=== PATIENT | male | born 1960 | race Caucasian/White ===

== ENCOUNTER 2016-07-14 19:36 | Inpatient (IN) | payer MEDICAID, OTHER ==
[2016-07-14] MEDS ORDERED: Aspirin 325 mg EC Tablets PO STA (21:23)
--- NOTE | 2016-07-14 21:24 | C.PDOC ---
History Of Present Illness Patient, with a past medical history of hypertension, presents to the ED complaining of intermittent chest discomfort for the past month. Patient also complains of occasional numbness. Patient denies fever, palpitations, shortness of breath, nausea, vomiting, or weakness. Time Seen by Provider: 07/14/16 21:23 Chief Complaint (Nursing): Chest Pain History Per: Patient History/Exam Limitations: no limitations Onset/Duration Of Symptoms: Intermittent Episodes (1 month) Current Symptoms Are (Timing): Still Present Context: Other Severity: Mild Pain Scale Rating Of: 3 Quality: Other (discomfort) Exacerbating Factors: None Alleviating Factors: None Recent travel outside of the [place]: No Additional History Per: Patient Past Medical History Reviewed: Historical Data, Nursing Documentation, Vital Signs Vital Signs: Last Vital Signs Temp 97.6 F 07/15/16 17:37 Pulse 76 07/15/16 17:00 Resp 20 07/15/16 17:37 BP 113/63 07/15/16 17:37 Pulse Ox 97 07/15/16 17:37 - Medical History PMH: HTN - [facility] FOR SUBSTANCE ABUSE TREATMENT (01/30/15) Family History: States: No Known Family Hx - Social History Hx Tobacco Use: No Hx Alcohol Use: Yes Hx Substance Use: No - Immunization History Hx Tetanus Toxoid Vaccination: No Hx Influenza Vaccination: No Hx Pneumococcal Vaccination: No Review Of Systems Constitutional: Negative for: Fever Cardiovascular: Positive for: Other (chest discomfort). Negative for: Palpitations Respiratory: Negative for: Shortness of Breath Gastrointestinal: Negative for: Nausea, Vomiting Neurological: Positive for: Numbness. Negative for: Weakness Physical Exam - Physical Exam Appears: Non-toxic, No Acute Distress, Other (sleeping) Skin: Warm, Dry Head: Atraumatic, Normacephalic Eye(s): bilateral: EOMI Oral Mucosa: Moist Neck: Supple Chest: Symmetrical Cardiovascular: Rhythm Regular Respiratory: No Rales, No Rhonchi, No Wheezing Gastrointestinal/Abdominal: Soft, No Tenderness Back: No CVA Tenderness Extremity: Bilateral: Atraumatic, Normal Color And Temperature Neurological/Psych: Oriented x3, Normal Speech, Normal Cognition, Normal Motor, Normal Sensation Gait: Steady ED Course And Treatment - Laboratory Results Result Diagrams: 07/14/16 21:51 07/14/16 21:51 ECG: Interpreted By Me, Viewed By Me ECG Rhythm: Sinus Rhythm (53), Nonspecific Changes O2 Sat by Pulse Oximetry: 100 (room air) Pulse Ox Interpretation: Normal - Radiology CXR: Interpreted by Me, Viewed By Me CXR Interpretation: No: Infiltrates, Fracture, Pnemothorax Progress Note: Plan: EKG, Labs, Chest x-ray, Ecotrin Reassessment Condition: Improved Disposition Counseled Patient/Family Regarding: Studies Performed, Diagnosis, Need For Followup - Disposition Disposition: HOME/ ROUTINE Disposition Time: 21:23 Condition: FAIR - Clinical Impression Clinical Impression: Chest pain - Scribe Statement The provider has reviewed the documentation as recorded by the Scribe Tarah Guillen Provider Attestation: All medical record entries made by the Scribe were at my direction and personally dictated by me. I have reviewed the chart and agree that the record accurately reflects my personal performance of the history, physical exam, medical decision making, and the department course for this patient. I have also personally directed, reviewed, and agree with the discharge instructions and disposition.
[2016-07-14 22:00] LABS: BASO % 0.3 % (0.0-2.0); EOS # 0.1 K/uL (0.0-0.7); LYMPH # 1.9 K/uL (1.0-4.3); LYMPH % 25.9 % (20.0-40.0); MEAN CELL VOLUME 89.5 fL (80.0-94.0); MEAN CORPUSCULAR HEMOGLOBIN 29.4 pg (27.0-31.0); MEAN CORPUSCULAR HGB CONC 32.9 g/dL (33.0-37.0); MONO # 0.8 K/uL (0.0-0.8); MONO % 10.5 % (0.0-10.0); RED CELL DISTRIBUTION WIDTH 13.3 % (11.5-14.5); WHITE BLOOD COUNT 7.5 K/uL (4.8-10.8)
[2016-07-14 22:05] LABS: CHLORIDE 99 mmol/L (98-107); POTASSIUM 4.4 mmol/L (3.6-5.2); SODIUM 137 mmol/L (132-148)
[2016-07-14 22:07] LABS: BILIRUBIN,TOTAL 1.5 mg/dL (0.2-1.3); GFR AFRICAN-AMERICAN > 60
[2016-07-14 22:08] LABS: ALB/GLOB RATIO 1.2 (1.0-2.1); ALKALINE PHOSPHATASE 76 U/L (38-126); ALT/SGPT 26 U/L (21-72); AST/SGOT 29 U/L (17-59); BLOOD UREA NITROGEN 16 mg/dL (9-20); CARBON DIOXIDE 24 mmol/L (22-30); GLUCOSE,RANDOM 81 mg/dL (75-110); TOTAL PROTEIN 7.2 g/dL (6.3-8.3)
[2016-07-14 22:09] LABS: CALCIUM 9.1 mg/dl (8.6-10.4)
[2016-07-14 22:20] LABS: INR 1.3
[2016-07-15 02:40] LABS: URINE BILIRUBIN NEGATIVE (NEGATIVE); URINE BLOOD NEGATIVE (NEGATIVE); URINE COLOR Amber (YELLOW); URINE GLUCOSE (UA) NORMAL (Normal); URINE KETONE 2+ mg/dL (NEGATIVE); URINE LEUKOCYTE ESTERASE NEG Leu/uL (Negative); URINE PROTEIN NEGATIVE (NEGATIVE); WBC URINE 2 /hpf (0-5)
--- NOTE | 2016-07-15 08:29 | CT ---
PROCEDURE: CT HEAD WITHOUT CONTRAST. HISTORY: complaints of numbness COMPARISON: None available. TECHNIQUE: Axial computed tomography images were obtained through the head/brain without intravenous contrast. Radiation dose: Total exam DLP = 880 mGy-cm. This CT exam was performed using one or more of the following dose reduction techniques: Automated exposure control, adjustment of the mA and/or kV according to patient size, and/or use of iterative reconstruction technique. FINDINGS: HEMORRHAGE: No intracranial hemorrhage. BRAIN: Scattered focal lucencies in the subcortical and periventricular white matter suggestive for chronic microvascular ischemic change. Small hypodensity in the left basal ganglia may represent small lacunar infarct versus prominent perivascular space. Focal encephalomalacia and or atrophy seen within the bilateral anterior temporal lobes. VENTRICLES: Unremarkable. No hydrocephalus. CALVARIUM: Unremarkable. PARANASAL SINUSES: Unremarkable as visualized. No significant inflammatory changes. MASTOID AIR CELLS: Unremarkable as visualized. No inflammatory changes. OTHER FINDINGS: Small focal calcification seen along the medial right aspect of the anterior falx measuring 9 millimeters which may represent granulomatous change versus small calcified meningioma versus additional etiology. IMPRESSION: Focal encephalomalacia and or atrophy seen within the bilateral anterior temporal lobes. Clinical correlation. Correlation with MRI may be helpful if clinically indicated. Chronic microvascular ischemic changes. Small hypodensity in the left basal ganglia which may represent a small lacunar infarct versus prominent perivascular space. If focal neurologic deficit persists, consider further evaluation with MRI.
--- NOTE | 2016-07-15 09:41 | RAD ---
PROCEDURE: CHEST RADIOGRAPH, 1 VIEW HISTORY: chest pain COMPARISON: 02/01/2015 FINDINGS: LUNGS: Mild venous congestion. Patchy increased markings at the left lung base. PLEURA: As above. CARDIOVASCULAR: Normal. OSSEOUS STRUCTURES: No significant abnormalities. VISUALIZED UPPER ABDOMEN: Normal. OTHER FINDINGS: None. IMPRESSION: Mild venous congestion. Patchy increased markings at the left lung base.
--- NOTE | 2016-07-15 10:53 | CP.PCM.HP ---
<Anibal Coelho - Last Filed: 07/15/16 16:01> History of Present Illness - History of Present Illness History of Present Illness: CC: "Weakness in legs and numbness of my entire body" 55M with PMH of HTN and prior ETOH abuse who presents to the ED for complaint of weakness in his legs and diffuse numbness. He reports that he first experienced a tingling in his chest about a month ago that gradually spread throughout his entire body and progressed to numbness. He describes it as "feeling off" and notes that at first it would come and go, but it progressed to being persistent. About the same time he noticed his legs were growing weak and he had more difficulty walking around. He cannot name any inciting factors, any relieving factors or any exacerbating factors. He had never experienced these symptoms before one month ago. Patient is currently denying any pain. Nothing he notices, alleviates or exacerbates any of his symptoms. Admits weakness, numbness, shortness of breath, urinary urgency. Denies urinary or bowel incontinence, fever, chills, headache, vision changes, hearing changes, recent illness, nausea, vomiting, diarrhea, and edema. PMD: Previously went to [facility] on [address] and in [place] PMH: HTN, prior EtOH abuse Meds: HCTZ 25 mg PO daily, Norvasc 10 mg PO daily, Famotidine 20 mg PO daily, Ibuprofen 400 mg PO Q6H PRN, Benadryl 25 mg PO Q6H PRN Allergies: NKDA PSH: Denies FH: Mother had HTN, now Social: Pt recently moved back to about 1.5 months ago after previously living in [facility] for a few years. He smoked 3-4 cigarettes per day for 27 years. Drank 1-2 shots and 3-4 large beers daily Present on Admission - Present on Admission Any Indicators Present on Admission: No History of DVT/PE: No History of Uncontrolled Diabetes: No Urinary Catheter: No Decubitus Ulcer Present: No Review of Systems - Constitutional Constitutional: Fatigue. absent: Weight Gain, Weight Loss - EENT Eyes: absent: Blurred Vision, Change in Vision, Diplopia - Cardiovascular Cardiovascular: absent: Diaphoresis, Leg Edema - Respiratory Respiratory: Dyspnea - Gastrointestinal Gastrointestinal: absent: Abdominal Pain, Constipation, Diarrhea, Nausea, Vomiting - Genitourinary Genitourinary: absent: Urinary Incontinence - Musculoskeletal Musculoskeletal: Numbness (described throughout the entire body) - Integumentary Integumentary: absent: Rash - Neurological Neurological: Abnormal Gait (patient has trouble standing from a seated position. ambulates with a walker), Numbness, Frequent Falls, Lack of Coordination, Tingling, Weakness. absent: Abnormal Speech, Headaches, Loss of Vision, Syncope Past Patient History - Past Medical History & Family History Past Medical History?: Yes - Past Social History Smoking Status: Light Smoker < 10 Cigarettes Daily - CARDIAC Hx Hypertension: Yes - PULMONARY Hx Tuberculosis: No - NEUROLOGICAL Hx Seizures: No - ENDOCRINE/METABOLIC Hx Diabetes Mellitus Type 1: No Hx Diabetes Mellitus Type 2: No - HEMATOLOGICAL/ONCOLOGICAL Hx Human Immunodeficiency Virus (HIV): No - MUSCULOSKELETAL/RHEUMATOLOGICAL Hx Falls: No - GENITOURINARY/GYNECOLOGICAL Hx Sexually Transmitted Disorders: No - PSYCHIATRIC Hx Substance Use: No - SURGICAL HISTORY Hx Surgeries: No - ANESTHESIA Hx Anesthesia: No Meds Allergies/Adverse Reactions: Allergies Allergy/AdvReac Type Severity Reaction Status Date / Time No Known Allergies Allergy Verified 07/14/16 20:23 Physical Exam - Constitutional Appears: No Acute Distress - Head Exam Head Exam: ATRAUMATIC, NORMAL INSPECTION, NORMOCEPHALIC - Eye Exam Eye Exam: EOMI, Scleral icterus. absent: Conjunctival injection - ENT Exam ENT Exam: Mucous Membranes Dry - Neck Exam Neck exam: Positive for: Full Rom - Respiratory Exam Respiratory Exam: Clear to Auscultation Bilateral. absent: Rales, Rhonchi, Wheezes - Cardiovascular Exam Cardiovascular Exam: REGULAR RHYTHM, +S1, +S2 - GI/Abdominal Exam GI & Abdominal Exam: Diminished Bowel Sounds, Soft. absent: Guarding, Rebound, Tenderness - Extremities Exam Extremities exam: Positive for: normal capillary refill, pedal pulses present. Negative for: calf tenderness, full ROM (contractions), pedal edema - Back Exam Back exam: absent: CVA tenderness (L), CVA tenderness (R) - Neurological Exam Neurological exam: Abnormal Gait, Alert, CN II-XII Intact, Oriented x3 - Expanded Neurological Exam Expanded Neurological exam: Ataxia Patient oriented to: person, place, time Cranial nerves: EOM's Intact: Normal, Facial Sensation: Normal, Gag Reflex: Normal Ataxia: Yes Cerebellar Function: Finger to Nose: Normal Neuro motor strength exam: Left Upper Extremity: 4, Right Upper Extremity: 4, Left Lower Extremity: 3, Right Lower Extremity: 4 DTR: Achilles Tendon Left: 0, Achilles Tendon Right: 0, Bicep Left: 2+, Bicep Right: 2+, Brachioradialis Left: 2+, Brachioradialis Right: 2+, Patellar Left: 3 +, Patellar Right: 3+, Tricep Left: 0, Tricep Right: 0 Coma Scale Eye Opening: SPONTANEOUS Coma Scale Motor Response: OBEYS COMMANDS Coma Scale Verbal: Oriented Coma Scale Total: 15 - Psychiatric Exam Psychiatric exam: Anxious - Skin Skin Exam: Dry, Intact, Normal Color Additional comments: LE slightly cold to touch Results - Vital Signs Recent Vital Signs: Last Vital Signs Temp 97.9 F 07/15/16 08:54 Pulse 80 07/15/16 08:54 Resp 18 07/15/16 08:54 BP 151/73 H 07/15/16 08:54 Pulse Ox 95 07/15/16 08:54 - Labs Result Diagrams: 07/14/16 21:51 07/14/16 21:51 Assessment & Plan - Assessment and Plan (Free Text) Plan: 1. Generalized Lower extremity weakness Admit to telemetry Neurology consult, Dr. Miranda, help appreciated CT head Brain MRI: Focal encephalomalacia and or atrophy seen within the bilateral anterior temporal lobes. Clinical correlation. Correlation with MRI may be helpful if clinically indicated. Chronic microvascular ischemic changes. Small hypodensity in the left basal ganglia which may represent a small lacunar infarct versus prominent perivascular space (see full report) Lumbar XR Cervical XR CXR: Mild venous congestion. Patchy increased markings at the left lung base ( see full report) HIV, RPR, DAWN, RF, Lyme titers, ESR Vitamin D, Vitamin B12 CPK Neurochecks ASA 81 mg PO daily Crestor 5 mg PO HS f/u daily labs NS 100 cc/hr HHD 2. HTN HCTZ 25 mg po daily Norvasc 10 mg PO daily 3. Prophylactic Measures Prontonix 40 mg PO daily Lovenox 40 mg SC daily SCDs HHD NIHSS Stroke Scale - Date/Time Evaluation Performed Date Performed: 07/15/16 Time Performed: 10:30 When Was NIHSS Performed: Other - How Severe is the Stoke Level of Consciousness: 0=Alert LOC to Questions: 0=Both comments correct LOC to commands: 0=Obeys both correctly Best Gaze: 0=Normal Visual: 0=No visual loss Facial: 0=Normal Motor Arm - Left: 0=No drift Motor Arm - Right: 0=No drift Motor Leg - Left: 1=Drift before 5 sec Motor Leg - Right: 0=No drift Limb Ataxia: 1=Present Upper or Lower (lower) Sensory: 1=Mild to moderate loss Best Language: 0=No aphasia Dysarthia: 0=Normal articulation Extinction & Inattention (Neglect): 0=Normal, no object Score: 3 Severity Of Stroke: 1-4= Minor Stroke <Sonia Levine V - Last Filed: 07/15/16 23:56> Results - Vital Signs Recent Vital Signs: Last Vital Signs Temp 97.6 F 07/15/16 17:37 Pulse 76 07/15/16 17:00 Resp 20 07/15/16 17:37 BP 113/63 07/15/16 17:37 Pulse Ox 100 07/15/16 21:07 - Labs Result Diagrams: 07/14/16 21:51 07/14/16 21:51 Labs: Laboratory Results - last 24 hr 07/15/16 07/15/16 07/15/16 13:18 13:18 13:18 ESR Hemoglobin A1c 6.1 Total Creatine Kinase 157 CK-MB (Mass) 2.37 Troponin I, Quant < 0.0120 Triglycerides 84 Cholesterol 150 LDL Cholesterol Direct 86 HDL Cholesterol 39 Vitamin B12 694 25-OH Vitamin D Total Folate Thyroxine (T4) 9.33 TSH 3rd Generation 0.60 RPR 07/15/16 07/15/16 07/15/16 13:18 19:37 19:37 ESR 30 H Hemoglobin A1c Total Creatine Kinase CK-MB (Mass) Troponin I, Quant Triglycerides Cholesterol LDL Cholesterol Direct HDL Cholesterol Vitamin B12 726 25-OH Vitamin D Total Folate 14.0 Thyroxine (T4) TSH 3rd Generation RPR Nonreactive 07/15/16 19:41 ESR Hemoglobin A1c Total Creatine Kinase CK-MB (Mass) Troponin I, Quant Triglycerides Cholesterol LDL Cholesterol Direct HDL Cholesterol Vitamin B12 25-OH Vitamin D Total 21.7 L Folate Thyroxine (T4) TSH 3rd Generation RPR Attending/Attestation - Attestation I have personally seen and examined this patient.: Yes I have fully participated in the care of the patient.: Yes I have reviewed all pertinent clinical information: Yes Notes (Text): Patient seen, examined in [facility] on 07/15/16. Patient case discussed with day-time resident and neurologist at bedside. Patient reports 1.5 month of general body weakness, specifically lower extremity weakness. Patient denies associated pain symptoms. Patient reports prior he is ambulatory, independent, and works with the [employer]. Patient reports he has been falling recently, last one about a month, fell on right side , but denies trauma to the head and back. Patient reports the weakness over his lower extremity was so bad, it prompted to call the ambulance because he reported something was wrong. Patient recently moved to [place], and reports he used to see his PMD in [facility], but hasn't had any answers to what is going on with him. Patient reports decreased sensation bilateral lower extremities, denies pain, denies urinary/bowel incontinence. Discussed with neurology concern for neurodegenerative disease, workup to include MRI T-Lumbar, completed brain MRI this morning, and possible lumbar puncture per discussion with neurology 1. Generalized Lower extremity weakness * Neurology consult, Dr. Miranda, help appreciated * CT head (07/15/16): foncal encephalomalacia and/or atrophy seen with b/l anterior temporal lobes Correlation with MRI may be helpful if clinically indicated. Chronic microvascular ischemic changes. Small hypodensity in the left basal ganglia which may represent a small lacunar infarct versus prominent perivascular space (see full report). * Ordered for Brain MRI this morning * Ordered for Lumbar and cervical spine xrays * CXR: Mild venous congestion. Patchy increased markings at the left lung base (see full report) * Ordered for HIV, RPR, DAWN, RF, Lyme titers, ESR, Vitamin D, Vitamin B12, CPK, a1c * Neurochecks * ASA 81 mg PO daily * Crestor 5 mg PO HS * f/u daily labs * NS 100 cc/hr * Low suspicion for stroke given patient has reporting lower extremity weakness over the past month 2. HTN * HCTZ 25 mg po daily * Norvasc 10 mg PO daily 3. Prophylactic Measures * Protonix 40 mg PO daily * Lovenox 40 mg SC daily * SCDs * PT/OT eval
--- NOTE | 2016-07-15 13:05 | MRI ---
PROCEDURE: MRI BRAIN WITHOUT CONTRAST HISTORY: Suspected CVA COMPARISON: Noncontrast head CT from 07/15/2016. TECHNIQUE: Multiplanar, multisequence MR images of the brain were obtained without intravenous contrast enhancement. FINDINGS: HEMORRHAGE: None DWI: No evidence of an acute or early subacute infarction. BRAIN PARENCHYMA: There are mild chronic microangiopathic changes. There is no mass, mass effect or abnormal extra-axial fluid collection. VENTRICLES: There is mild age-related global parenchymal volume loss and proportionate enlargement of the ventricles and cortical sulci. There is a 2.2 x 4.7 cm CSF intensity mass in the right anterior middle cranial fossa and a 1.6 x 2.0 cm CSF intensity mass in the left middle cranial fossa. CRANIUM: The skull base and calvarium are normal. ORBITS: Grossly unremarkable. PARANASAL SINUSES/MASTOIDS: Predominantly clear VASCULAR SYSTEM: There are normal signal voids in the larger intracranial arteries. OTHER FINDINGS: None. IMPRESSION: 1. No acute intracranial abnormality. 2. Mild chronic microangiopathic changes and mild age-related global parenchymal volume loss. 3. 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 No evidence of mass effect or vasogenic edema.
--- NOTE | 2016-07-15 13:06 | CP.PCM.CON ---
History of Present Illness - History of Present Illness History of Present Illness: Mr. Kraus is a 55-year-old man with no significant past medical history, who states that for the past month or so, he has been having progressive weakness and difficulty with ambulation. He states that the weakness is mostly in his legs, but his hands have also become weak and he has more trouble with holding objects. Due to his weakness, he has not been able to even walk to the refrigerator to eat and has not had much to eat or drink over the past week. He has suffered several falls as a result of his lower extremity weakness. He denies any urinary or bowel incontinence, blurry or double vision, headache, nausea, shortness of breath, chest pain, back pain, abdominal pain or any other associated symptoms. He states that his hands have become more contracted and forced in a finger-flexed manner over the last two weeks. He has been to a few hospitals while he was in [place] over the last month, but he states that he has not had imaging or proper work-up. He has not had any other recent travel, changes in his diet, recent illness or changes in medications. He states that he used to drink, but quit about 8 years ago. He used to smoke, but has not smoked in the last two weeks (was smoking about 1/2 ppd). Review of Systems - Review of Systems All systems: reviewed and no additional remarkable complaints except Past Patient History - Past Medical History & Family History Past Medical History?: Yes - Past Social History Smoking Status: Light Smoker < 10 Cigarettes Daily - CARDIAC Hx Hypertension: Yes - PULMONARY Hx Tuberculosis: No - NEUROLOGICAL Hx Seizures: No - ENDOCRINE/METABOLIC Hx Diabetes Mellitus Type 1: No Hx Diabetes Mellitus Type 2: No - HEMATOLOGICAL/ONCOLOGICAL Hx Human Immunodeficiency Virus (HIV): No - MUSCULOSKELETAL/RHEUMATOLOGICAL Hx Falls: No - GENITOURINARY/GYNECOLOGICAL Hx Sexually Transmitted Disorders: No - PSYCHIATRIC Hx Substance Use: No - SURGICAL HISTORY Hx Surgeries: No - ANESTHESIA Hx Anesthesia: No Meds Allergies/Adverse Reactions: Allergies Allergy/AdvReac Type Severity Reaction Status Date / Time No Known Allergies Allergy Verified 07/14/16 20:23 - Medications Medications: Current Medications Amlodipine Besylate (Norvasc) 10 mg PO DAILY HUSEYIN Aspirin (Ecotrin) 81 mg PO DAILY HUSEYIN Hydrochlorothiazide (Hydrodiuril) 25 mg PO DAILY HUSEYIN Sodium Chloride (Sodium Chloride 0.9%) 1,000 mls @ 100 mls/hr IV .Q10H HUSEYIN Ondansetron HCl (Zofran Inj) 4 mg IVP Q6 PRN PRN Reason: Nausea/Vomiting Pantoprazole Sodium (Protonix Ec Tab) 40 mg PO DAILY HUSEYIN Rosuvastatin Calcium (Crestor) 5 mg PO HS HUSEYIN Physical Exam - Constitutional Appears: Cachectic - Head Exam Additional comments: moravian wasting - Eye Exam Eye Exam: EOMI, Normal appearance, PERRL - ENT Exam ENT Exam: Mucous Membranes Moist, Normal Exam - Neck Exam Neck exam: Positive for: Normal Inspection - Respiratory Exam Respiratory Exam: Clear to Auscultation Bilateral, NORMAL BREATHING PATTERN - Cardiovascular Exam Cardiovascular Exam: RRR, +S1, +S2 - GI/Abdominal Exam GI & Abdominal Exam: Normal Bowel Sounds, Soft. absent: Tenderness - Neurological Exam Neurological exam: Alert, CN II-XII Intact Additional comments: Speech is clear and fluent without dysarthria. Generalized weakness with bilateral hand muscle wasting (thenar region), and mild tongue fasciculations. Upper extremities are 4/5 proximally on the right and 3/5 distally on the right ; 3/5 proximally and distally on the left; bilateral lower extremities are 3/5 proximally and distally. Reflexes are brisk throughout. Gait could not be assessed due to weakness, Romberg could not be assessed. - Psychiatric Exam Psychiatric exam: Normal Affect, Normal Mood Results - Vital Signs Recent Vital Signs: Last Vital Signs Temp 98 F 07/15/16 10:59 Pulse 76 07/15/16 10:59 Resp 20 07/15/16 10:59 BP 140/69 07/15/16 10:59 Pulse Ox 98 07/15/16 10:59 - Labs Result Diagrams: 07/14/16 21:51 07/14/16 21:51 Assessment & Plan - Assessment and Plan (Free Text) Assessment: The patient is a 55-year-old man with progressive weakness, muscle wasting, fasciculations and a recent history of decreased PO intake and previous alcoholism and smoking. The differential included motor neuron disease, myelitis/myelopathy or generalized neuropathy from toxic or inflammatory causes. Plan: Will obtain an MRI of the total spine with and without contrast, check B12/ folate, TSH/T3/T4, inflammatory markers (CRP/ESR), consider NCS/EMG after results from other tests return. May consider lumbar puncture and CSF analysis if results are not conclusive. - Date & Time Date: 07/15/16 Time: 12:25
[2016-07-15] MEDS: Sodium Chloride 0.9% 1,000 ML IV SCH (13:20)
[2016-07-15 13:36] LABS: CHOLESTEROL 150 mg/dL (0-199)
[2016-07-15 13:53] LABS: T4 9.33 ug/dL (5.5-11.0)
[2016-07-15] MEDS: Pantoprazole 40 mg EC Tab PO SCH (14:53)
--- NOTE | 2016-07-15 16:35 | RAD ---
PROCEDURE: Cervical Spine Radiographs. HISTORY: Pain. COMPARISON: None. FINDINGS: BONES: Straightening of the normal cervical lordosis Are as on toe radiolucency at dens base -remote fracture versus developmental variant are considerations. No recent history of trauma. Pre vertebral soft tissues here appear normal. C5-6 and lesser C6-7 anterior spondylosis DISC SPACES: C5-6 disc space narrowing. SOFT TISSUES: Normal. No prevertebral soft tissue swelling. OTHER FINDINGS: None. IMPRESSION: Radiolucency at the dens base -a remote fracture versus developmental variant considerations. Consider CT cervical spine without contrast for further evaluation. Cervical spine straightening. No subluxation. Cervical spondylosis under disc disease most notable at C5-6. Comments: The MRI brain same-day study shows patchy signal at this dens base level without any prevertebral soft tissue changes to suggest acute pathology here .
--- NOTE | 2016-07-15 16:53 | RAD ---
PROCEDURE: Radiographs of the Lumbar Spine. HISTORY: LE extremity weakness COMPARISON: No prior. FINDINGS: BONES: Normal alignment. No listhesis. No fracture. Five non rib-bearing lumbar vertebrae for purposes of this report rudimentary ribs L4-5 and L5-S1 facet arthrosis. L4-5 spondylosis. S1 spina bifida occulta DISC SPACES: L4-5 disc space narrowing OTHER FINDINGS: Calcification right upper quadrant possibly gallstone IMPRESSION: Lumbar spondylosis and facet arthrosis. Developmental variants Probable gallstone
[2016-07-16] MEDS: Sodium Chloride 0.9% 1,000 ML IV SCH (00:04)
[2016-07-16 06:26] LABS: BASO % 0.3 % (0.0-2.0); EOS # 0.1 K/uL (0.0-0.7); EOS % 1.3 % (0.0-4.0); HEMATOCRIT 39.2 % (35.0-51.0); LYMPH # 1.8 K/uL (1.0-4.3); LYMPH % 28.1 % (20.0-40.0); MEAN CELL VOLUME 88.8 fL (80.0-94.0); MEAN CORPUSCULAR HEMOGLOBIN 28.9 pg (27.0-31.0); MEAN CORPUSCULAR HGB CONC 32.6 g/dL (33.0-37.0); MEAN PLATELET VOLUME 8.7 fL (7.2-11.7); MONO # 0.8 K/uL (0.0-0.8); MONO % 13.5 % (0.0-10.0); RED CELL DISTRIBUTION WIDTH 13.7 % (11.5-14.5); WHITE BLOOD COUNT 6.3 K/uL (4.8-10.8)
[2016-07-16 06:49] LABS: CHLORIDE 100 mmol/L (98-107); INR 1.3; SODIUM 137 mmol/L (132-148)
[2016-07-16 06:50] LABS: POTASSIUM 3.6 mmol/L (3.6-5.2)
[2016-07-16 06:52] LABS: ALB/GLOB RATIO 1.1 (1.0-2.1); ALKALINE PHOSPHATASE 72 U/L (38-126); ALT/SGPT 13 U/L (21-72); AST/SGOT 24 U/L (17-59); BILIRUBIN,TOTAL 0.7 mg/dL (0.2-1.3); BLOOD UREA NITROGEN 12 mg/dL (9-20); CARBON DIOXIDE 27 mmol/L (22-30); GFR AFRICAN-AMERICAN > 60; GLUCOSE,RANDOM 119 mg/dL (75-110); TOTAL PROTEIN 6.4 g/dL (6.3-8.3)
[2016-07-16 06:53] LABS: CALCIUM 8.6 mg/dl (8.6-10.4); MAGNESIUM 1.3 mg/dL (1.6-2.3); PHOSPHOROUS 3.4 mg/dL (2.5-4.5)
[2016-07-16] MEDS: Pantoprazole 40 mg EC Tab PO SCH (11:05)
[2016-07-16] MEDS: Enoxaparin 40 mg Syringe SC SCH (11:06)
[2016-07-16 12:38] LABS: ANA TITER 1:40
--- NOTE | 2016-07-16 13:32 | CP.PCM.PN ---
Subjective - Date & Time of Evaluation Date of Evaluation: 07/16/16 Time of Evaluation: 12:30 - Subjective Subjective: Mr. Kruas was seen and examined today at bedside. He was having his lunch and feeding himself with only slight difficulty. He denied and new symptoms and there were no acute events overnight. Objective - Vital Signs/Intake and Output Vital Signs (last 24 hours): Temp Pulse Resp BP Pulse Ox 98.4 F 78 20 137/67 98 07/16/16 07:10 07/16/16 07:10 07/16/16 07:10 07/16/16 07:10 07/16/16 07:10 Intake and Output: 07/16/16 07/16/16 06:59 18:59 Intake Total 2600 Output Total 850 Balance 1750 - Medications Medications: Current Medications Amlodipine Besylate (Norvasc) 10 mg PO DAILY [facility] Last Admin: 07/16/16 11:05 Dose: 10 mg Aspirin (Ecotrin) 81 mg PO DAILY [facility] Last Admin: 07/16/16 11:06 Dose: 81 mg Enoxaparin Sodium (Lovenox) 40 mg SC DAILY [facility] Last Admin: 07/16/16 11:06 Dose: 40 mg Hydrochlorothiazide (Hydrodiuril) 25 mg PO DAILY [facility] Last Admin: 07/16/16 11:06 Dose: 25 mg Sodium Chloride (Sodium Chloride 0.9%) 1,000 mls @ 100 mls/hr IV .Q10H [facility] Last Admin: 07/16/16 00:04 Dose: 100 mls/hr Lorazepam (Ativan) 1 mg IVP Q4H PRN PRN Reason: Seizure activity Ondansetron HCl (Zofran Inj) 4 mg IVP Q6 PRN PRN Reason: Nausea/Vomiting Pantoprazole Sodium (Protonix Ec Tab) 40 mg PO DAILY [facility] Last Admin: 07/16/16 11:05 Dose: 40 mg Pneumococcal Polyvalent Vaccine (Pneumovax 23 Vaccine) 0.5 ml IM .ONCE ONE Stop: 07/17/16 10:01 Rosuvastatin Calcium (Crestor) 5 mg PO HS [facility] Last Admin: 07/15/16 21:32 Dose: 5 mg - Labs Labs: 07/16/16 06:18 07/16/16 06:18 PT 14.8 SECONDS (9.7-12.2) H 07/16/16 06:18 INR 1.3 07/16/16 06:18 APTT 30 SECONDS (21-34) 07/16/16 06:18 - Constitutional Appears: Cachectic - Head Exam Head Exam: ATRAUMATIC, NORMAL INSPECTION, NORMOCEPHALIC - Eye Exam Eye Exam: EOMI, Normal appearance, PERRL Pupil Exam: NORMAL ACCOMODATION, PERRL - ENT Exam ENT Exam: Mucous Membranes Moist, Normal Exam - Neck Exam Neck Exam: Full ROM, Normal Inspection. absent: Lymphadenopathy - Cardiovascular Exam Cardiovascular Exam: REGULAR RHYTHM, +S1, +S2. absent: Murmur - GI/Abdominal Exam GI & Abdominal Exam: Soft, Normal Bowel Sounds. absent: Tenderness - Neurological Exam Neurological Exam: Abnormal Gait, Alert, Awake, CN II-XII Intact Neuro motor strength exam: Left Upper Extremity: 3, Right Upper Extremity: 3, Left Lower Extremity: 3, Right Lower Extremity: 3 Additional comments: Neurologically unchanged compared with yesterday's exam. - Psychiatric Exam Psychiatric exam: Normal Affect, Normal Mood Assessment and Plan (1) History of progressive weakness Assessment & Plan: The MRI of the brain, cervical and lumbar spine did not show any significant findings that can explain his progressive weakness over the last month. The MRI of the thorcacic spine is pending and will help to provide a more complete picture. Continue supportive care for now and will follow up with the patient with more information once it is obtained. Status: Acute
--- NOTE | 2016-07-16 16:22 | CP.PCM.PN ---
<Anibal Coelho - Last Filed: 07/16/16 16:16> Subjective - Date & Time of Evaluation Date of Evaluation: 07/16/16 Time of Evaluation: 07:10 - Subjective Subjective: PGY-1 Medicine Progress Note for Dr. Levine Patient seen and examined at bedside. No acute events overnight. Pt reports that his lower extremity weakness and numbness are both slightly improved and overall he feels a bit better. Had normal bowel movements and has been tolerating normal diet well. Has not had a chance to ambulate since being admitted, but is anxious to try. Pt denies headache, chest pain, abdominal pain , shortness of breath, dizziness, leg swelling, joint pain. Objective - Vital Signs/Intake and Output Vital Signs (last 24 hours): Temp Pulse Resp BP Pulse Ox 99.3 F 75 20 136/70 96 07/16/16 15:35 07/16/16 15:35 07/16/16 15:35 07/16/16 15:35 07/16/16 15:35 Intake and Output: 07/16/16 07/16/16 06:59 18:59 Intake Total 2600 Output Total 850 Balance 1750 - Medications Medications: Current Medications Amlodipine Besylate (Norvasc) 10 mg PO DAILY [facility] Last Admin: 07/16/16 11:05 Dose: 10 mg Aspirin (Ecotrin) 81 mg PO DAILY [facility] Last Admin: 07/16/16 11:06 Dose: 81 mg Enoxaparin Sodium (Lovenox) 40 mg SC DAILY [facility] Last Admin: 07/16/16 11:06 Dose: 40 mg Hydrochlorothiazide (Hydrodiuril) 25 mg PO DAILY [facility] Last Admin: 07/16/16 11:06 Dose: 25 mg Sodium Chloride (Sodium Chloride 0.9%) 1,000 mls @ 100 mls/hr IV .Q10H [facility] Last Admin: 07/16/16 00:04 Dose: 100 mls/hr Lorazepam (Ativan) 1 mg IVP Q4H PRN PRN Reason: Seizure activity Ondansetron HCl (Zofran Inj) 4 mg IVP Q6 PRN PRN Reason: Nausea/Vomiting Pantoprazole Sodium (Protonix Ec Tab) 40 mg PO DAILY [facility] Last Admin: 07/16/16 11:05 Dose: 40 mg Pneumococcal Polyvalent Vaccine (Pneumovax 23 Vaccine) 0.5 ml IM .ONCE ONE Stop: 07/17/16 10:01 Rosuvastatin Calcium (Crestor) 5 mg PO HS [facility] Last Admin: 07/15/16 21:32 Dose: 5 mg - Labs Labs: 07/16/16 06:18 07/16/16 06:18 PT 14.8 SECONDS (9.7-12.2) H 07/16/16 06:18 INR 1.3 07/16/16 06:18 APTT 30 SECONDS (21-34) 07/16/16 06:18 - Constitutional Appears: No Acute Distress - Head Exam Head Exam: ATRAUMATIC, NORMAL INSPECTION, NORMOCEPHALIC - Eye Exam Eye Exam: EOMI, Normal appearance Pupil Exam: PERRL - ENT Exam ENT Exam: Mucous Membranes Moist - Neck Exam Neck Exam: Normal Inspection - Respiratory Exam Respiratory Exam: Clear to Ausculation Bilateral - Cardiovascular Exam Cardiovascular Exam: REGULAR RHYTHM - GI/Abdominal Exam GI & Abdominal Exam: Soft, Normal Bowel Sounds. absent: Guarding, Tenderness, Rebound - Extremities Exam Extremities Exam: Normal Capillary Refill. absent: Tenderness - Back Exam Back Exam: absent: CVA tenderness (L), CVA tenderness (R) - Neurological Exam Neurological Exam: Alert, Awake, CN II-XII Intact, Motor Sensory Deficit, Oriented x3 Neuro motor strength exam: Left Upper Extremity: 5, Right Upper Extremity: 5, Left Lower Extremity: 4, Right Lower Extremity: 4 - Psychiatric Exam Psychiatric exam: Normal Affect, Normal Mood - Skin Skin Exam: Dry, Normal Color, Warm. absent: Rash Assessment and Plan - Assessment and Plan (Free Text) Plan: 1. Generalized Lower extremity weakness MRI total spine w/wo haydee ordered telemetry Neurology consult, Dr. Miranda, help appreciated CT head Brain MRI: Focal encephalomalacia and or atrophy seen within the bilateral anterior temporal lobes. Clinical correlation. Correlation with MRI may be helpful if clinically indicated. Chronic microvascular ischemic changes. Small hypodensity in the left basal ganglia which may represent a small lacunar infarct versus prominent perivascular space (see full report) Lumbar XR Cervical XR CXR: Mild venous congestion. Patchy increased markings at the left lung base ( see full report) HIV Lyme titers RF negative DAWN positive, 1:40, speckled pattern RPR nonreactive ESR 30 CRP 11.86 Vitamin D 21.7 Vitamin B12 726 folate 14 CPK 157 Neurochecks ASA 81 mg PO daily Crestor 5 mg PO HS f/u daily labs NS 100 cc/hr [facility] PT/OT treat and eval 2. HTN HCTZ 25 mg po daily Norvasc 10 mg PO daily 3. Prophylactic Measures Prontonix 40 mg PO daily Lovenox 40 mg SC daily S[facility] <Sonia Levine V - Last Filed: 07/17/16 07:39> Objective - Vital Signs/Intake and Output Vital Signs (last 24 hours): Temp Pulse Resp BP Pulse Ox 99.3 F 80 20 136/70 96 07/16/16 15:35 07/16/16 15:45 07/16/16 15:35 07/16/16 15:35 07/16/16 15:35 Intake and Output: 07/16/16 07/17/16 18:59 06:59 Intake Total 800 Balance 800 - Medications Medications: Current Medications Amlodipine Besylate (Norvasc) 10 mg PO DAILY [facility] Last Admin: 07/16/16 11:05 Dose: 10 mg Aspirin (Ecotrin) 81 mg PO DAILY [facility] Last Admin: 07/16/16 11:06 Dose: 81 mg Enoxaparin Sodium (Lovenox) 40 mg SC DAILY [facility] Last Admin: 07/16/16 11:06 Dose: 40 mg Hydrochlorothiazide (Hydrodiuril) 25 mg PO DAILY [facility] Last Admin: 07/16/16 11:06 Dose: 25 mg Sodium Chloride (Sodium Chloride 0.9%) 1,000 mls @ 100 mls/hr IV .Q10H [facility] Last Admin: 07/16/16 00:04 Dose: 100 mls/hr Magnesium Sulfate/Dextrose (Magnesium Sulfate 1 Gm/100 Ml D5w) 1 gm in 100 mls @ 200 mls/hr IVPB ONCE ONE Stop: 07/16/16 23:32 Lorazepam (Ativan) 1 mg IVP Q4H PRN PRN Reason: Seizure activity Ondansetron HCl (Zofran Inj) 4 mg IVP Q6 PRN PRN Reason: Nausea/Vomiting Pantoprazole Sodium (Protonix Ec Tab) 40 mg PO DAILY [facility] Last Admin: 07/16/16 11:05 Dose: 40 mg Pneumococcal Polyvalent Vaccine (Pneumovax 23 Vaccine) 0.5 ml IM .ONCE ONE Stop: 07/17/16 10:01 Rosuvastatin Calcium (Crestor) 5 mg PO HS [facility] Last Admin: 07/16/16 21:00 Dose: 5 mg - Labs Labs: 07/16/16 06:18 07/16/16 06:18 PT 14.8 SECONDS (9.7-12.2) H 07/16/16 06:18 INR 1.3 07/16/16 06:18 APTT 30 SECONDS (21-34) 07/16/16 06:18 Attending/Attestation - Attestation I have personally seen and examined this patient.: Yes I have fully participated in the care of the patient.: Yes I have reviewed all pertinent clinical information, including history, physical exam and plan: Yes Notes (Text): This is a late computer entry for 07/16/16. Patient seen, examined, and case discussed with day-time resident. Patient seen this morning. Patient appears euvolumnic, in good spirits, strength appears improved, has great appetite per nursing. Discussed results of imaging thus far with patient, awaiting further MRI studies recommended by neurology. Per physical therapy recommended for LEELEE. Assessment/Plan 1. Generalized Lower extremity weakness * Neurology consult, Dr. Miranda, help appreciated * CT head (07/15/16): foncal encephalomalacia and/or atrophy seen with b/l anterior temporal lobes Correlation with MRI may be helpful if clinically indicated. Chronic microvascular ischemic changes. Small hypodensity in the left basal ganglia which may represent a small lacunar infarct versus prominent perivascular space (see full report). * Brain MRI (07/15): no acute intracranial abnormality, mild chronic microangiopathic chanes, and mild age related global, middle cranial fossa arachnoid cyst versus cystic encephalomalacia, no evidence of mass effect or vasogenic edema * Ordered for Lumbar and cervical spine xrays * CXR: Mild venous congestion. Patchy increased markings at the left lung base (see full report) * Cervical xray (07/15/16): radiolucency at the dense base a remote fracture versus developmental variant; conside CT cervical spine; no subluxation, cervical spondylosis under disc disease most notable C5-C6 * Lumbar xray (07/15/16): lumbar spondylosis and facet arthrosis, developmental variants. * Pending MRI spine studies * Ordered for HIV: oending, RF: negative, DAWN: positive, 1:40, speckled, RPR: nonreactive, Lyme titers: pending, ESR: elevated, Vitamin D: low, Vitamin B12, CPK: 157, UDS: negative, blood alcohol: negative * Neurochecks * ASA 81 mg PO daily * Crestor 5 mg PO HS * f/u daily labs * NS 100 cc/hr * Low suspicion for stroke given patient has reporting lower extremity weakness over the past month * elevated ESR and CRP 2. HTN * HCTZ 25 mg po daily * Norvasc 10 mg PO daily * monitor vital signs 3. Electrolyte imbalance * replete Mg2+ 4. Impaired glucose tolerance * [id number]: 6.1 * will need repeat in one year * will need counselling regarding diet and exercise to prevent overt diabetes 5. Prophylactic Measures * Protonix 40 mg PO daily * Lovenox 40 mg SC daily * SCDs * PT/OT eval
[2016-07-16] MEDS ORDERED: Magnesium Sulfate 1 gm in D5W 1 GM/100 ML BAG IVPB ONE (23:03)
[2016-07-17 06:14] LABS: BASO % 0.4 % (0.0-2.0); EOS # 0.1 K/uL (0.0-0.7); EOS % 1.9 % (0.0-4.0); HEMATOCRIT 37.3 % (35.0-51.0); LYMPH # 1.9 K/uL (1.0-4.3); LYMPH % 34.9 % (20.0-40.0); MEAN CELL VOLUME 88.7 fL (80.0-94.0); MEAN CORPUSCULAR HEMOGLOBIN 29.3 pg (27.0-31.0); MEAN PLATELET VOLUME 8.6 fL (7.2-11.7); MONO # 0.8 K/uL (0.0-0.8); MONO % 15.1 % (0.0-10.0); NRBC % 0.1 % (0.0-2.0); RED CELL DISTRIBUTION WIDTH 13.5 % (11.5-14.5); WHITE BLOOD COUNT 5.4 K/uL (4.8-10.8)
[2016-07-17 07:38] LABS: CHLORIDE 100 mmol/L (98-107); POTASSIUM 3.7 mmol/L (3.6-5.2); SODIUM 138 mmol/L (132-148)
[2016-07-17 07:40] LABS: BILIRUBIN,TOTAL 0.7 mg/dL (0.2-1.3); GFR AFRICAN-AMERICAN > 60
[2016-07-17 07:41] LABS: ALB/GLOB RATIO 1.1 (1.0-2.1); ALKALINE PHOSPHATASE 67 U/L (38-126); ALT/SGPT 22 U/L (21-72); AST/SGOT 25 U/L (17-59); BLOOD UREA NITROGEN 9 mg/dL (9-20); CALCIUM 8.8 mg/dl (8.6-10.4); CARBON DIOXIDE 27 mmol/L (22-30); GLUCOSE,RANDOM 117 mg/dL (75-110); PHOSPHOROUS 3.9 mg/dL (2.5-4.5); TOTAL PROTEIN 6.4 g/dL (6.3-8.3)
[2016-07-17 07:42] LABS: MAGNESIUM 1.5 mg/dL (1.6-2.3)
[2016-07-17] MEDS ORDERED: Pneumococcal 23-Valent Vaccine IM ONE (10:00)
[2016-07-17] MEDS: Sodium Chloride 0.9% 1,000 ML IV SCH (11:01)
[2016-07-17] MEDS: Pantoprazole 40 mg EC Tab PO SCH (11:03)
[2016-07-17] MEDS: Enoxaparin 40 mg Syringe SC SCH (11:04)
[2016-07-17] MEDS: Magnesium Sulfate 1 gm in D5W 1 GM/100 ML BAG IVPB SCH ×2 (12:17→15:24)
--- NOTE | 2016-07-17 13:15 | CP.PCM.PN ---
<Carlos Coelhoy - Last Filed: 07/17/16 13:48> Subjective - Date & Time of Evaluation Date of Evaluation: 07/17/16 Time of Evaluation: 06:55 - Subjective Subjective: PGY-1 Medicine Progress Note for Dr. Levine Patient seen and examined at bedside. No acute events overnight. Pt reports that his LE weakness and numbness are sightly improved today. Pt reports that PT /OT evaluated him and had him stand but recommended he stay in bed, so he has not been ambulating. Pt has yet to go to MRI. Pt has a normal appetite and is passing normal bowel movements. He denies headache, chest pain, nausea, vomiting , diarrhea, constipation, dizziness and any other acute complaints at this time. Objective - Vital Signs/Intake and Output Vital Signs (last 24 hours): Temp Pulse Resp BP Pulse Ox 98.3 F 74 18 131/76 97 07/17/16 07:07 07/17/16 07:07 07/17/16 07:07 07/17/16 07:07 07/17/16 07:07 Intake and Output: 07/17/16 07/17/16 06:59 18:59 Intake Total 800 Output Total 600 Balance 200 - Medications Medications: Current Medications Amlodipine Besylate (Norvasc) 10 mg PO DAILY [facility] Last Admin: 07/17/16 11:03 Dose: 10 mg Aspirin (Ecotrin) 81 mg PO DAILY [facility] Last Admin: 07/17/16 11:03 Dose: 81 mg Enoxaparin Sodium (Lovenox) 40 mg SC DAILY [facility] Last Admin: 07/17/16 11:04 Dose: 40 mg Hydrochlorothiazide (Hydrodiuril) 25 mg PO DAILY [facility] Last Admin: 07/17/16 11:03 Dose: 25 mg Sodium Chloride (Sodium Chloride 0.9%) 1,000 mls @ 100 mls/hr IV .Q10H [facility] Last Admin: 07/17/16 11:01 Dose: 100 mls/hr Lorazepam (Ativan) 1 mg IVP Q4H PRN PRN Reason: Seizure activity Ondansetron HCl (Zofran Inj) 4 mg IVP Q6 PRN PRN Reason: Nausea/Vomiting Pantoprazole Sodium (Protonix Ec Tab) 40 mg PO DAILY [facility] Last Admin: 07/17/16 11:03 Dose: 40 mg Rosuvastatin Calcium (Crestor) 5 mg PO HS [facility] Last Admin: 07/16/16 21:00 Dose: 5 mg - Labs Labs: 07/17/16 06:08 07/17/16 06:08 PT 14.8 SECONDS (9.7-12.2) H 07/16/16 06:18 INR 1.3 07/16/16 06:18 APTT 30 SECONDS (21-34) 07/16/16 06:18 - Constitutional Appears: No Acute Distress - Head Exam Head Exam: ATRAUMATIC, NORMAL INSPECTION, NORMOCEPHALIC - Eye Exam Eye Exam: EOMI, PERRL Pupil Exam: NORMAL ACCOMODATION - ENT Exam ENT Exam: Mucous Membranes Moist - Neck Exam Neck Exam: Full ROM - Respiratory Exam Respiratory Exam: Clear to Ausculation Bilateral - Cardiovascular Exam Cardiovascular Exam: REGULAR RHYTHM - GI/Abdominal Exam GI & Abdominal Exam: Soft, Normal Bowel Sounds. absent: Tenderness - Extremities Exam Extremities Exam: absent: Pedal Edema - Back Exam Back Exam: NORMAL INSPECTION - Neurological Exam Neurological Exam: Abnormal Gait, Alert, Awake, CN II-XII Intact, Oriented x3 Neuro motor strength exam: Left Upper Extremity: 4, Right Upper Extremity: 4, Left Lower Extremity: 5, Right Lower Extremity: 5 - Psychiatric Exam Psychiatric exam: Normal Affect, Normal Mood - Skin Skin Exam: Dry, Normal Color, Warm Assessment and Plan - Assessment and Plan (Free Text) Plan: 1. Generalized Lower extremity weakness MRI total spine w/wo haydee ordered telemetry Neurology consult, Dr. Miranda, help appreciated CT head Brain MRI: Focal encephalomalacia and or atrophy seen within the bilateral anterior temporal lobes. Clinical correlation. Correlation with MRI may be helpful if clinically indicated. Chronic microvascular ischemic changes. Small hypodensity in the left basal ganglia which may represent a small lacunar infarct versus prominent perivascular space (see full report) Lumbar XR showed L5-S1 arthrosis, L4-5 spondylosis, S1 spina bifida occulta Cervical XR showed c5-6 spondylosis CXR: Mild venous congestion. Patchy increased markings at the left lung base ( see full report) HIV Lyme titers RF negative DAWN positive, 1:40, speckled pattern RPR nonreactive ESR 30 CRP 11.86 Vitamin D 21.7 Vitamin B12 726 folate 14 CPK 157 Neurochecks ASA 81 mg PO daily Crestor 5 mg PO HS f/u daily labs NS 100 cc/hr [facility] PT/OT treat and eval 2. HTN HCTZ 25 mg po daily Norvasc 10 mg PO daily 3. Prophylactic Measures Prontonix 40 mg PO daily Lovenox 40 mg SC daily [facility] <Sonia Levine V - Last Filed: 07/17/16 20:41> Objective - Vital Signs/Intake and Output Vital Signs (last 24 hours): Temp Pulse Resp BP Pulse Ox 98.1 F 60 20 128/73 95 07/17/16 16:09 07/17/16 16:09 07/17/16 16:09 07/17/16 16:09 07/17/16 16:09 - Medications Medications: Current Medications Amlodipine Besylate (Norvasc) 10 mg PO DAILY [facility] Last Admin: 07/17/16 11:03 Dose: 10 mg Aspirin (Ecotrin) 81 mg PO DAILY [facility] Last Admin: 07/17/16 11:03 Dose: 81 mg Dexamethasone (Decadron Inj) 10 mg IVP Q8 [facility] Last Admin: 07/17/16 16:15 Dose: 10 mg Enoxaparin Sodium (Lovenox) 40 mg SC DAILY [facility] Last Admin: 07/17/16 11:04 Dose: 40 mg Hydrochlorothiazide (Hydrodiuril) 25 mg PO DAILY [facility] Last Admin: 07/17/16 11:03 Dose: 25 mg Sodium Chloride (Sodium Chloride 0.9%) 1,000 mls @ 100 mls/hr IV .Q10H [facility] Last Admin: 07/17/16 11:01 Dose: 100 mls/hr Lorazepam (Ativan) 1 mg IVP Q4H PRN PRN Reason: Seizure activity Ondansetron HCl (Zofran Inj) 4 mg IVP Q6 PRN PRN Reason: Nausea/Vomiting Pantoprazole Sodium (Protonix Ec Tab) 40 mg PO DAILY [facility] Last Admin: 07/17/16 11:03 Dose: 40 mg Rosuvastatin Calcium (Crestor) 5 mg PO HS [facility] Last Admin: 07/16/16 21:00 Dose: 5 mg - Labs Labs: 07/17/16 06:08 07/17/16 06:08 PT 15.5 SECONDS (9.7-12.2) H 07/17/16 19:47 INR 1.4 07/17/16 19:47 APTT 30 SECONDS (21-34) 07/16/16 06:18 Attending/Attestation - Attestation I have personally seen and examined this patient.: Yes I have fully participated in the care of the patient.: Yes I have reviewed all pertinent clinical information, including history, physical exam and plan: Yes Notes (Text): Patient seen, examined, and case discussed with day-time resident. patient reporting numbness and tingling in both upper and lower extremities about the same. Patient completed MRI cervical/thoracic/Lumbar spine; pending official report of lumbar spine. Discussed with neurology given cord compression noted in MRI cervical spine, patient started on Decadron and recommended for neurosurgery consult. Consult neurosurgery (Dr. Bueno)-->regarding cord compression noted in MRI cervical-->message left at office Patient ordered for EKG and INR for baseline studies. Assessment/Plan 1. Generalized Lower extremity weakness * Neurology consult, Dr. Miranda, help appreciated * CT head (07/15/16): foncal encephalomalacia and/or atrophy seen with b/l anterior temporal lobes Correlation with MRI may be helpful if clinically indicated. Chronic microvascular ischemic changes. Small hypodensity in the left basal ganglia which may represent a small lacunar infarct versus prominent perivascular space (see full report). * Brain MRI (07/15): no acute intracranial abnormality, mild chronic microangiopathic changes, and mild age related global, middle cranial fossa arachnoid cyst versus cystic encephalomalacia, no evidence of mass effect or vasogenic edema * Ordered for Lumbar and cervical spine xrays * CXR: Mild venous congestion. Patchy increased markings at the left lung base (see full report) * Cervical xray (07/15/16): radiolucency at the dense base a remote fracture versus developmental variant; consider CT cervical spine; no subluxation, cervical spondylosis under disc disease most notable C5-C6 * Lumbar xray (07/15/16): lumbar spondylosis and facet arthrosis, developmental variants. * Completed MRI cervical/thoracic and lumbar; awaiting official report of lumbar today * Cervical MRI (07/17/16): severe narrowing of the spinal canal at C4-C5 associated with cord compression and hyperintense T2 signal of the cord at this levl; multilevel moderate to large disc herniation osteophyte complex w posterior ligament hypertropgy which resulting multilevel moderate spinal and neural foraminal narrowing * Thoracic MRI (07/17/16): moderate degenerative disc changes. Multilevel small disc bulging with mild spinal stenosis. no evidence of cord compression * Ordered for HIV: pending, RF: negative, DAWN: positive, 1:40, speckled, RPR: nonreactive, Lyme titers: pending, ESR: elevated, Vitamin D: low, Vitamin B12, CPK: 157, UDS: negative, blood alcohol: negative * Neurochecks * ASA 81 mg PO daily * Crestor 5 mg PO HS * f/u daily labs * NS 100 cc/hr * Low suspicion for stroke given patient has reporting lower extremity weakness over the past month * elevated ESR and CRP 2. HTN * HCTZ 25 mg po daily * Norvasc 10 mg PO daily * monitor vital signs 3. Electrolyte imbalance * replete Mg2+ 4. Impaired glucose tolerance * [id number]: 6.1 * will need repeat in one year * will need counselling regarding diet and exercise to prevent overt diabetes 5. Prophylactic Measures * Protonix 40 mg PO daily * Lovenox 40 mg SC daily * SCDs * PT/OT eval--->LEELEE
[2016-07-17 14:20] LABS: 18 KD (IGG) BAND Nonreactive; 23 KD (IGG) BAND Nonreactive; 23 KD (IGM) BAND Nonreactive; 28 KD (IGG) BAND Nonreactive; 30 KD (IGG) BAND Nonreactive; 39 KD (IGG) BAND Nonreactive; 39 KD (IGM) BAND Nonreactive; 41 KD (IGG) BAND Nonreactive; 41 KD (IGM) BAND Nonreactive; 45 KD (IGG) BAND Nonreactive; 58 KD (IGG) BAND Reactive; 66 KD (IGG) BAND Nonreactive; 93 KD (IGG) BAND Nonreactive; LYME DISEASE INTERP (IGG) Negative (Negative)
--- NOTE | 2016-07-17 14:41 | MRI ---
PROCEDURE: MR CERVICAL SPINE WITHOUT CONTRAST HISTORY: generalized weakness COMPARISON: None available. TECHNIQUE: Multiecho multiplanar sequences were performed through the cervical spine without the use of intravenous contrast. FINDINGS: Normal lordotic curvature. Craniocervical junction unremarkable. Vertebral body heights preserved. No marrow signal abnormality. There is cord compression at the level of C4-C5 mild the disc herniation and posterior ligament hypertrophy associated with mild hyperintense T2 signal of the cord at this level. No paraspinal abnormality. C2-C3: No disc herniation, spinal canal stenosis or neural foraminal narrowing. C3-C4: There is a small osteophyte disc bulging complex associated with posterior ligament hypertrophy which resulting in mild spinal and [id number] left neural foraminal narrowing. C4-C5: Moderate disc herniation associated with posterior ligament hypertrophy which resulting in moderate to severe spinal stenosis and moderate bilateral neural foraminal narrowing left more than right. C5-C6: Moderate size broad based disc bulging associated with posterior ligament hypertrophy which resulting in [id number] spinal and bilateral neural foraminal narrowing. C6-C7: There is a small to moderate size osteophyte disc bulging complex associated with posterior ligament hypertrophy which resulting in spinal and left neural foraminal narrowing. C7-T1: No disc herniation, spinal canal stenosis or neural foraminal narrowing. OTHER FINDINGS: None. IMPRESSION: Severe narrowing of the spinal canal at C4-C5 associated with cord compression and hyperintense T2 signal of the cord at this level. Multilevel moderate to large disc herniation osteophyte complex associated with posterior ligament hypertrophy which resulting in multilevel moderate spinal and neural foraminal narrowing.
--- NOTE | 2016-07-17 14:46 | MRI ---
PROCEDURE: MR THORACIC SPINE WITHOUT CONTRAST HISTORY: generalized weakness COMPARISON: None available. TECHNIQUE: Multiecho multiplanar sequences were performed through the thoracic spine without the use of intravenous contrast. FINDINGS: ALIGNMENT: Normal thoracic spinal alignment. Normal thoracic kyphosis. VERTEBRA: Vertebral body height are preserved. MARROW: Focal hyperintense T2 and T1 signal seen at T3 vertebral body likely represent benign hemangioma. PARASPINAL SOFT TISSUES: Unremarkable. CORD: Unremarkable thoracic cord. No volume loss, signal abnormality or syrinx. DISCS: There are multilevel small disc bulging which resulting in mild spinal stenosis. Moderate degenerative disc changes seen at the mid thoracic spine more prominent at T8-T9. OTHER FINDINGS: None. IMPRESSION: Moderate degenerative disc changes. Multilevel small disc bulging associated with mild spinal stenosis. No evidence of cord compression.
--- NOTE | 2016-07-17 15:08 | CP.PCM.PN ---
Subjective - Date & Time of Evaluation Date of Evaluation: 07/17/16 Time of Evaluation: 12:00 - Subjective Subjective: Mr. Kraus was seen and examined today at bedside. We discussed the results of his testing so far. He had no new complaints. There were no acute events overnight. Objective - Vital Signs/Intake and Output Vital Signs (last 24 hours): Temp Pulse Resp BP Pulse Ox 98.3 F 74 18 131/76 97 07/17/16 07:07 07/17/16 07:07 07/17/16 07:07 07/17/16 07:07 07/17/16 07:07 Intake and Output: 07/17/16 07/17/16 06:59 18:59 Intake Total 800 Output Total 600 Balance 200 - Medications Medications: Current Medications Amlodipine Besylate (Norvasc) 10 mg PO DAILY [facility] Last Admin: 07/17/16 11:03 Dose: 10 mg Aspirin (Ecotrin) 81 mg PO DAILY [facility] Last Admin: 07/17/16 11:03 Dose: 81 mg Enoxaparin Sodium (Lovenox) 40 mg SC DAILY [facility] Last Admin: 07/17/16 11:04 Dose: 40 mg Hydrochlorothiazide (Hydrodiuril) 25 mg PO DAILY [facility] Last Admin: 07/17/16 11:03 Dose: 25 mg Sodium Chloride (Sodium Chloride 0.9%) 1,000 mls @ 100 mls/hr IV .Q10H [facility] Last Admin: 07/17/16 11:01 Dose: 100 mls/hr Lorazepam (Ativan) 1 mg IVP Q4H PRN PRN Reason: Seizure activity Ondansetron HCl (Zofran Inj) 4 mg IVP Q6 PRN PRN Reason: Nausea/Vomiting Pantoprazole Sodium (Protonix Ec Tab) 40 mg PO DAILY [facility] Last Admin: 07/17/16 11:03 Dose: 40 mg Rosuvastatin Calcium (Crestor) 5 mg PO HS [facility] Last Admin: 07/16/16 21:00 Dose: 5 mg - Labs Labs: 07/17/16 06:08 07/17/16 06:08 PT 14.8 SECONDS (9.7-12.2) H 07/16/16 06:18 INR 1.3 07/16/16 06:18 APTT 30 SECONDS (21-34) 07/16/16 06:18 - Constitutional Appears: Cachectic - Head Exam Head Exam: ATRAUMATIC, NORMAL INSPECTION, NORMOCEPHALIC - Eye Exam Eye Exam: EOMI, Normal appearance, PERRL - ENT Exam ENT Exam: Mucous Membranes Moist, Normal Exam - Neck Exam Neck Exam: Normal Inspection. absent: Lymphadenopathy - Respiratory Exam Respiratory Exam: Clear to Ausculation Bilateral, NORMAL BREATHING PATTERN - Cardiovascular Exam Cardiovascular Exam: REGULAR RHYTHM, +S1, +S2. absent: Murmur - GI/Abdominal Exam GI & Abdominal Exam: Soft, Normal Bowel Sounds. absent: Tenderness - Rectal Exam Rectal Exam: Deferred - Neurological Exam Neurological Exam: Abnormal Gait, CN II-XII Intact Neuro motor strength exam: Left Upper Extremity: 3, Right Upper Extremity: 3, Left Lower Extremity: 3, Right Lower Extremity: 3 - Psychiatric Exam Psychiatric exam: Normal Affect, Normal Mood Assessment and Plan (1) Cervical spinal cord compression Assessment & Plan: Will start decadron to decrease inflammation of the cord and consult neurosurgery for further evaluation. Continue supportive care. DVT and GI Px. Status: Acute
--- NOTE | 2016-07-17 18:32 | CARD ---
APPROVED REPORT EKG Measurement Heart [id number] MA [id number] <Conclusion> Sinus bradycardia Otherwise normal ECG
[2016-07-17 20:09] LABS: INR 1.4
[2016-07-18] MEDS: Sodium Chloride 0.9% 1,000 ML IV SCH ×4 (00:20→19:15)
[2016-07-18 07:31] LABS: BASO % 0.2 % (0.0-2.0); HEMATOCRIT 40.4 % (35.0-51.0); LYMPH # 1.1 K/uL (1.0-4.3); LYMPH % 11.6 % (20.0-40.0); MEAN CELL VOLUME 87.9 fL (80.0-94.0); MEAN CORPUSCULAR HEMOGLOBIN 29.4 pg (27.0-31.0); MEAN CORPUSCULAR HGB CONC 33.5 g/dL (33.0-37.0); MEAN PLATELET VOLUME 9.7 fL (7.2-11.7); MONO # 0.2 K/uL (0.0-0.8); MONO % 2.6 % (0.0-10.0); NRBC % 0.1 % (0.0-2.0); RED CELL DISTRIBUTION WIDTH 13.2 % (11.5-14.5)
[2016-07-18 07:42] LABS: WHITE BLOOD COUNT 9.8 K/uL (4.8-10.8)
[2016-07-18 07:43] LABS: CHLORIDE 98 mmol/L (98-107); POTASSIUM 3.9 mmol/L (3.6-5.2); SODIUM 135 mmol/L (132-148)
[2016-07-18 07:45] LABS: ALB/GLOB RATIO 1.1 (1.0-2.1); ALKALINE PHOSPHATASE 90 U/L (38-126); ALT/SGPT 18 U/L (21-72); AST/SGOT 24 U/L (17-59); BILIRUBIN,TOTAL 0.8 mg/dL (0.2-1.3); BLOOD UREA NITROGEN 15 mg/dL (9-20); CARBON DIOXIDE 23 mmol/L (22-30); GFR AFRICAN-AMERICAN > 60; TOTAL PROTEIN 7.4 g/dL (6.3-8.3)
[2016-07-18 07:46] LABS: CALCIUM 9.1 mg/dl (8.6-10.4); GLUCOSE,RANDOM 195 mg/dL (75-110); MAGNESIUM 1.5 mg/dL (1.6-2.3); PHOSPHOROUS 3.2 mg/dL (2.5-4.5)
--- NOTE | 2016-07-18 08:12 | CP.PCM.PN ---
<Carisa Sierra - Last Filed: 07/18/16 18:47> Subjective - Date & Time of Evaluation Date of Evaluation: 07/18/16 Time of Evaluation: 08:02 - Subjective Subjective: Patient seen and examined at bedside. He continues to report weakness and numbness/tingling of his bilateral upper and lower extremities. Patient notes he is aware that cervical spine pathology is contributing to his presentation. He denies difficulty having bowel movements or micturition. Patient states he is tolerating diet and denies abdominal pain, nausea or vomiting. He also denies shortness of breath and chest pain. Objective - Vital Signs/Intake and Output Vital Signs (last 24 hours): Temp Pulse Resp BP Pulse Ox 97.8 F 78 20 135/63 96 07/17/16 23:24 07/18/16 00:00 07/17/16 23:24 07/17/16 23:24 07/17/16 23:24 Intake and Output: 07/18/16 07/18/16 06:59 18:59 Intake Total 2920 Output Total 1450 Balance 1470 - Medications Medications: Current Medications Amlodipine Besylate (Norvasc) 10 mg PO DAILY [facility] Last Admin: 07/17/16 11:03 Dose: 10 mg Aspirin (Ecotrin) 81 mg PO DAILY [facility] Last Admin: 07/17/16 11:03 Dose: 81 mg Dexamethasone (Decadron Inj) 10 mg IVP Q8 [facility] Last Admin: 07/18/16 05:35 Dose: 10 mg Enoxaparin Sodium (Lovenox) 40 mg SC DAILY [facility] Last Admin: 07/17/16 11:04 Dose: 40 mg Hydrochlorothiazide (Hydrodiuril) 25 mg PO DAILY [facility] Last Admin: 07/17/16 11:03 Dose: 25 mg Sodium Chloride (Sodium Chloride 0.9%) 1,000 mls @ 100 mls/hr IV .Q10H [facility] Last Admin: 07/18/16 00:20 Dose: 100 mls/hr Lorazepam (Ativan) 1 mg IVP Q4H PRN PRN Reason: Seizure activity Ondansetron HCl (Zofran Inj) 4 mg IVP Q6 PRN PRN Reason: Nausea/Vomiting Pantoprazole Sodium (Protonix Ec Tab) 40 mg PO DAILY [facility] Last Admin: 07/17/16 11:03 Dose: 40 mg Rosuvastatin Calcium (Crestor) 5 mg PO HS [facility] Last Admin: 07/17/16 21:34 Dose: 5 mg - Labs Labs: 07/18/16 07:12 07/18/16 07:12 PT 15.5 SECONDS (9.7-12.2) H 07/17/16 19:47 INR 1.4 07/17/16 19:47 APTT 30 SECONDS (21-34) 07/16/16 06:18 - Constitutional Appears: Non-toxic, No Acute Distress - Head Exam Head Exam: ATRAUMATIC, NORMAL INSPECTION, NORMOCEPHALIC - Eye Exam Eye Exam: EOMI, Normal appearance, PERRL - ENT Exam ENT Exam: Mucous Membranes Moist - Neck Exam Neck Exam: absent: Full ROM Additional comments: limited range of motion of neck - Respiratory Exam Respiratory Exam: Clear to Ausculation Bilateral, NORMAL BREATHING PATTERN. absent: Rales, Rhonchi, Wheezes - Cardiovascular Exam Cardiovascular Exam: +S1, +S2. absent: Bradycardia, Tachycardia - GI/Abdominal Exam GI & Abdominal Exam: Soft, Normal Bowel Sounds. absent: Firm, Tenderness - Back Exam Back Exam: absent: paraspinal tenderness - Neurological Exam Neurological Exam: Alert, Awake, Oriented x3 Neuro motor strength exam: Left Upper Extremity: 4, Right Upper Extremity: 4, Left Lower Extremity: 4, Right Lower Extremity: 4 - Psychiatric Exam Psychiatric exam: Normal Affect, Normal Mood - Skin Skin Exam: Intact, Normal Color, Warm Assessment and Plan - Assessment and Plan (Free Text) Assessment: 1. Generalized Lower extremity weakness 07/18: Continue decadron 10 mg IVP q8h to decrease inflammation. Per neurosurgeon , Dr. Ruiz, impression is cervical myelopathy. Plan for diskectomy and fusion at C4-C5 in order to decompress cord on Thursday. Dr. Ruiz explained procedure and potential complications to patient at bedside. Aspirin discontinued Detsky score: 0 , Class I - low risk Cardiology, Dr. Knapp, consulted for cardiac pre-operative clearance. Echo: LVEF 79%. EKG (07/14): sinus bradycardia, no ST/T wave changes. As patient has a smoking history, consulted livestock farmers, Dr. Rajan, for pre-operative clearance. MRI total spine w/wo haydee ordered Cervical: Severe narrowing of spinal canal at C4-C5 associated with cord compression and hyperintense T2 signal of cord at this leve. Multilevel moderate to large disc herniation osteophyte complex associated with posterior ligament hypertrophy resulting in multilevel moderate spinal and neural foraminal narrowing. telemetry Thoracic: Moderate degenerative disc changes. Multilevel small disc bulging associated with mild spinal stenosis. No evidence of cord compression. Lumbar: Normal lumbar lordosis. Vertebral body heights preserved. Somewhat patchy bone marrow signal in lower lumbar spine as well as in pelvic bones without discrete evidence of mass lesion or cortical destruction. Conus medullaris unremarkable. Moderate to mildly severe degenerative disc changes at lower lumbar spine more prominent at L4-L5. Small to moderate size disc herniation at L4-L5 and L5-S1 associated with posterior ligament and facet joint hypertrophy which resulting in mild spinal and moderate bilateral neural foramina narrowing. Neurology consult, Dr. Miranda, help appreciated. Per Dr. Miranda, start decadron 10 mg IVP q8h to decrease inflammation of cord and consult neurosurgery. CT head Brain MRI: Focal encephalomalacia and or atrophy seen within the bilateral anterior temporal lobes. Clinical correlation. Correlation with MRI may be helpful if clinically indicated. Chronic microvascular ischemic changes. Small hypodensity in the left basal ganglia which may represent a small lacunar infarct versus prominent perivascular space (see full report) Lumbar XR showed L5-S1 arthrosis, L4-5 spondylosis, S1 spina bifida occulta Cervical XR showed c5-6 spondylosis CXR: Mild venous congestion. Patchy increased markings at the left lung base ( see full report) HIV Lyme titers - Lyme IgG 58 kDa Band Reactive, Lyme IgG W Blot negative RF negative DAWN positive, 1:40, speckled pattern RPR nonreactive ESR 30 CRP 11.86 Vitamin D 21.7 Vitamin B12 726 folate 14 CPK 157 Neurochecks ASA 81 mg PO daily Crestor 5 mg PO HS f/u daily labs NS 100 cc/hr [facility] PT/OT treat and eval 2. HTN Normotensive HCTZ 25 mg po daily Norvasc 10 mg PO daily discontinued Aspirin 81 mg po daily in preparation for surgery 3. Prophylactic Measures Prontonix 40 mg PO daily Lovenox 40 mg SC daily SCDs [facility] <Sonia Levine V - Last Filed: 07/18/16 19:25> Objective - Vital Signs/Intake and Output Vital Signs (last 24 hours): Temp Pulse Resp BP Pulse Ox 98.5 F 81 20 131/74 95 07/18/16 15:20 07/18/16 15:20 07/18/16 15:20 07/18/16 15:20 07/18/16 15:20 Intake and Output: 07/18/16 07/19/16 18:59 06:59 Intake Total 1000 Balance 1000 - Medications Medications: Current Medications Amlodipine Besylate (Norvasc) 10 mg PO DAILY [facility] Last Admin: 07/18/16 10:15 Dose: 10 mg Dexamethasone (Decadron Inj) 10 mg IVP Q8 [facility] Last Admin: 07/18/16 14:01 Dose: 10 mg Enoxaparin Sodium (Lovenox) 40 mg SC DAILY [facility] Last Admin: 07/18/16 10:14 Dose: 40 mg Hydrochlorothiazide (Hydrodiuril) 25 mg PO DAILY [facility] Last Admin: 07/18/16 10:15 Dose: 25 mg Sodium Chloride (Sodium Chloride 0.9%) 1,000 mls @ 100 mls/hr IV .Q10H [facility] Last Admin: 07/18/16 13:00 Dose: Not Given Lorazepam (Ativan) 1 mg IVP Q4H PRN PRN Reason: Seizure activity Ondansetron HCl (Zofran Inj) 4 mg IVP Q6 PRN PRN Reason: Nausea/Vomiting Pantoprazole Sodium (Protonix Ec Tab) 40 mg PO DAILY [facility] Last Admin: 07/18/16 10:15 Dose: 40 mg Rosuvastatin Calcium (Crestor) 5 mg PO HS [facility] Last Admin: 07/17/16 21:34 Dose: 5 mg - Labs Labs: 07/18/16 07:12 07/18/16 07:12 PT 15.5 SECONDS (9.7-12.2) H 07/17/16 19:47 INR 1.4 07/17/16 19:47 APTT 30 SECONDS (21-34) 07/16/16 06:18 Attending/Attestation - Attestation I have personally seen and examined this patient.: Yes I have fully participated in the care of the patient.: Yes I have reviewed all pertinent clinical information, including history, physical exam and plan: Yes Notes (Text): Patient seen, examined, and case discussed with day-time resident. Patient seen at bedside this morning. Patient reporting decreased sensation about the same regarding upper and lower extremities. Discussed with neurosurgery (Dr. Ruiz)-->recommended for cervical spine decompression and discotectomy for July 21 at 10:10AM Cardiology consulted for cardiac clearance. patient ordered for echocardiogram and has history of hypertension. Pulmonary consulted for pulmonary clearance. patient is current smoker and going for spinal surgery on Thursday. Patient is currently on Decadron IV. Lovenox held on Thursday for surgery on Thursday. Assessment/Plan 1. Generalized Upper and Lower extremity weakness * Neurology consult, Dr. Miranda, help appreciated * CT head (07/15/16): foncal encephalomalacia and/or atrophy seen with b/l anterior temporal lobes Correlation with MRI may be helpful if clinically indicated. Chronic microvascular ischemic changes. Small hypodensity in the left basal ganglia which may represent a small lacunar infarct versus prominent perivascular space (see full report). * Brain MRI (07/15): no acute intracranial abnormality, mild chronic microangiopathic changes, and mild age related global, middle cranial fossa arachnoid cyst versus cystic encephalomalacia, no evidence of mass effect or vasogenic edema * Ordered for Lumbar and cervical spine xrays * CXR: Mild venous congestion. Patchy increased markings at the left lung base (see full report) * Cervical xray (07/15/16): radiolucency at the dense base a remote fracture versus developmental variant; consider CT cervical spine; no subluxation, cervical spondylosis under disc disease most notable C5-C6 * Lumbar xray (07/15/16): lumbar spondylosis and facet arthrosis, developmental variants. * Completed MRI cervical/thoracic and lumbar; awaiting official report of lumbar today * Cervical MRI (07/17/16): severe narrowing of the spinal canal at C4-C5 associated with cord compression and hyperintense T2 signal of the cord at this levl; multilevel moderate to large disc herniation osteophyte complex w posterior ligament hypertropgy which resulting multilevel moderate spinal and neural foraminal narrowing * Thoracic MRI (07/17/16): moderate degenerative disc changes. Multilevel small disc bulging with mild spinal stenosis. no evidence of cord compression * Lumbar MRI (07/17/16): moderate to mildly severe degenerative disc changes at lower lumbar spine more prominent at L4-L5. small to moderate size disc herniation at L4-L5 and L5-S1 associated with posterio ligament and facet joint hypertrophy, which resulting in mild spinal and moderate bilateral neural formating narrowing. heterogeneous bone marrow signal seen at the lower lumbar spine and in the pelvic bones without evidence of discrete mass lesion or cortical destruction * Ordered for HIV: pending, RF: negative, DAWN: positive, 1:40, speckled, RPR: nonreactive, Lyme titers:negative ESR: elevated, Vitamin D: low, Vitamin B12, CPK: 157, UDS: negative, blood alcohol: negative * Neurochecks * ASA 81 mg PO daily * Crestor 5 mg PO HS * NS 100 cc/hr * elevated ESR and CRP * Neurosurgery (Dr. Ruiz)-->help appreciated-->for the OR on Thursday, July 21. Cardiac and pulmonary clearance requested. * Decadron 10mg IV Q 8hour (active since 07/17/16) 2. HTN * HCTZ 25 mg po daily * Norvasc 10 mg PO daily * monitor vital signs 3. Electrolyte imbalance * replete Mg2+ 4. Impaired glucose tolerance * [id number]: 6.1 * will need repeat in one year * will need counselling regarding diet and exercise to prevent overt diabetes 5. Prophylactic Measures * Protonix 40 mg PO daily * Lovenox 40 mg SC daily held on Thursday for surgery on Thursday * SCDs * PT/OT eval--->LEELEE
--- NOTE | 2016-07-18 08:17 | MRI ---
PROCEDURE: MR LUMBAR SPINE WITHOUT CONTRAST HISTORY: le weakness COMPARISON: None available. TECHNIQUE: Multiecho multiplanar sequences were performed through the lumbar spine without the use of intravenous contrast. FINDINGS: Normal lumbar lordosis. Vertebral body heights are preserved. Somewhat patchy bone marrow signal seen in the lower lumbar spine as well as in the pelvic bones Conus medullaris unremarkable at the level of L1 Paraspinal soft tissues are unremarkable. T12-L1: No disc herniation, spinal canal stenosis or neural foraminal narrowing. L1-2: No disc herniation, spinal canal stenosis or neural foraminal narrowing. L2-3: No disc herniation, spinal canal stenosis or neural foraminal narrowing. L3-4: No disc herniation, spinal canal stenosis or neural foraminal narrowing. L4-5: There is moderate narrowing of the intervertebral disc is space. There is small to moderate size disc herniation associated with posterior ligament and facet joint hypertrophy which resulting in mild spinal stenosis. Moderate bilateral neural foraminal narrowing also noted. L5-S1: [id number] narrowing of the intervertebral disc is space. Small to moderate size disc herniation associated with posterior ligament and facet joint hypertrophy which resulting in mild spinal and moderate bilateral neural foraminal narrowing. 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 IMPRESSION: Moderate to mildly severe degenerative disc changes at the lower lumbar spine more prominent at L4-L5. Small to moderate size disc herniation at L4-L5 and L5-S1 associated with posterior ligament and facet joint hypertrophy which resulting in mild spinal and moderate bilateral neural foramina narrowing. Heterogeneous bone marrow signal seen at the lower lumbar spine and in the pelvic bones without evidence of discrete mass lesion or cortical destruction.
[2016-07-18] MEDS: Enoxaparin 40 mg Syringe SC SCH (10:14)
[2016-07-18] MEDS: Pantoprazole 40 mg EC Tab PO SCH (10:15)
--- NOTE | 2016-07-18 12:45 | CON ---
DATE: 07/18/2016 REASON FOR CONSULTATION: Difficulty walking and weakness in the arms. HISTORY OF PRESENT ILLNESS: The patient is a pleasant 55-year-old gentleman who states that a month ago he began to get tingling in his upper extremities. It slowly progressed into his entire body and into his legs. He has had multiple falls since that time because he states that his balance is off and he just cannot really get around at all. He denies any significant trauma prior to the onset of these symptoms. No loss of bowel or bladder control. He is left handed and states he just finds carmenza t with either hand, he is having trouble holding on to things and cannot do fine motor skills such as buttons on his shirt. He states that, as 2 months ago for example, everything was fine and it is ju st over the last month this has happened. PAST MEDICAL HISTORY: Significant for hypertension. MEDICATIONS: Include Norvasc, hydrochlorothiazide, famotidine, and ibuprofen along with Benadryl. ALLERGIES: He is not allergic to any medicines he knows of. PAST SURGICAL HISTORY: He states he does not recall any surgery and if he did have it, it was many y ears ago. SOCIAL HISTORY: He states he was living in [place] and still works there, but now just moved back [facility]. He has a past history of alcohol abuse and smoking. PHYSICAL EXAMINATION: He has full and pain free range of motion of his cervical spine. He moves bot h upper extremities actively but notes he just cannot really move his fingers all that well. He has a positive Brewster's on the right side. He says sensation is intact to light touch, but it is not "n ormal". He has sensation in his legs too, but it is somewhat similar to the arms and it just "does n ot feel the way it should". He seems to have good strength throughout. He does have some weakness o f his left triceps. His reflexes are intact in the upper extremities. He is hyperreflexic at both k nees, but normal reflexes at the ankles. No clonus or Babinski is noted. Distal pulses are intact. MRIs the entire spinal column were done. The MRI of the cervical spine shows an extremely large arnaldo iated disk at C4-C5. He has disk osteophyte complexes above and below that, but there is some clear space around the cord itself at those other levels, but at 4-5 he has a signal change within the cord and significant pressure on it. No abnormalities seen in the thoracic spine. Lumbar spine shows so me desiccation at L4-5 and L5-S1 with disk space narrowing at 4-5 and at 4-5, 5-1 he has some resulta nt foraminal narrowing from the facet hypertrophy but no significant central stenosis. No other vert ebral body or thecal sac abnormalities are noted. IMPRESSION: Cervical myelopathy. While he does have changes at C3-C4 and C5-6, clearly the worst le zoraida is C4-5. I think at this point, the most prudent thing would be to do the diskectomy and fusion at C4-C5 in order to decompress the cord and try and stop this from getting worse, and hopefully get improvement as we go along. The other option to offer him is to do all 3 levels to try and clear alec rything away in terms of possibly getting adjacent segment changes above and below from the fused lev el, as they are already not normal, but again it may be more expedient at this point, just to do 1 le zoraida and get the pressure off the cord and see how he does with it and address the other levels down t he line, if and when it becomes necessary. I will touch base with you and discussed this and discuss it once more with the patient, but he seems amenable to proceeding with surgery. He notes he just cannot go on the way he has, especially as it has been progressively getting worse for him and putting him in basically a nonfunctional state. Th e procedure was explained to him including use of the microscope, intravenous antibiotics, spinal cor d monitoring. I explained the most common complication is that of a sore throat, difficulty swallowi ng, which most patients recover from over the course of weeks to 3 months. Obviously, we are dealing with the spinal cord and there is always the risk of spinal cord damage, but he has already damaging his cord in terms of his condition and I really think again without intervention here, it is just go ing to progressively become worse for him. Thank you for allowing me to participate in the care of your patient. Guero Ruiz MD cc: [id number] TT: 07/18/2016 12:44:41 Confirmation # [id number] Dictation # [id number] jn
[2016-07-18] MEDS: Magnesium Sulfate 1 gm in D5W 1 GM/100 ML BAG IVPB SCH ×2 (13:08→14:02)
--- NOTE | 2016-07-18 13:39 | CP.PCM.PN ---
Subjective - Date & Time of Evaluation Date of Evaluation: 07/18/16 Time of Evaluation: 13:00 - Subjective Subjective: Mr. Kraus was seen and examined today at bedside. He stated that he felt that his arms were stronger today and he was also able to life his legs higher after he was started on the dexamethasone. He was seen by spinal surgery and there is a plan for discectomy and decompression of the cervical spinal stenosis on Thursday. Objective - Vital Signs/Intake and Output Vital Signs (last 24 hours): Temp Pulse Resp BP Pulse Ox 98.1 F 80 20 138/78 97 07/18/16 07:10 07/18/16 07:10 07/18/16 07:10 07/18/16 07:10 07/18/16 07:10 Intake and Output: 07/18/16 07/18/16 06:59 18:59 Intake Total 2920 1000 Output Total 1450 Balance 1470 1000 - Medications Medications: Current Medications Amlodipine Besylate (Norvasc) 10 mg PO DAILY [facility] Last Admin: 07/18/16 10:15 Dose: 10 mg Dexamethasone (Decadron Inj) 10 mg IVP Q8 [facility] Last Admin: 07/18/16 05:35 Dose: 10 mg Enoxaparin Sodium (Lovenox) 40 mg SC DAILY [facility] Last Admin: 07/18/16 10:14 Dose: 40 mg Hydrochlorothiazide (Hydrodiuril) 25 mg PO DAILY [facility] Last Admin: 07/18/16 10:15 Dose: 25 mg Sodium Chloride (Sodium Chloride 0.9%) 1,000 mls @ 100 mls/hr IV .Q10H [facility] Last Admin: 07/18/16 13:00 Dose: Not Given Magnesium Sulfate/Dextrose (Magnesium Sulfate 1 Gm/100 Ml D5w) 1 gm in 100 mls @ 100 mls/hr IVPB Q1H [facility] Stop: 07/18/16 13:59 Last Admin: 07/18/16 13:08 Dose: 100 mls/hr Lorazepam (Ativan) 1 mg IVP Q4H PRN PRN Reason: Seizure activity Ondansetron HCl (Zofran Inj) 4 mg IVP Q6 PRN PRN Reason: Nausea/Vomiting Pantoprazole Sodium (Protonix Ec Tab) 40 mg PO DAILY [facility] Last Admin: 07/18/16 10:15 Dose: 40 mg Rosuvastatin Calcium (Crestor) 5 mg PO HS [facility] Last Admin: 07/17/16 21:34 Dose: 5 mg - Labs Labs: 07/18/16 07:12 07/18/16 07:12 PT 15.5 SECONDS (9.7-12.2) H 07/17/16 19:47 INR 1.4 07/17/16 19:47 APTT 30 SECONDS (21-34) 07/16/16 06:18 - Constitutional Appears: Well - Head Exam Head Exam: ATRAUMATIC, NORMAL INSPECTION, NORMOCEPHALIC - Eye Exam Eye Exam: EOMI, Normal appearance, PERRL Pupil Exam: NORMAL ACCOMODATION, PERRL - ENT Exam ENT Exam: Mucous Membranes Moist, Normal Exam - Neck Exam Neck Exam: Full ROM, Normal Inspection. absent: Lymphadenopathy - Cardiovascular Exam Cardiovascular Exam: REGULAR RHYTHM, +S1, +S2. absent: Murmur - GI/Abdominal Exam GI & Abdominal Exam: Soft, Normal Bowel Sounds. absent: Tenderness - Extremities Exam Extremities Exam: Full ROM, Normal Capillary Refill, Normal Inspection. absent : Joint Swelling, Pedal Edema - Neurological Exam Neurological Exam: Alert, Awake, CN II-XII Intact, Normal Gait, Oriented x3 Neuro motor strength exam: Left Upper Extremity: 4, Right Upper Extremity: 4, Left Lower Extremity: 4, Right Lower Extremity: 4 - Psychiatric Exam Psychiatric exam: Normal Affect, Normal Mood - Skin Skin Exam: Dry, Intact, Normal Color, Warm Assessment and Plan (1) Cervical spinal cord compression Assessment & Plan: Plan for surgery on Thursday. Continue current steroid regimen and defer to neurosurgery/spinal surgery for discontinuation. Continue supportive care, GI and DVT Px. Status: Acute
--- NOTE | 2016-07-18 14:23 | CP.PCM.CON ---
<Donaldo Cain - Last Filed: 07/18/16 15:49> History of Present Illness - History of Present Illness History of Present Illness: Cardiology Consultation Note Dr. Knapp CC: Neck pain, and weakness/numbness in all 4 extremities x 1.5months HPI: This is a 55 year old male with a PMH notable for HTN presenting for cardiac evaluation for risk assessment and stratification prior to cervical discesctomy. The patient presenting with complaint of numbness in high arms and legs with accompanying weakness x 1.5 months. The patient reports multiple falls secondary to the weakness. He denies LOC and head impact during the falls. The patient has prior cardiac history notable for HTN controlled at home with amlodipine and HCTZ. The patient denies all instances of chest pain, syncope, NICOLE, orthopnea, and lower extremity edema. The patient is able to ambulate >10 blocks without difficulty, and preform his ADL/IADLs without incident. The patient presently has complaint of numbness/weakness x 4 extremities. The patient denies all cardiopulmonary complaints. Patient denies fever, chills, headache, cehst pain, palpitations, SOB, cough, abdominal pain, N/V/D/C, changes in bowel/bladder, and saddle anesthesia. Previously, the patient had an EKG on 07/14/16 which revealed sinus bradycardia with normal intervals, normal axis, and no ST/T wave abnormalities. In addition , the patient underwent echocardiographic evaluation on 07/18/16. The Echo revealed a left ventricular ejection fraction of 79%. PMH: HTN Surg: None Allergy: NKDA Social: 5 cigarettes daily / social alcohol / denies recent illicit drug use ( cocaine 12-13 years ago) Review of Systems - Constitutional Constitutional: absent: Chills, Fatigue, Fever - EENT Eyes: absent: Blind Spots, Change in Vision Ears: absent: Decreased Hearing, Tinnitus Nose/Mouth/Throat: absent: Nose Pain, Facial Pain, Neck Pain - Cardiovascular Cardiovascular: absent: Chest Pain, Chest Pain at Rest, Chest Pain with Activity , Edema, Leg Edema, Orthopnea, Syncope - Respiratory Respiratory: absent: Cough, Dyspnea, Dyspnea on Exertion - Gastrointestinal Gastrointestinal: absent: Abdominal Pain, Constipation, Diarrhea, Nausea, Vomiting - Genitourinary Genitourinary: absent: Change in Urinary Stream, Difficulty Urinating - Musculoskeletal Musculoskeletal: Muscle Weakness (x 4 extremities), Neck Pain, Numbness (x 4 extremities ). absent: Back Pain, Deformity, Joint Swelling, Myalgias - Integumentary Integumentary: absent: Lesions, Rash, Wounds - Neurological Neurological: Paresthesias, Radicular Pain, Sensory Deficit, Weakness. absent: Focal Weakness, Frequent Falls, Headaches, Loss of Vision, Memory Loss, Restless Legs, Syncope, Tingling, Tremor, Vertigo - Endocrine Endocrine: absent: Cold Intolorance, Heat Intolorance, Polydipsia, Polyphagia Meds Home Medications: Home Medication List Medication Instructions Recorded Confirmed Type Acetaminophen [Tylenol 325mg tab] 650 mg PO Q6 PRN tab 07/28/16 Rx Albuterol/Ipratropium [Duoneb 3 3 ml INH RQ6 07/28/16 Rx mg/0.5 mg (3 ml) UD] Aspirin [Ecotrin] 81 mg PO DAILY #30 07/28/16 Rx Cyclobenzaprine [Flexeril] 10 mg PO TID PRN #30 tab 07/28/16 Rx Pantoprazole [Protonix EC Tab] 40 mg PO DAILY #30 ect 07/28/16 Rx amLODIPine [Norvasc] 10 mg PO DAILY #30 tab 07/28/16 Rx hydroCHLOROthiazide [Hydrodiuril] 25 mg PO DAILY #30 tab 07/28/16 Rx predniSONE [predniSONE Tab] 5 mg PO DAILY #7 tab 07/28/16 Rx predniSONE [predniSONE Tab] 10 mg PO BID #14 tab 07/28/16 Rx predniSONE [predniSONE Tab] 10 mg PO DAILY #7 tab 07/28/16 Rx predniSONE [predniSONE Tab] 20 mg PO DAILY #7 tab 07/28/16 Rx Gabapentin [Neurontin] 400 mg PO TID #90 cap 07/30/16 Rx Allergies/Adverse Reactions: Allergies Allergy/AdvReac Type Severity Reaction Status Date / Time No Known Allergies Allergy Verified 07/14/16 20:23 - Medications Medications: Current Medications Amlodipine Besylate (Norvasc) 10 mg PO DAILY [facility] Last Admin: 07/18/16 10:15 Dose: 10 mg Dexamethasone (Decadron Inj) 10 mg IVP Q8 [facility] Last Admin: 07/18/16 14:01 Dose: 10 mg Enoxaparin Sodium (Lovenox) 40 mg SC DAILY [facility] Last Admin: 07/18/16 10:14 Dose: 40 mg Hydrochlorothiazide (Hydrodiuril) 25 mg PO DAILY [facility] Last Admin: 07/18/16 10:15 Dose: 25 mg Sodium Chloride (Sodium Chloride 0.9%) 1,000 mls @ 100 mls/hr IV .Q10H [facility] Last Admin: 07/18/16 13:00 Dose: Not Given Lorazepam (Ativan) 1 mg IVP Q4H PRN PRN Reason: Seizure activity Ondansetron HCl (Zofran Inj) 4 mg IVP Q6 PRN PRN Reason: Nausea/Vomiting Pantoprazole Sodium (Protonix Ec Tab) 40 mg PO DAILY [facility] Last Admin: 07/18/16 10:15 Dose: 40 mg Rosuvastatin Calcium (Crestor) 5 mg PO HS [facility] Last Admin: 07/17/16 21:34 Dose: 5 mg Physical Exam - Constitutional Appears: Well, No Acute Distress - Head Exam Head Exam: ATRAUMATIC, NORMAL INSPECTION, NORMOCEPHALIC - Eye Exam Eye Exam: EOMI, Normal appearance Pupil Exam: NORMAL ACCOMODATION - ENT Exam ENT Exam: Mucous Membranes Moist, Normal Exam - Neck Exam Neck exam: Positive for: Full Rom, Normal Inspection. Negative for: Lymphadenopathy, Tenderness - Respiratory Exam Respiratory Exam: Clear to Auscultation Bilateral, NORMAL BREATHING PATTERN. absent: Rales, Rhonchi, Wheezes, Respiratory Distress, Stridor - Cardiovascular Exam Cardiovascular Exam: REGULAR RHYTHM, RRR, +S1, +S2. absent: Diastolic murmur, Systolic Murmur - GI/Abdominal Exam GI & Abdominal Exam: Normal Bowel Sounds, Soft. absent: Distended, Firm, Guarding, Hernia, Tenderness - Extremities Exam Extremities exam: Positive for: normal capillary refill, normal inspection, pedal pulses present. Negative for: pedal edema, tenderness - Neurological Exam Neurological exam: Alert, CN II-XII Intact, Oriented x3 - Skin Skin Exam: Dry, Intact, Normal Color, Warm Results - Vital Signs Recent Vital Signs: Last Vital Signs Temp 98.1 F 07/18/16 07:10 Pulse 80 07/18/16 07:10 Resp 20 07/18/16 07:10 BP 138/78 07/18/16 07:10 Pulse Ox 97 07/18/16 07:10 - Labs Result Diagrams: 07/18/16 07:12 07/18/16 07:12 Labs: Laboratory Results - last 24 hr 07/17/16 07/18/16 07/18/16 19:47 07:12 07:12 WBC 9.8 D RBC 4.60 Hgb 13.5 Hct 40.4 MCV 87.9 MCH 29.4 MCHC 33.5 RDW 13.2 Plt Count 182 MPV 9.7 Neut % (Auto) 85.6 H Lymph % (Auto) 11.6 L [place] % (Auto) 2.6 Eos % (Auto) 0.0 Baso % (Auto) 0.2 Neut # 8.4 H Lymph # 1.1 [place] # 0.2 Eos # 0.0 Baso # 0.0 PT 15.5 H INR 1.4 Sodium 135 Potassium 3.9 Chloride 98 Carbon Dioxide 23 Anion Gap 18 BUN 15 Creatinine 0.8 Est GFR ( Amer) > 60 Est GFR (Non-Af Amer) > 60 Random Glucose 195 H Calcium 9.1 Phosphorus 3.2 Magnesium 1.5 L Total Bilirubin 0.8 AST 24 ALT 18 L Alkaline Phosphatase 90 Total Protein 7.4 Albumin 3.9 Globulin 3.5 Albumin/Globulin Ratio 1.1 Assessment & Plan (1) Pre-procedural cardiovascular examination Assessment and Plan: [facility] Risk Assessment/Stratification: Low Risk for Cervical Discectomy - Detsky- Score 0- Class I- low risk - Godwin- Score 0- Class I- no risk - Antelmo- Score 0- Class I- Very Low Risk - Benefits of surgery outweigh the risks of the operation - continue with preoperative beta raffy and SCIP protocol Hemodynamically Stable Cardiac Stable 07/18/16 Echo-preliminary LV EF 79%- official report pending 07/14/16 EKG- sinus bradycardia with normal intervals, normal axis, and no ST/T wave abnormalities Case Discussed with Dr. Aria Cain PGY1 Status: Acute (2) Cervical spinal cord compression Status: Acute (3) HTN (hypertension) Status: Chronic - Date & Time Date: 07/18/16 Time: 16:14 <John Knapp - Last Filed: 08/04/16 16:28> Past Patient History - Past Medical History & Family History Past Medical History?: Yes - Past Social History Smoking Status: Light Smoker < 10 Cigarettes Daily - CARDIAC Hx Hypertension: Yes - PULMONARY Hx Tuberculosis: No - NEUROLOGICAL Hx Seizures: No - ENDOCRINE/METABOLIC Hx Diabetes Mellitus Type 1: No Hx Diabetes Mellitus Type 2: No - HEMATOLOGICAL/ONCOLOGICAL Hx Human Immunodeficiency Virus (HIV): No - MUSCULOSKELETAL/RHEUMATOLOGICAL Hx Falls: No - GENITOURINARY/GYNECOLOGICAL Hx Sexually Transmitted Disorders: No - PSYCHIATRIC Hx Substance Use: No - SURGICAL HISTORY Hx Surgeries: No - ANESTHESIA Hx Anesthesia: No Meds - Medications Medications: Current Medications Amlodipine Besylate (Norvasc) 10 mg PO DAILY [facility] Last Admin: 07/18/16 10:15 Dose: 10 mg Dexamethasone (Decadron Inj) 10 mg IVP Q8 [facility] Last Admin: 07/18/16 14:01 Dose: 10 mg Enoxaparin Sodium (Lovenox) 40 mg SC DAILY [facility] Last Admin: 07/18/16 10:14 Dose: 40 mg Hydrochlorothiazide (Hydrodiuril) 25 mg PO DAILY [facility] Last Admin: 07/18/16 10:15 Dose: 25 mg Sodium Chloride (Sodium Chloride 0.9%) 1,000 mls @ 100 mls/hr IV .Q10H [facility] Last Admin: 07/18/16 13:00 Dose: Not Given Lorazepam (Ativan) 1 mg IVP Q4H PRN PRN Reason: Seizure activity Ondansetron HCl (Zofran Inj) 4 mg IVP Q6 PRN PRN Reason: Nausea/Vomiting Pantoprazole Sodium (Protonix Ec Tab) 40 mg PO DAILY [facility] Last Admin: 07/18/16 10:15 Dose: 40 mg Rosuvastatin Calcium (Crestor) 5 mg PO HS [facility] Last Admin: 07/17/16 21:34 Dose: 5 mg Results - Vital Signs Recent Vital Signs: Last Vital Signs Temp 98.1 F 07/18/16 07:10 Pulse 80 07/18/16 07:10 Resp 20 07/18/16 07:10 BP 138/78 07/18/16 07:10 Pulse Ox 97 07/18/16 07:10 - Labs Result Diagrams: 08/04/16 08:22 08/04/16 08:22 Labs: Laboratory Results - last 24 hr 07/17/16 07/18/16 07/18/16 19:47 07:12 07:12 WBC 9.8 D RBC 4.60 Hgb 13.5 Hct 40.4 MCV 87.9 MCH 29.4 MCHC 33.5 RDW 13.2 Plt Count 182 MPV 9.7 Neut % (Auto) 85.6 H Lymph % (Auto) 11.6 L [place] % (Auto) 2.6 Eos % (Auto) 0.0 Baso % (Auto) 0.2 Neut # 8.4 H Lymph # 1.1 [place] # 0.2 Eos # 0.0 Baso # 0.0 PT 15.5 H INR 1.4 Sodium 135 Potassium 3.9 Chloride 98 Carbon Dioxide 23 Anion Gap 18 BUN 15 Creatinine 0.8 Est GFR ( Amer) > 60 Est GFR (Non-Af Amer) > 60 Random Glucose 195 H Calcium 9.1 Phosphorus 3.2 Magnesium 1.5 L Total Bilirubin 0.8 AST 24 ALT 18 L Alkaline Phosphatase 90 Total Protein 7.4 Albumin 3.9 Globulin 3.5 Albumin/Globulin Ratio 1.1 Assessment & Plan (1) Cervical spinal cord compression Assessment and Plan: echo will follow ecg sinus bradycardia nl qrs nl st/t Status: Acute Attending/Attestation - Attestation I have personally seen and examined this patient.: Yes I have fully participated in the care of the patient.: Yes I have reviewed all pertinent clinical information: Yes Notes (Text): 08/04/16 16:27 Pt will need echo and BP meds will eval for risk assessment before surgery
--- NOTE | 2016-07-18 17:59 | CARD ---
APPROVED REPORT EXAM: Two-dimensional and M-mode echocardiogram with Doppler and color Doppler. Other Information Quality : GoodRhythm : NSR INDICATION etoh RISK FACTORS Hypertension M-Mode DIMENSIONS RVDd0.97 (2.1-3.2cm)Left Atrium (MM)3.52 (2.5-4.0cm) IVSd0.91 (0.7-1.1cm)Aortic Root2.73 (2.2-3.7cm) LVDd4.65 (4.0-5.6cm)Aortic Cusp Exc.2.03 (1.5-2.0cm) PWd1.03 (0.7-1.1cm)FS (%) 48 % LVDs2.43 (2.0-3.8cm)LVEF (%)79 (>50%) Aortic Valve AoV Peak Lycplsqw981.4cm/Maile Peak GR.15mmHg Mitral Valve MV E Acnxdpye76.3cm/sMV A Wybfozkb48.0cm/sE/A ratio1.0 TDI E/Lateral E'0.0E/Medial E'0.0 Tricuspid Valve TR Peak Odrqdzlz712ht/sTR Peak Gr.[id number] LEFT VENTRICLE The left ventricle is normal size. There is normal left ventricular wall thickness. Left ventricle systolic function is normal. The Ejection Fraction is >70%. There is normal LV segmental wall motion. The left ventricular diastolic function is normal. There is no ventricular septal defect visualized. RIGHT VENTRICLE The right ventricle is normal size. The right ventricular systolic function is normal. ATRIA The left atrium size is normal. The right atrium size is normal. AORTIC VALVE The aortic valve is probably tri-cuspid. The aortic valve is normal in structure. No aortic regurgitation is present. There is no aortic valvular stenosis. MITRAL VALVE The mitral valve is normal in structure. There is no evidence of mitral valve prolapse. There is no mitral valve regurgitation noted. TRICUSPID VALVE The tricuspid valve is normal in structure. There is trace tricuspid regurgitation. There is no pulmonary hypertension. PULMONIC VALVE The pulmonic valve is not well visualized. There is trace pulmonic valvular regurgitation. GREAT VESSELS The IVC is normal in size and collapses >50% with inspiration. PERICARDIAL EFFUSION There is no pericardial effusion. <Conclusion> Left ventricle systolic function is normal. The Ejection Fraction is >70%. The left ventricular diastolic function is normal.
--- NOTE | 2016-07-18 20:13 | CP.PCM.CON ---
History of Present Illness - History of Present Illness History of Present Illness: progressive lower ext weakness pre-op pulmonary eval in a smoker of 1/4 ppd x 20 yrs denies NICOLE, cough, sputum, wheezing Review of Systems - Review of Systems All systems: reviewed and no additional remarkable complaints except - Musculoskeletal Musculoskeletal: Muscle Weakness, Tingling - Neurological Neurological: Weakness Past Patient History - Past Medical History & Family History Past Medical History?: Yes - Past Social History Smoking Status: Light Smoker < 10 Cigarettes Daily - CARDIAC Hx Hypertension: Yes - PULMONARY Hx Tuberculosis: No - NEUROLOGICAL Hx Seizures: No - ENDOCRINE/METABOLIC Hx Diabetes Mellitus Type 1: No Hx Diabetes Mellitus Type 2: No - HEMATOLOGICAL/ONCOLOGICAL Hx Human Immunodeficiency Virus (HIV): No - MUSCULOSKELETAL/RHEUMATOLOGICAL Hx Falls: No - GENITOURINARY/GYNECOLOGICAL Hx Sexually Transmitted Disorders: No - PSYCHIATRIC Hx Substance Use: No - SURGICAL HISTORY Hx Surgeries: No - ANESTHESIA Hx Anesthesia: No Meds Allergies/Adverse Reactions: Allergies Allergy/AdvReac Type Severity Reaction Status Date / Time No Known Allergies Allergy Verified 07/14/16 20:23 - Medications Medications: Current Medications Amlodipine Besylate (Norvasc) 10 mg PO DAILY [facility] Last Admin: 07/18/16 10:15 Dose: 10 mg Dexamethasone (Decadron Inj) 10 mg IVP Q8 [facility] Last Admin: 07/18/16 14:01 Dose: 10 mg Enoxaparin Sodium (Lovenox) 40 mg SC DAILY [facility] Last Admin: 07/18/16 10:14 Dose: 40 mg Hydrochlorothiazide (Hydrodiuril) 25 mg PO DAILY [facility] Last Admin: 07/18/16 10:15 Dose: 25 mg Sodium Chloride (Sodium Chloride 0.9%) 1,000 mls @ 100 mls/hr IV .Q10H [facility] Last Admin: 07/18/16 19:15 Dose: Not Given Lorazepam (Ativan) 1 mg IVP Q4H PRN PRN Reason: Seizure activity Ondansetron HCl (Zofran Inj) 4 mg IVP Q6 PRN PRN Reason: Nausea/Vomiting Pantoprazole Sodium (Protonix Ec Tab) 40 mg PO DAILY [facility] Last Admin: 07/18/16 10:15 Dose: 40 mg Rosuvastatin Calcium (Crestor) 5 mg PO HS [facility] Last Admin: 07/17/16 21:34 Dose: 5 mg Physical Exam - Constitutional Appears: No Acute Distress - Head Exam Head Exam: ATRAUMATIC, NORMOCEPHALIC - Eye Exam Eye Exam: Normal appearance - ENT Exam ENT Exam: Mucous Membranes Moist - Neck Exam Neck exam: Positive for: Normal Inspection - Respiratory Exam Respiratory Exam: Decreased Breath Sounds - Cardiovascular Exam Cardiovascular Exam: +S1, +S2 - GI/Abdominal Exam GI & Abdominal Exam: Normal Bowel Sounds - Rectal Exam Rectal Exam: Deferred - Neurological Exam Neurological exam: Motor Sensory Deficit - Psychiatric Exam Psychiatric exam: Normal Affect, Normal Mood - Skin Skin Exam: Intact Results - Vital Signs Recent Vital Signs: Last Vital Signs Temp 98.5 F 07/18/16 15:20 Pulse 81 07/18/16 15:20 Resp 20 07/18/16 15:20 BP 131/74 07/18/16 15:20 Pulse Ox 95 07/18/16 15:20 - Labs Result Diagrams: 07/18/16 07:12 07/18/16 07:12 Labs: Laboratory Results - last 24 hr 07/17/16 07/18/16 07/18/16 19:47 07:12 07:12 WBC 9.8 D RBC 4.60 Hgb 13.5 Hct 40.4 MCV 87.9 MCH 29.4 MCHC 33.5 RDW 13.2 Plt Count 182 MPV 9.7 Neut % (Auto) 85.6 H Lymph % (Auto) 11.6 L [place] % (Auto) 2.6 Eos % (Auto) 0.0 Baso % (Auto) 0.2 Neut # 8.4 H Lymph # 1.1 [place] # 0.2 Eos # 0.0 Baso # 0.0 PT 15.5 H INR 1.4 Sodium 135 Potassium 3.9 Chloride 98 Carbon Dioxide 23 Anion Gap 18 BUN 15 Creatinine 0.8 Est GFR ( Amer) > 60 Est GFR (Non-Af Amer) > 60 Random Glucose 195 H Calcium 9.1 Phosphorus 3.2 Magnesium 1.5 L Total Bilirubin 0.8 AST 24 ALT 18 L Alkaline Phosphatase 90 Total Protein 7.4 Albumin 3.9 Globulin 3.5 Albumin/Globulin Ratio 1.1 Assessment & Plan (1) Tobacco abuse disorder Status: Chronic (2) Cervical spinal cord compression Status: Acute
[2016-07-19] MEDS: Sodium Chloride 0.9% 1,000 ML IV SCH ×3 (01:53→21:45)
--- NOTE | 2016-07-19 02:28 | CP.PCM.PN ---
<Anibal Coelho - Last Filed: 07/19/16 02:25> Subjective - Date & Time of Evaluation Date of Evaluation: 07/19/16 Time of Evaluation: 02:25 - Subjective Subjective: PGY-1 Medicine Progress Note for Dr. Levine Patient seen and examined at bedside. No acute event overnight. Patient lying in bed and resting comfortably. Patient states weakness and numbness/tingling of his all extremities is improved but still present. Patient tolerating diet, urinating without dificultym and having BMs. Denies incontinence, saddle paresthesia, headache, fever/chills, cp, shortness of breath, abd pain, n/v/d, constipation. Objective - Vital Signs/Intake and Output Vital Signs (last 24 hours): Temp Pulse Resp BP Pulse Ox 98.2 F 69 20 127/71 96 07/18/16 23:15 07/19/16 00:00 07/18/16 23:15 07/18/16 23:15 07/18/16 23:15 Intake and Output: 07/18/16 07/19/16 18:59 06:59 Intake Total 1000 1220 Output Total 800 Balance 1000 420 - Medications Medications: Current Medications Albuterol/Ipratropium (Duoneb 3 Mg/0.5 Mg (3 Ml) Ud) 3 ml INH RQ6 [facility] Amlodipine Besylate (Norvasc) 10 mg PO DAILY [facility] Last Admin: 07/18/16 10:15 Dose: 10 mg Dexamethasone (Decadron Inj) 10 mg IVP Q8 [facility] Last Admin: 07/18/16 21:41 Dose: 10 mg Enoxaparin Sodium (Lovenox) 40 mg SC DAILY [facility] Last Admin: 07/18/16 10:14 Dose: 40 mg Hydrochlorothiazide (Hydrodiuril) 25 mg PO DAILY [facility] Last Admin: 07/18/16 10:15 Dose: 25 mg Sodium Chloride (Sodium Chloride 0.9%) 1,000 mls @ 100 mls/hr IV .Q10H [facility] Last Admin: 07/19/16 01:53 Dose: 100 mls/hr Lorazepam (Ativan) 1 mg IVP Q4H PRN PRN Reason: Seizure activity Ondansetron HCl (Zofran Inj) 4 mg IVP Q6 PRN PRN Reason: Nausea/Vomiting Pantoprazole Sodium (Protonix Ec Tab) 40 mg PO DAILY [facility] Last Admin: 07/18/16 10:15 Dose: 40 mg Rosuvastatin Calcium (Crestor) 5 mg PO HS [facility] Last Admin: 07/18/16 21:41 Dose: 5 mg - Labs Labs: 07/18/16 07:12 07/18/16 07:12 PT 15.5 SECONDS (9.7-12.2) H 07/17/16 19:47 INR 1.4 07/17/16 19:47 APTT 30 SECONDS (21-34) 07/16/16 06:18 - Constitutional Appears: Non-toxic, No Acute Distress - Head Exam Head Exam: ATRAUMATIC, NORMOCEPHALIC - Eye Exam Eye Exam: EOMI, Normal appearance Pupil Exam: PERRL - ENT Exam ENT Exam: Mucous Membranes Moist - Neck Exam Neck Exam: absent: Full ROM (limited ROM) - Respiratory Exam Respiratory Exam: Clear to Ausculation Bilateral, NORMAL BREATHING PATTERN. absent: Accessory Muscle Use, Respiratory Distress - Cardiovascular Exam Cardiovascular Exam: RRR, +S1, +S2 - GI/Abdominal Exam GI & Abdominal Exam: Soft, Normal Bowel Sounds. absent: Tenderness - Extremities Exam Extremities Exam: Normal Capillary Refill - Back Exam Back Exam: absent: CVA tenderness (L), CVA tenderness (R) - Neurological Exam Neurological Exam: Abnormal Gait, Alert, Awake, CN II-XII Intact, Oriented x3 Neuro motor strength exam: Left Upper Extremity: 4, Right Upper Extremity: 4, Left Lower Extremity: 4, Right Lower Extremity: 4 - Psychiatric Exam Psychiatric exam: Normal Affect, Normal Mood - Skin Skin Exam: Dry, Intact, Normal Color, Warm Assessment and Plan - Assessment and Plan (Free Text) Plan: 1. Generalized Lower extremity weakness 07/18: Continue decadron 10 mg IVP q8h to decrease inflammation. Per neurosurgeon , Dr. Ruiz, impression is cervical myelopathy. Plan for diskectomy and fusion at C4-C5 in order to decompress cord on Thursday. Dr. Ruiz explained procedure and potential complications to patient at bedside. Aspirin discontinued Detsky score: 0 , Class I - low risk Cardiology, Dr. Knapp, consulted for cardiac pre-operative clearance. Echo: LVEF 79%. EKG (07/14): sinus bradycardia, no ST/T wave changes. As patient has a smoking history, consulted design intern, Dr. Rajan, for pre-operative clearance. MRI total spine w/wo haydee -Cervical: Severe narrowing of spinal canal at C4-C5 associated with cord compression and hyperintense T2 signal of cord at this leve. Multilevel moderate to large disc herniation osteophyte complex associated with posterior ligament hypertrophy resulting in multilevel moderate spinal and neural foraminal narrowing. -Thoracic: Moderate degenerative disc changes. Multilevel small disc bulging associated with mild spinal stenosis. No evidence of cord compression. -Lumbar: Normal lumbar lordosis. Vertebral body heights preserved. Somewhat patchy bone marrow signal in lower lumbar spine as well as in pelvic bones without discrete evidence of mass lesion or cortical destruction. Conus medullaris unremarkable. Moderate to mildly severe degenerative disc changes at lower lumbar spine more prominent at L4-L5. Small to moderate size disc herniation at L4-L5 and L5-S1 associated with posterior ligament and facet joint hypertrophy which resulting in mild spinal and moderate bilateral neural foramina narrowing. Neurology consult, Dr. Miranda, help appreciated. Per Dr. Miranda, start decadron 10 mg IVP q8h to decrease inflammation of cord and consult neurosurgery. CT head: Focal encephalomalacia and or atrophy seen within the bilateral anterior temporal lobes. Clinical correlation. Correlation with MRI may be helpful if clinically indicated. Chronic microvascular ischemic changes. Small hypodensity in the left basal ganglia which may represent a small lacunar infarct versus prominent perivascular space. If focal neurologic deficit persists, consider further evaluation with MRI (see full report) Brain MRI: Focal encephalomalacia and or atrophy seen within the bilateral anterior temporal lobes. Clinical correlation. Correlation with MRI may be helpful if clinically indicated. Chronic microvascular ischemic changes. Small hypodensity in the left basal ganglia which may represent a small lacunar infarct versus prominent perivascular space (see full report) Lumbar XR showed L5-S1 arthrosis, L4-5 spondylosis, S1 spina bifida occulta Cervical XR showed c5-6 spondylosis CXR: Mild venous congestion. Patchy increased markings at the left lung base ( see full report) HIV negative Lyme titers - Lyme IgG 58 kDa Band Reactive, Lyme IgG W Blot negative RF negative DAWN positive, 1:40, speckled pattern RPR nonreactive ESR 30 CRP 11.86 Vitamin D 21.7 Vitamin B12 726 folate 14 CPK 157 Neurochecks ASA 81 mg PO daily Crestor 5 mg PO HS NS 100 cc/hr [facility] PT/OT treat and eval 2. HTN HCTZ 25 mg po daily Norvasc 10 mg PO daily discontinued Aspirin 81 mg po daily in preparation for surgery 3. Prophylactic Measures Prontonix 40 mg PO daily HOLD Lovenox 40 mg SC daily for procedure SCDs [facility] <Prosper Del Cid H - Last Filed: 07/19/16 09:56> Objective - Vital Signs/Intake and Output Vital Signs (last 24 hours): Temp Pulse Resp BP Pulse Ox 98.2 F 78 20 127/71 96 07/18/16 23:15 07/19/16 08:55 07/18/16 23:15 07/18/16 23:15 07/18/16 23:15 Intake and Output: 07/19/16 07/19/16 06:59 18:59 Intake Total 2019 Output Total 2150 Balance -130 - Medications Medications: Current Medications Acetaminophen (Tylenol 325mg Tab) 650 mg PO Q6 PRN PRN Reason: Headache Last Admin: 07/19/16 04:25 Dose: 650 mg Albuterol/Ipratropium (Duoneb 3 Mg/0.5 Mg (3 Ml) Ud) 3 ml INH RQ6 [facility] Last Admin: 07/19/16 08:54 Dose: 3 ml Amlodipine Besylate (Norvasc) 10 mg PO DAILY [facility] Last Admin: 07/18/16 10:15 Dose: 10 mg Dexamethasone (Decadron Inj) 10 mg IVP Q8 [facility] Last Admin: 07/19/16 05:07 Dose: 10 mg Enoxaparin Sodium (Lovenox) 40 mg SC DAILY [facility] Last Admin: 07/18/16 10:14 Dose: 40 mg Hydrochlorothiazide (Hydrodiuril) 25 mg PO DAILY [facility] Last Admin: 07/18/16 10:15 Dose: 25 mg Sodium Chloride (Sodium Chloride 0.9%) 1,000 mls @ 100 mls/hr IV .Q10H [facility] Last Admin: 07/19/16 05:07 Dose: Not Given Lorazepam (Ativan) 1 mg IVP Q4H PRN PRN Reason: Seizure activity Ondansetron HCl (Zofran Inj) 4 mg IVP Q6 PRN PRN Reason: Nausea/Vomiting Pantoprazole Sodium (Protonix Ec Tab) 40 mg PO DAILY [facility] Last Admin: 07/18/16 10:15 Dose: 40 mg Rosuvastatin Calcium (Crestor) 5 mg PO HS [facility] Last Admin: 07/18/16 21:41 Dose: 5 mg - Labs Labs: 07/19/16 08:15 07/19/16 08:15 PT 15.5 SECONDS (9.7-12.2) H 07/17/16 19:47 INR 1.4 07/17/16 19:47 APTT 30 SECONDS (21-34) 07/16/16 06:18 Attending/Attestation - Attestation I have personally seen and examined this patient.: Yes I have fully participated in the care of the patient.: Yes I have reviewed all pertinent clinical information, including history, physical exam and plan: Yes Notes (Text): Medical Attending: Patient was seen and examined by me. Agree with the above note by the resident. Patient explains he feels ok, denied chest pain, denied shortness of breath, denied palpitations. From what I understand, the patient is pending OR this thursday for cervical neck as he has been having ongoing weakness in his upper and lower extremities. He is currently on decardron at this moment. Prosper Del Cid 07/19/16 09:56
[2016-07-19 07:51] LABS: ABG ALLEN TEST PO; ARTERIAL BLOOD HGB O2 SAT 95.1 % (95.0-98.0); DRAW SITE LR; HHB 1.3 % (0.0-5.0); METHEMOGLOBIN 1.6 % (0.0-3.0)
[2016-07-19 08:29] LABS: BASO % 0.1 % (0.0-2.0); HEMATOCRIT 40.2 % (35.0-51.0); LYMPH # 1.4 K/uL (1.0-4.3); LYMPH % 7.7 % (20.0-40.0); MEAN CELL VOLUME 87.6 fL (80.0-94.0); MEAN CORPUSCULAR HEMOGLOBIN 28.8 pg (27.0-31.0); MEAN CORPUSCULAR HGB CONC 32.9 g/dL (33.0-37.0); MEAN PLATELET VOLUME 9.6 fL (7.2-11.7); MONO # 0.7 K/uL (0.0-0.8); MONO % 3.5 % (0.0-10.0); PLATELET COUNT 192 K/uL (130-400); RED CELL DISTRIBUTION WIDTH 13.4 % (11.5-14.5)
--- NOTE | 2016-07-19 08:31 | CP.PCM.PN ---
Subjective - Date & Time of Evaluation Date of Evaluation: 07/19/16 Time of Evaluation: 07:40 - Subjective Subjective: Pt still c/o tingling and weakness of extremities. No P Objective - Vital Signs/Intake and Output Vital Signs (last 24 hours): Temp Pulse Resp BP Pulse Ox 98.2 F 69 20 127/71 96 07/18/16 23:15 07/19/16 00:00 07/18/16 23:15 07/18/16 23:15 07/18/16 23:15 Intake and Output: 07/19/16 07/19/16 06:59 18:59 Intake Total 2019 Output Total 2149 Balance -130 - Medications Medications: Current Medications Acetaminophen (Tylenol 325mg Tab) 650 mg PO Q6 PRN PRN Reason: Headache Last Admin: 07/19/16 04:25 Dose: 650 mg Albuterol/Ipratropium (Duoneb 3 Mg/0.5 Mg (3 Ml) Ud) 3 ml INH RQ6 [facility] Amlodipine Besylate (Norvasc) 10 mg PO DAILY [facility] Last Admin: 07/18/16 10:15 Dose: 10 mg Dexamethasone (Decadron Inj) 10 mg IVP Q8 [facility] Last Admin: 07/19/16 05:07 Dose: 10 mg Enoxaparin Sodium (Lovenox) 40 mg SC DAILY [facility] Last Admin: 07/18/16 10:14 Dose: 40 mg Hydrochlorothiazide (Hydrodiuril) 25 mg PO DAILY [facility] Last Admin: 07/18/16 10:15 Dose: 25 mg Sodium Chloride (Sodium Chloride 0.9%) 1,000 mls @ 100 mls/hr IV .Q10H [facility] Last Admin: 07/19/16 05:07 Dose: Not Given Lorazepam (Ativan) 1 mg IVP Q4H PRN PRN Reason: Seizure activity Ondansetron HCl (Zofran Inj) 4 mg IVP Q6 PRN PRN Reason: Nausea/Vomiting Pantoprazole Sodium (Protonix Ec Tab) 40 mg PO DAILY [facility] Last Admin: 07/18/16 10:15 Dose: 40 mg Rosuvastatin Calcium (Crestor) 5 mg PO HS [facility] Last Admin: 07/18/16 21:41 Dose: 5 mg - Labs Labs: 07/18/16 07:12 07/18/16 07:12 PT 15.5 SECONDS (9.7-12.2) H 07/17/16 19:47 INR 1.4 07/17/16 19:47 APTT 30 SECONDS (21-34) 07/16/16 06:18 - Constitutional Appears: Well - Head Exam Head Exam: NORMAL INSPECTION - Eye Exam Eye Exam: Normal appearance - ENT Exam ENT Exam: Mucous Membranes Moist - Respiratory Exam Respiratory Exam: Clear to Ausculation Bilateral - Cardiovascular Exam Cardiovascular Exam: REGULAR RHYTHM - GI/Abdominal Exam GI & Abdominal Exam: Soft - Exam External exam: absent: Ecchymosis - Extremities Exam Extremities Exam: Normal Inspection - Neurological Exam Neurological Exam: Alert, Awake - Psychiatric Exam Psychiatric exam: Normal Affect, Normal Mood - Skin Skin Exam: Warm Assessment and Plan (1) Cervical spinal cord compression Assessment & Plan: HTN Status: Acute (2) Alcohol dependence Status: Acute (3) HTN (hypertension) Assessment & Plan: ontinue BP meds lifestyle modification discussed Status: Chronic
[2016-07-19 08:40] LABS: WHITE BLOOD COUNT 18.5 K/uL (4.8-10.8)
[2016-07-19 08:51] LABS: CHLORIDE 100 mmol/L (98-107)
[2016-07-19 08:52] LABS: POTASSIUM 4.2 mmol/L (3.6-5.2); SODIUM 138 mmol/L (132-148)
[2016-07-19 08:54] LABS: ALB/GLOB RATIO 1.1 (1.0-2.1); ALKALINE PHOSPHATASE 85 U/L (38-126); ALT/SGPT 11 U/L (21-72); AST/SGOT 32 U/L (17-59); BILIRUBIN,TOTAL 0.7 mg/dL (0.2-1.3); BLOOD UREA NITROGEN 15 mg/dL (9-20); CARBON DIOXIDE 22 mmol/L (22-30); GFR AFRICAN-AMERICAN > 60; GLUCOSE,RANDOM 143 mg/dL (75-110); TOTAL PROTEIN 7.3 g/dL (6.3-8.3)
[2016-07-19] MEDS: Albuterol-Ipratrop 3 mg / 0.5 (3 ml) UD INH SCH ×3 (08:54→19:18)
[2016-07-19 08:55] LABS: CALCIUM 9.1 mg/dl (8.6-10.4); MAGNESIUM 1.8 mg/dL (1.6-2.3); PHOSPHOROUS 3.1 mg/dL (2.5-4.5)
[2016-07-19] MEDS: Pantoprazole 40 mg EC Tab PO SCH (10:50)
[2016-07-19] MEDS: Enoxaparin 40 mg Syringe SC SCH (10:50)
[2016-07-19 11:54] LABS: NEUTROPHIL 83 % (50-75); TOTAL CELLS COUNTED 100
--- NOTE | 2016-07-20 02:04 | CP.PCM.PN ---
<Anibal Coelho - Last Filed: 07/20/16 02:00> Subjective - Date & Time of Evaluation Date of Evaluation: 07/20/16 Time of Evaluation: 02:00 - Subjective Subjective: PGY-1 Medicine Progress Note for Dr. Levine Patient seen and examined at bedside. No acute event overnight. Patient lying in bed and resting comfortably. Patient states he is experiencing weakness and numbness/tingling. Patient tolerating diet and having BMs. Pulm clearance is needed for discectomy and fusion of C4-5. Denies incontinence, saddle paresthesia, headache, fever/chills, cp, shortness of breath, abd pain, n/v/d. Objective - Vital Signs/Intake and Output Vital Signs (last 24 hours): Temp Pulse Resp BP Pulse Ox 97.8 F 94 H 20 141/62 97 07/19/16 23:15 07/19/16 23:15 07/19/16 23:15 07/19/16 23:15 07/19/16 23:15 Intake and Output: 07/19/16 07/20/16 18:59 06:59 Intake Total 800 Output Total 600 Balance 200 - Medications Medications: Current Medications Acetaminophen (Tylenol 325mg Tab) 650 mg PO Q6 PRN PRN Reason: Headache Last Admin: 07/19/16 04:25 Dose: 650 mg Albuterol/Ipratropium (Duoneb 3 Mg/0.5 Mg (3 Ml) Ud) 3 ml INH RQ6 [facility] Last Admin: 07/19/16 19:18 Dose: 3 ml Amlodipine Besylate (Norvasc) 10 mg PO DAILY [facility] Last Admin: 07/19/16 10:50 Dose: 10 mg Dexamethasone (Decadron Inj) 10 mg IVP Q8 [facility] Last Admin: 07/19/16 21:31 Dose: 10 mg Enoxaparin Sodium (Lovenox) 40 mg SC DAILY [facility] Last Admin: 07/19/16 10:50 Dose: 40 mg Hydrochlorothiazide (Hydrodiuril) 25 mg PO DAILY [facility] Last Admin: 07/19/16 10:50 Dose: 25 mg Sodium Chloride (Sodium Chloride 0.9%) 1,000 mls @ 100 mls/hr IV .Q10H [facility] Last Admin: 07/19/16 21:45 Dose: Not Given Lorazepam (Ativan) 1 mg IVP Q4H PRN PRN Reason: Seizure activity Ondansetron HCl (Zofran Inj) 4 mg IVP Q6 PRN PRN Reason: Nausea/Vomiting Pantoprazole Sodium (Protonix Ec Tab) 40 mg PO DAILY [facility] Last Admin: 07/19/16 10:50 Dose: 40 mg Rosuvastatin Calcium (Crestor) 5 mg PO HS [facility] Last Admin: 07/19/16 21:31 Dose: 5 mg - Labs Labs: 07/19/16 08:15 07/19/16 08:15 PT 15.5 SECONDS (9.7-12.2) H 07/17/16 19:47 INR 1.4 07/17/16 19:47 APTT 30 SECONDS (21-34) 07/16/16 06:18 - Constitutional Appears: No Acute Distress - Head Exam Head Exam: ATRAUMATIC, NORMOCEPHALIC - Eye Exam Eye Exam: EOMI, Normal appearance Pupil Exam: PERRL - ENT Exam ENT Exam: Mucous Membranes Moist - Neck Exam Neck Exam: absent: Full ROM - Respiratory Exam Respiratory Exam: Clear to Ausculation Bilateral, NORMAL BREATHING PATTERN. absent: Accessory Muscle Use, Respiratory Distress - Cardiovascular Exam Cardiovascular Exam: RRR, +S1, +S2 - GI/Abdominal Exam GI & Abdominal Exam: Soft, Normal Bowel Sounds. absent: Tenderness - Back Exam Back Exam: absent: CVA tenderness (L), CVA tenderness (R) - Neurological Exam Neurological Exam: Abnormal Gait, Alert, Awake, CN II-XII Intact, Oriented x3 - Psychiatric Exam Psychiatric exam: Normal Affect, Normal Mood - Skin Skin Exam: Dry, Intact, Normal Color, Warm Assessment and Plan - Assessment and Plan (Free Text) Plan: 1. Generalized Lower extremity weakness 07/19: Pulm clearance needed, ABG to see if there is CO2 retention, Duonebs RQ6 07/18: Continue decadron 10 mg IVP q8h to decrease inflammation. Per neurosurgeon , Dr. Ruiz, impression is cervical myelopathy. Plan for discectomy and fusion at C4-C5 in order to decompress cord on Thursday. Dr. Ruiz explained procedure and potential complications to patient at bedside. Aspirin discontinued Detsky score: 0 , Class I - low risk Cardiology, Dr. Knapp, consulted for cardiac pre-operative clearance. Echo: LVEF 79%. EKG (07/14): sinus bradycardia, no ST/T wave changes. As patient has a smoking history, consulted market intelligence consultant, Dr. Rajan, for pre-operative clearance. MRI total spine w/wo haydee -Cervical: Severe narrowing of spinal canal at C4-C5 associated with cord compression and hyperintense T2 signal of cord at this leve. Multilevel moderate to large disc herniation osteophyte complex associated with posterior ligament hypertrophy resulting in multilevel moderate spinal and neural foraminal narrowing. -Thoracic: Moderate degenerative disc changes. Multilevel small disc bulging associated with mild spinal stenosis. No evidence of cord compression. -Lumbar: Normal lumbar lordosis. Vertebral body heights preserved. Somewhat patchy bone marrow signal in lower lumbar spine as well as in pelvic bones without discrete evidence of mass lesion or cortical destruction. Conus medullaris unremarkable. Moderate to mildly severe degenerative disc changes at lower lumbar spine more prominent at L4-L5. Small to moderate size disc herniation at L4-L5 and L5-S1 associated with posterior ligament and facet joint hypertrophy which resulting in mild spinal and moderate bilateral neural foramina narrowing. Neurology consult, Dr. Miranda, help appreciated. Per Dr. Miranda, start decadron 10 mg IVP q8h to decrease inflammation of cord and consult neurosurgery. CT head: Focal encephalomalacia and or atrophy seen within the bilateral anterior temporal lobes. Clinical correlation. Correlation with MRI may be helpful if clinically indicated. Chronic microvascular ischemic changes. Small hypodensity in the left basal ganglia which may represent a small lacunar infarct versus prominent perivascular space. If focal neurologic deficit persists, consider further evaluation with MRI (see full report) Brain MRI: Focal encephalomalacia and or atrophy seen within the bilateral anterior temporal lobes. Clinical correlation. Correlation with MRI may be helpful if clinically indicated. Chronic microvascular ischemic changes. Small hypodensity in the left basal ganglia which may represent a small lacunar infarct versus prominent perivascular space (see full report) Lumbar XR showed L5-S1 arthrosis, L4-5 spondylosis, S1 spina bifida occulta Cervical XR showed c5-6 spondylosis CXR: Mild venous congestion. Patchy increased markings at the left lung base ( see full report) HIV negative Lyme titers - Lyme IgG 58 kDa Band Reactive, Lyme IgG W Blot negative RF negative DAWN positive, 1:40, speckled pattern RPR nonreactive ESR 30 CRP 11.86 Vitamin D 21.7 Vitamin B12 726 folate 14 CPK 157 Neurochecks ASA 81 mg PO daily Crestor 5 mg PO HS NS 100 cc/hr [facility] PT/OT treat and eval 2. HTN HCTZ 25 mg po daily Norvasc 10 mg PO daily discontinued Aspirin 81 mg po daily in preparation for surgery 3. Prophylactic Measures Prontonix 40 mg PO daily HOLD Lovenox 40 mg SC daily for procedure SCDs [facility] <Sonia Levine V - Last Filed: 07/20/16 13:13> Objective - Vital Signs/Intake and Output Vital Signs (last 24 hours): Temp Pulse Resp BP Pulse Ox 97.6 F 58 L 20 125/70 97 07/20/16 08:42 07/20/16 08:42 07/20/16 08:42 07/20/16 08:42 07/20/16 08:42 Intake and Output: 07/20/16 07/20/16 06:59 18:59 Intake Total 1000 Output Total 800 Balance 200 - Medications Medications: Current Medications Acetaminophen (Tylenol 325mg Tab) 650 mg PO Q6 PRN PRN Reason: Headache Last Admin: 07/19/16 04:25 Dose: 650 mg Albuterol/Ipratropium (Duoneb 3 Mg/0.5 Mg (3 Ml) Ud) 3 ml INH RQ6 [facility] Last Admin: 07/20/16 07:26 Dose: Not Given Amlodipine Besylate (Norvasc) 10 mg PO DAILY [facility] Last Admin: 07/20/16 09:41 Dose: 10 mg Dexamethasone (Decadron Inj) 10 mg IVP Q8 [facility] Last Admin: 07/20/16 06:59 Dose: 10 mg Hydrochlorothiazide (Hydrodiuril) 25 mg PO DAILY [facility] Last Admin: 07/20/16 09:41 Dose: 25 mg Sodium Chloride (Sodium Chloride 0.9%) 1,000 mls @ 100 mls/hr IV .Q10H [facility] Last Admin: 07/20/16 03:00 Dose: 100 mls/hr Ondansetron HCl (Zofran Inj) 4 mg IVP Q6 PRN PRN Reason: Nausea/Vomiting Pantoprazole Sodium (Protonix Ec Tab) 40 mg PO DAILY [facility] Last Admin: 07/20/16 09:41 Dose: 40 mg Rosuvastatin Calcium (Crestor) 5 mg PO HS [facility] Last Admin: 07/19/16 21:31 Dose: 5 mg - Labs Labs: 07/20/16 06:10 07/20/16 06:10 PT 15.5 SECONDS (9.7-12.2) H 07/17/16 19:47 INR 1.4 07/17/16 19:47 APTT 30 SECONDS (21-34) 07/16/16 06:18 Attending/Attestation - Attestation I have personally seen and examined this patient.: Yes I have fully participated in the care of the patient.: Yes I have reviewed all pertinent clinical information, including history, physical exam and plan: Yes Notes (Text): Patient seen, examined, and case discussed with day-time resident. Patient seen at bedside this morning. Patient reporting about the same decreased sensation about the regarding upper and lower extremities. Patient is awaiting spinal surgery to help relieve C4-C5. Discussed with cardiology, patient is cleared from their perspective. Will follow-up with pulmonary. Patient is currently on Decadron 10mg IV Q 8hours. Lovenox is held and discontinued for surgery tomorrow. Hold NSAIDs/Aspirin. Assessment/Plan 1. Generalized Upper and Lower extremity weakness * Neurology consult, Dr. Miranda, help appreciated * CT head (07/15/16): foncal encephalomalacia and/or atrophy seen with b/l anterior temporal lobes Correlation with MRI may be helpful if clinically indicated. Chronic microvascular ischemic changes. Small hypodensity in the left basal ganglia which may represent a small lacunar infarct versus prominent perivascular space (see full report). * Brain MRI (07/15): no acute intracranial abnormality, mild chronic microangiopathic changes, and mild age related global, middle cranial fossa arachnoid cyst versus cystic encephalomalacia, no evidence of mass effect or vasogenic edema * Ordered for Lumbar and cervical spine xrays * CXR: Mild venous congestion. Patchy increased markings at the left lung base (see full report) * Cervical xray (07/15/16): radiolucency at the dense base a remote fracture versus developmental variant; consider CT cervical spine; no subluxation, cervical spondylosis under disc disease most notable C5-C6 * Lumbar xray (07/15/16): lumbar spondylosis and facet arthrosis, developmental variants. * Completed MRI cervical/thoracic and lumbar; awaiting official report of lumbar today * Cervical MRI (07/17/16): severe narrowing of the spinal canal at C4-C5 associated with cord compression and hyperintense T2 signal of the cord at this levl; multilevel moderate to large disc herniation osteophyte complex w posterior ligament hypertropgy which resulting multilevel moderate spinal and neural foraminal narrowing * Thoracic MRI (07/17/16): moderate degenerative disc changes. Multilevel small disc bulging with mild spinal stenosis. no evidence of cord compression * Lumbar MRI (07/17/16): moderate to mildly severe degenerative disc changes at lower lumbar spine more prominent at L4-L5. small to moderate size disc herniation at L4-L5 and L5-S1 associated with posterio ligament and facet joint hypertrophy, which resulting in mild spinal and moderate bilateral neural formating narrowing. heterogeneous bone marrow signal seen at the lower lumbar spine and in the pelvic bones without evidence of discrete mass lesion or cortical destruction * HIV: negative RF: negative, DAWN: positive, 1:40, speckled, RPR: nonreactive, Lyme titers:negative ESR: elevated, Vitamin D: low, Vitamin B12, CPK: 157, UDS: negative, blood alcohol: negative * Neurochecks * Crestor 5 mg PO HS * NS 100 cc/hr * elevated ESR and CRP * Neurosurgery (Dr. Ruiz)-->help appreciated-->for the OR on July 21. * Decadron 10mg IV Q 8hour (active since 07/17/16) 2. HTN * HCTZ 25 mg po daily * Norvasc 10 mg PO daily * monitor vital signs 3. Electrolyte imbalance * monitor and replete if necessary 4. Impaired glucose tolerance * [id number]: 6.1 * will need repeat in one year * will need counselling regarding diet and exercise to prevent overt diabetes 5. Prophylactic Measures * Protonix 40 mg PO daily * Lovenox 40 mg SC daily held for surgery on Thursday * SCDs * PT/OT eval--->LEELEE * NS 100cc/hr *
[2016-07-20] MEDS: Albuterol-Ipratrop 3 mg / 0.5 (3 ml) UD INH SCH ×4 (02:46→19:28)
[2016-07-20] MEDS: Sodium Chloride 0.9% 1,000 ML IV SCH ×3 (03:00→18:46)
[2016-07-20 06:22] LABS: BASO % 0.1 % (0.0-2.0); HEMATOCRIT 38.4 % (35.0-51.0); LYMPH # 0.8 K/uL (1.0-4.3); LYMPH % 5.2 % (20.0-40.0); MEAN CELL VOLUME 88.1 fL (80.0-94.0); MEAN CORPUSCULAR HEMOGLOBIN 29.4 pg (27.0-31.0); MEAN CORPUSCULAR HGB CONC 33.4 g/dL (33.0-37.0); MEAN PLATELET VOLUME 8.7 fL (7.2-11.7); MONO # 0.6 K/uL (0.0-0.8); MONO % 3.5 % (0.0-10.0); PLATELET COUNT 186 K/uL (130-400); RED CELL DISTRIBUTION WIDTH 13.2 % (11.5-14.5); WHITE BLOOD COUNT 15.9 K/uL (4.8-10.8)
[2016-07-20 06:28] LABS: CHLORIDE 99 mmol/L (98-107)
[2016-07-20 06:29] LABS: POTASSIUM 4.1 mmol/L (3.6-5.2); SODIUM 139 mmol/L (132-148)
[2016-07-20 06:31] LABS: ALB/GLOB RATIO 1.2 (1.0-2.1); ALKALINE PHOSPHATASE 74 U/L (38-126); AST/SGOT 33 U/L (17-59); BILIRUBIN,TOTAL 0.5 mg/dL (0.2-1.3); BLOOD UREA NITROGEN 14 mg/dL (9-20); CARBON DIOXIDE 28 mmol/L (22-30); GFR AFRICAN-AMERICAN > 60; TOTAL PROTEIN 6.9 g/dL (6.3-8.3)
[2016-07-20 06:32] LABS: ALT/SGPT 33 U/L (21-72); CALCIUM 9.1 mg/dl (8.6-10.4); GLUCOSE,RANDOM 150 mg/dL (75-110); MAGNESIUM 1.7 mg/dL (1.6-2.3); PHOSPHOROUS 3.4 mg/dL (2.5-4.5)
[2016-07-20 07:41] LABS: TOTAL CELLS COUNTED 100
[2016-07-20 07:42] LABS: NEUTROPHIL 88 % (50-75)
--- NOTE | 2016-07-20 08:06 | CP.PCM.PN ---
Subjective - Date & Time of Evaluation Date of Evaluation: 07/20/16 Time of Evaluation: 08:00 - Subjective Subjective: Pt alert no complaints Objective - Vital Signs/Intake and Output Vital Signs (last 24 hours): Temp Pulse Resp BP Pulse Ox 97.8 F 70 20 141/62 97 07/19/16 23:15 07/20/16 00:20 07/19/16 23:15 07/19/16 23:15 07/19/16 23:15 Intake and Output: 07/20/16 07/20/16 06:59 18:59 Intake Total 1000 Output Total 800 Balance 200 - Medications Medications: Current Medications Acetaminophen (Tylenol 325mg Tab) 650 mg PO Q6 PRN PRN Reason: Headache Last Admin: 07/19/16 04:25 Dose: 650 mg Albuterol/Ipratropium (Duoneb 3 Mg/0.5 Mg (3 Ml) Ud) 3 ml INH RQ6 [facility] Last Admin: 07/20/16 07:26 Dose: Not Given Amlodipine Besylate (Norvasc) 10 mg PO DAILY [facility] Last Admin: 07/19/16 10:50 Dose: 10 mg Dexamethasone (Decadron Inj) 10 mg IVP Q8 [facility] Last Admin: 07/20/16 06:59 Dose: 10 mg Enoxaparin Sodium (Lovenox) 40 mg SC DAILY [facility] Last Admin: 07/19/16 10:50 Dose: 40 mg Hydrochlorothiazide (Hydrodiuril) 25 mg PO DAILY [facility] Last Admin: 07/19/16 10:50 Dose: 25 mg Sodium Chloride (Sodium Chloride 0.9%) 1,000 mls @ 100 mls/hr IV .Q10H [facility] Last Admin: 07/20/16 03:00 Dose: 100 mls/hr Lorazepam (Ativan) 1 mg IVP Q4H PRN PRN Reason: Seizure activity Ondansetron HCl (Zofran Inj) 4 mg IVP Q6 PRN PRN Reason: Nausea/Vomiting Pantoprazole Sodium (Protonix Ec Tab) 40 mg PO DAILY [facility] Last Admin: 07/19/16 10:50 Dose: 40 mg Rosuvastatin Calcium (Crestor) 5 mg PO HS [facility] Last Admin: 07/19/16 21:31 Dose: 5 mg - Labs Labs: 07/20/16 06:10 07/20/16 06:10 PT 15.5 SECONDS (9.7-12.2) H 07/17/16 19:47 INR 1.4 07/17/16 19:47 APTT 30 SECONDS (21-34) 07/16/16 06:18 - Constitutional Appears: Well - Head Exam Head Exam: NORMAL INSPECTION - Eye Exam Eye Exam: Normal appearance - ENT Exam ENT Exam: Mucous Membranes Moist - Respiratory Exam Respiratory Exam: Clear to Ausculation Bilateral - Cardiovascular Exam Cardiovascular Exam: REGULAR RHYTHM - GI/Abdominal Exam GI & Abdominal Exam: Normal Bowel Sounds - Extremities Exam Extremities Exam: Normal Inspection - Neurological Exam Neurological Exam: Alert, Awake - Psychiatric Exam Psychiatric exam: Normal Mood - Skin Skin Exam: Warm Assessment and Plan (1) Cervical spinal cord compression Assessment & Plan: Pt with weakness for cervical spine surgery Status: Acute
[2016-07-20] MEDS: Pantoprazole 40 mg EC Tab PO SCH (09:41)
[2016-07-20 13:55] LABS: INR 1.3
[2016-07-21] MEDS: Albuterol-Ipratrop 3 mg / 0.5 (3 ml) UD INH SCH ×4 (01:38→20:11)
[2016-07-21] MEDS: Sodium Chloride 0.9% 1,000 ML IV SCH (06:25)
[2016-07-21 06:38] LABS: CHLORIDE 96 mmol/L (98-107); POTASSIUM 4.1 mmol/L (3.6-5.2); SODIUM 135 mmol/L (132-148)
[2016-07-21 06:40] LABS: GFR AFRICAN-AMERICAN > 60
[2016-07-21 06:41] LABS: ALB/GLOB RATIO 1.1 (1.0-2.1); ALKALINE PHOSPHATASE 69 U/L (38-126); ALT/SGPT 44 U/L (21-72); AST/SGOT 41 U/L (17-59); BILIRUBIN,TOTAL 0.6 mg/dL (0.2-1.3); BLOOD UREA NITROGEN 18 mg/dL (9-20); CARBON DIOXIDE 30 mmol/L (22-30); GLUCOSE,RANDOM 140 mg/dL (75-110); PHOSPHOROUS 3.4 mg/dL (2.5-4.5); TOTAL PROTEIN 6.5 g/dL (6.3-8.3)
[2016-07-21 06:42] LABS: CALCIUM 8.6 mg/dl (8.6-10.4); MAGNESIUM 1.5 mg/dL (1.6-2.3)
[2016-07-21 06:45] LABS: BASO % 0.1 % (0.0-2.0); HEMATOCRIT 38.1 % (35.0-51.0); LYMPH # 0.9 K/uL (1.0-4.3); LYMPH % 7.2 % (20.0-40.0); MEAN CELL VOLUME 88.2 fL (80.0-94.0); MEAN CORPUSCULAR HEMOGLOBIN 29.1 pg (27.0-31.0); MEAN CORPUSCULAR HGB CONC 32.9 g/dL (33.0-37.0); MEAN PLATELET VOLUME 9.1 fL (7.2-11.7); MONO # 0.5 K/uL (0.0-0.8); MONO % 3.8 % (0.0-10.0); NRBC % 0.1 % (0.0-2.0); PLATELET COUNT 185 K/uL (130-400); RED CELL DISTRIBUTION WIDTH 13.4 % (11.5-14.5); WHITE BLOOD COUNT 12.7 K/uL (4.8-10.8)
[2016-07-21 08:51] LABS: NEUTROPHIL 89 % (50-75); TOTAL CELLS COUNTED 100
[2016-07-21] MEDS ORDERED: Bacitracin 50,000 UNIT in Sodium Chloride 0.9% Irrig 1,000 ML IR SCH (09:02)
[2016-07-21] MEDS: Pantoprazole 40 mg EC Tab PO SCH (09:47)
[2016-07-21] MEDS ORDERED: Bupivacaine 0.5% Inj(30mL) ONE (10:23)
[2016-07-21] MEDS ORDERED: Absorbable Gelatin Sponge Size 100 ONE (10:23)
[2016-07-21] MEDS ORDERED: Thrombin Topical 5,000 IU Spray Kit ONE (10:24)
[2016-07-21] MEDS ORDERED: Lidocaine 2% w Epi 1:100,000 Inj IJ ONE (10:24)
--- NOTE | 2016-07-21 11:02 | CP.PCM.PN ---
<Donaldo Cain - Last Filed: 07/21/16 16:48> Subjective - Date & Time of Evaluation Date of Evaluation: 07/21/16 Time of Evaluation: 10:58 - Subjective Subjective: Cardiology Progress Note Dr. Knapp Patient seen and examined at the bedside. No acute distress. No acute events overnight. Nursing staff reports no issues. The patient is for cervical discectomy. No cardiopulmonary complaints this morning. Patient continues to reports extremity paresthesias and weakness consistent with his presenting complaint. 12 point review of system was completed and returned negative for acute complaints other than those mentioned above. Objective - Vital Signs/Intake and Output Vital Signs (last 24 hours): Temp Pulse Resp BP Pulse Ox 98.4 F 67 20 114/60 97 07/20/16 23:15 07/21/16 00:20 07/20/16 23:15 07/20/16 23:15 07/20/16 23:15 Intake and Output: 07/21/16 07/21/16 06:59 18:59 Output Total 2150 Balance -2150 - Medications Medications: Current Medications Acetaminophen (Tylenol 325mg Tab) 650 mg PO Q6 PRN PRN Reason: Headache Last Admin: 07/19/16 04:25 Dose: 650 mg Albuterol/Ipratropium (Duoneb 3 Mg/0.5 Mg (3 Ml) Ud) 3 ml INH RQ6 [facility] Last Admin: 07/21/16 08:01 Dose: 3 ml Amlodipine Besylate (Norvasc) 10 mg PO DAILY [facility] Last Admin: 07/21/16 09:46 Dose: 10 mg Dexamethasone (Decadron Inj) 10 mg IVP Q8 [facility] Last Admin: 07/21/16 06:24 Dose: 10 mg Hydrochlorothiazide (Hydrodiuril) 25 mg PO DAILY [facility] Last Admin: 07/21/16 09:46 Dose: 25 mg Sodium Chloride (Sodium Chloride 0.9%) 1,000 mls @ 100 mls/hr IV .Q10H [facility] Last Admin: 07/21/16 06:25 Dose: 100 mls/hr Ondansetron HCl (Zofran Inj) 4 mg IVP Q6 PRN PRN Reason: Nausea/Vomiting Pantoprazole Sodium (Protonix Ec Tab) 40 mg PO DAILY [facility] Last Admin: 07/21/16 09:47 Dose: 40 mg Rosuvastatin Calcium (Crestor) 5 mg PO HS [facility] - Labs Labs: 07/21/16 06:22 07/21/16 06:22 PT 14.4 SECONDS (9.7-12.2) H 07/20/16 13:38 INR 1.3 07/20/16 13:38 APTT 30 SECONDS (21-34) 07/16/16 06:18 - Additional Findings Additional findings: - Constitutional Appears: Well, No Acute Distress - Head Exam Head Exam: ATRAUMATIC, NORMAL INSPECTION, NORMOCEPHALIC - Eye Exam Eye Exam: EOMI, Normal appearance Pupil Exam: NORMAL ACCOMODATION - ENT Exam ENT Exam: Mucous Membranes Moist, Normal Exam - Neck Exam Neck exam: Positive for: Full Rom, Normal Inspection. Negative for: Lymphadenopathy, Tenderness - Respiratory Exam Respiratory Exam: Clear to Auscultation Bilateral, NORMAL BREATHING PATTERN. absent: Rales, Rhonchi, Wheezes, Respiratory Distress, Stridor - Cardiovascular Exam Cardiovascular Exam: REGULAR RHYTHM, RRR, +S1, +S2. absent: Diastolic murmur, Systolic Murmur - GI/Abdominal Exam GI & Abdominal Exam: Normal Bowel Sounds, Soft. absent: Distended, Firm, Guarding, Hernia, Tenderness - Extremities Exam Extremities exam: Positive for: normal capillary refill, normal inspection, pedal pulses present. Negative for: pedal edema, tenderness - Neurological Exam Neurological exam: Alert, CN II-XII Intact, Oriented x3 Additional Comments: Global 3/5, symmetric strength in all extremities - Skin Skin Exam: Dry, Intact, Normal Color, Warm Assessment and Plan (1) Pre-procedural cardiovascular examination Assessment & Plan: Cardaic Risk Assessment/Stratification: Low Risk for Cervical Discectomy - Detsky- Score 0- Class I- low risk - Godwin- Score 0- Class I- no risk - Antelmo- Score 0- Class I- Very Low Risk - Benefits of surgery outweigh the risks of the operation - continue with preoperative beta raffy and SCIP protocol Hemodynamically Stable Cardiac Stable 07/18/16 EKG- Normal sinus rhythm (67bpm), normal intervals, normal axis, and no ST/T wave abnormalities 07/18/16 Echo-preliminary LV EF 79%. Normal systolic and diastolic function. 07/14/16 EKG- sinus bradycardia (53bpm) with normal intervals, normal axis, and no ST/T wave abnormalities Case Discussed with Dr. Aria Cain PGY1 Status: Acute (2) Cervical spinal cord compression Status: Acute (3) HTN (hypertension) Status: Chronic <John Knapp - Last Filed: 08/04/16 16:22> Objective - Vital Signs/Intake and Output Vital Signs (last 24 hours): Temp Pulse Resp BP Pulse Ox 98.1 F 85 20 140/79 97 08/04/16 07:36 08/04/16 07:36 08/04/16 07:36 08/04/16 07:36 08/04/16 07:36 Intake and Output: 08/04/16 08/04/16 06:59 18:59 Intake Total 710 550 Output Total 100 Balance 610 550 - Medications Medications: Current Medications Acetaminophen (Tylenol 325mg Tab) 650 mg PO Q6 PRN PRN Reason: Headache Last Admin: 07/30/16 09:36 Dose: 650 mg Albuterol/Ipratropium (Duoneb 3 Mg/0.5 Mg (3 Ml) Ud) 3 ml INH RQ6 [facility] Last Admin: 08/04/16 14:05 Dose: 3 ml Amlodipine Besylate (Norvasc) 10 mg PO DAILY [facility] Last Admin: 08/04/16 09:32 Dose: 10 mg Aspirin (Ecotrin) 81 mg PO DAILY [facility] Last Admin: 08/04/16 09:32 Dose: 81 mg Baclofen (Lioresal) 5 mg PO DAILY [facility] Last Admin: 08/04/16 09:43 Dose: 5 mg Docusate Sodium (Colace) 100 mg PO TID [facility] Last Admin: 08/04/16 13:37 Dose: Not Given Gabapentin (Neurontin) 400 mg PO TID [facility] Last Admin: 08/04/16 13:36 Dose: 400 mg Heparin Sodium (Porcine) (Heparin) 5,000 units SC Q8 [facility] Last Admin: 08/04/16 13:36 Dose: 5,000 units Ondansetron HCl (Zofran Inj) 4 mg IVP Q6 PRN PRN Reason: Nausea/Vomiting Oxycodone HCl (Oxycodone Immediate Release Tab) 5 mg PO Q4H PRN PRN Reason: Pain, moderate (4-7) Last Admin: 08/03/16 18:03 Dose: 5 mg Pantoprazole Sodium (Protonix Ec Tab) 40 mg PO DAILY [facility] Last Admin: 08/04/16 09:32 Dose: 40 mg Prednisone (Prednisone Tab) 10 mg PO BID [facility] Stop: 08/07/16 18:01 Last Admin: 08/04/16 09:32 Dose: 10 mg Prednisone (Prednisone Tab) 20 mg PO DAILY [facility] Stop: 08/13/16 10:01 Prednisone (Prednisone Tab) 10 mg PO DAILY [facility] Stop: 08/19/16 10:01 Prednisone (Prednisone Tab) 5 mg PO DAILY [facility] Stop: 08/25/16 10:01 Rosuvastatin Calcium (Crestor) 5 mg PO HS [facility] Last Admin: 08/03/16 22:15 Dose: Not Given Simethicone (Mylicon Liq) 40 mg PO QID [facility] Last Admin: 08/04/16 13:37 Dose: Not Given - Labs Labs: 08/04/16 08:22 08/04/16 08:22 PT 14.4 SECONDS (9.7-12.2) H 07/20/16 13:38 INR 1.3 07/20/16 13:38 APTT 30 SECONDS (21-34) 07/16/16 06:18 Assessment and Plan (1) Cervical spinal cord compression Status: Acute Attending/Attestation - Attestation I have personally seen and examined this patient.: Yes I have fully participated in the care of the patient.: Yes I have reviewed all pertinent clinical information, including history, physical exam and plan: Yes Notes (Text): 08/04/16 16:21 Pt for spine surgery may proceed
[2016-07-21] MEDS ORDERED: Propofol 10 mg/ml 1,000 MG/100 ML VIAL ONE (11:03)
[2016-07-21] MEDS ORDERED: Remifentanil 1 mg/3 ml Vial IV ONE (11:03)
[2016-07-21] MEDS ORDERED: Propofol 10 mg/ml Inj (20 ML) ONE ×2 (11:05→11:40)
[2016-07-21] MEDS ORDERED: ceFAZolin IV 2 gm in Dextrose 1 GM/50 ML BAG IVPB ONE (11:13)
[2016-07-21] MEDS ORDERED: HYDROmorphone 0.5 mg/0.5 ml ISec IVP PRN (12:31)
[2016-07-21] MEDS ORDERED: Lactated Ringer's 1,000 ML IV ONE (12:56)
[2016-07-21] MEDS ORDERED: oxyCODONE 5 mg Immediate Release Tab PO PRN (13:03)
--- NOTE | 2016-07-21 13:11 | PCM.SURG1 ---
Surgeon's Initial Post Op Note - Surgeon's Notes Surgeon: [facility] Worker: Cathie Type of Anesthesia: General Endo Pre-Operative Diagnosis: Cervical myelopathy Operative Findings: Herniated disc w cord compression Post-Operative Diagnosis: Same Operation Performed: ACDF C4-5 Specimen/Specimens Removed: C4-5 disc Estimated Blood Loss: EBL {In ML}: 40 Blood Products Given: N/A Drains Used: No Drains Post-Op Condition: Fair Date of Surgery/Procedure: 07/21/16 Time of Surgery/Procedure: 11:40
[2016-07-21] MEDS: Albuterol-Ipratrop 3 mg / 0.5 (3 ml) UD INH STA ×2 (13:15→13:20)
[2016-07-21] MEDS ORDERED: HYDROmorphone 1 mg/ml ISec ONE (13:21)
--- NOTE | 2016-07-21 14:42 | CP.PCM.PN ---
<LeighrogeliorosannaAnibal - Last Filed: 07/21/16 14:39> Subjective - Date & Time of Evaluation Date of Evaluation: 07/21/16 Time of Evaluation: 07:50 - Subjective Subjective: PGY-1 Medicine Progress Note for Dr. Levine Patient seen and examined at bedside this AM. Patient NPO overnight. He is going for discectomy and fusion of C4-[address] Ruiz today. Patient sitting in chair at bedside comfortably. Patient reports weakness and numbness/tingling still. Denies incontinence, saddle paresthesia, headache, fever/chills, cp, shortness of breath, abd pain, n/v/d. Objective - Vital Signs/Intake and Output Vital Signs (last 24 hours): Temp Pulse Resp BP Pulse Ox 98.4 F 67 20 114/60 97 07/21/16 11:10 07/21/16 11:10 07/21/16 11:10 07/21/16 11:10 07/21/16 11:10 Intake and Output: 07/21/16 07/21/16 06:59 18:59 Intake Total 1150 Output Total 2150 Balance -2150 1150 - Medications Medications: Current Medications Acetaminophen (Tylenol 325mg Tab) 650 mg PO Q6 PRN PRN Reason: Headache Last Admin: 07/19/16 04:25 Dose: 650 mg Albuterol/Ipratropium (Duoneb 3 Mg/0.5 Mg (3 Ml) Ud) 3 ml INH RQ6 [facility] Last Admin: 07/21/16 13:29 Dose: Not Given Amlodipine Besylate (Norvasc) 10 mg PO DAILY [facility] Last Admin: 07/21/16 09:46 Dose: 10 mg Dexamethasone (Decadron Inj) 10 mg IVP Q8 [facility] Last Admin: 07/21/16 06:24 Dose: 10 mg Hydrochlorothiazide (Hydrodiuril) 25 mg PO DAILY [facility] Last Admin: 07/21/16 09:46 Dose: 25 mg Sodium Chloride (Sodium Chloride 0.9%) 1,000 mls @ 100 mls/hr IV .Q10H [facility] Last Admin: 07/21/16 06:25 Dose: 100 mls/hr Potassium Chloride/Dextrose/Sod Cl (Potassium Chl 20 Meq In D5-1/2ns) 1,000 mls @ 100 mls/hr IV .Q10H [facility] Ondansetron HCl (Zofran Inj) 4 mg IVP Q6 PRN PRN Reason: Nausea/Vomiting Oxycodone HCl (Oxycodone Immediate Release Tab) 5 mg PO Q4H PRN PRN Reason: Pain, Mild (1-3) Pantoprazole Sodium (Protonix Ec Tab) 40 mg PO DAILY [facility] Last Admin: 07/21/16 09:47 Dose: 40 mg Rosuvastatin Calcium (Crestor) 5 mg PO HS [facility] - Labs Labs: 07/21/16 06:22 07/21/16 06:22 PT 14.4 SECONDS (9.7-12.2) H 07/20/16 13:38 INR 1.3 07/20/16 13:38 APTT 30 SECONDS (21-34) 07/16/16 06:18 - Constitutional Appears: No Acute Distress - Head Exam Head Exam: ATRAUMATIC, NORMOCEPHALIC - Eye Exam Eye Exam: EOMI, Normal appearance Pupil Exam: PERRL - ENT Exam ENT Exam: Mucous Membranes Moist - Neck Exam Neck Exam: absent: Full ROM - Respiratory Exam Respiratory Exam: Clear to Ausculation Bilateral, NORMAL BREATHING PATTERN - Cardiovascular Exam Cardiovascular Exam: REGULAR RHYTHM, +S1, +S2 - GI/Abdominal Exam GI & Abdominal Exam: Soft, Normal Bowel Sounds. absent: Tenderness - Extremities Exam Extremities Exam: Normal Capillary Refill - Back Exam Back Exam: absent: CVA tenderness (L), CVA tenderness (R) - Neurological Exam Neurological Exam: Alert, Awake, CN II-XII Intact, Oriented x3 - Psychiatric Exam Psychiatric exam: Normal Affect, Normal Mood - Skin Skin Exam: Dry, Intact, Normal Color, Warm Assessment and Plan - Assessment and Plan (Free Text) Plan: 1. Generalized Lower extremity weakness 07/21: Patient had ACDF C4-5 for Cervical myelopathy to day with Dr. Ruiz and Dr. Brand. Patient found to have Herniated disc w/ cord compression and C4 -5 disc was removed. 07/19: Pulm clearance needed, ABG to see if there is CO2 retention, Duonebs RQ6 07/18: Continue decadron 10 mg IVP q8h to decrease inflammation. Per neurosurgeon , Dr. Ruiz, impression is cervical myelopathy. Plan for discectomy and fusion at C4-C5 in order to decompress cord on Thursday. Dr. Ruiz explained procedure and potential complications to patient at bedside. Aspirin discontinued Detsky score: 0 , Class I - low risk Cardiology, Dr. Knapp, consulted for cardiac pre-operative clearance. Echo: LVEF 79%. EKG (07/14): sinus bradycardia, no ST/T wave changes. As patient has a smoking history, consulted ct scan special procedures technologist, Dr. Rajan, for pre-operative clearance. MRI total spine w/wo haydee -Cervical: Severe narrowing of spinal canal at C4-C5 associated with cord compression and hyperintense T2 signal of cord at this leve. Multilevel moderate to large disc herniation osteophyte complex associated with posterior ligament hypertrophy resulting in multilevel moderate spinal and neural foraminal narrowing. -Thoracic: Moderate degenerative disc changes. Multilevel small disc bulging associated with mild spinal stenosis. No evidence of cord compression. -Lumbar: Normal lumbar lordosis. Vertebral body heights preserved. Somewhat patchy bone marrow signal in lower lumbar spine as well as in pelvic bones without discrete evidence of mass lesion or cortical destruction. Conus medullaris unremarkable. Moderate to mildly severe degenerative disc changes at lower lumbar spine more prominent at L4-L5. Small to moderate size disc herniation at L4-L5 and L5-S1 associated with posterior ligament and facet joint hypertrophy which resulting in mild spinal and moderate bilateral neural foramina narrowing. Neurology consult, Dr. Miranda, help appreciated. Per Dr. Miranda, start decadron 10 mg IVP q8h to decrease inflammation of cord and consult neurosurgery. CT head: Focal encephalomalacia and or atrophy seen within the bilateral anterior temporal lobes. Clinical correlation. Correlation with MRI may be helpful if clinically indicated. Chronic microvascular ischemic changes. Small hypodensity in the left basal ganglia which may represent a small lacunar infarct versus prominent perivascular space. If focal neurologic deficit persists, consider further evaluation with MRI (see full report) Brain MRI: Focal encephalomalacia and or atrophy seen within the bilateral anterior temporal lobes. Clinical correlation. Correlation with MRI may be helpful if clinically indicated. Chronic microvascular ischemic changes. Small hypodensity in the left basal ganglia which may represent a small lacunar infarct versus prominent perivascular space (see full report) Lumbar XR showed L5-S1 arthrosis, L4-5 spondylosis, S1 spina bifida occulta Cervical XR showed c5-6 spondylosis CXR: Mild venous congestion. Patchy increased markings at the left lung base ( see full report) HIV negative Lyme titers - Lyme IgG 58 kDa Band Reactive, Lyme IgG W Blot negative RF negative DAWN positive, 1:40, speckled pattern RPR nonreactive ESR 30 CRP 11.86 Vitamin D 21.7 Vitamin B12 726 folate 14 CPK 157 Neurochecks ASA 81 mg PO daily Crestor 5 mg PO HS NS 100 cc/hr [facility] PT/OT treat and eval 2. HTN HCTZ 25 mg po daily Norvasc 10 mg PO daily discontinued Aspirin 81 mg po daily in preparation for surgery 3. Prophylactic Measures Prontonix 40 mg PO daily [facility] Lovenox 40 mg SC daily for procedure SCDs Clear liquid diet <Sonia Levine V - Last Filed: 07/22/16 00:22> Objective - Vital Signs/Intake and Output Vital Signs (last 24 hours): Temp Pulse Resp BP Pulse Ox 97.8 F 89 20 131/65 95 07/21/16 14:45 07/21/16 16:00 07/21/16 15:00 07/21/16 14:45 07/21/16 14:45 Intake and Output: 07/21/16 07/22/16 18:59 06:59 Intake Total 1250 Balance 1250 - Medications Medications: Current Medications Acetaminophen (Tylenol 325mg Tab) 650 mg PO Q6 PRN PRN Reason: Headache Last Admin: 07/19/16 04:25 Dose: 650 mg Albuterol/Ipratropium (Duoneb 3 Mg/0.5 Mg (3 Ml) Ud) 3 ml INH RQ6 [facility] Last Admin: 07/21/16 20:11 Dose: 3 ml Amlodipine Besylate (Norvasc) 10 mg PO DAILY [facility] Last Admin: 07/21/16 09:46 Dose: 10 mg Dexamethasone (Decadron Inj) 10 mg IVP Q8 [facility] Last Admin: 07/21/16 21:48 Dose: 10 mg Hydrochlorothiazide (Hydrodiuril) 25 mg PO DAILY [facility] Last Admin: 07/21/16 09:46 Dose: 25 mg Sodium Chloride (Sodium Chloride 0.9%) 1,000 mls @ 100 mls/hr IV .Q10H [facility] Last Admin: 07/21/16 06:25 Dose: 100 mls/hr Potassium Chloride/Dextrose/Sod Cl (Potassium Chl 20 Meq In D5-1/2ns) 1,000 mls @ 100 mls/hr IV .Q10H [facility] Last Admin: 07/21/16 15:49 Dose: 100 mls/hr Ondansetron HCl (Zofran Inj) 4 mg IVP Q6 PRN PRN Reason: Nausea/Vomiting Oxycodone HCl (Oxycodone Immediate Release Tab) 5 mg PO Q4H PRN PRN Reason: Pain, Mild (1-3) Pantoprazole Sodium (Protonix Ec Tab) 40 mg PO DAILY [facility] Last Admin: 07/21/16 09:47 Dose: 40 mg Rosuvastatin Calcium (Crestor) 5 mg PO HS [facility] Last Admin: 07/21/16 21:48 Dose: 5 mg - Labs Labs: 07/21/16 06:22 07/21/16 06:22 PT 14.4 SECONDS (9.7-12.2) H 07/20/16 13:38 INR 1.3 07/20/16 13:38 APTT 30 SECONDS (21-34) 07/16/16 06:18 Attending/Attestation - Attestation I have personally seen and examined this patient.: Yes I have fully participated in the care of the patient.: Yes I have reviewed all pertinent clinical information, including history, physical exam and plan: Yes Notes (Text): This is late computer entry for 07/21/16. Patient seen, examined, and case discussed with day-time resident. Patient seen at bedside this morning. Patient reporting about the same decreased sensation about the regarding upper and lower extremities. Patient is awaiting spinal surgery to help relieve C4-C5 this morning. Patient underwent anterior cervical discteomy C4-C5, cervical fusion C4-C5 per operative note. No complication noted. Minimal blood loss Patient is currently on Decadron 10mg IV Q 8hours. will need to follow-up with neurosurgery regarding dosing Anticoagulation to be determine by surgery to restart given patient has had procedure today Assessment/Plan 1. Generalized Upper and Lower extremity weakness Cervical Cord Compression * Neurology consult, Dr. Miranda, help appreciated * Neurosurgery (Dr. Ruiz)-->help appreciated * CT head (07/15/16): foncal encephalomalacia and/or atrophy seen with b/l anterior temporal lobes Correlation with MRI may be helpful if clinically indicated. Chronic microvascular ischemic changes. Small hypodensity in the left basal ganglia which may represent a small lacunar infarct versus prominent perivascular space (see full report). * Brain MRI (07/15): no acute intracranial abnormality, mild chronic microangiopathic changes, and mild age related global, middle cranial fossa arachnoid cyst versus cystic encephalomalacia, no evidence of mass effect or vasogenic edema * Ordered for Lumbar and cervical spine xrays * CXR: Mild venous congestion. Patchy increased markings at the left lung base (see full report) * Cervical xray (07/15/16): radiolucency at the dense base a remote fracture versus developmental variant; consider CT cervical spine; no subluxation, cervical spondylosis under disc disease most notable C5-C6 * Lumbar xray (07/15/16): lumbar spondylosis and facet arthrosis, developmental variants. * Completed MRI cervical/thoracic and lumbar; awaiting official report of lumbar today * Cervical MRI (07/17/16): severe narrowing of the spinal canal at C4-C5 associated with cord compression and hyperintense T2 signal of the cord at this levl; multilevel moderate to large disc herniation osteophyte complex w posterior ligament hypertropgy which resulting multilevel moderate spinal and neural foraminal narrowing * Thoracic MRI (07/17/16): moderate degenerative disc changes. Multilevel small disc bulging with mild spinal stenosis. no evidence of cord compression * Lumbar MRI (07/17/16): moderate to mildly severe degenerative disc changes at lower lumbar spine more prominent at L4-L5. small to moderate size disc herniation at L4-L5 and L5-S1 associated with posterio ligament and facet joint hypertrophy, which resulting in mild spinal and moderate bilateral neural formating narrowing. heterogeneous bone marrow signal seen at the lower lumbar spine and in the pelvic bones without evidence of discrete mass lesion or cortical destruction * HIV: negative RF: negative, DAWN: positive, 1:40, speckled, RPR: nonreactive, Lyme titers:negative ESR: elevated, Vitamin D: low, Vitamin B12, CPK: 157, UDS: negative, blood alcohol: negative * Decadron 10mg IV Q 8hour (active since 07/17/16) * Patient underwent anterior cervical discteomy C4-C5, cervical fusion C4-C5 per operative note. No complication noted. Minimal blood loss on 2. HTN * HCTZ 25 mg po daily * Norvasc 10 mg PO daily * monitor vital signs 3. Electrolyte imbalance * monitor and replete if necessary 4. Impaired glucose tolerance * [id number]: 6.1 * will need repeat in one year * will need counselling regarding diet and exercise to prevent overt diabetes 5. Prophylactic Measures * Protonix 40 mg PO daily * Anticoagulation to be determine by surgery to restart and in addition to decadron steroid taper * SCDs * PT/OT eval--->LEELEE * NS 100cc/hr
--- NOTE | 2016-07-21 14:43 | OP ---
PROCEDURE DATE: 07/21/2016 PREOPERATIVE DIAGNOSES: Cervical myelopathy with cord compression C4-C5. POSTOPERATIVE DIAGNOSES: Cervical myelopathy with cord compression, C4 C5. OPERATION: 1. Anterior cervical diskectomy C4-C5. 2. Anterior cervical fusion C4-C5. 3. Use of intravertebral device. 4. Use of spinal instrumentation. 5. Use of autograft by means of bone marrow aspiration. SURGEONS: Guero Ruiz MD NUCLE[employer] WEAPONS MECHANICAL SPECIALIST: Gautam Brand MD ANESTHESIA: General endotracheal intubation. PROCEDURE: The patient was brought into the operating room, placed on the operating table in a supin e position. General anesthesia was achieved and the patient was intubated using the GlideScope witho ut any excessive posturing of his neck. Intravenous antibiotics were administered and the spinal cor d monitoring leads were placed throughout the patient's body. Realtime monitoring was done by a tech nician in the room. Remote monitoring done by a physician as well. Sequential compression boots are placed to each of the patient's legs. A small sheet was folded and placed underneath the patient's scapula to obtain some gentle extension of the neck. Monitoring was done before and after the placem ent of the sheet and no differences were noted. The patient's arms were padded and secured at his si de. The patient's neck was sterilely prepped and draped. Level for the incision was noted under flu oroscopy and infiltrated with lidocaine with epinephrine. An incision was made sharply from the midl ine towards the right long Crystal's lines and taken down through subcutaneous tissue using sharp and blunt dissection. Hemostasis achieved using electrocautery. There was a very thin platysma which wa aracely divided vertically and a plane bluntly developed down to the anterior cervical vertebral bodies. C arotid was identified and gently retracted laterally, the midline structures taken medially. Prevert ebral fascia was cleared using a peanut sponge and Metzenbaum scissors. Needle was placed at what wa s felt to be the 4-5 disk and this was confirmed under fluoroscopy. As the needle was removed, the a nnulus was marked and longus colli muscles cauterized and stripped back with a small patterson elevator. S elf-retraining trimline retractors were placed in the wound and we had excellent visualization of the operative field. Another fluoroscopic view was taken with the needle in the disk space and once aga in, it verified we were at the 4-5 level. At that time, the endotracheal cuff was deflated and reinf lated minimally to help avoid any compression injuries to surrounding structures. The annulus was th en sharply incised and disk material removed with small straight and curved curettes and a pituitary rongeur. Small lamina spreaders were used sequentially side to side to open up the disk space and on ce we were at the posterior margin, the operating microscope was brought into the field and the rest of the decompression done under microscopic visualization. Under microscopic visualization, 1 mm and 2 mm Kerrison rongeurs were used to remove any remaining disk and annulus along the posterior longit udinal ligament. High speed drill was used to drill down some of the osteophytic ridging off the inf erior part of the C4 body. Large disk herniation was removed and once the whole ventral surface of t he dura was cleared, one could still see the impression against the cord. Foraminotomies were roxann d out until gentle probing with a blunt tip nerve hook revealed no residual pressure. When we were f irst doing the foraminotomies, the root seemed to be very irritated, but after the foraminotomies wer e done, no irritation was noted. The disk space was then copiously irrigated with antibiotic solutio n. Hemostasis achieved with thrombinated Gelfoam powder. Motor stimulation was done and no changes were noted after the decompression. We then proceeded with the fusion part of the procedure. A pin hole was made in the C5 vertebral bod y and bone marrow was aspirated and used to soak a piece of Conform cube. Thrombinated Gelfoam powde r was used for hemostasis at the donor site. Trials were done. The size 5 Bengal cage was found to be the best fit. The appropriate rasp was used while the canal of the cage was packed with the marro w soaked Conform and coated with Optium gel. The cage was then tamped into place and countersunk. V isually, it appeared to be in excellent position. A 60 mm Acromed Uniplate was then affixed to the v ertebral bodies using 16 mm self-drilling screws. Final fluoroscopic view showed excellent position of the hardware and the intervertebral device. The screws were then locked into place and the wound copiously irrigated with antibiotic solution. Hemostasis was achieved with bipolar cautery as well a s thrombinated Gelfoam powder. The wound was closed in layers with interrupted sutures of 3-0 Vicryl for the platysma and subcutaneous tissue and a running subcuticular suture of 4-0 Monocryl for the s kin. Dermabond was used to seal the closure. Once that was completely dry, a small dressing was rosi champ over it and a soft cervical collar was applied as well. The patient was then awakened and extuba park. He was transferred to a stretcher and taken to the recovery room in stable condition. He bharati ated the procedure well. Blood loss was about 40 mL. He received a liter of crystalloid during the operation. He was moving all extremities in the recovery room. No permanent electrophysiologic abno rmalities were noted at the completion of the case. In fact, the food equipment service technician noted some mild improvem ent of the SSEPs in the lower extremities compared to the initial baseline, but again, nothing was wo rse at the completion of the case. Guero Ruiz MD cc: [id number] TT: 07/21/2016 14:42:33 en
--- NOTE | 2016-07-21 15:44 | RAD ---
PROCEDURE: Intraoperative Fluoroscopy. HISTORY: CERVICAL MYELOPATHY FINDINGS: Fluoroscopic assistance was provided for anterior cervical fusion.
[2016-07-21] MEDS: Potassium Ch 20mEq in D5-1/2NS 1,000 ML IV SCH (15:49)
[2016-07-22] MEDS: Albuterol-Ipratrop 3 mg / 0.5 (3 ml) UD INH SCH ×4 (01:09→19:49)
[2016-07-22] MEDS: Potassium Ch 20mEq in D5-1/2NS 1,000 ML IV SCH ×3 (02:50→22:09)
[2016-07-22 07:06] LABS: CHLORIDE 93 mmol/L (98-107); SODIUM 133 mmol/L (132-148)
[2016-07-22 07:07] LABS: POTASSIUM 4.1 mmol/L (3.6-5.2)
[2016-07-22 07:09] LABS: ALKALINE PHOSPHATASE 69 U/L (38-126); AST/SGOT 25 U/L (17-59); BILIRUBIN,TOTAL 0.6 mg/dL (0.2-1.3); BLOOD UREA NITROGEN 18 mg/dL (9-20); CARBON DIOXIDE 31 mmol/L (22-30); GFR AFRICAN-AMERICAN > 60; GLUCOSE,RANDOM 151 mg/dL (75-110); PHOSPHOROUS 3.8 mg/dL (2.5-4.5); TOTAL PROTEIN 6.1 g/dL (6.3-8.3)
[2016-07-22 07:10] LABS: ALT/SGPT 31 U/L (21-72); CALCIUM 8.5 mg/dl (8.6-10.4); MAGNESIUM 1.6 mg/dL (1.6-2.3)
[2016-07-22 07:31] LABS: BASO % 0.1 % (0.0-2.0); LYMPH # 0.7 K/uL (1.0-4.3); LYMPH % 6.1 % (20.0-40.0); MEAN CELL VOLUME 87.5 fL (80.0-94.0); MEAN CORPUSCULAR HEMOGLOBIN 29.1 pg (27.0-31.0); MEAN CORPUSCULAR HGB CONC 33.3 g/dL (33.0-37.0); MEAN PLATELET VOLUME 9.5 fL (7.2-11.7); MONO # 0.9 K/uL (0.0-0.8); MONO % 7.8 % (0.0-10.0); NRBC % 0.1 % (0.0-2.0); PLATELET COUNT 182 K/uL (130-400); RED CELL DISTRIBUTION WIDTH 13.8 % (11.5-14.5); WHITE BLOOD COUNT 11.2 K/uL (4.8-10.8)
[2016-07-22 09:08] LABS: NEUTROPHIL 82 % (50-75); TOTAL CELLS COUNTED 100
[2016-07-22] MEDS: Pantoprazole 40 mg EC Tab PO SCH (09:39)
--- NOTE | 2016-07-22 14:18 | CP.PCM.PN ---
<Donaldo Cain - Last Filed: 07/22/16 18:31> Subjective - Date & Time of Evaluation Date of Evaluation: 07/22/16 Time of Evaluation: 14:15 - Subjective Subjective: Cardiology Progress Note Dr. Knapp Patient seen and examined at the bedside. No acute distress. No acute events overnight. Nursing staff reports no issues. The patient is POD #1 s/p C4-[address] Ruiz. The patient tolerated the procedure well. No cardiopulmonary complaints this morning. Patient continues to reports extremity paresthesias and weakness with only minimal improvement following the surgery. 12 point review of system was completed and returned negative for acute complaints other than those mentioned above. Objective - Vital Signs/Intake and Output Vital Signs (last 24 hours): Temp Pulse Resp BP Pulse Ox 98.3 F 83 20 131/65 95 07/22/16 07:53 07/22/16 09:37 07/22/16 07:53 07/22/16 09:37 07/22/16 07:53 - Medications Medications: Current Medications Acetaminophen (Tylenol 325mg Tab) 650 mg PO Q6 PRN PRN Reason: Headache Last Admin: 07/19/16 04:25 Dose: 650 mg Albuterol/Ipratropium (Duoneb 3 Mg/0.5 Mg (3 Ml) Ud) 3 ml INH RQ6 [facility] Last Admin: 07/22/16 13:31 Dose: 3 ml Amlodipine Besylate (Norvasc) 10 mg PO DAILY [facility] Last Admin: 07/22/16 09:39 Dose: 10 mg Dexamethasone (Decadron Inj) 10 mg IVP Q8 [facility] Last Admin: 07/22/16 06:27 Dose: 10 mg Gabapentin (Neurontin) 300 mg PO TID [facility] Hydrochlorothiazide (Hydrodiuril) 25 mg PO DAILY [facility] Last Admin: 07/22/16 09:39 Dose: 25 mg Sodium Chloride (Sodium Chloride 0.9%) 1,000 mls @ 100 mls/hr IV .Q10H [facility] Last Admin: 07/21/16 06:25 Dose: 100 mls/hr Potassium Chloride/Dextrose/Sod Cl (Potassium Chl 20 Meq In D5-1/2ns) 1,000 mls @ 100 mls/hr IV .Q10H [facility] Last Admin: 07/22/16 12:13 Dose: 100 mls/hr Ondansetron HCl (Zofran Inj) 4 mg IVP Q6 PRN PRN Reason: Nausea/Vomiting Oxycodone HCl (Oxycodone Immediate Release Tab) 5 mg PO Q4H PRN PRN Reason: Pain, Mild (1-3) Pantoprazole Sodium (Protonix Ec Tab) 40 mg PO DAILY [facility] Last Admin: 07/22/16 09:39 Dose: 40 mg Rosuvastatin Calcium (Crestor) 5 mg PO HS [facility] Last Admin: 07/21/16 21:48 Dose: 5 mg - Labs Labs: 07/22/16 06:28 07/22/16 06:28 PT 14.4 SECONDS (9.7-12.2) H 07/20/16 13:38 INR 1.3 07/20/16 13:38 APTT 30 SECONDS (21-34) 07/16/16 06:18 - Additional Findings Additional findings: - Constitutional Appears: Well, No Acute Distress - Head Exam Head Exam: ATRAUMATIC, NORMAL INSPECTION, NORMOCEPHALIC - Eye Exam Eye Exam: EOMI, Normal appearance Pupil Exam: NORMAL ACCOMODATION - ENT Exam ENT Exam: Mucous Membranes Moist, Normal Exam - Neck Exam Neck exam: Positive for: Full Rom, Normal Inspection. Negative for: Lymphadenopathy, Tenderness - Respiratory Exam Respiratory Exam: Clear to Auscultation Bilateral, NORMAL BREATHING PATTERN. absent: Rales, Rhonchi, Wheezes, Respiratory Distress, Stridor - Cardiovascular Exam Cardiovascular Exam: REGULAR RHYTHM, RRR, +S1, +S2. absent: Diastolic murmur, Systolic Murmur - GI/Abdominal Exam GI & Abdominal Exam: Normal Bowel Sounds, Soft. absent: Distended, Firm, Guarding, Hernia, Tenderness - Extremities Exam Extremities exam: Positive for: normal capillary refill, normal inspection, pedal pulses present. Negative for: pedal edema, tenderness - Neurological Exam Neurological exam: Alert, CN II-XII Intact, Oriented x3 Additional Comments: Global 4/5, symmetric strength in all extremities - Skin Skin Exam: Dry, Intact, Normal Color, Warm Assessment and Plan (1) Pre-procedural cardiovascular examination Assessment & Plan: Cardiac Stable DC Telemetry Hemodynamically Stable Continue Current Management [facility] Risk Assessment/Stratification: Low Risk for Cervical Discectomy - Detsky- Score 0- Class I- low risk - Godwin- Score 0- Class I- no risk - Antelmo- Score 0- Class I- Very Low Risk - Benefits of surgery outweigh the risks of the operation - continue with preoperative beta raffy and SCIP protocol Cardiac Stable 07/18/16 EKG- Normal sinus rhythm (67bpm), normal intervals, normal axis, and no ST/T wave abnormalities 07/18/16 Echo-preliminary LV EF 79%. Normal systolic and diastolic function. 07/14/16 EKG- sinus bradycardia (53bpm) with normal intervals, normal axis, and no ST/T wave abnormalities Case Discussed with Dr. Aria Cain PGY1 Status: Acute (2) Cervical spinal cord compression Status: Acute (3) HTN (hypertension) Status: Chronic <John Knapp - Last Filed: 08/04/16 16:20> Objective - Vital Signs/Intake and Output Vital Signs (last 24 hours): Temp Pulse Resp BP Pulse Ox 98.1 F 85 20 140/79 97 08/04/16 07:36 08/04/16 07:36 08/04/16 07:36 08/04/16 07:36 08/04/16 07:36 Intake and Output: 08/04/16 08/04/16 06:59 18:59 Intake Total 710 550 Output Total 100 Balance 610 550 - Medications Medications: Current Medications Acetaminophen (Tylenol 325mg Tab) 650 mg PO Q6 PRN PRN Reason: Headache Last Admin: 07/30/16 09:36 Dose: 650 mg Albuterol/Ipratropium (Duoneb 3 Mg/0.5 Mg (3 Ml) Ud) 3 ml INH RQ6 [facility] Last Admin: 08/04/16 14:05 Dose: 3 ml Amlodipine Besylate (Norvasc) 10 mg PO DAILY [facility] Last Admin: 08/04/16 09:32 Dose: 10 mg Aspirin (Ecotrin) 81 mg PO DAILY [facility] Last Admin: 08/04/16 09:32 Dose: 81 mg Baclofen (Lioresal) 5 mg PO DAILY [facility] Last Admin: 08/04/16 09:43 Dose: 5 mg Docusate Sodium (Colace) 100 mg PO TID [facility] Last Admin: 08/04/16 13:37 Dose: Not Given Gabapentin (Neurontin) 400 mg PO TID [facility] Last Admin: 08/04/16 13:36 Dose: 400 mg Heparin Sodium (Porcine) (Heparin) 5,000 units SC Q8 [facility] Last Admin: 08/04/16 13:36 Dose: 5,000 units Ondansetron HCl (Zofran Inj) 4 mg IVP Q6 PRN PRN Reason: Nausea/Vomiting Oxycodone HCl (Oxycodone Immediate Release Tab) 5 mg PO Q4H PRN PRN Reason: Pain, moderate (4-7) Last Admin: 08/03/16 18:03 Dose: 5 mg Pantoprazole Sodium (Protonix Ec Tab) 40 mg PO DAILY [facility] Last Admin: 08/04/16 09:32 Dose: 40 mg Prednisone (Prednisone Tab) 10 mg PO BID [facility] Stop: 08/07/16 18:01 Last Admin: 08/04/16 09:32 Dose: 10 mg Prednisone (Prednisone Tab) 20 mg PO DAILY [facility] Stop: 08/13/16 10:01 Prednisone (Prednisone Tab) 10 mg PO DAILY [facility] Stop: 08/19/16 10:01 Prednisone (Prednisone Tab) 5 mg PO DAILY [facility] Stop: 08/25/16 10:01 Rosuvastatin Calcium (Crestor) 5 mg PO HS [facility] Last Admin: 08/03/16 22:15 Dose: Not Given Simethicone (Mylicon Liq) 40 mg PO QID [facility] Last Admin: 08/04/16 13:37 Dose: Not Given - Labs Labs: 08/04/16 08:22 08/04/16 08:22 PT 14.4 SECONDS (9.7-12.2) H 07/20/16 13:38 INR 1.3 07/20/16 13:38 APTT 30 SECONDS (21-34) 07/16/16 06:18 Assessment and Plan (1) Cervical spinal cord compression Status: Acute Attending/Attestation - Attestation I have personally seen and examined this patient.: Yes I have fully participated in the care of the patient.: Yes I have reviewed all pertinent clinical information, including history, physical exam and plan: Yes Notes (Text): 08/04/16 16:20 Pt tolerated surgery in spine collar soft continue bp meds
--- NOTE | 2016-07-22 14:20 | CP.PCM.PN ---
Subjective - Date & Time of Evaluation Date of Evaluation: 07/22/16 Time of Evaluation: 14:12 - Subjective Subjective: SPINE - POD #1 Pt resting in bed. States "everything is worse" since the surgery. However, he does report he no longer feels the pins and needles down his body as before. Taking po liquids. Seen by PT. Unable to stand. Afebrile. VSS. Collar in place. Moves all extremities actively. Manager Of Procurement seem a little stronger. Sens intact to light touch. Motor 4+-5/5 bilat. Plan: Cont post-op care. Mobilize as andrade w therapy. Explained to pt again first goal of surgery was to stop progression of sx's, which hopefully the decrease in pins and needles indicates. It will take time/PT to see how much, if any, improvement he gets. If insurance covers rehab placement, OK from our viewpoint for transfer when bed available. Objective - Vital Signs/Intake and Output Vital Signs (last 24 hours): Temp Pulse Resp BP Pulse Ox 98.3 F 83 20 131/65 95 07/22/16 07:53 07/22/16 09:37 07/22/16 07:53 07/22/16 09:37 07/22/16 07:53 - Medications Medications: Current Medications Acetaminophen (Tylenol 325mg Tab) 650 mg PO Q6 PRN PRN Reason: Headache Last Admin: 07/19/16 04:25 Dose: 650 mg Albuterol/Ipratropium (Duoneb 3 Mg/0.5 Mg (3 Ml) Ud) [address] [facility] Last Admin: 07/22/16 13:31 Dose: 3 ml Amlodipine Besylate (Norvasc) [address] [facility] Last Admin: 07/22/16 09:39 Dose: 10 mg Dexamethasone (Decadron Inj) 10 mg IVP Q8 [facility] Last Admin: 07/22/16 06:27 Dose: 10 mg Gabapentin (Neurontin) [address] [facility] Hydrochlorothiazide (Hydrodiuril) [address] [facility] Last Admin: 07/22/16 09:39 Dose: 25 mg Sodium Chloride (Sodium Chloride 0.9%) 1,000 mls @ 100 mls/hr IV .Q10H [facility] Last Admin: 07/21/16 06:25 Dose: 100 mls/hr Potassium Chloride/Dextrose/Sod Cl (Potassium Chl 20 Meq In D5-1/2ns) 1,000 mls @ 100 mls/hr IV .Q10H [facility] Last Admin: 07/22/16 12:13 Dose: 100 mls/hr Ondansetron HCl (Zofran Inj) 4 mg IVP Q6 PRN PRN Reason: Nausea/Vomiting Oxycodone HCl (Oxycodone Immediate Release Tab) 5 mg PO Q4H PRN PRN Reason: Pain, Mild (1-3) Pantoprazole Sodium (Protonix Ec Tab) [address] [facility] Last Admin: 07/22/16 09:39 Dose: 40 mg Rosuvastatin Calcium (Crestor) [address] [facility] Last Admin: 07/21/16 21:48 Dose: 5 mg - Labs Labs: 07/22/16 06:28 07/22/16 06:28 PT 14.4 SECONDS (9.7-12.2) H 07/20/16 13:38 INR 1.3 07/20/16 13:38 APTT 30 SECONDS (21-34) 07/16/16 06:18
--- NOTE | 2016-07-22 16:52 | CP.PCM.PN ---
<LaquitaAnibal - Last Filed: 07/22/16 16:49> Subjective - Date & Time of Evaluation Date of Evaluation: 07/22/16 Time of Evaluation: 07:10 - Subjective Subjective: PGY-1 Medicine Progress Note for Dr. Del Cid Patient seen and examined at bedside this AM. No acute event overnight. He is POD#1 s/p discectomy and fusion of C4-[address] Ruiz. Patient lying in bed stating that his weakness is worse. He also reports to still having numbnes/ tingling. It was explained to the patient that the healing process will take time and surgery was needed to prevent further progression of condition. Patient understands but is slightly frustrated. Denies incontinence, saddle paresthesia, headache, fever/chills, cp, shortness of breath, abd pain, n/v/d. Objective - Vital Signs/Intake and Output Vital Signs (last 24 hours): Temp Pulse Resp BP Pulse Ox 98.5 F 67 20 118/52 L 97 07/22/16 15:36 07/22/16 15:36 07/22/16 15:36 07/22/16 15:36 07/22/16 15:36 Intake and Output: 07/22/16 07/22/16 06:59 18:59 Intake Total 1260 Output Total 700 Balance 560 - Medications Medications: Current Medications Acetaminophen (Tylenol 325mg Tab) 650 mg PO Q6 PRN PRN Reason: Headache Last Admin: 07/19/16 04:25 Dose: 650 mg Albuterol/Ipratropium (Duoneb 3 Mg/0.5 Mg (3 Ml) Ud) 3 ml INH RQ6 [facility] Last Admin: 07/22/16 13:31 Dose: 3 ml Amlodipine Besylate (Norvasc) 10 mg PO DAILY [facility] Last Admin: 07/22/16 09:39 Dose: 10 mg Dexamethasone (Decadron Inj) 10 mg IVP Q8 [facility] Last Admin: 07/22/16 14:19 Dose: 10 mg Gabapentin (Neurontin) 300 mg PO TID [facility] Last Admin: 07/22/16 14:19 Dose: 300 mg Hydrochlorothiazide (Hydrodiuril) 25 mg PO DAILY [facility] Last Admin: 07/22/16 09:39 Dose: 25 mg Sodium Chloride (Sodium Chloride 0.9%) 1,000 mls @ 100 mls/hr IV .Q10H [facility] Last Admin: 07/21/16 06:25 Dose: 100 mls/hr Potassium Chloride/Dextrose/Sod Cl (Potassium Chl 20 Meq In D5-1/2ns) 1,000 mls @ 100 mls/hr IV .Q10H [facility] Last Admin: 07/22/16 12:13 Dose: 100 mls/hr Ondansetron HCl (Zofran Inj) 4 mg IVP Q6 PRN PRN Reason: Nausea/Vomiting Oxycodone HCl (Oxycodone Immediate Release Tab) 5 mg PO Q4H PRN PRN Reason: Pain, Mild (1-3) Pantoprazole Sodium (Protonix Ec Tab) 40 mg PO DAILY [facility] Last Admin: 07/22/16 09:39 Dose: 40 mg Rosuvastatin Calcium (Crestor) 5 mg PO HS [facility] Last Admin: 07/21/16 21:48 Dose: 5 mg - Labs Labs: 07/22/16 06:28 07/22/16 06:28 PT 14.4 SECONDS (9.7-12.2) H 07/20/16 13:38 INR 1.3 07/20/16 13:38 APTT 30 SECONDS (21-34) 07/16/16 06:18 - Constitutional Appears: No Acute Distress - Head Exam Head Exam: ATRAUMATIC, NORMOCEPHALIC - Eye Exam Eye Exam: EOMI, Normal appearance Pupil Exam: PERRL - ENT Exam ENT Exam: Mucous Membranes Moist - Neck Exam Neck Exam: absent: Full ROM - Respiratory Exam Respiratory Exam: Clear to Ausculation Bilateral, NORMAL BREATHING PATTERN - Cardiovascular Exam Cardiovascular Exam: RRR, +S1, +S2 - GI/Abdominal Exam GI & Abdominal Exam: Soft, Normal Bowel Sounds. absent: Tenderness - Extremities Exam Extremities Exam: Normal Capillary Refill - Back Exam Back Exam: absent: CVA tenderness (L), CVA tenderness (R) - Neurological Exam Neurological Exam: Alert, Awake, Oriented x3 Neuro motor strength exam: Left Upper Extremity: 4, Right Upper Extremity: 4, Left Lower Extremity: 3, Right Lower Extremity: 3 - Psychiatric Exam Psychiatric exam: Normal Affect, Normal Mood - Skin Skin Exam: Dry, Intact, Normal Color, Warm Assessment and Plan - Assessment and Plan (Free Text) Plan: 1. Generalized Lower extremity weakness 5/2: added Gabapentin 300 mg PO TID for neuropathic pain 07/21: Patient had ACDF C4-5 for Cervical myelopathy to day with Dr. Ruiz and Dr. Brand. Patient found to have Herniated disc w/ cord compression and C4 -5 disc was removed. 07/19: Pulm clearance needed, ABG to see if there is CO2 retention, Duonebs RQ6 07/18: Continue decadron 10 mg IVP q8h to decrease inflammation. Per neurosurgeon , Dr. Ruiz, impression is cervical myelopathy. Plan for discectomy and fusion at C4-C5 in order to decompress cord on Thursday. Dr. Ruiz explained procedure and potential complications to patient at bedside. Aspirin discontinued Detsky score: 0 , Class I - low risk Cardiology, Dr. Knapp, consulted for cardiac pre-operative clearance. Echo: LVEF 79%. EKG (07/14): sinus bradycardia, no ST/T wave changes. As patient has a smoking history, consulted dramatic critic, Dr. Rajan, for pre-operative clearance. MRI total spine w/wo haydee -Cervical: Severe narrowing of spinal canal at C4-C5 associated with cord compression and hyperintense T2 signal of cord at this leve. Multilevel moderate to large disc herniation osteophyte complex associated with posterior ligament hypertrophy resulting in multilevel moderate spinal and neural foraminal narrowing. -Thoracic: Moderate degenerative disc changes. Multilevel small disc bulging associated with mild spinal stenosis. No evidence of cord compression. -Lumbar: Normal lumbar lordosis. Vertebral body heights preserved. Somewhat patchy bone marrow signal in lower lumbar spine as well as in pelvic bones without discrete evidence of mass lesion or cortical destruction. Conus medullaris unremarkable. Moderate to mildly severe degenerative disc changes at lower lumbar spine more prominent at L4-L5. Small to moderate size disc herniation at L4-L5 and L5-S1 associated with posterior ligament and facet joint hypertrophy which resulting in mild spinal and moderate bilateral neural foramina narrowing. Neurology consult, Dr. Miranda, help appreciated. Per Dr. Miranda, start decadron 10 mg IVP q8h to decrease inflammation of cord and consult neurosurgery. CT head: Focal encephalomalacia and or atrophy seen within the bilateral anterior temporal lobes. Clinical correlation. Correlation with MRI may be helpful if clinically indicated. Chronic microvascular ischemic changes. Small hypodensity in the left basal ganglia which may represent a small lacunar infarct versus prominent perivascular space. If focal neurologic deficit persists, consider further evaluation with MRI (see full report) Brain MRI: Focal encephalomalacia and or atrophy seen within the bilateral anterior temporal lobes. Clinical correlation. Correlation with MRI may be helpful if clinically indicated. Chronic microvascular ischemic changes. Small hypodensity in the left basal ganglia which may represent a small lacunar infarct versus prominent perivascular space (see full report) Lumbar XR showed L5-S1 arthrosis, L4-5 spondylosis, S1 spina bifida occulta Cervical XR showed c5-6 spondylosis CXR: Mild venous congestion. Patchy increased markings at the left lung base ( see full report) HIV negative Lyme titers - Lyme IgG 58 kDa Band Reactive, Lyme IgG W Blot negative RF negative DAWN positive, 1:40, speckled pattern RPR nonreactive ESR 30 CRP 11.86 Vitamin D 21.7 Vitamin B12 726 folate 14 CPK 157 Neurochecks ASA 81 mg PO daily Crestor 5 mg PO HS NS 100 cc/hr [facility]HD PT/OT treat and eval 2. HTN HCTZ 25 mg po daily Norvasc 10 mg PO daily discontinued Aspirin 81 mg po daily in preparation for surgery 3. Prophylactic Measures Prontonix 40 mg PO daily HOLD Lovenox 40 mg SC daily for procedure SCDs Clear liquid diet <Prosper Del Cid - Last Filed: 07/22/16 18:19> Objective - Vital Signs/Intake and Output Vital Signs (last 24 hours): Temp Pulse Resp BP Pulse Ox 98.5 F 67 20 118/52 L 97 07/22/16 15:36 07/22/16 15:36 07/22/16 15:36 07/22/16 15:36 07/22/16 15:36 Intake and Output: 07/22/16 07/22/16 06:59 18:59 Intake Total 1260 Output Total 700 Balance 560 - Medications Medications: Current Medications Acetaminophen (Tylenol 325mg Tab) 650 mg PO Q6 PRN PRN Reason: Headache Last Admin: 07/19/16 04:25 Dose: 650 mg Albuterol/Ipratropium (Duoneb 3 Mg/0.5 Mg (3 Ml) Ud) 3 ml INH RQ6 [facility] Last Admin: 07/22/16 13:31 Dose: 3 ml Amlodipine Besylate (Norvasc) 10 mg PO DAILY [facility] Last Admin: 07/22/16 09:39 Dose: 10 mg Dexamethasone (Decadron Inj) 10 mg IVP Q8 [facility] Last Admin: 07/22/16 14:19 Dose: 10 mg Gabapentin (Neurontin) 300 mg PO TID [facility] Last Admin: 07/22/16 14:19 Dose: 300 mg Hydrochlorothiazide (Hydrodiuril) 25 mg PO DAILY [facility] Last Admin: 07/22/16 09:39 Dose: 25 mg Sodium Chloride (Sodium Chloride 0.9%) 1,000 mls @ 100 mls/hr IV .Q10H [facility] Last Admin: 07/21/16 06:25 Dose: 100 mls/hr Potassium Chloride/Dextrose/Sod Cl (Potassium Chl 20 Meq In D5-1/2ns) 1,000 mls @ 100 mls/hr IV .Q10H [facility] Last Admin: 07/22/16 12:13 Dose: 100 mls/hr Ondansetron HCl (Zofran Inj) 4 mg IVP Q6 PRN PRN Reason: Nausea/Vomiting Oxycodone HCl (Oxycodone Immediate Release Tab) 5 mg PO Q4H PRN PRN Reason: Pain, Mild (1-3) Pantoprazole Sodium (Protonix Ec Tab) 40 mg PO DAILY [facility] Last Admin: 07/22/16 09:39 Dose: 40 mg Rosuvastatin Calcium (Crestor) 5 mg PO HS [facility] Last Admin: 07/21/16 21:48 Dose: 5 mg - Labs Labs: 07/22/16 06:28 07/22/16 06:28 PT 14.4 SECONDS (9.7-12.2) H 07/20/16 13:38 INR 1.3 07/20/16 13:38 APTT 30 SECONDS (21-34) 07/16/16 06:18 Attending/Attestation - Attestation I have personally seen and examined this patient.: Yes I have fully participated in the care of the patient.: Yes I have reviewed all pertinent clinical information, including history, physical exam and plan: Yes Notes (Text): Medical attending: Patient was seen and examined by me, agrees the above note by medical pathologist. The patient is status post cervical neck surgery. He stated that he did have pain, and he does have pain medication but it's PRN so we explained to him that he has to let staff know to give it. The patient will need at some point to get rehab/PT eval. Prosper Del Cid
[2016-07-23] MEDS: Albuterol-Ipratrop 3 mg / 0.5 (3 ml) UD INH SCH ×4 (01:40→19:38)
[2016-07-23] MEDS: Potassium Ch 20mEq in D5-1/2NS 1,000 ML IV SCH (05:52)
--- NOTE | 2016-07-23 08:57 | CARD ---
APPROVED REPORT EKG Measurement Heart [id number] <Conclusion> Normal sinus rhythm Normal ECG
--- NOTE | 2016-07-23 09:44 | CP.PCM.PN ---
Subjective - Date & Time of Evaluation Date of Evaluation: 07/23/16 Time of Evaluation: 09:40 - Subjective Subjective: SPINE - POD #2 Pt resting in bed. Discouraged about not seeing signif improvement right away. Again explained it takes time to see if his conditon will get better. VSS. Afebrile. Neuro grossly intact. some spasticity of L LE noted. (PT notes this makes amb difficult). Incision clean and dry. Plan: Cont post-op care. ? with Dr. Miranda re: spasticity and possible medication for it. 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 Objective - Vital Signs/Intake and Output Vital Signs (last 24 hours): Temp Pulse Resp BP Pulse Ox 98.5 F 90 20 134/79 96 07/23/16 07:00 07/23/16 07:00 07/23/16 07:00 07/23/16 07:00 07/23/16 07:00 Intake and Output: 07/23/16 07/23/16 06:59 18:59 Intake Total 200 Output Total 1000 Balance -800 - Medications Medications: Current Medications Acetaminophen (Tylenol 325mg Tab) 650 mg PO Q6 PRN PRN Reason: Headache Last Admin: 07/19/16 04:25 Dose: 650 mg Albuterol/Ipratropium (Duoneb 3 Mg/0.5 Mg (3 Ml) Ud) 3 ml INH RQ6 [facility] Last Admin: 07/23/16 07:46 Dose: 3 ml Amlodipine Besylate (Norvasc) 10 mg PO DAILY [facility] Last Admin: 07/22/16 09:39 Dose: 10 mg Dexamethasone (Decadron Inj) 10 mg IVP Q8 [facility] Last Admin: 07/23/16 05:11 Dose: 10 mg Gabapentin (Neurontin) 300 mg PO TID [facility] Last Admin: 07/22/16 18:29 Dose: 300 mg Hydrochlorothiazide (Hydrodiuril) 25 mg PO DAILY [facility] Last Admin: 07/22/16 09:39 Dose: 25 mg Sodium Chloride (Sodium Chloride 0.9%) 1,000 mls @ 100 mls/hr IV .Q10H [facility] Last Admin: 07/21/16 06:25 Dose: 100 mls/hr Potassium Chloride/Dextrose/Sod Cl (Potassium Chl 20 Meq In D5-1/2ns) 1,000 mls @ 100 mls/hr IV .Q10H [facility] Last Admin: 07/23/16 05:52 Dose: Not Given Ondansetron HCl (Zofran Inj) 4 mg IVP Q6 PRN PRN Reason: Nausea/Vomiting Oxycodone HCl (Oxycodone Immediate Release Tab) 5 mg PO Q4H PRN PRN Reason: Pain, Mild (1-3) Last Admin: 07/23/16 01:00 Dose: 5 mg Pantoprazole Sodium (Protonix Ec Tab) 40 mg PO DAILY [facility] Last Admin: 07/22/16 09:39 Dose: 40 mg Rosuvastatin Calcium (Crestor) 5 mg PO HS [facility] Last Admin: 07/22/16 22:08 Dose: 5 mg - Labs Labs: 07/22/16 06:28 07/22/16 06:28 PT 14.4 SECONDS (9.7-12.2) H 07/20/16 13:38 INR 1.3 07/20/16 13:38 APTT 30 SECONDS (21-34) 07/16/16 06:18
[2016-07-23] MEDS: Pantoprazole 40 mg EC Tab PO SCH (10:52)
[2016-07-23] MEDS: oxyCODONE 5 mg Immediate Release Tab PO SCH ×2 (10:52→13:57)
--- NOTE | 2016-07-23 10:54 | CP.PCM.PN ---
<HumzarosannaAnibal - Last Filed: 07/23/16 10:47> Subjective - Date & Time of Evaluation Date of Evaluation: 07/23/16 Time of Evaluation: 07:20 - Subjective Subjective: PGY-1 Medicine Progress Note for Dr. Del Cid Patient seen and examined at bedside this AM. No acute event overnight. He is POD#2 s/p discectomy and fusion of C4-[address] Ruiz. Patient lying in bed stating that his weakness and numbness/tingling is still present. He also reports spascicity of muscles. Patient tolerating regular diet, urinating without difficulty, and having BMs. Denies incontinence, saddle paresthesia, headache, fever/chills, cp, shortness of breath, abd pain, n/v/d. Objective - Vital Signs/Intake and Output Vital Signs (last 24 hours): Temp Pulse Resp BP Pulse Ox 98.5 F 90 20 134/79 96 07/23/16 07:00 07/23/16 07:00 07/23/16 07:00 07/23/16 07:00 07/23/16 07:00 Intake and Output: 07/23/16 07/23/16 06:59 18:59 Intake Total 200 Output Total 1000 Balance -800 - Medications Medications: Current Medications Acetaminophen (Tylenol 325mg Tab) 650 mg PO Q6 PRN PRN Reason: Headache Last Admin: 07/19/16 04:25 Dose: 650 mg Albuterol/Ipratropium (Duoneb 3 Mg/0.5 Mg (3 Ml) Ud) 3 ml INH RQ6 [facility] Last Admin: 07/23/16 07:46 Dose: 3 ml Amlodipine Besylate (Norvasc) 10 mg PO DAILY [facility] Last Admin: 07/22/16 09:39 Dose: 10 mg Dexamethasone (Decadron Inj) 10 mg IVP Q8 [facility] Last Admin: 07/23/16 05:11 Dose: 10 mg Gabapentin (Neurontin) 300 mg PO TID [facility] Last Admin: 07/22/16 18:29 Dose: 300 mg Hydrochlorothiazide (Hydrodiuril) 25 mg PO DAILY [facility] Last Admin: 07/22/16 09:39 Dose: 25 mg Sodium Chloride (Sodium Chloride 0.9%) 1,000 mls @ 100 mls/hr IV .Q10H [facility] Last Admin: 07/21/16 06:25 Dose: 100 mls/hr Potassium Chloride/Dextrose/Sod Cl (Potassium Chl 20 Meq In D5-1/2ns) 1,000 mls @ 100 mls/hr IV .Q10H [facility] Last Admin: 07/23/16 05:52 Dose: Not Given Ondansetron HCl (Zofran Inj) 4 mg IVP Q6 PRN PRN Reason: Nausea/Vomiting Oxycodone HCl (Oxycodone Immediate Release Tab) 5 mg PO Q4H [facility] Pantoprazole Sodium (Protonix Ec Tab) 40 mg PO DAILY [facility] Last Admin: 07/22/16 09:39 Dose: 40 mg Rosuvastatin Calcium (Crestor) 5 mg PO HS [facility] Last Admin: 07/22/16 22:08 Dose: 5 mg - Labs Labs: 07/22/16 06:28 07/22/16 06:28 PT 14.4 SECONDS (9.7-12.2) H 07/20/16 13:38 INR 1.3 07/20/16 13:38 APTT 30 SECONDS (21-34) 07/16/16 06:18 - Constitutional Appears: In Acute Distress (mild) - Head Exam Head Exam: ATRAUMATIC, NORMOCEPHALIC - Eye Exam Eye Exam: EOMI, Normal appearance Pupil Exam: PERRL - ENT Exam ENT Exam: Mucous Membranes Moist - Neck Exam Neck Exam: absent: Full ROM - Respiratory Exam Respiratory Exam: Clear to Ausculation Bilateral, NORMAL BREATHING PATTERN - Cardiovascular Exam Cardiovascular Exam: RRR, +S1, +S2 - GI/Abdominal Exam GI & Abdominal Exam: Soft, Normal Bowel Sounds. absent: Tenderness - Extremities Exam Extremities Exam: Normal Capillary Refill. absent: Calf Tenderness, Full ROM - Back Exam Back Exam: absent: CVA tenderness (L), CVA tenderness (R) - Neurological Exam Neurological Exam: Abnormal Gait, Alert, Awake, CN II-XII Intact, Oriented x3 Neuro motor strength exam: Left Upper Extremity: 4, Right Upper Extremity: 4, Left Lower Extremity: 2/1, Right Lower Extremity: 3 - Psychiatric Exam Psychiatric exam: Normal Affect, Normal Mood - Skin Skin Exam: Dry, Intact, Normal Color, Warm Assessment and Plan - Assessment and Plan (Free Text) Plan: 1. Generalized Lower extremity weakness 5/3: POD#2 s/p discectomy and fusion of C4-5. Oxycodone switched to schedule since patient was not asking for medication but is in pain 5/: added Gabapentin 300 mg PO TID for neuropathic pain 07/21: Patient had ACDF C4-5 for Cervical myelopathy to day with Dr. Ruiz and Dr. Brand. Patient found to have Herniated disc w/ cord compression and C4 -5 disc was removed. 07/19: Pulm clearance needed, ABG to see if there is CO2 retention, Duonebs RQ6 07/18: Continue decadron 10 mg IVP q8h to decrease inflammation. Per neurosurgeon , Dr. Ruiz, impression is cervical myelopathy. Plan for discectomy and fusion at C4-C5 in order to decompress cord on Thursday. Dr. Ruiz explained procedure and potential complications to patient at bedside. Aspirin discontinued Detsky score: 0 , Class I - low risk Cardiology, Dr. Knapp, consulted for cardiac pre-operative clearance. Echo: LVEF 79%. EKG (07/14): sinus bradycardia, no ST/T wave changes. As patient has a smoking history, consulted glue maker bone, Dr. Rajan, for pre-operative clearance. MRI total spine w/wo haydee -Cervical: Severe narrowing of spinal canal at C4-C5 associated with cord compression and hyperintense T2 signal of cord at this leve. Multilevel moderate to large disc herniation osteophyte complex associated with posterior ligament hypertrophy resulting in multilevel moderate spinal and neural foraminal narrowing. -Thoracic: Moderate degenerative disc changes. Multilevel small disc bulging associated with mild spinal stenosis. No evidence of cord compression. -Lumbar: Normal lumbar lordosis. Vertebral body heights preserved. Somewhat patchy bone marrow signal in lower lumbar spine as well as in pelvic bones without discrete evidence of mass lesion or cortical destruction. Conus medullaris unremarkable. Moderate to mildly severe degenerative disc changes at lower lumbar spine more prominent at L4-L5. Small to moderate size disc herniation at L4-L5 and L5-S1 associated with posterior ligament and facet joint hypertrophy which resulting in mild spinal and moderate bilateral neural foramina narrowing. Neurology consult, Dr. Miranda, help appreciated. CT head: Focal encephalomalacia and or atrophy seen within the bilateral anterior temporal lobes. Clinical correlation. Correlation with MRI may be helpful if clinically indicated. Chronic microvascular ischemic changes. Small hypodensity in the left basal ganglia which may represent a small lacunar infarct versus prominent perivascular space. If focal neurologic deficit persists, consider further evaluation with MRI (see full report) Brain MRI: Focal encephalomalacia and or atrophy seen within the bilateral anterior temporal lobes. Clinical correlation. Correlation with MRI may be helpful if clinically indicated. Chronic microvascular ischemic changes. Small hypodensity in the left basal ganglia which may represent a small lacunar infarct versus prominent perivascular space (see full report) Lumbar XR showed L5-S1 arthrosis, L4-5 spondylosis, S1 spina bifida occulta Cervical XR showed c5-6 spondylosis CXR: Mild venous congestion. Patchy increased markings at the left lung base ( see full report) HIV negative Lyme titers - Lyme IgG 58 kDa Band Reactive, Lyme IgG W Blot negative RF negative DAWN positive, 1:40, speckled pattern RPR nonreactive ESR 30 CRP 11.86 Vitamin D 21.7 Vitamin B12 726 folate 14 CPK 157 Neurochecks ASA 81 mg PO daily HOLD Crestor 5 mg PO HS NS 100 cc/hr [facility] PT/OT treat and eval 2. HTN HCTZ 25 mg po daily Norvasc 10 mg PO daily 3. Prophylactic Measures Prontonix 40 mg PO daily HOLD Lovenox 40 mg SC daily for procedure SCDs Regular diet <Prosper Del Cid H - Last Filed: 07/23/16 12:45> Objective - Vital Signs/Intake and Output Vital Signs (last 24 hours): Temp Pulse Resp BP Pulse Ox 98.5 F 86 20 125/68 96 07/23/16 07:00 07/23/16 10:47 07/23/16 07:00 07/23/16 10:47 07/23/16 07:00 Intake and Output: 07/23/16 07/23/16 06:59 18:59 Intake Total 200 Output Total 1000 Balance -800 - Medications Medications: Current Medications Acetaminophen (Tylenol 325mg Tab) 650 mg PO Q6 PRN PRN Reason: Headache Last Admin: 07/19/16 04:25 Dose: 650 mg Albuterol/Ipratropium (Duoneb 3 Mg/0.5 Mg (3 Ml) Ud) 3 ml INH RQ6 [facility] Last Admin: 07/23/16 07:46 Dose: 3 ml Amlodipine Besylate (Norvasc) 10 mg PO DAILY [facility] Last Admin: 07/23/16 10:54 Dose: 10 mg Aspirin (Ecotrin) 81 mg PO DAILY [facility] Last Admin: 07/23/16 12:00 Dose: 81 mg Dexamethasone (Decadron Inj) 10 mg IVP Q8 [facility] Last Admin: 07/23/16 05:11 Dose: 10 mg Gabapentin (Neurontin) 300 mg PO TID [facility] Last Admin: 07/23/16 10:54 Dose: 300 mg Hydrochlorothiazide (Hydrodiuril) 25 mg PO DAILY [facility] Last Admin: 07/23/16 10:54 Dose: 25 mg Sodium Chloride (Sodium Chloride 0.9%) 1,000 mls @ 100 mls/hr IV .Q10H [facility] Last Admin: 07/21/16 06:25 Dose: 100 mls/hr Potassium Chloride/Dextrose/Sod Cl (Potassium Chl 20 Meq In D5-1/2ns) 1,000 mls @ 100 mls/hr IV .Q10H [facility] Last Admin: 07/23/16 05:52 Dose: Not Given Ondansetron HCl (Zofran Inj) 4 mg IVP Q6 PRN PRN Reason: Nausea/Vomiting Oxycodone HCl (Oxycodone Immediate Release Tab) 5 mg PO Q4H [facility] Last Admin: 07/23/16 10:52 Dose: 5 mg Pantoprazole Sodium (Protonix Ec Tab) 40 mg PO DAILY [facility] Last Admin: 07/23/16 10:52 Dose: 40 mg Rosuvastatin Calcium (Crestor) 5 mg PO HS [facility] Last Admin: 07/22/16 22:08 Dose: 5 mg - Labs Labs: 07/23/16 10:42 07/23/16 10:42 PT 14.4 SECONDS (9.7-12.2) H 07/20/16 13:38 INR 1.3 07/20/16 13:38 APTT 30 SECONDS (21-34) 07/16/16 06:18 Attending/Attestation - Attestation I have personally seen and examined this patient.: Yes I have fully participated in the care of the patient.: Yes I have reviewed all pertinent clinical information, including history, physical exam and plan: Yes Notes (Text): 07/23/16 12:43 Medical attending: Patient was seen and examined by me, agrees the above note by medical assistant per diem. The patient was reporting a lot of lower extremity spasms particularly of his legs. Per talking with the patient as well as the nursing staff he hasn't really gotten much pain medication. And it seems like he started even asking for it. It appears that he does not know that he could ask for pain medication on a more regular basis. At this time were to change his medication over to be given regularly every so many hours. Also we might start cyclobenzaprine or Flexeril for muscle spasms He still on IV Decadron at this time and probably tomorrow we'll start tapering it down Thank you very much, Prosper Del Cid
[2016-07-23 10:58] LABS: BASO % 0.2 % (0.0-2.0); HEMATOCRIT 39.5 % (35.0-51.0); LYMPH # 0.6 K/uL (1.0-4.3); LYMPH % 5.7 % (20.0-40.0); MEAN CELL VOLUME 88.6 fL (80.0-94.0); MEAN CORPUSCULAR HEMOGLOBIN 28.7 pg (27.0-31.0); MEAN CORPUSCULAR HGB CONC 32.4 g/dL (33.0-37.0); MONO # 0.7 K/uL (0.0-0.8); MONO % 6.1 % (0.0-10.0); PLATELET COUNT 179 K/uL (130-400); RED CELL DISTRIBUTION WIDTH 13.5 % (11.5-14.5); WHITE BLOOD COUNT 11.2 K/uL (4.8-10.8)
[2016-07-23 11:13] LABS: CHLORIDE 93 mmol/L (98-107); POTASSIUM 4.4 mmol/L (3.6-5.2); SODIUM 132 mmol/L (132-148)
[2016-07-23 11:15] LABS: ALB/GLOB RATIO 1.1 (1.0-2.1); ALKALINE PHOSPHATASE 67 U/L (38-126); AST/SGOT 75 U/L (17-59); BILIRUBIN,TOTAL 0.6 mg/dL (0.2-1.3); BLOOD UREA NITROGEN 25 mg/dL (9-20); CARBON DIOXIDE 32 mmol/L (22-30); GFR AFRICAN-AMERICAN > 60
[2016-07-23 11:16] LABS: ALT/SGPT 57 U/L (21-72); CALCIUM 8.7 mg/dl (8.6-10.4); GLUCOSE,RANDOM 197 mg/dL (75-110); MAGNESIUM 1.9 mg/dL (1.6-2.3)
--- NOTE | 2016-07-23 11:28 | CP.PCM.PN ---
<Donaldo Cain - Last Filed: 07/23/16 16:38> Subjective - Date & Time of Evaluation Date of Evaluation: 07/23/16 Time of Evaluation: 11:26 - Subjective Subjective: Cardiology Progress Note Dr. Knapp Patient seen and examined at the bedside. No acute distress. No acute events overnight. Nursing staff reports no issues. The patient is POD #2 s/p C4-[address] Ruiz. The patient tolerated the procedure well. No cardiopulmonary complaints this morning. Patient again reports extremity paresthesias and weakness in his extremities. 12 point review of system was completed and returned negative for acute complaints other than those mentioned above. Objective - Vital Signs/Intake and Output Vital Signs (last 24 hours): Temp Pulse Resp BP Pulse Ox 98.5 F 86 20 125/68 96 07/23/16 07:00 07/23/16 10:47 07/23/16 07:00 07/23/16 10:47 07/23/16 07:00 Intake and Output: 07/23/16 07/23/16 06:59 18:59 Intake Total 200 Output Total 1000 Balance -800 - Medications Medications: Current Medications Acetaminophen (Tylenol 325mg Tab) 650 mg PO Q6 PRN PRN Reason: Headache Last Admin: 07/19/16 04:25 Dose: 650 mg Albuterol/Ipratropium (Duoneb 3 Mg/0.5 Mg (3 Ml) Ud) 3 ml INH RQ6 [facility] Last Admin: 07/23/16 07:46 Dose: 3 ml Amlodipine Besylate (Norvasc) 10 mg PO DAILY [facility] Last Admin: 07/23/16 10:54 Dose: 10 mg Aspirin (Ecotrin) 81 mg PO DAILY [facility] Dexamethasone (Decadron Inj) 10 mg IVP Q8 [facility] Last Admin: 07/23/16 05:11 Dose: 10 mg Gabapentin (Neurontin) 300 mg PO TID [facility] Last Admin: 07/23/16 10:54 Dose: 300 mg Hydrochlorothiazide (Hydrodiuril) 25 mg PO DAILY [facility] Last Admin: 07/23/16 10:54 Dose: 25 mg Sodium Chloride (Sodium Chloride 0.9%) 1,000 mls @ 100 mls/hr IV .Q10H [facility] Last Admin: 07/21/16 06:25 Dose: 100 mls/hr Potassium Chloride/Dextrose/Sod Cl (Potassium Chl 20 Meq In D5-1/2ns) 1,000 mls @ 100 mls/hr IV .Q10H [facility] Last Admin: 07/23/16 05:52 Dose: Not Given Ondansetron HCl (Zofran Inj) 4 mg IVP Q6 PRN PRN Reason: Nausea/Vomiting Oxycodone HCl (Oxycodone Immediate Release Tab) 5 mg PO Q4H [facility] Last Admin: 07/23/16 10:52 Dose: 5 mg Pantoprazole Sodium (Protonix Ec Tab) 40 mg PO DAILY [facility] Last Admin: 07/23/16 10:52 Dose: 40 mg Rosuvastatin Calcium (Crestor) 5 mg PO HS [facility] Last Admin: 07/22/16 22:08 Dose: 5 mg - Labs Labs: 07/23/16 10:42 07/23/16 10:42 PT 14.4 SECONDS (9.7-12.2) H 07/20/16 13:38 INR 1.3 07/20/16 13:38 APTT 30 SECONDS (21-34) 07/16/16 06:18 - Additional Findings Additional findings: - Constitutional Appears: Well, No Acute Distress - Head Exam Head Exam: ATRAUMATIC, NORMAL INSPECTION, NORMOCEPHALIC - Eye Exam Eye Exam: EOMI, Normal appearance Pupil Exam: NORMAL ACCOMODATION - ENT Exam ENT Exam: Mucous Membranes Moist, Normal Exam - Neck Exam Neck exam: Positive for: Full Rom, Normal Inspection. Negative for: Lymphadenopathy, Tenderness - Respiratory Exam Respiratory Exam: Clear to Auscultation Bilateral, NORMAL BREATHING PATTERN. absent: Rales, Rhonchi, Wheezes, Respiratory Distress, Stridor - Cardiovascular Exam Cardiovascular Exam: REGULAR RHYTHM, RRR, +S1, +S2. absent: Diastolic murmur, Systolic Murmur - GI/Abdominal Exam GI & Abdominal Exam: Normal Bowel Sounds, Soft. absent: Distended, Firm, Guarding, Hernia, Tenderness - Extremities Exam Extremities exam: Positive for: normal capillary refill, normal inspection, pedal pulses present. Negative for: pedal edema, tenderness - Neurological Exam Neurological exam: Alert, CN II-XII Intact, Oriented x3 Additional Comments: Global 4/5, symmetric strength in all extremities - Skin Skin Exam: Dry, Intact, Normal Color, Warm Assessment and Plan (1) Pre-procedural cardiovascular examination Assessment & Plan: Cardiac Stable Hemodynamically Stable Continue Current Management POD #2 S/P C4-[address] Joseph Kim Risk Assessment/Stratification: Low Risk for Cervical Discectomy - Detsky- Score 0- Class I- low risk - Godwin- Score 0- Class I- no risk - Antelmo- Score 0- Class I- Very Low Risk - Benefits of surgery outweigh the risks of the operation - continue with preoperative beta raffy and SCIP protocol Cardiac Stable 07/18/16 EKG- Normal sinus rhythm (67bpm), normal intervals, normal axis, and no ST/T wave abnormalities 07/18/16 Echo-preliminary LV EF 79%. Normal systolic and diastolic function. 07/14/16 EKG- sinus bradycardia (53bpm) with normal intervals, normal axis, and no ST/T wave abnormalities No further cardiac intervention planned at this time. Dr. Knapp and the cardiology service will sign off the case. Please re-consult as needed. Thank you. Case Discussed with Dr. Aria Cain PGY1 Status: Acute (2) Cervical spinal cord compression Status: Acute (3) HTN (hypertension) Status: Chronic <John Knapp - Last Filed: 08/04/16 16:19> Objective - Vital Signs/Intake and Output Vital Signs (last 24 hours): Temp Pulse Resp BP Pulse Ox 98.1 F 85 20 140/79 97 08/04/16 07:36 08/04/16 07:36 08/04/16 07:36 08/04/16 07:36 08/04/16 07:36 Intake and Output: 08/04/16 08/04/16 06:59 18:59 Intake Total 710 550 Output Total 100 Balance 610 550 - Medications Medications: Current Medications Acetaminophen (Tylenol 325mg Tab) 650 mg PO Q6 PRN PRN Reason: Headache Last Admin: 07/30/16 09:36 Dose: 650 mg Albuterol/Ipratropium (Duoneb 3 Mg/0.5 Mg (3 Ml) Ud) 3 ml INH RQ6 [facility] Last Admin: 08/04/16 14:05 Dose: 3 ml Amlodipine Besylate (Norvasc) 10 mg PO DAILY [facility] Last Admin: 08/04/16 09:32 Dose: 10 mg Aspirin (Ecotrin) 81 mg PO DAILY [facility] Last Admin: 08/04/16 09:32 Dose: 81 mg Baclofen (Lioresal) 5 mg PO DAILY [facility] Last Admin: 08/04/16 09:43 Dose: 5 mg Docusate Sodium (Colace) 100 mg PO TID [facility] Last Admin: 08/04/16 13:37 Dose: Not Given Gabapentin (Neurontin) 400 mg PO TID [facility] Last Admin: 08/04/16 13:36 Dose: 400 mg Heparin Sodium (Porcine) (Heparin) 5,000 units SC Q8 [facility] Last Admin: 08/04/16 13:36 Dose: 5,000 units Ondansetron HCl (Zofran Inj) 4 mg IVP Q6 PRN PRN Reason: Nausea/Vomiting Oxycodone HCl (Oxycodone Immediate Release Tab) 5 mg PO Q4H PRN PRN Reason: Pain, moderate (4-7) Last Admin: 08/03/16 18:03 Dose: 5 mg Pantoprazole Sodium (Protonix Ec Tab) 40 mg PO DAILY [facility] Last Admin: 08/04/16 09:32 Dose: 40 mg Prednisone (Prednisone Tab) 10 mg PO BID [facility] Stop: 08/07/16 18:01 Last Admin: 08/04/16 09:32 Dose: 10 mg Prednisone (Prednisone Tab) 20 mg PO DAILY [facility] Stop: 08/13/16 10:01 Prednisone (Prednisone Tab) 10 mg PO DAILY [facility] Stop: 08/19/16 10:01 Prednisone (Prednisone Tab) 5 mg PO DAILY [facility] Stop: 08/25/16 10:01 Rosuvastatin Calcium (Crestor) 5 mg PO HS [facility] Last Admin: 08/03/16 22:15 Dose: Not Given Simethicone (Mylicon Liq) 40 mg PO QID [facility] Last Admin: 08/04/16 13:37 Dose: Not Given - Labs Labs: 08/04/16 08:22 08/04/16 08:22 PT 14.4 SECONDS (9.7-12.2) H 07/20/16 13:38 INR 1.3 07/20/16 13:38 APTT 30 SECONDS (21-34) 07/16/16 06:18 Assessment and Plan (1) Cervical spinal cord compression Status: Acute Attending/Attestation - Attestation I have personally seen and examined this patient.: Yes I have fully participated in the care of the patient.: Yes I have reviewed all pertinent clinical information, including history, physical exam and plan: Yes Notes (Text): 08/04/16 16:19 Pt stable from cardiac perspective nl ef
[2016-07-23 11:51] LABS: NEUTROPHIL 88 % (50-75); TOTAL CELLS COUNTED 100
[2016-07-23] MEDS: Sodium Chloride 0.9% 1,000 ML IV SCH (18:21)
[2016-07-24] MEDS: Albuterol-Ipratrop 3 mg / 0.5 (3 ml) UD INH SCH ×4 (01:31→13:23)
[2016-07-24 06:23] LABS: BASO % 0.1 % (0.0-2.0); HEMATOCRIT 39.6 % (35.0-51.0); LYMPH # 0.7 K/uL (1.0-4.3); LYMPH % 6.1 % (20.0-40.0); MEAN CELL VOLUME 87.9 fL (80.0-94.0); MEAN PLATELET VOLUME 9.1 fL (7.2-11.7); MONO # 0.6 K/uL (0.0-0.8); MONO % 5.2 % (0.0-10.0); PLATELET COUNT 180 K/uL (130-400); RED CELL DISTRIBUTION WIDTH 13.4 % (11.5-14.5); WHITE BLOOD COUNT 11.9 K/uL (4.8-10.8)
[2016-07-24 06:55] LABS: CHLORIDE 91 mmol/L (98-107); POTASSIUM 4.2 mmol/L (3.6-5.2); SODIUM 132 mmol/L (132-148)
[2016-07-24 06:57] LABS: ALB/GLOB RATIO 1.1 (1.0-2.1); AST/SGOT 48 U/L (17-59); BILIRUBIN,TOTAL 0.6 mg/dL (0.2-1.3); CARBON DIOXIDE 34 mmol/L (22-30); GFR AFRICAN-AMERICAN > 60; TOTAL PROTEIN 6.2 g/dL (6.3-8.3)
[2016-07-24 06:58] LABS: ALKALINE PHOSPHATASE 65 U/L (38-126); ALT/SGPT 68 U/L (21-72); BLOOD UREA NITROGEN 27 mg/dL (9-20); CALCIUM 8.4 mg/dl (8.6-10.4); GLUCOSE,RANDOM 162 mg/dL (75-110); MAGNESIUM 1.8 mg/dL (1.6-2.3); PHOSPHOROUS 3.6 mg/dL (2.5-4.5)
[2016-07-24 09:16] LABS: NEUTROPHIL 89 % (50-75); TOTAL CELLS COUNTED 100
[2016-07-24] MEDS: Pantoprazole 40 mg EC Tab PO SCH (10:26)
[2016-07-24] MEDS: oxyCODONE 5 mg Immediate Release Tab PO PRN (10:39)
[2016-07-24] MEDS: POLYETHYLENE GLYCOL 3350 17 GM/Dose PACKET PO SCH ×3 (11:12→18:21)
--- NOTE | 2016-07-24 12:18 | CP.PCM.PN ---
<LaquitaAnibal - Last Filed: 07/24/16 12:52> Subjective - Date & Time of Evaluation Date of Evaluation: 07/24/16 Time of Evaluation: 07:20 - Subjective Subjective: PGY-1 Medicine Progress Note for Dr. Del Cid Patient seen and examined at bedside this AM. No acute event overnight. He is POD#3 s/p discectomy and fusion of C4-[address] Ruiz. Patient lying in bed with the same weakness and numbness/tingling present. Spasticity of muscles has not improved, it is the worst in LLE. Patient tolerating regular diet, urinating without difficulty, and having BMs. Denies incontinence, saddle paresthesia, headache, fever/chills, cp, shortness of breath, abd pain, n/v/d. Objective - Vital Signs/Intake and Output Vital Signs (last 24 hours): Temp Pulse Resp BP Pulse Ox 98.1 F 71 18 128/67 96 07/24/16 08:39 07/24/16 08:39 07/24/16 08:39 07/24/16 08:39 07/24/16 08:39 Intake and Output: 07/24/16 07/24/16 06:59 18:59 Intake Total 350 Output Total 900 400 Balance -900 -50 - Medications Medications: Current Medications Acetaminophen (Tylenol 325mg Tab) 650 mg PO Q6 PRN PRN Reason: Headache Last Admin: 07/19/16 04:25 Dose: 650 mg Albuterol/Ipratropium (Duoneb 3 Mg/0.5 Mg (3 Ml) Ud) 3 ml INH RQ6 [facility] Last Admin: 07/24/16 07:36 Dose: 3 ml Amlodipine Besylate (Norvasc) 10 mg PO DAILY [facility] Last Admin: 07/24/16 10:25 Dose: 10 mg Aspirin (Ecotrin) 81 mg PO DAILY [facility] Last Admin: 07/24/16 10:22 Dose: 81 mg Cyclobenzaprine HCl (Flexeril) 5 mg PO BID [facility] Last Admin: 07/24/16 10:23 Dose: 5 mg Dexamethasone (Decadron Inj) 10 mg IVP Q8 [facility] Last Admin: 07/24/16 05:23 Dose: 10 mg Docusate Sodium (Colace) 100 mg PO TID [facility] Gabapentin (Neurontin) 300 mg PO TID [facility] Last Admin: 07/24/16 10:24 Dose: 300 mg Hydrochlorothiazide (Hydrodiuril) 25 mg PO DAILY [facility] Last Admin: 07/24/16 10:23 Dose: 25 mg Ondansetron HCl (Zofran Inj) 4 mg IVP Q6 PRN PRN Reason: Nausea/Vomiting Oxycodone HCl (Oxycodone Immediate Release Tab) 5 mg PO Q4H PRN PRN Reason: Pain, moderate (4-7) Last Admin: 07/24/16 10:39 Dose: 5 mg Pantoprazole Sodium (Protonix Ec Tab) 40 mg PO DAILY [facility] Last Admin: 07/24/16 10:26 Dose: 40 mg Polyethylene Glycol (Miralax) 17 gm PO BID [facility] Last Admin: 07/24/16 11:18 Dose: Not Given Rosuvastatin Calcium (Crestor) 5 mg PO HS [facility] Last Admin: 07/22/16 22:08 Dose: 5 mg - Labs Labs: 07/24/16 06:09 07/24/16 06:09 PT 14.4 SECONDS (9.7-12.2) H 07/20/16 13:38 INR 1.3 07/20/16 13:38 APTT 30 SECONDS (21-34) 07/16/16 06:18 - Constitutional Appears: No Acute Distress - Head Exam Head Exam: ATRAUMATIC, NORMOCEPHALIC - Eye Exam Eye Exam: EOMI, Normal appearance Pupil Exam: PERRL - ENT Exam ENT Exam: Mucous Membranes Moist - Neck Exam Neck Exam: Normal Inspection - Respiratory Exam Respiratory Exam: Clear to Ausculation Bilateral, NORMAL BREATHING PATTERN - Cardiovascular Exam Cardiovascular Exam: REGULAR RHYTHM, +S1, +S2 - GI/Abdominal Exam GI & Abdominal Exam: Soft, Normal Bowel Sounds. absent: Tenderness - Extremities Exam Extremities Exam: Normal Capillary Refill. absent: Pedal Edema - Back Exam Back Exam: absent: CVA tenderness (L), CVA tenderness (R) - Neurological Exam Neurological Exam: Alert, Awake, CN II-XII Intact, Oriented x3 Neuro motor strength exam: Left Upper Extremity: 4, Right Upper Extremity: 4, Left Lower Extremity: 2/1 (spasticity of LLE), Right Lower Extremity: 3 Additional comments: Generalized Spasticity of muscles, worse in LLE - Psychiatric Exam Psychiatric exam: Anxious - Skin Skin Exam: Dry, Intact, Normal Color, Warm Assessment and Plan - Assessment and Plan (Free Text) Plan: 1. Generalized Lower extremity weakness 07/24: POD#3 s/p discectomy and fusion of C4-5, flexeril increased to 10 mg PO BID , Oxycodone PRN since adding flexeril 07/23: Oxycodone switched to schedule since patient was not asking for medication but is in pain 07/22: added Gabapentin 300 mg PO TID for neuropathic pain 07/21: Patient had ACDF C4-5 for Cervical myelopathy to day with Dr. Ruiz and Dr. Brand. Patient found to have Herniated disc w/ cord compression and C4 -5 disc was removed. 07/19: Pulm clearance needed, ABG to see if there is CO2 retention, Duonebs RQ6 07/18: Continue decadron 10 mg IVP q8h to decrease inflammation. Per neurosurgeon , Dr. Ruiz, impression is cervical myelopathy. Plan for discectomy and fusion at C4-C5 in order to decompress cord on Thursday. Dr. Ruiz explained procedure and potential complications to patient at bedside. Aspirin discontinued Detsky score: 0 , Class I - low risk Cardiology, Dr. Knapp, consulted for cardiac pre-operative clearance. Echo: LVEF 79%. EKG (07/14): sinus bradycardia, no ST/T wave changes. As patient has a smoking history, consulted chlorobutadiene scrubber operator, Dr. Rajan, for pre-operative clearance. MRI total spine w/wo haydee -Cervical: Severe narrowing of spinal canal at C4-C5 associated with cord compression and hyperintense T2 signal of cord at this leve. Multilevel moderate to large disc herniation osteophyte complex associated with posterior ligament hypertrophy resulting in multilevel moderate spinal and neural foraminal narrowing. -Thoracic: Moderate degenerative disc changes. Multilevel small disc bulging associated with mild spinal stenosis. No evidence of cord compression. -Lumbar: Normal lumbar lordosis. Vertebral body heights preserved. Somewhat patchy bone marrow signal in lower lumbar spine as well as in pelvic bones without discrete evidence of mass lesion or cortical destruction. Conus medullaris unremarkable. Moderate to mildly severe degenerative disc changes at lower lumbar spine more prominent at L4-L5. Small to moderate size disc herniation at L4-L5 and L5-S1 associated with posterior ligament and facet joint hypertrophy which resulting in mild spinal and moderate bilateral neural foramina narrowing. Neurology consult, Dr. Miranda, help appreciated. CT head: Focal encephalomalacia and or atrophy seen within the bilateral anterior temporal lobes. Clinical correlation. Correlation with MRI may be helpful if clinically indicated. Chronic microvascular ischemic changes. Small hypodensity in the left basal ganglia which may represent a small lacunar infarct versus prominent perivascular space. If focal neurologic deficit persists, consider further evaluation with MRI (see full report) Brain MRI: Focal encephalomalacia and or atrophy seen within the bilateral anterior temporal lobes. Clinical correlation. Correlation with MRI may be helpful if clinically indicated. Chronic microvascular ischemic changes. Small hypodensity in the left basal ganglia which may represent a small lacunar infarct versus prominent perivascular space (see full report) Lumbar XR showed L5-S1 arthrosis, L4-5 spondylosis, S1 spina bifida occulta Cervical XR showed c5-6 spondylosis CXR: Mild venous congestion. Patchy increased markings at the left lung base ( see full report) HIV negative Lyme titers - Lyme IgG 58 kDa Band Reactive, Lyme IgG W Blot negative RF negative DAWN positive, 1:40, speckled pattern RPR nonreactive ESR 30 CRP 11.86 Vitamin D 21.7 Vitamin B12 726 folate 14 CPK 157 Neurochecks ASA 81 mg PO daily HOLD Crestor 5 mg PO HS [facility] PT/OT treat and eval 2. HTN HCTZ 25 mg po daily Norvasc 10 mg PO daily 3. Prophylactic Measures Prontonix 40 mg PO daily HOLD Lovenox 40 mg SC daily for procedure SCDs Regular diet <Prosper Del Cid H - Last Filed: 07/24/16 15:31> Objective - Vital Signs/Intake and Output Vital Signs (last 24 hours): Temp Pulse Resp BP Pulse Ox 98.1 F 71 18 128/67 96 07/24/16 08:39 07/24/16 08:39 07/24/16 08:39 07/24/16 08:39 07/24/16 08:39 Intake and Output: 07/24/16 07/24/16 06:59 18:59 Intake Total 750 Output Total 900 800 Balance -900 -50 - Medications Medications: Current Medications Acetaminophen (Tylenol 325mg Tab) 650 mg PO Q6 PRN PRN Reason: Headache Last Admin: 07/19/16 04:25 Dose: 650 mg Albuterol/Ipratropium (Duoneb 3 Mg/0.5 Mg (3 Ml) Ud) 3 ml INH RQ6 [facility] Last Admin: 07/24/16 13:23 Dose: Not Given Amlodipine Besylate (Norvasc) 10 mg PO DAILY [facility] Last Admin: 07/24/16 10:25 Dose: 10 mg Aspirin (Ecotrin) 81 mg PO DAILY [facility] Last Admin: 07/24/16 10:22 Dose: 81 mg Cyclobenzaprine HCl (Flexeril) 10 mg PO BID [facility] Dexamethasone (Decadron Inj) 10 mg IVP Q8 [facility] Last Admin: 07/24/16 13:10 Dose: 10 mg Docusate Sodium (Colace) 100 mg PO TID [facility] Last Admin: 07/24/16 13:10 Dose: 100 mg Gabapentin (Neurontin) 300 mg PO TID [facility] Last Admin: 07/24/16 13:10 Dose: 300 mg Hydrochlorothiazide (Hydrodiuril) 25 mg PO DAILY [facility] Last Admin: 07/24/16 10:23 Dose: 25 mg Ondansetron HCl (Zofran Inj) 4 mg IVP Q6 PRN PRN Reason: Nausea/Vomiting Oxycodone HCl (Oxycodone Immediate Release Tab) 5 mg PO Q4H PRN PRN Reason: Pain, moderate (4-7) Last Admin: 07/24/16 10:39 Dose: 5 mg Pantoprazole Sodium (Protonix Ec Tab) 40 mg PO DAILY [facility] Last Admin: 07/24/16 10:26 Dose: 40 mg Polyethylene Glycol (Miralax) 17 gm PO BID [facility] Last Admin: 07/24/16 11:18 Dose: Not Given Rosuvastatin Calcium (Crestor) 5 mg PO HS [facility] Last Admin: 07/22/16 22:08 Dose: 5 mg - Labs Labs: 07/24/16 06:09 07/24/16 06:09 PT 14.4 SECONDS (9.7-12.2) H 07/20/16 13:38 INR 1.3 07/20/16 13:38 APTT 30 SECONDS (21-34) 07/16/16 06:18 Attending/Attestation - Attestation I have personally seen and examined this patient.: Yes I have fully participated in the care of the patient.: Yes I have reviewed all pertinent clinical information, including history, physical exam and plan: Yes Notes (Text): 07/24/16 15:26 Medical attending: Patient was seen and examined by me, agree with the above note by lead medical technologist. The patient explained to us that he still had a lot of large from any spasticity pain. He explained that the left lower extremity was very numb to him. He explained that the right side appeared to be okay. He had difficulty on exam with moving the left leg was not able to elevated and he had difficulty with plantar and dorsiflexion of the left foot. He could bend his left knee however very slowly. At this time were try to increase the dose of cyclobenzaprine, continue with pain medication as well. Physical therapy. Hopefully he will be able to go to rehab soon. We still have patient on the decadron IV at this time. Prosper Del Cid
[2016-07-25] MEDS: Albuterol-Ipratrop 3 mg / 0.5 (3 ml) UD INH SCH ×4 (02:40→19:30)
[2016-07-25 08:23] LABS: BASO % 0.2 % (0.0-2.0); HEMATOCRIT 40.3 % (35.0-51.0); LYMPH # 0.7 K/uL (1.0-4.3); LYMPH % 6.9 % (20.0-40.0); MEAN CELL VOLUME 87.6 fL (80.0-94.0); MEAN CORPUSCULAR HEMOGLOBIN 29.4 pg (27.0-31.0); MEAN CORPUSCULAR HGB CONC 33.6 g/dL (33.0-37.0); MEAN PLATELET VOLUME 8.8 fL (7.2-11.7); MONO # 0.7 K/uL (0.0-0.8); MONO % 6.5 % (0.0-10.0); PLATELET COUNT 206 K/uL (130-400); WHITE BLOOD COUNT 10.5 K/uL (4.8-10.8)
[2016-07-25 09:00] LABS: CHLORIDE 90 mmol/L (98-107); POTASSIUM 4.1 mmol/L (3.6-5.2); SODIUM 133 mmol/L (132-148)
[2016-07-25 09:02] LABS: ALB/GLOB RATIO 1.2 (1.0-2.1); ALKALINE PHOSPHATASE 63 U/L (38-126); AST/SGOT 36 U/L (17-59); BILIRUBIN,TOTAL 0.8 mg/dL (0.2-1.3); CARBON DIOXIDE 34 mmol/L (22-30); GFR AFRICAN-AMERICAN > 60; TOTAL PROTEIN 6.2 g/dL (6.3-8.3)
[2016-07-25 09:03] LABS: ALT/SGPT 47 U/L (21-72); BLOOD UREA NITROGEN 34 mg/dL (9-20); CALCIUM 8.8 mg/dl (8.6-10.4); GLUCOSE,RANDOM 168 mg/dL (75-110); MAGNESIUM 1.9 mg/dL (1.6-2.3); PHOSPHOROUS 3.6 mg/dL (2.5-4.5)
[2016-07-25 09:55] LABS: NEUTROPHIL 82 % (50-75); TOTAL CELLS COUNTED 100
[2016-07-25] MEDS: POLYETHYLENE GLYCOL 3350 17 GM/Dose PACKET PO SCH ×2 (10:36→17:41)
[2016-07-25] MEDS: Pantoprazole 40 mg EC Tab PO SCH (10:37)
--- NOTE | 2016-07-25 15:52 | CP.PCM.PN ---
<LaquitaAnibal - Last Filed: 07/25/16 15:47> Subjective - Date & Time of Evaluation Date of Evaluation: 07/25/16 Time of Evaluation: 07:10 - Subjective Subjective: GY-1 Medicine Progress Note for Dr. Del Cid Patient seen and examined at bedside this AM. No acute event overnight. He is POD#4 s/p discectomy and fusion of C4-[address] Ruiz. Patient lying in bed with weakness and numbness/tingling slightly improved. Spasticity of muscles has not improved, it is the worst in [facility]. Patient tolerating regular diet, urinating without difficulty, and having BMs. Patient requestin roman contact his brother so he can inform people he is in hospital and pay his cell phone pbillDenies incontinence, saddle paresthesia, headache, fever/chills, cp, shortness of breath, abd pain, n/v/d. Objective - Vital Signs/Intake and Output Vital Signs (last 24 hours): Temp Pulse Resp BP Pulse Ox 97.2 F L 67 20 119/61 98 07/25/16 08:57 07/25/16 08:57 07/25/16 08:57 07/25/16 08:57 07/25/16 08:57 Intake and Output: 07/25/16 07/25/16 06:59 18:59 Intake Total 320 250 Output Total 350 600 Balance -30 -350 - Medications Medications: Current Medications Acetaminophen (Tylenol 325mg Tab) 650 mg PO Q6 PRN PRN Reason: Headache Last Admin: 07/19/16 04:25 Dose: 650 mg Albuterol/Ipratropium (Duoneb 3 Mg/0.5 Mg (3 Ml) Ud) 3 ml INH RQ6 [facility] Last Admin: 07/25/16 14:00 Dose: 3 ml Amlodipine Besylate (Norvasc) 10 mg PO DAILY [facility] Last Admin: 07/25/16 10:37 Dose: 10 mg Aspirin (Ecotrin) 81 mg PO DAILY [facility] Last Admin: 07/25/16 10:37 Dose: 81 mg Cyclobenzaprine HCl (Flexeril) 10 mg PO TID [facility] Dexamethasone (Decadron Inj) 10 mg IVP Q12 [facility] Docusate Sodium (Colace) 100 mg PO TID [facility] Last Admin: 05/05/17 14:16 Dose: 100 mg Gabapentin (Neurontin) 300 mg PO TID [facility] Last Admin: 07/25/16 14:16 Dose: 300 mg Hydrochlorothiazide (Hydrodiuril) 25 mg PO DAILY [facility] Last Admin: 07/25/16 10:37 Dose: 25 mg Ondansetron HCl (Zofran Inj) 4 mg IVP Q6 PRN PRN Reason: Nausea/Vomiting Oxycodone HCl (Oxycodone Immediate Release Tab) 5 mg PO Q4H PRN PRN Reason: Pain, moderate (4-7) Last Admin: 07/24/16 10:39 Dose: 5 mg Pantoprazole Sodium (Protonix Ec Tab) 40 mg PO DAILY [facility] Last Admin: 07/25/16 10:37 Dose: 40 mg Polyethylene Glycol (Miralax) 17 gm PO BID [facility] Last Admin: 07/25/16 10:36 Dose: 17 gm Rosuvastatin Calcium (Crestor) 5 mg PO HS [facility] Last Admin: 07/22/16 22:08 Dose: 5 mg - Labs Labs: 07/25/16 08:15 07/25/16 08:15 PT 14.4 SECONDS (9.7-12.2) H 07/20/16 13:38 INR 1.3 07/20/16 13:38 APTT 30 SECONDS (21-34) 07/16/16 06:18 - Constitutional Appears: No Acute Distress - Head Exam Head Exam: ATRAUMATIC, NORMOCEPHALIC - Eye Exam Eye Exam: EOMI, Normal appearance Pupil Exam: PERRL - ENT Exam ENT Exam: Mucous Membranes Moist - Neck Exam Neck Exam: Normal Inspection - Respiratory Exam Respiratory Exam: Clear to Ausculation Bilateral, NORMAL BREATHING PATTERN - Cardiovascular Exam Cardiovascular Exam: REGULAR RHYTHM, +S1, +S2 - GI/Abdominal Exam GI & Abdominal Exam: Soft, Normal Bowel Sounds. absent: Tenderness - Extremities Exam Extremities Exam: Normal Capillary Refill, Tenderness Additional comments: muscle spasms weakness - Back Exam Back Exam: absent: CVA tenderness (L), CVA tenderness (R) - Neurological Exam Neurological Exam: Abnormal Gait, Alert, Awake, CN II-XII Intact, Oriented x3 Neuro motor strength exam: Left Upper Extremity: 4, Right Upper Extremity: 4, Left Lower Extremity: 2/1, Right Lower Extremity: 3 - Psychiatric Exam Psychiatric exam: Normal Affect, Normal Mood - Skin Skin Exam: Dry, Intact, Warm <Prosper Del Cid H - Last Filed: 07/25/16 17:44> Objective - Vital Signs/Intake and Output Vital Signs (last 24 hours): Temp Pulse Resp BP Pulse Ox 97.2 F L 67 20 119/61 98 07/25/16 08:57 07/25/16 08:57 07/25/16 08:57 07/25/16 08:57 07/25/16 08:57 Intake and Output: 07/25/16 07/25/16 06:59 18:59 Intake Total 320 750 Output Total 350 600 Balance -30 150 - Medications Medications: Current Medications Acetaminophen (Tylenol 325mg Tab) 650 mg PO Q6 PRN PRN Reason: Headache Last Admin: 07/19/16 04:25 Dose: 650 mg Albuterol/Ipratropium (Duoneb 3 Mg/0.5 Mg (3 Ml) Ud) 3 ml INH RQ6 [facility] Last Admin: 07/25/16 14:00 Dose: 3 ml Amlodipine Besylate (Norvasc) 10 mg PO DAILY [facility] Last Admin: 07/25/16 10:37 Dose: 10 mg Aspirin (Ecotrin) 81 mg PO DAILY [facility] Last Admin: 07/25/16 10:37 Dose: 81 mg Cyclobenzaprine HCl (Flexeril) 10 mg PO TID [facility] Last Admin: 07/25/16 17:41 Dose: 10 mg Dexamethasone (Decadron Inj) 10 mg IVP Q12 [facility] Docusate Sodium (Colace) 100 mg PO TID [facility] Last Admin: 07/25/16 17:41 Dose: 100 mg Gabapentin (Neurontin) 300 mg PO TID [facility] Last Admin: 07/25/16 17:41 Dose: 300 mg Hydrochlorothiazide (Hydrodiuril) 25 mg PO DAILY [facility] Last Admin: 07/25/16 10:37 Dose: 25 mg Ondansetron HCl (Zofran Inj) 4 mg IVP Q6 PRN PRN Reason: Nausea/Vomiting Oxycodone HCl (Oxycodone Immediate Release Tab) 5 mg PO Q4H PRN PRN Reason: Pain, moderate (4-7) Last Admin: 07/24/16 10:39 Dose: 5 mg Pantoprazole Sodium (Protonix Ec Tab) 40 mg PO DAILY [facility] Last Admin: 07/25/16 10:37 Dose: 40 mg Polyethylene Glycol (Miralax) 17 gm PO BID [facility] Last Admin: 07/25/16 17:41 Dose: 17 gm Rosuvastatin Calcium (Crestor) 5 mg PO HS [facility] Last Admin: 07/22/16 22:08 Dose: 5 mg - Labs Labs: 07/25/16 08:15 07/25/16 08:15 PT 14.4 SECONDS (9.7-12.2) H 07/20/16 13:38 INR 1.3 07/20/16 13:38 APTT 30 SECONDS (21-34) 07/16/16 06:18 Attending/Attestation - Attestation I have personally seen and examined this patient.: Yes I have fully participated in the care of the patient.: Yes I have reviewed all pertinent clinical information, including history, physical exam and plan: Yes Notes (Text): 07/25/16 17:42 Medical attending: Patient was seen and examined by me. Agree with the above note by the resident. Patient reported that today the right lower extremity was better but that the left lower extremity remains weak and he has difficulty moving the left side without causing extensive pain and paratheseia and spasms. Will increase flexeril. Also continue with pain medications. Decreased the decadron to BID today. He reports his diet and appetitie is well Prosper Del Cid
[2016-07-26] MEDS: Albuterol-Ipratrop 3 mg / 0.5 (3 ml) UD INH SCH ×4 (01:54→19:49)
--- NOTE | 2016-07-26 04:17 | CP.PCM.PN ---
<Mary Sepulveda - Last Filed: 07/26/16 04:35> Subjective - Date & Time of Evaluation Date of Evaluation: 07/26/16 Time of Evaluation: 04:35 - Subjective Subjective: PGY-1 Medicine Progress Note for Dr. Del Cid Patient seen and examined at bedside with no acute events overnight. He is POD# 4 s/p discectomy and fusion of C4-5. Patient lying in bed with some improvement of paresthesias. Spasticity of muscles remains same. Patient tolerating regular diet, urinating without difficulty, and having BMs. He denies incontinence, symptoms suggestive of saddle anesthesia, headache, subjective fever/chills, chest pain, paresthesias, shortness of breath, abd pain, nausea, vomiting or diarrhea at this time. Objective - Vital Signs/Intake and Output Vital Signs (last 24 hours): Temp Pulse Resp BP Pulse Ox 98.8 F 69 20 115/65 96 07/26/16 00:00 07/26/16 00:00 07/26/16 00:00 07/26/16 00:00 07/26/16 00:00 Intake and Output: 07/25/16 07/26/16 18:59 06:59 Intake Total 750 Output Total 600 Balance 150 - Medications Medications: Current Medications Acetaminophen (Tylenol 325mg Tab) 650 mg PO Q6 PRN PRN Reason: Headache Last Admin: 07/19/16 04:25 Dose: 650 mg Albuterol/Ipratropium (Duoneb 3 Mg/0.5 Mg (3 Ml) Ud) 3 ml INH RQ6 [facility] Last Admin: 07/26/16 01:54 Dose: Not Given Amlodipine Besylate (Norvasc) 10 mg PO DAILY [facility] Last Admin: 07/25/16 10:37 Dose: 10 mg Aspirin (Ecotrin) 81 mg PO DAILY [facility] Last Admin: 07/25/16 10:37 Dose: 81 mg Cyclobenzaprine HCl (Flexeril) 10 mg PO TID [facility] Last Admin: 07/25/16 17:41 Dose: 10 mg Dexamethasone (Decadron Inj) 10 mg IVP Q12 [facility] Last Admin: 07/25/16 21:23 Dose: 10 mg Docusate Sodium (Colace) 100 mg PO TID [facility] Last Admin: 07/25/16 17:41 Dose: 100 mg Gabapentin (Neurontin) 300 mg PO TID [facility] Last Admin: 07/25/16 17:41 Dose: 300 mg Hydrochlorothiazide (Hydrodiuril) 25 mg PO DAILY [facility] Last Admin: 07/25/16 10:37 Dose: 25 mg Ondansetron HCl (Zofran Inj) 4 mg IVP Q6 PRN PRN Reason: Nausea/Vomiting Oxycodone HCl (Oxycodone Immediate Release Tab) 5 mg PO Q4H PRN PRN Reason: Pain, moderate (4-7) Last Admin: 07/24/16 10:39 Dose: 5 mg Pantoprazole Sodium (Protonix Ec Tab) 40 mg PO DAILY [facility] Last Admin: 07/25/16 10:37 Dose: 40 mg Polyethylene Glycol (Miralax) 17 gm PO BID [facility] Last Admin: 07/25/16 17:41 Dose: 17 gm Rosuvastatin Calcium (Crestor) 5 mg PO HS [facility] Last Admin: 07/22/16 22:08 Dose: 5 mg - Labs Labs: 07/25/16 08:15 07/25/16 08:15 PT 14.4 SECONDS (9.7-12.2) H 07/20/16 13:38 INR 1.3 07/20/16 13:38 APTT 30 SECONDS (21-34) 07/16/16 06:18 - Constitutional Appears: Non-toxic, No Acute Distress - Head Exam Head Exam: ATRAUMATIC, NORMAL INSPECTION - Eye Exam Eye Exam: EOMI, Normal appearance, PERRL Pupil Exam: NORMAL ACCOMODATION, PERRL - ENT Exam ENT Exam: Mucous Membranes Moist - Neck Exam Neck Exam: absent: Tenderness - Respiratory Exam Respiratory Exam: Clear to Ausculation Bilateral - Cardiovascular Exam Cardiovascular Exam: REGULAR RHYTHM, +S1, +S2 - GI/Abdominal Exam GI & Abdominal Exam: Soft, Normal Bowel Sounds. absent: Tenderness - Extremities Exam Extremities Exam: Normal Capillary Refill, Normal Inspection. absent: Tenderness - Back Exam Back Exam: muscle spasm - Neurological Exam Neurological Exam: Alert, Awake, Oriented x3 Neuro motor strength exam: Left Upper Extremity: 4, Right Upper Extremity: 4, Left Lower Extremity: 2/1, Right Lower Extremity: 3 - Psychiatric Exam Psychiatric exam: Normal Affect, Normal Mood - Skin Skin Exam: Dry, Normal Color, Warm Assessment and Plan - Assessment and Plan (Free Text) Assessment: 1. Generalized Lower extremity weakness 5/6: POD#5 s/p discectomy and fusion of C4-5, flexeril increased to 10 mg PO BID , Oxycodone PRN since adding flexeril. Flexeril dose increased 07/19: Pulm clearance needed, ABG to see if there is CO2 retention, Duonebs RQ6 07/18: Continue decadron 10 mg IVP q8h to decrease inflammation. Per neurosurgeon , Dr. Ruiz, impression is cervical myelopathy. Plan for discectomy and fusion at C4-C5 in order to decompress cord on Thursday. Dr. Ruiz explained procedure and potential complications to patient at bedside. Aspirin discontinued Detsky score: 0 , Class I - low risk Cardiology, Dr. Knapp, consulted for cardiac pre-operative clearance. Echo: LVEF 79%. EKG (07/14): sinus bradycardia, no ST/T wave changes. As patient has a smoking history, consulted armored car guard and driver, Dr. Rajan, for pre-operative clearance. MRI total spine w/wo haydee -Cervical: Severe narrowing of spinal canal at C4-C5 associated with cord compression and hyperintense T2 signal of cord at this leve. Multilevel moderate to large disc herniation osteophyte complex associated with posterior ligament hypertrophy resulting in multilevel moderate spinal and neural foraminal narrowing. -Thoracic: Moderate degenerative disc changes. Multilevel small disc bulging associated with mild spinal stenosis. No evidence of cord compression. -Lumbar: Normal lumbar lordosis. Vertebral body heights preserved. Somewhat patchy bone marrow signal in lower lumbar spine as well as in pelvic bones without discrete evidence of mass lesion or cortical destruction. Conus medullaris unremarkable. Moderate to mildly severe degenerative disc changes at lower lumbar spine more prominent at L4-L5. Small to moderate size disc herniation at L4-L5 and L5-S1 associated with posterior ligament and facet joint hypertrophy which resulting in mild spinal and moderate bilateral neural foramina narrowing. Neurology consult, Dr. Miranda, help appreciated. CT head: Focal encephalomalacia and or atrophy seen within the bilateral anterior temporal lobes. Clinical correlation. Correlation with MRI may be helpful if clinically indicated. Chronic microvascular ischemic changes. Small hypodensity in the left basal ganglia which may represent a small lacunar infarct versus prominent perivascular space. If focal neurologic deficit persists, consider further evaluation with MRI (see full report) Brain MRI: Focal encephalomalacia and or atrophy seen within the bilateral anterior temporal lobes. Clinical correlation. Correlation with MRI may be helpful if clinically indicated. Chronic microvascular ischemic changes. Small hypodensity in the left basal ganglia which may represent a small lacunar infarct versus prominent perivascular space (see full report) Lumbar XR showed L5-S1 arthrosis, L4-5 spondylosis, S1 spina bifida occulta Cervical XR showed c5-6 spondylosis CXR: Mild venous congestion. Patchy increased markings at the left lung base ( see full report) HIV negative Lyme titers - Lyme IgG 58 kDa Band Reactive, Lyme IgG W Blot negative RF negative DAWN positive, 1:40, speckled pattern RPR nonreactive ESR 30 CRP 11.86 Vitamin D 21.7 Vitamin B12 726 folate 14 CPK 157 Neurochecks ASA 81 mg PO daily HOLD Crestor 5 mg PO HS Heart Healthy diet PT/OT treat and eval 2. HTN HCTZ 25 mg po daily Norvasc 10 mg PO daily Normotensive. Continue to monitor 3. Prophylactic Measures Prontonix 40 mg PO daily HOLD Lovenox 40 mg SC daily for procedure SCDs Regular diet <Prosper Del Cid H - Last Filed: 07/26/16 14:55> Objective - Vital Signs/Intake and Output Vital Signs (last 24 hours): Temp Pulse Resp BP Pulse Ox 98 F 70 20 122/67 97 07/26/16 08:21 07/26/16 08:21 07/26/16 08:21 07/26/16 08:21 07/26/16 08:21 Intake and Output: 07/26/16 07/26/16 06:59 18:59 Intake Total 250 Balance 250 - Medications Medications: Current Medications Acetaminophen (Tylenol 325mg Tab) 650 mg PO Q6 PRN PRN Reason: Headache Last Admin: 07/19/16 04:25 Dose: 650 mg Albuterol/Ipratropium (Duoneb 3 Mg/0.5 Mg (3 Ml) Ud) 3 ml INH RQ6 [facility] Last Admin: 07/26/16 13:30 Dose: 3 ml Amlodipine Besylate (Norvasc) 10 mg PO DAILY [facility] Last Admin: 07/26/16 10:57 Dose: 10 mg Aspirin (Ecotrin) 81 mg PO DAILY [facility] Last Admin: 07/26/16 10:56 Dose: 81 mg Cyclobenzaprine HCl (Flexeril) 10 mg PO TID [facility] Last Admin: 07/26/16 14:08 Dose: 10 mg Dexamethasone (Decadron Inj) 10 mg IVP Q12 [facility] Last Admin: 07/26/16 11:13 Dose: 10 mg Docusate Sodium (Colace) 100 mg PO TID [facility] Last Admin: 07/26/16 14:08 Dose: 100 mg Gabapentin (Neurontin) 300 mg PO TID [facility] Last Admin: 07/26/16 14:08 Dose: 300 mg Hydrochlorothiazide (Hydrodiuril) 25 mg PO DAILY [facility] Last Admin: 07/26/16 10:57 Dose: 25 mg Ondansetron HCl (Zofran Inj) 4 mg IVP Q6 PRN PRN Reason: Nausea/Vomiting Oxycodone HCl (Oxycodone Immediate Release Tab) 5 mg PO Q4H PRN PRN Reason: Pain, moderate (4-7) Last Admin: 07/24/16 10:39 Dose: 5 mg Pantoprazole Sodium (Protonix Ec Tab) 40 mg PO DAILY [facility] Last Admin: 07/26/16 10:57 Dose: 40 mg Polyethylene Glycol (Miralax) 17 gm PO BID [facility] Last Admin: 07/26/16 11:14 Dose: 17 gm Rosuvastatin Calcium (Crestor) 5 mg PO HS [facility] Last Admin: 07/22/16 22:08 Dose: 5 mg - Labs Labs: 07/26/16 07:11 07/26/16 07:11 PT 14.4 SECONDS (9.7-12.2) H 07/20/16 13:38 INR 1.3 07/20/16 13:38 APTT 30 SECONDS (21-34) 07/16/16 06:18 Attending/Attestation - Attestation I have personally seen and examined this patient.: Yes I have fully participated in the care of the patient.: Yes I have reviewed all pertinent clinical information, including history, physical exam and plan: Yes Notes (Text): 07/26/16 14:52 Medical Attending patient was seen and examined by me. He was eating when I saw him. He denied chest pain and denied shortness of breath. He continues to feel left leg weakness, parathesia, numbness. The patient will need acute rehab, per discussion with family preservation caseworker they are trying to get acute rehab.
[2016-07-26 07:21] LABS: BASO % 0.1 % (0.0-2.0); HEMATOCRIT 40.3 % (35.0-51.0); LYMPH % 9.7 % (20.0-40.0); MEAN CORPUSCULAR HEMOGLOBIN 29.4 pg (27.0-31.0); MEAN CORPUSCULAR HGB CONC 33.4 g/dL (33.0-37.0); MEAN PLATELET VOLUME 8.9 fL (7.2-11.7); MONO # 0.8 K/uL (0.0-0.8); MONO % 7.5 % (0.0-10.0); PLATELET COUNT 204 K/uL (130-400); RED CELL DISTRIBUTION WIDTH 13.4 % (11.5-14.5); WHITE BLOOD COUNT 10.3 K/uL (4.8-10.8)
[2016-07-26 07:31] LABS: CHLORIDE 85 mmol/L (98-107); SODIUM 131 mmol/L (132-148)
[2016-07-26 07:32] LABS: POTASSIUM 4.1 mmol/L (3.6-5.2)
[2016-07-26 07:34] LABS: ALB/GLOB RATIO 1.1 (1.0-2.1); ALKALINE PHOSPHATASE 63 U/L (38-126); ALT/SGPT 52 U/L (21-72); AST/SGOT 23 U/L (17-59); BILIRUBIN,TOTAL 0.8 mg/dL (0.2-1.3); BLOOD UREA NITROGEN 30 mg/dL (9-20); CALCIUM 8.5 mg/dl (8.6-10.4); CARBON DIOXIDE 35 mmol/L (22-30); GFR AFRICAN-AMERICAN > 60; GLUCOSE,RANDOM 158 mg/dL (75-110); PHOSPHOROUS 3.6 mg/dL (2.5-4.5); TOTAL PROTEIN 6.1 g/dL (6.3-8.3)
[2016-07-26 07:35] LABS: MAGNESIUM 1.7 mg/dL (1.6-2.3)
[2016-07-26 10:35] LABS: NEUTROPHIL 82 % (50-75); TOTAL CELLS COUNTED 100
[2016-07-26 10:36] LABS: LARGE PLATELETS PRESENT
[2016-07-26 10:45] LABS: GIANT PLATELETS PRESENT
[2016-07-26] MEDS: Pantoprazole 40 mg EC Tab PO SCH (10:57)
[2016-07-26] MEDS: POLYETHYLENE GLYCOL 3350 17 GM/Dose PACKET PO SCH ×2 (11:14→17:40)
[2016-07-26] MEDS: oxyCODONE 5 mg Immediate Release Tab PO PRN (17:40)
[2016-07-27] MEDS: Albuterol-Ipratrop 3 mg / 0.5 (3 ml) UD INH SCH ×4 (01:47→21:07)
[2016-07-27 08:24] LABS: BASO % 0.3 % (0.0-2.0); EOS # 0.1 K/uL (0.0-0.7); EOS % 0.6 % (0.0-4.0); HEMATOCRIT 42.1 % (35.0-51.0); LYMPH # 1.1 K/uL (1.0-4.3); LYMPH % 9.1 % (20.0-40.0); MEAN CELL VOLUME 87.3 fL (80.0-94.0); MEAN CORPUSCULAR HEMOGLOBIN 29.1 pg (27.0-31.0); MEAN CORPUSCULAR HGB CONC 33.4 g/dL (33.0-37.0); MEAN PLATELET VOLUME 8.7 fL (7.2-11.7); MONO # 0.8 K/uL (0.0-0.8); PLATELET COUNT 214 K/uL (130-400); RED CELL DISTRIBUTION WIDTH 13.4 % (11.5-14.5)
[2016-07-27 08:37] LABS: CHLORIDE 84 mmol/L (98-107); POTASSIUM 3.8 mmol/L (3.6-5.2); SODIUM 131 mmol/L (132-148)
[2016-07-27 08:39] LABS: AST/SGOT 28 U/L (17-59); BILIRUBIN,TOTAL 0.8 mg/dL (0.2-1.3); CARBON DIOXIDE 34 mmol/L (22-30); GFR AFRICAN-AMERICAN > 60
[2016-07-27 08:40] LABS: ALB/GLOB RATIO 1.1 (1.0-2.1); ALKALINE PHOSPHATASE 61 U/L (38-126); ALT/SGPT 56 U/L (21-72); BLOOD UREA NITROGEN 31 mg/dL (9-20); CALCIUM 8.8 mg/dl (8.6-10.4); GLUCOSE,RANDOM 181 mg/dL (75-110); PHOSPHOROUS 3.7 mg/dL (2.5-4.5); TOTAL PROTEIN 6.4 g/dL (6.3-8.3)
[2016-07-27 08:41] LABS: MAGNESIUM 1.8 mg/dL (1.6-2.3)
[2016-07-27 09:03] LABS: NEUTROPHIL 81 % (50-75); TOTAL CELLS COUNTED 100
[2016-07-27] MEDS: POLYETHYLENE GLYCOL 3350 17 GM/Dose PACKET PO SCH ×2 (10:38→18:07)
[2016-07-27] MEDS: Pantoprazole 40 mg EC Tab PO SCH (10:39)
--- NOTE | 2016-07-27 11:58 | CP.PCM.PN ---
<Kaleigh Wilson - Last Filed: 07/27/16 11:55> Subjective - Date & Time of Evaluation Date of Evaluation: 07/27/16 Time of Evaluation: 08:20 - Subjective Subjective: PGY-2 Medicine Progress Note for Dr. Del Cid Patient seen and examined at bedside with no acute events overnight. He is POD# 6 s/p discectomy and fusion of C4-5. Patient lying in bed with some improvement of paresthesias. Spasticity of muscles in LLE remains same. Patient tolerating regular diet, urinating without difficulty, and having BMs. He denies incontinence, symptoms suggestive of saddle anesthesia, headache, subjective fever/chills, chest pain, shortness of breath, abd pain, nausea, vomiting or diarrhea at this time. Objective - Vital Signs/Intake and Output Vital Signs (last 24 hours): Temp Pulse Resp BP Pulse Ox 97.9 F 81 20 132/77 96 07/27/16 09:02 07/27/16 09:02 07/27/16 09:02 07/27/16 09:02 07/27/16 09:02 Intake and Output: 07/27/16 07/27/16 06:59 18:59 Intake Total 790 Balance 790 - Medications Medications: Current Medications Acetaminophen (Tylenol 325mg Tab) 650 mg PO Q6 PRN PRN Reason: Headache Last Admin: 07/19/16 04:25 Dose: 650 mg Albuterol/Ipratropium (Duoneb 3 Mg/0.5 Mg (3 Ml) Ud) 3 ml INH RQ6 [facility] Last Admin: 07/27/16 07:38 Dose: 3 ml Amlodipine Besylate (Norvasc) 10 mg PO DAILY [facility] Last Admin: 07/27/16 10:39 Dose: 10 mg Aspirin (Ecotrin) 81 mg PO DAILY [facility] Last Admin: 07/27/16 10:41 Dose: 81 mg Cyclobenzaprine HCl (Flexeril) 10 mg PO TID [facility] Last Admin: 07/27/16 10:40 Dose: 10 mg Docusate Sodium (Colace) 100 mg PO TID [facility] Last Admin: 07/27/16 10:39 Dose: 100 mg Gabapentin (Neurontin) 300 mg PO TID [facility] Last Admin: 07/27/16 10:39 Dose: 300 mg Hydrochlorothiazide (Hydrodiuril) 25 mg PO DAILY [facility] Last Admin: 07/27/16 10:39 Dose: 25 mg Ondansetron HCl (Zofran Inj) 4 mg IVP Q6 PRN PRN Reason: Nausea/Vomiting Oxycodone HCl (Oxycodone Immediate Release Tab) 5 mg PO Q4H PRN PRN Reason: Pain, moderate (4-7) Last Admin: 07/26/16 17:40 Dose: 5 mg Pantoprazole Sodium (Protonix Ec Tab) 40 mg PO DAILY [facility] Last Admin: 07/27/16 10:39 Dose: 40 mg Polyethylene Glycol (Miralax) 17 gm PO BID [facility] Last Admin: 07/27/16 10:38 Dose: 17 gm Prednisone (Prednisone Tab) 20 mg PO BID [facility] Rosuvastatin Calcium (Crestor) 5 mg PO HS [facility] Last Admin: 07/22/16 22:08 Dose: 5 mg - Labs Labs: 07/27/16 08:17 07/27/16 08:17 PT 14.4 SECONDS (9.7-12.2) H 07/20/16 13:38 INR 1.3 07/20/16 13:38 APTT 30 SECONDS (21-34) 07/16/16 06:18 - Constitutional Appears: Non-toxic, No Acute Distress - Head Exam Head Exam: NORMAL INSPECTION - Eye Exam Eye Exam: EOMI - ENT Exam ENT Exam: Mucous Membranes Moist - Respiratory Exam Respiratory Exam: Clear to Ausculation Bilateral, NORMAL BREATHING PATTERN. absent: Rales, Rhonchi, Wheezes - Cardiovascular Exam Cardiovascular Exam: REGULAR RHYTHM, +S1, +S2. absent: Gallop, Rubs, Murmur - GI/Abdominal Exam GI & Abdominal Exam: Soft, Normal Bowel Sounds. absent: Tenderness - Extremities Exam Extremities Exam: absent: Pedal Edema - Neurological Exam Neurological Exam: Alert, Oriented x3 Neuro motor strength exam: Left Upper Extremity: 4, Right Upper Extremity: 4, Left Lower Extremity: 3, Right Lower Extremity: 4 - Psychiatric Exam Psychiatric exam: Normal Affect, Normal Mood - Skin Skin Exam: Normal Color, Warm Assessment and Plan - Assessment and Plan (Free Text) Assessment: 1. Generalized Lower extremity weakness 07/27: POD#6, Decadron stopped. Prednisone 20mg PO BID started. Collar removed for day time. Patient needs to wear collar at night and during PT. Pending authorization for acute rehab 5/6: POD#5 s/p discectomy and fusion of C4-5, flexeril increased to 10 mg PO BID , Oxycodone PRN since adding flexeril. Flexeril dose increased 07/19: Pulm clearance needed, ABG to see if there is CO2 retention, Duonebs RQ6 07/18: Continue decadron 10 mg IVP q8h to decrease inflammation. Per neurosurgeon , Dr. Ruiz, impression is cervical myelopathy. Plan for discectomy and fusion at C4-C5 in order to decompress cord on Thursday. Dr. Ruiz explained procedure and potential complications to patient at bedside. Aspirin discontinued Detsky score: 0 , Class I - low risk Cardiology, Dr. Knapp, consulted for cardiac pre-operative clearance. Echo: LVEF 79%. EKG (07/14): sinus bradycardia, no ST/T wave changes. As patient has a smoking history, consulted content editor, Dr. Rajan, for pre-operative clearance. MRI total spine w/wo haydee -Cervical: Severe narrowing of spinal canal at C4-C5 associated with cord compression and hyperintense T2 signal of cord at this leve. Multilevel moderate to large disc herniation osteophyte complex associated with posterior ligament hypertrophy resulting in multilevel moderate spinal and neural foraminal narrowing. -Thoracic: Moderate degenerative disc changes. Multilevel small disc bulging associated with mild spinal stenosis. No evidence of cord compression. -Lumbar: Normal lumbar lordosis. Vertebral body heights preserved. Somewhat patchy bone marrow signal in lower lumbar spine as well as in pelvic bones without discrete evidence of mass lesion or cortical destruction. Conus medullaris unremarkable. Moderate to mildly severe degenerative disc changes at lower lumbar spine more prominent at L4-L5. Small to moderate size disc herniation at L4-L5 and L5-S1 associated with posterior ligament and facet joint hypertrophy which resulting in mild spinal and moderate bilateral neural foramina narrowing. Neurology consult, Dr. Miranda, help appreciated. CT head: Focal encephalomalacia and or atrophy seen within the bilateral anterior temporal lobes. Clinical correlation. Correlation with MRI may be helpful if clinically indicated. Chronic microvascular ischemic changes. Small hypodensity in the left basal ganglia which may represent a small lacunar infarct versus prominent perivascular space. If focal neurologic deficit persists, consider further evaluation with MRI (see full report) Brain MRI: Focal encephalomalacia and or atrophy seen within the bilateral anterior temporal lobes. Clinical correlation. Correlation with MRI may be helpful if clinically indicated. Chronic microvascular ischemic changes. Small hypodensity in the left basal ganglia which may represent a small lacunar infarct versus prominent perivascular space (see full report) Lumbar XR showed L5-S1 arthrosis, L4-5 spondylosis, S1 spina bifida occulta Cervical XR showed c5-6 spondylosis CXR: Mild venous congestion. Patchy increased markings at the left lung base ( see full report) HIV negative Lyme titers - Lyme IgG 58 kDa Band Reactive, Lyme IgG W Blot negative RF negative DAWN positive, 1:40, speckled pattern RPR nonreactive ESR 30 CRP 11.86 Vitamin D 21.7 Vitamin B12 726 folate 14 CPK 157 Neurochecks ASA 81 mg PO daily HOLD Crestor 5 mg PO HS Heart Healthy diet PT/OT treat and eval 2. HTN HCTZ 25 mg po daily Norvasc 10 mg PO daily Normotensive. Continue to monitor 3. Prophylactic Measures Prontonix 40 mg PO daily HOLD Lovenox 40 mg SC daily for procedure SCDs Regular diet <Prosper Del Cid H - Last Filed: 07/27/16 12:10> Objective - Vital Signs/Intake and Output Vital Signs (last 24 hours): Temp Pulse Resp BP Pulse Ox 97.9 F 81 20 132/77 96 07/27/16 09:02 07/27/16 09:02 07/27/16 09:02 07/27/16 09:02 07/27/16 09:02 Intake and Output: 07/27/16 07/27/16 06:59 18:59 Intake Total 790 Balance 790 - Medications Medications: Current Medications Acetaminophen (Tylenol 325mg Tab) 650 mg PO Q6 PRN PRN Reason: Headache Last Admin: 07/19/16 04:25 Dose: 650 mg Albuterol/Ipratropium (Duoneb 3 Mg/0.5 Mg (3 Ml) Ud) 3 ml INH RQ6 [facility] Last Admin: 07/27/16 07:38 Dose: 3 ml Amlodipine Besylate (Norvasc) 10 mg PO DAILY [facility] Last Admin: 07/27/16 10:39 Dose: 10 mg Aspirin (Ecotrin) 81 mg PO DAILY [facility] Last Admin: 07/27/16 10:41 Dose: 81 mg Cyclobenzaprine HCl (Flexeril) 10 mg PO TID [facility] Last Admin: 07/27/16 10:40 Dose: 10 mg Docusate Sodium (Colace) 100 mg PO TID [facility] Last Admin: 07/27/16 10:39 Dose: 100 mg Gabapentin (Neurontin) 300 mg PO TID [facility] Last Admin: 07/27/16 10:39 Dose: 300 mg Hydrochlorothiazide (Hydrodiuril) 25 mg PO DAILY [facility] Last Admin: 07/27/16 10:39 Dose: 25 mg Ondansetron HCl (Zofran Inj) 4 mg IVP Q6 PRN PRN Reason: Nausea/Vomiting Oxycodone HCl (Oxycodone Immediate Release Tab) 5 mg PO Q4H PRN PRN Reason: Pain, moderate (4-7) Last Admin: 07/26/16 17:40 Dose: 5 mg Pantoprazole Sodium (Protonix Ec Tab) 40 mg PO DAILY [facility] Last Admin: 07/27/16 10:39 Dose: 40 mg Polyethylene Glycol (Miralax) 17 gm PO BID [facility] Last Admin: 07/27/16 10:38 Dose: 17 gm Prednisone (Prednisone Tab) 20 mg PO BID [facility] Rosuvastatin Calcium (Crestor) 5 mg PO HS [facility] Last Admin: 07/22/16 22:08 Dose: 5 mg - Labs Labs: 07/27/16 08:17 07/27/16 08:17 PT 14.4 SECONDS (9.7-12.2) H 07/20/16 13:38 INR 1.3 07/20/16 13:38 APTT 30 SECONDS (21-34) 07/16/16 06:18 Attending/Attestation - Attestation I have personally seen and examined this patient.: Yes I have fully participated in the care of the patient.: Yes I have reviewed all pertinent clinical information, including history, physical exam and plan: Yes Notes (Text): Medical Attending: Patient was seen and examined by me. Agree with the above note by the resident. The patient appeared more comfortable today. Less lower extremity pain. He explains the right leg and right lower extremity is doing much better. Still weak on the left lower side. His hands are stronger as well. He is tolerating a diet very well. Bathroom ok. We are still pending on acute rehab placement at this time. Today changed his decradon over to PO prednisone BID thank you Prosper Del Cid
[2016-07-28] MEDS: Albuterol-Ipratrop 3 mg / 0.5 (3 ml) UD INH SCH ×4 (02:04→19:39)
[2016-07-28 07:46] LABS: BASO % 0.1 % (0.0-2.0); HEMATOCRIT 42.5 % (35.0-51.0); LYMPH # 1.5 K/uL (1.0-4.3); LYMPH % 10.5 % (20.0-40.0); MEAN CELL VOLUME 87.9 fL (80.0-94.0); MEAN CORPUSCULAR HEMOGLOBIN 29.5 pg (27.0-31.0); MEAN CORPUSCULAR HGB CONC 33.6 g/dL (33.0-37.0); MEAN PLATELET VOLUME 8.8 fL (7.2-11.7); MONO # 1.2 K/uL (0.0-0.8); MONO % 8.6 % (0.0-10.0); RED CELL DISTRIBUTION WIDTH 13.4 % (11.5-14.5); WHITE BLOOD COUNT 13.9 K/uL (4.8-10.8)
[2016-07-28 07:55] LABS: POTASSIUM 3.8 mmol/L (3.6-5.2); SODIUM 132 mmol/L (132-148)
[2016-07-28 07:57] LABS: ALB/GLOB RATIO 1.2 (1.0-2.1); ALKALINE PHOSPHATASE 58 U/L (38-126); AST/SGOT 24 U/L (17-59); BILIRUBIN,TOTAL 0.8 mg/dL (0.2-1.3); CARBON DIOXIDE 35 mmol/L (22-30); GFR AFRICAN-AMERICAN > 60; TOTAL PROTEIN 6.3 g/dL (6.3-8.3)
[2016-07-28 07:58] LABS: ALT/SGPT 49 U/L (21-72); BLOOD UREA NITROGEN 31 mg/dL (9-20); CALCIUM 8.9 mg/dl (8.6-10.4); GLUCOSE,RANDOM 132 mg/dL (75-110); MAGNESIUM 1.7 mg/dL (1.6-2.3); PHOSPHOROUS 3.5 mg/dL (2.5-4.5)
[2016-07-28 08:49] LABS: CHLORIDE 83 mmol/L (98-107)
[2016-07-28] MEDS: POLYETHYLENE GLYCOL 3350 17 GM/Dose PACKET PO SCH (10:20)
[2016-07-28] MEDS: Pantoprazole 40 mg EC Tab PO SCH (10:21)
[2016-07-28] MEDS ORDERED: Magnesium Hydroxide Susp 30 ml UD PO ONE (14:24)
--- NOTE | 2016-07-28 17:12 | CP.PCM.PN ---
<Ben Benz - Last Filed: 07/28/16 17:09> Subjective - Date & Time of Evaluation Date of Evaluation: 07/28/16 Time of Evaluation: 08:10 - Subjective Subjective: Dr. Benz PGY 1 Hospitalist Note Patient seen and evaluated at bedside. He is POD#7 s/p discectomy and fusion of C4-5.He states he has been having difficulty controlling his hands due to spasming and numbness. He is able to grasp food and drink and eat it. He states it is improved from yesterday but is frustrated. He denies any neck pain, chest pain, SOB, headache, fever, or chills. Per nursing, no adverse events over night. Objective - Vital Signs/Intake and Output Vital Signs (last 24 hours): Temp Pulse Resp BP Pulse Ox 97.6 F 77 20 126/68 97 07/28/16 15:00 07/28/16 15:00 07/28/16 15:00 07/28/16 15:00 07/28/16 15:00 Intake and Output: 07/28/16 07/28/16 06:59 18:59 Intake Total 150 860 Output Total 800 600 Balance -650 260 - Medications Medications: Current Medications Acetaminophen (Tylenol 325mg Tab) 650 mg PO Q6 PRN PRN Reason: Headache Last Admin: 07/19/16 04:25 Dose: 650 mg Albuterol/Ipratropium (Duoneb 3 Mg/0.5 Mg (3 Ml) Ud) 3 ml INH RQ6 [facility] Last Admin: 07/28/16 13:31 Dose: 3 ml Amlodipine Besylate (Norvasc) 10 mg PO DAILY [facility] Last Admin: 07/28/16 10:21 Dose: 10 mg Aspirin (Ecotrin) 81 mg PO DAILY [facility] Last Admin: 07/28/16 10:20 Dose: 81 mg Cyclobenzaprine HCl (Flexeril) 10 mg PO TID [facility] Last Admin: 07/28/16 13:39 Dose: 10 mg Docusate Sodium (Colace) 100 mg PO TID [facility] Last Admin: 07/28/16 13:39 Dose: 100 mg Gabapentin (Neurontin) 300 mg PO TID [facility] Last Admin: 07/28/16 13:39 Dose: 300 mg Hydrochlorothiazide (Hydrodiuril) 25 mg PO DAILY [facility] Last Admin: 07/28/16 10:20 Dose: 25 mg Ondansetron HCl (Zofran Inj) 4 mg IVP Q6 PRN PRN Reason: Nausea/Vomiting Oxycodone HCl (Oxycodone Immediate Release Tab) 5 mg PO Q4H PRN PRN Reason: Pain, moderate (4-7) Last Admin: 07/26/16 17:40 Dose: 5 mg Pantoprazole Sodium (Protonix Ec Tab) 40 mg PO DAILY [facility] Last Admin: 07/28/16 10:21 Dose: 40 mg Prednisone (Prednisone Tab) 20 mg PO BID [facility] Stop: 08/01/16 18:01 Last Admin: 07/28/16 10:21 Dose: 20 mg Prednisone (Prednisone Tab) 10 mg PO BID [facility] Stop: 08/07/16 18:01 Prednisone (Prednisone Tab) 20 mg PO DAILY [facility] Stop: 08/13/16 10:01 Prednisone (Prednisone Tab) 10 mg PO DAILY [facility] Stop: 08/19/16 10:01 Prednisone (Prednisone Tab) 5 mg PO DAILY [facility] Stop: 08/25/16 10:01 Rosuvastatin Calcium (Crestor) 5 mg PO HS [facility] Last Admin: 07/22/16 22:08 Dose: 5 mg - Labs Labs: 07/28/16 07:24 07/28/16 07:24 PT 14.4 SECONDS (9.7-12.2) H 07/20/16 13:38 INR 1.3 07/20/16 13:38 APTT 30 SECONDS (21-34) 07/16/16 06:18 - Constitutional Appears: Non-toxic, No Acute Distress - Head Exam Head Exam: ATRAUMATIC, NORMOCEPHALIC - Eye Exam Eye Exam: EOMI, Normal appearance, PERRL Pupil Exam: NORMAL ACCOMODATION, PERRL - ENT Exam ENT Exam: Mucous Membranes Moist, Normal Oropharynx - Neck Exam Neck Exam: Tenderness. absent: Normal Inspection (neck tenderness and stiffness ) - Respiratory Exam Respiratory Exam: Clear to Ausculation Bilateral, NORMAL BREATHING PATTERN. absent: Rales, Rhonchi, Wheezes - Cardiovascular Exam Cardiovascular Exam: REGULAR RHYTHM, +S1, +S2. absent: Gallop, Rubs, Murmur - GI/Abdominal Exam GI & Abdominal Exam: Soft, Normal Bowel Sounds. absent: Distended, Tenderness - Extremities Exam Extremities Exam: absent: Normal Inspection (both hands have limited grasmping strength, left leg has decreased strength), Pedal Edema, Tenderness - Neurological Exam Neurological Exam: Alert, Awake, CN II-XII Intact, Oriented x3 Neuro motor strength exam: Left Upper Extremity: 3, Right Upper Extremity: 3, Left Lower Extremity: 3, Right Lower Extremity: 4 - Psychiatric Exam Psychiatric exam: Depressed - Skin Skin Exam: Dry, Intact, Normal Color, Warm Assessment and Plan - Assessment and Plan (Free Text) Plan: 1. Generalized Lower extremity weakness 07/28: POD#7, Started on steroid taper. Awaiting placement to rehab. Increased gabapenin to 400mg TID. 07/27: POD#6, Decadron stopped. Prednisone 20mg PO BID started. Collar removed for day time. Patient needs to wear collar at night and during PT. Pending authorization for acute rehab 56: POD#5 s/p discectomy and fusion of C4-5, flexeril increased to 10 mg PO BID , Oxycodone PRN since adding flexeril. Flexeril dose increased 07/19: Pulm clearance needed, ABG to see if there is CO2 retention, Duonebs RQ6 07/18: Continue decadron 10 mg IVP q8h to decrease inflammation. Per neurosurgeon , Dr. Ruiz, impression is cervical myelopathy. Plan for discectomy and fusion at C4-C5 in order to decompress cord on Thursday. Dr. Ruiz explained procedure and potential complications to patient at bedside. Aspirin discontinued Detsky score: 0 , Class I - low risk Cardiology, Dr. Knapp, consulted for cardiac pre-operative clearance. Echo: LVEF 79%. EKG (07/14): sinus bradycardia, no ST/T wave changes. As patient has a smoking history, consulted manager medical writing, Dr. Rajan, for pre-operative clearance. MRI total spine w/wo haydee -Cervical: Severe narrowing of spinal canal at C4-C5 associated with cord compression and hyperintense T2 signal of cord at this leve. Multilevel moderate to large disc herniation osteophyte complex associated with posterior ligament hypertrophy resulting in multilevel moderate spinal and neural foraminal narrowing. -Thoracic: Moderate degenerative disc changes. Multilevel small disc bulging associated with mild spinal stenosis. No evidence of cord compression. -Lumbar: Normal lumbar lordosis. Vertebral body heights preserved. Somewhat patchy bone marrow signal in lower lumbar spine as well as in pelvic bones without discrete evidence of mass lesion or cortical destruction. Conus medullaris unremarkable. Moderate to mildly severe degenerative disc changes at lower lumbar spine more prominent at L4-L5. Small to moderate size disc herniation at L4-L5 and L5-S1 associated with posterior ligament and facet joint hypertrophy which resulting in mild spinal and moderate bilateral neural foramina narrowing. Neurology consult, Dr. Miranda, help appreciated. CT head: Focal encephalomalacia and or atrophy seen within the bilateral anterior temporal lobes. Clinical correlation. Correlation with MRI may be helpful if clinically indicated. Chronic microvascular ischemic changes. Small hypodensity in the left basal ganglia which may represent a small lacunar infarct versus prominent perivascular space. If focal neurologic deficit persists, consider further evaluation with MRI (see full report) Brain MRI: Focal encephalomalacia and or atrophy seen within the bilateral anterior temporal lobes. Clinical correlation. Correlation with MRI may be helpful if clinically indicated. Chronic microvascular ischemic changes. Small hypodensity in the left basal ganglia which may represent a small lacunar infarct versus prominent perivascular space (see full report) Lumbar XR showed L5-S1 arthrosis, L4-5 spondylosis, S1 spina bifida occulta Cervical XR showed c5-6 spondylosis CXR: Mild venous congestion. Patchy increased markings at the left lung base ( see full report) HIV negative Lyme titers - Lyme IgG 58 kDa Band Reactive, Lyme IgG W Blot negative RF negative DAWN positive, 1:40, speckled pattern RPR nonreactive ESR 30 CRP 11.86 Vitamin D 21.7 Vitamin B12 726 folate 14 CPK 157 Neurochecks ASA 81 mg PO daily HOLD Crestor 5 mg PO HS Heart Healthy diet PT/OT treat and eval 2. HTN HCTZ 25 mg po daily Norvasc 10 mg PO daily Normotensive. Continue to monitor 3. Prophylactic Measures Prontonix 40 mg PO daily HOLD Lovenox 40 mg SC daily for procedure SCDs Regular diet Assessment and plan discussed with attending physician. <Sonia Levine V - Last Filed: 07/28/16 22:07> Objective - Vital Signs/Intake and Output Vital Signs (last 24 hours): Temp Pulse Resp BP Pulse Ox 97.6 F 77 20 126/68 97 07/28/16 15:00 07/28/16 15:00 07/28/16 15:00 07/28/16 15:00 07/28/16 15:00 Intake and Output: 07/28/16 07/29/16 18:59 06:59 Intake Total 860 Output Total 600 Balance 260 - Medications Medications: Current Medications Acetaminophen (Tylenol 325mg Tab) 650 mg PO Q6 PRN PRN Reason: Headache Last Admin: 07/19/16 04:25 Dose: 650 mg Albuterol/Ipratropium (Duoneb 3 Mg/0.5 Mg (3 Ml) Ud) 3 ml INH RQ6 [facility] Last Admin: 07/28/16 19:39 Dose: 3 ml Amlodipine Besylate (Norvasc) 10 mg PO DAILY [facility] Last Admin: 07/28/16 10:21 Dose: 10 mg Aspirin (Ecotrin) 81 mg PO DAILY [facility] Last Admin: 07/28/16 10:20 Dose: 81 mg Cyclobenzaprine HCl (Flexeril) 10 mg PO TID [facility] Last Admin: 07/28/16 18:24 Dose: 10 mg Docusate Sodium (Colace) 100 mg PO TID [facility] Last Admin: 07/28/16 18:24 Dose: 100 mg Gabapentin (Neurontin) 400 mg PO TID [facility] Last Admin: 07/28/16 18:24 Dose: 400 mg Hydrochlorothiazide (Hydrodiuril) 25 mg PO DAILY [facility] Last Admin: 07/28/16 10:20 Dose: 25 mg Ondansetron HCl (Zofran Inj) 4 mg IVP Q6 PRN PRN Reason: Nausea/Vomiting Oxycodone HCl (Oxycodone Immediate Release Tab) 5 mg PO Q4H PRN PRN Reason: Pain, moderate (4-7) Last Admin: 07/26/16 17:40 Dose: 5 mg Pantoprazole Sodium (Protonix Ec Tab) 40 mg PO DAILY [facility] Last Admin: 07/28/16 10:21 Dose: 40 mg Prednisone (Prednisone Tab) 20 mg PO BID [facility] Stop: 08/01/16 18:01 Last Admin: 07/28/16 18:27 Dose: 20 mg Prednisone (Prednisone Tab) 10 mg PO BID [facility] Stop: 08/07/16 18:01 Prednisone (Prednisone Tab) 20 mg PO DAILY [facility] Stop: 08/13/16 10:01 Prednisone (Prednisone Tab) 10 mg PO DAILY [facility] Stop: 08/19/16 10:01 Prednisone (Prednisone Tab) 5 mg PO DAILY [facility] Stop: 08/25/16 10:01 Rosuvastatin Calcium (Crestor) 5 mg PO HS [facility] Last Admin: 07/22/16 22:08 Dose: 5 mg - Labs Labs: 07/28/16 07:24 07/28/16 07:24 PT 14.4 SECONDS (9.7-12.2) H 07/20/16 13:38 INR 1.3 07/20/16 13:38 APTT 30 SECONDS (21-34) 07/16/16 06:18 Attending/Attestation - Attestation I have personally seen and examined this patient.: Yes I have fully participated in the care of the patient.: Yes I have reviewed all pertinent clinical information, including history, physical exam and plan: Yes Notes (Text): Patient seen, examined and case discussed with day-time resident. Patient seen at bedside. Patient reports flatus but has not had an adequate bowel movement. Patient previously on miralax, ordered for Milk of Magnesia and monitor for bowel movement. Patient reports progressive improvement regarding upper extremities; and mild spasicity over left lower extremity. Patient is on Gabapentin recommended by neurology for spasicity. Patient is currently being taper from Decadron to Prednisone. Taper built into [employer]. Discussed with case management, patient had a bed pending at acute rehab, however transportation was not available and bed lost secondary to lack of available transportation per case. F/u with social work. Per neurosurgery (07/22 note), ok from their prespective for transfer to rehab. Assessment/Plan 1. Generalized Upper and Lower extremity weakness Cervical Cord Compression * Neurology consult, Dr. Miranda, help appreciated * Neurosurgery (Dr. Ruiz)-->help appreciated * CT head (07/15/16): focal encephalomalacia and/or atrophy seen with b/l anterior temporal lobes Correlation with MRI may be helpful if clinically indicated. Chronic microvascular ischemic changes. Small hypodensity in the left basal ganglia which may represent a small lacunar infarct versus prominent perivascular space (see full report). * Brain MRI (07/15): no acute intracranial abnormality, mild chronic microangiopathic changes, and mild age related global, middle cranial fossa arachnoid cyst versus cystic encephalomalacia, no evidence of mass effect or vasogenic edema * Ordered for Lumbar and cervical spine xrays * CXR: Mild venous congestion. Patchy increased markings at the left lung base (see full report) * Cervical xray (07/15/16): radiolucency at the dense base a remote fracture versus developmental variant; consider CT cervical spine; no subluxation, cervical spondylosis under disc disease most notable C5-C6 * Lumbar xray (07/15/16): lumbar spondylosis and facet arthrosis, developmental variants. * Completed MRI cervical/thoracic and lumbar; awaiting official report of lumbar today * Cervical MRI (07/17/16): severe narrowing of the spinal canal at C4-C5 associated with cord compression and hyperintense T2 signal of the cord at this levl; multilevel moderate to large disc herniation osteophyte complex w posterior ligament hypertropgy which resulting multilevel moderate spinal and neural foraminal narrowing * Thoracic MRI (07/17/16): moderate degenerative disc changes. Multilevel small disc bulging with mild spinal stenosis. no evidence of cord compression * Lumbar MRI (07/17/16): moderate to mildly severe degenerative disc changes at lower lumbar spine more prominent at L4-L5. small to moderate size disc herniation at L4-L5 and L5-S1 associated with posterio ligament and facet joint hypertrophy, which resulting in mild spinal and moderate bilateral neural formating narrowing. heterogeneous bone marrow signal seen at the lower lumbar spine and in the pelvic bones without evidence of discrete mass lesion or cortical destruction * HIV: negative RF: negative, DAWN: positive, 1:40, speckled, RPR: nonreactive, Lyme titers:negative ESR: elevated, Vitamin D: low, Vitamin B12, CPK: 157, UDS: negative, blood alcohol: negative * Decadron 10mg IV Q 8hour (active since 07/17/16) * Patient underwent anterior cervical discteomy C4-C5, cervical fusion C4-C5 per operative note on 07/21/16. No complication noted. Minimal blood loss on . Per neurosurgery, patient stable for transfer for rehab. * Gabapentin 400mg PO tid * Flexeril 10mg PO tid * Taper: Prednisone 20mg PO bid X 5 days, Prednisone 10mg PO bid for 5 days, Prednisone 20mg PO daily for 5 days, Prednisone 10mg PO daily for 5 days 2. HTN * HCTZ 25 mg po daily * Norvasc 10 mg PO daily * monitor vital signs 3. Electrolyte imbalance * monitor and replete if necessary 4. Impaired glucose tolerance * [id number]: 6.1 * will need repeat in one year * will need counselling regarding diet and exercise to prevent overt diabetes * Note: patient is on steroid taper 5. Constipation * Patient has flatus * Previously on miralax * Ordered for Milk of Magnesia * Monitor for adequate bowel movement 6. Prophylactic Measures * Protonix 40 mg PO daily * Aspirin 81mg PO daily * Restart heparin 5000 units subq 8hours for DVT ppx * SCDs while in bed * PT/OT eval--->[facility] pending placement/transportation 7. Disposition * Patient is awaiting transportation and acute rehab bed * Neurosurgery has indicate appropriate for transfer to rehab in prior progress note * Patient is medically stable for discharge * monitor for bowel movement
[2016-07-28] MEDS ORDERED: Bisacodyl 5mg EC Tab PO ONE (22:07)
[2016-07-29] MEDS: Albuterol-Ipratrop 3 mg / 0.5 (3 ml) UD INH SCH ×4 (01:36→19:34)
--- NOTE | 2016-07-29 07:41 | CP.PCM.PN ---
<Ben Benz - Last Filed: 07/29/16 18:40> Subjective - Date & Time of Evaluation Date of Evaluation: 07/29/16 Time of Evaluation: 07:30 - Subjective Subjective: Dr. Benz PGY 1 Hospitalist Note Patient seen and evaluated at bedside. He states he is comfortable and resting well. He denies any chest pain, SOB, fever, or chills. He continues to be frustrated about not being able to move well. He was reassured that with time and physical therapy, he would see improvement. He has not had a bowel movement and requests something to help. Per nursing, no adverse events over night. Objective - Vital Signs/Intake and Output Vital Signs (last 24 hours): Temp Pulse Resp BP Pulse Ox 97.7 F 83 20 133/81 96 07/28/16 23:54 07/28/16 23:54 07/28/16 23:54 07/28/16 23:54 07/28/16 23:54 Intake and Output: 07/29/16 07/29/16 06:59 18:59 Intake Total 550 Output Total 1200 Balance -650 - Medications Medications: Current Medications Acetaminophen (Tylenol 325mg Tab) 650 mg PO Q6 PRN PRN Reason: Headache Last Admin: 07/19/16 04:25 Dose: 650 mg Albuterol/Ipratropium (Duoneb 3 Mg/0.5 Mg (3 Ml) Ud) 3 ml INH RQ6 [facility] Last Admin: 07/29/16 01:36 Dose: 3 ml Amlodipine Besylate (Norvasc) 10 mg PO DAILY [facility] Last Admin: 07/28/16 10:21 Dose: 10 mg Aspirin (Ecotrin) 81 mg PO DAILY [facility] Last Admin: 07/28/16 10:20 Dose: 81 mg Cyclobenzaprine HCl (Flexeril) 10 mg PO TID [facility] Last Admin: 07/28/16 18:24 Dose: 10 mg Docusate Sodium (Colace) 100 mg PO TID [facility] Last Admin: 07/28/16 18:24 Dose: 100 mg Gabapentin (Neurontin) 400 mg PO TID [facility] Last Admin: 07/28/16 18:24 Dose: 400 mg Heparin Sodium (Porcine) (Heparin) 5,000 units SC Q8 [facility] Last Admin: 07/29/16 06:26 Dose: 5,000 units Hydrochlorothiazide (Hydrodiuril) 25 mg PO DAILY [facility] Last Admin: 07/28/16 10:20 Dose: 25 mg Ondansetron HCl (Zofran Inj) 4 mg IVP Q6 PRN PRN Reason: Nausea/Vomiting Oxycodone HCl (Oxycodone Immediate Release Tab) 5 mg PO Q4H PRN PRN Reason: Pain, moderate (4-7) Last Admin: 07/26/16 17:40 Dose: 5 mg Pantoprazole Sodium (Protonix Ec Tab) 40 mg PO DAILY [facility] Last Admin: 07/28/16 10:21 Dose: 40 mg Prednisone (Prednisone Tab) 20 mg PO BID [facility] Stop: 08/01/16 18:01 Last Admin: 07/28/16 18:27 Dose: 20 mg Prednisone (Prednisone Tab) 10 mg PO BID [facility] Stop: 08/07/16 18:01 Prednisone (Prednisone Tab) 20 mg PO DAILY [facility] Stop: 08/13/16 10:01 Prednisone (Prednisone Tab) 10 mg PO DAILY [facility] Stop: 08/19/16 10:01 Prednisone (Prednisone Tab) 5 mg PO DAILY [facility] Stop: 08/25/16 10:01 Rosuvastatin Calcium (Crestor) 5 mg PO HS [facility] Last Admin: 07/22/16 22:08 Dose: 5 mg - Labs Labs: 07/28/16 07:24 07/28/16 07:24 PT 14.4 SECONDS (9.7-12.2) H 07/20/16 13:38 INR 1.3 07/20/16 13:38 APTT 30 SECONDS (21-34) 07/16/16 06:18 - Constitutional Appears: Non-toxic, No Acute Distress - Head Exam Head Exam: ATRAUMATIC, NORMOCEPHALIC - Eye Exam Eye Exam: EOMI, Normal appearance, PERRL Pupil Exam: NORMAL ACCOMODATION, PERRL - ENT Exam ENT Exam: Mucous Membranes Moist. absent: Normal Oropharynx (poor dentition) - Neck Exam Neck Exam: absent: Normal Inspection (suture from procedure, clean and dry), Tenderness - Respiratory Exam Respiratory Exam: Clear to Ausculation Bilateral, NORMAL BREATHING PATTERN. absent: Rales, Rhonchi, Wheezes - Cardiovascular Exam Cardiovascular Exam: REGULAR RHYTHM, +S1, +S2. absent: Gallop, Rubs, Murmur - GI/Abdominal Exam GI & Abdominal Exam: Firm, Soft, Normal Bowel Sounds. absent: Tenderness - Rectal Exam Rectal Exam: Deferred - Extremities Exam Extremities Exam: absent: Normal Inspection (both hands have mild contracture, able to move fingers, ), Pedal Edema, Tenderness - Back Exam Back Exam: NORMAL INSPECTION. absent: rash noted, tenderness - Neurological Exam Neurological Exam: Alert, Awake, CN II-XII Intact, Oriented x3 Neuro motor strength exam: Left Upper Extremity: 3, Right Upper Extremity: 3, Left Lower Extremity: 3, Right Lower Extremity: 3 - Psychiatric Exam Psychiatric exam: Normal Affect, Normal Mood - Skin Skin Exam: Dry, Intact, Normal Color, Warm Assessment and Plan - Assessment and Plan (Free Text) Plan: Generalized Upper and Lower extremity weakness Cervical Cord Compression * Neurology consult, Dr. Miranda, help appreciated * Neurosurgery (Dr. Ruiz)-->help appreciated * CT head (07/15/16): focal encephalomalacia and/or atrophy seen with b/l anterior temporal lobes Correlation with MRI may be helpful if clinically indicated. Chronic microvascular ischemic changes. Small hypodensity in the left basal ganglia which may represent a small lacunar infarct versus prominent perivascular space (see full report). * Brain MRI (07/15): no acute intracranial abnormality, mild chronic microangiopathic changes, and mild age related global, middle cranial fossa arachnoid cyst versus cystic encephalomalacia, no evidence of mass effect or vasogenic edema * Ordered for Lumbar and cervical spine xrays * CXR: Mild venous congestion. Patchy increased markings at the left lung base (see full report) * Cervical xray (07/15/16): radiolucency at the dense base a remote fracture versus developmental variant; consider CT cervical spine; no subluxation, cervical spondylosis under disc disease most notable C5-C6 * Lumbar xray (07/15/16): lumbar spondylosis and facet arthrosis, developmental variants. * Completed MRI cervical/thoracic and lumbar; awaiting official report of lumbar today * Cervical MRI (07/17/16): severe narrowing of the spinal canal at C4-C5 associated with cord compression and hyperintense T2 signal of the cord at this levl; multilevel moderate to large disc herniation osteophyte complex w posterior ligament hypertropgy which resulting multilevel moderate spinal and neural foraminal narrowing * Thoracic MRI (07/17/16): moderate degenerative disc changes. Multilevel small disc bulging with mild spinal stenosis. no evidence of cord compression * Lumbar MRI (07/17/16): moderate to mildly severe degenerative disc changes at lower lumbar spine more prominent at L4-L5. small to moderate size disc herniation at L4-L5 and L5-S1 associated with posterio ligament and facet joint hypertrophy, which resulting in mild spinal and moderate bilateral neural formating narrowing. heterogeneous bone marrow signal seen at the lower lumbar spine and in the pelvic bones without evidence of discrete mass lesion or cortical destruction * HIV: negative RF: negative, DAWN: positive, 1:40, speckled, RPR: nonreactive, Lyme titers:negative ESR: elevated, Vitamin D: low, Vitamin B12, CPK: 157, UDS: negative, blood alcohol: negative * Patient underwent anterior cervical discteomy C4-C5, cervical fusion C4-C5 per operative note on 07/21/16. No complication noted. Minimal blood loss on . Per neurosurgery, patient stable for transfer for rehab. * Gabapentin 400mg PO tid * Flexeril 10mg PO tid * Taper: Prednisone 20mg PO bid X 5 days, Prednisone 10mg PO bid for 5 days, Prednisone 20mg PO daily for 5 days, Prednisone 10mg PO daily for 5 days HTN * HCTZ 25 mg po daily * Norvasc 10 mg PO daily * monitor vital signs Electrolyte imbalance * monitor and replete if necessary Impaired glucose tolerance * [id number]: 6.1 * will need repeat in one year * will need counselling regarding diet and exercise to prevent overt diabetes * Note: patient is on steroid taper Constipation * Patient has flatus * Previously on miralax * Ordered for Milk of Magnesia * given Mag citrate * OMT performed to alleviate constipation * Monitor for adequate bowel movement Prophylactic Measures * Protonix 40 mg PO daily * Aspirin 81mg PO daily * Restart heparin 5000 units subq 8hours for DVT ppx * SCDs while in bed * PT/OT eval--->[facility] pending placement/transportation Disposition * Patient is awaiting transportation and acute rehab bed * Neurosurgery has indicate appropriate for transfer to rehab in prior progress note * Patient is medically stable for discharge * monitor for bowel movement Assessment and Plan discussed with attending physician. <Sonia Levine V - Last Filed: 07/29/16 23:00> Objective - Vital Signs/Intake and Output Vital Signs (last 24 hours): Temp Pulse Resp BP Pulse Ox 97.9 F 77 20 122/73 96 07/29/16 15:00 07/29/16 15:00 07/29/16 15:00 07/29/16 15:00 07/29/16 15:00 Intake and Output: 07/29/16 07/30/16 18:59 06:59 Intake Total 4000 Output Total 800 Balance 3200 - Medications Medications: Current Medications Acetaminophen (Tylenol 325mg Tab) 650 mg PO Q6 PRN PRN Reason: Headache Last Admin: 07/19/16 04:25 Dose: 650 mg Albuterol/Ipratropium (Duoneb 3 Mg/0.5 Mg (3 Ml) Ud) 3 ml INH RQ6 [facility] Last Admin: 07/29/16 19:34 Dose: 3 ml Amlodipine Besylate (Norvasc) 10 mg PO DAILY [facility] Last Admin: 07/29/16 10:04 Dose: 10 mg Aspirin (Ecotrin) 81 mg PO DAILY [facility] Last Admin: 07/29/16 10:04 Dose: 81 mg Cyclobenzaprine HCl (Flexeril) 10 mg PO TID [facility] Last Admin: 07/29/16 18:27 Dose: 10 mg Docusate Sodium (Colace) 100 mg PO TID [facility] Last Admin: 07/29/16 18:26 Dose: 100 mg Gabapentin (Neurontin) 400 mg PO TID [facility] Last Admin: 07/29/16 18:26 Dose: 400 mg Heparin Sodium (Porcine) (Heparin) 5,000 units SC Q8 [facility] Last Admin: 07/29/16 21:24 Dose: 5,000 units Sodium Chloride (Sodium Chloride 0.9%) 1,000 mls @ 100 mls/hr IV .Q10H [facility] Last Admin: 07/29/16 17:58 Dose: 100 mls/hr Ondansetron HCl (Zofran Inj) 4 mg IVP Q6 PRN PRN Reason: Nausea/Vomiting Oxycodone HCl (Oxycodone Immediate Release Tab) 5 mg PO Q4H PRN PRN Reason: Pain, moderate (4-7) Last Admin: 07/26/16 17:40 Dose: 5 mg Pantoprazole Sodium (Protonix Ec Tab) 40 mg PO DAILY [facility] Last Admin: 07/29/16 10:05 Dose: 40 mg Potassium Chloride (K-Dur 20 Meq Er Tab) 40 meq PO DAILY [facility] Prednisone (Prednisone Tab) 20 mg PO BID [facility] Stop: 08/01/16 18:01 Last Admin: 07/29/16 18:27 Dose: 20 mg Prednisone (Prednisone Tab) 10 mg PO BID [facility] Stop: 08/07/16 18:01 Prednisone (Prednisone Tab) 20 mg PO DAILY [facility] Stop: 08/13/16 10:01 Prednisone (Prednisone Tab) 10 mg PO DAILY [facility] Stop: 08/19/16 10:01 Prednisone (Prednisone Tab) 5 mg PO DAILY [facility] Stop: 08/25/16 10:01 Rosuvastatin Calcium (Crestor) 5 mg PO HS [facility] Last Admin: 07/22/16 22:08 Dose: 5 mg - Labs Labs: 07/29/16 08:19 07/29/16 13:54 PT 14.4 SECONDS (9.7-12.2) H 07/20/16 13:38 INR 1.3 07/20/16 13:38 APTT 30 SECONDS (21-34) 07/16/16 06:18 Attending/Attestation - Attestation I have personally seen and examined this patient.: Yes I have fully participated in the care of the patient.: Yes I have reviewed all pertinent clinical information, including history, physical exam and plan: Yes Notes (Text): Patient seen, examined and case discussed with day-time resident. Patient seen at bedside. Patient reports flatus but has not had an adequate bowel movement. Patient previously on miralax, ordered for Milk of Magnesia. Order for abdominal xray which shows stool retention. OMT (noninvasive technique ) to encourage gut motility, patient permitted at bedside, no complication. Awaiting bowel movement. Patient is currently being taper from Decadron to Prednisone. Taper built into Zimride. Per neurosurgery (07/22 note), ok from their prespective for transfer to rehab. Electrolytes repleted Patient started on maintenance fluids for hyponatremia, continue to monitor. Follow-up with case management regarding discharge planning. Assessment/Plan 1. Generalized Upper and Lower extremity weakness Cervical Cord Compression * Neurology consult, Dr. Miranda, help appreciated * Neurosurgery (Dr. Ruiz)-->help appreciated * CT head (07/15/16): focal encephalomalacia and/or atrophy seen with b/l anterior temporal lobes Correlation with MRI may be helpful if clinically indicated. Chronic microvascular ischemic changes. Small hypodensity in the left basal ganglia which may represent a small lacunar infarct versus prominent perivascular space (see full report). * Brain MRI (07/15): no acute intracranial abnormality, mild chronic microangiopathic changes, and mild age related global, middle cranial fossa arachnoid cyst versus cystic encephalomalacia, no evidence of mass effect or vasogenic edema * Ordered for Lumbar and cervical spine xrays * CXR: Mild venous congestion. Patchy increased markings at the left lung base (see full report) * Cervical xray (07/15/16): radiolucency at the dense base a remote fracture versus developmental variant; consider CT cervical spine; no subluxation, cervical spondylosis under disc disease most notable C5-C6 * Lumbar xray (07/15/16): lumbar spondylosis and facet arthrosis, developmental variants. * Completed MRI cervical/thoracic and lumbar; awaiting official report of lumbar today * Cervical MRI (07/17/16): severe narrowing of the spinal canal at C4-C5 associated with cord compression and hyperintense T2 signal of the cord at this levl; multilevel moderate to large disc herniation osteophyte complex w posterior ligament hypertropgy which resulting multilevel moderate spinal and neural foraminal narrowing * Thoracic MRI (07/17/16): moderate degenerative disc changes. Multilevel small disc bulging with mild spinal stenosis. no evidence of cord compression * Lumbar MRI (07/17/16): moderate to mildly severe degenerative disc changes at lower lumbar spine more prominent at L4-L5. small to moderate size disc herniation at L4-L5 and L5-S1 associated with posterio ligament and facet joint hypertrophy, which resulting in mild spinal and moderate bilateral neural formating narrowing. heterogeneous bone marrow signal seen at the lower lumbar spine and in the pelvic bones without evidence of discrete mass lesion or cortical destruction * HIV: negative RF: negative, DAWN: positive, 1:40, speckled, RPR: nonreactive, Lyme titers:negative ESR: elevated, Vitamin D: low, Vitamin B12, CPK: 157, UDS: negative, blood alcohol: negative * Decadron 10mg IV Q 8hour (active since 07/17/16) * Patient underwent anterior cervical discteomy C4-C5, cervical fusion C4-C5 per operative note on 07/21/16. No complication noted. Minimal blood loss on . Per neurosurgery, patient stable for transfer for rehab. * Gabapentin 400mg PO tid * Flexeril 10mg PO tid * Taper: Prednisone 20mg PO bid X 5 days, Prednisone 10mg PO bid for 5 days, Prednisone 20mg PO daily for 5 days, Prednisone 10mg PO daily for 5 days 2. HTN * HCTZ 25 mg po daily * Norvasc 10 mg PO daily * monitor vital signs 3. Electrolyte imbalance * monitor and replete if necessary 4. Impaired glucose tolerance * [id number]: 6.1 * will need repeat in one year * will need counselling regarding diet and exercise to prevent overt diabetes * Note: patient is on steroid taper 5. Constipation * Patient has flatus * Previously on miralax * Ordered for Milk of Magnesia * Monitor for adequate bowel movement * Xray confirms stool retention 6. Prophylactic Measures * Protonix 40 mg PO daily * Aspirin 81mg PO daily * Restart heparin 5000 units subq 8hours for DVT ppx * SCDs while in bed * PT/OT eval--->[facility] pending placement/transportation 7. Disposition * Patient is awaiting transportation and acute rehab bed * Neurosurgery has indicate appropriate for transfer to rehab in prior progress note * Patient is medically stable for discharge * monitor for bowel movement
[2016-07-29 08:29] LABS: BASO % 0.1 % (0.0-2.0); EOS % 0.1 % (0.0-4.0); HEMATOCRIT 42.2 % (35.0-51.0); LYMPH # 1.7 K/uL (1.0-4.3); MEAN CELL VOLUME 88.8 fL (80.0-94.0); MEAN CORPUSCULAR HEMOGLOBIN 29.3 pg (27.0-31.0); MEAN PLATELET VOLUME 8.6 fL (7.2-11.7); MONO # 1.3 K/uL (0.0-0.8); MONO % 9.4 % (0.0-10.0); RED CELL DISTRIBUTION WIDTH 13.3 % (11.5-14.5)
[2016-07-29 09:15] LABS: CHLORIDE 83 mmol/L (98-107); POTASSIUM 3.5 mmol/L (3.6-5.2); SODIUM 127 mmol/L (132-148)
[2016-07-29 09:17] LABS: ALB/GLOB RATIO 1.1 (1.0-2.1); ALKALINE PHOSPHATASE 58 U/L (38-126); AST/SGOT 36 U/L (17-59); BILIRUBIN,TOTAL 0.6 mg/dL (0.2-1.3); BLOOD UREA NITROGEN 33 mg/dL (9-20); CARBON DIOXIDE 35 mmol/L (22-30); GFR AFRICAN-AMERICAN > 60; GLUCOSE,RANDOM 167 mg/dL (75-110); TOTAL PROTEIN 6.1 g/dL (6.3-8.3)
[2016-07-29 09:18] LABS: ALT/SGPT 59 U/L (21-72); CALCIUM 8.6 mg/dl (8.6-10.4); MAGNESIUM 1.7 mg/dL (1.6-2.3); PHOSPHOROUS 2.7 mg/dL (2.5-4.5)
[2016-07-29] MEDS: Pantoprazole 40 mg EC Tab PO SCH (10:05)
[2016-07-29] MEDS ORDERED: Sodium Chloride 0.9% 1,000 ML IV ONE (10:30)
[2016-07-29] MEDS ORDERED: Magnesium Citrate Oral SOL (300 ml) PO ONE (11:25)
[2016-07-29 14:17] LABS: CHLORIDE 84 mmol/L (98-107); SODIUM 127 mmol/L (132-148)
[2016-07-29 14:18] LABS: POTASSIUM 3.3 mmol/L (3.6-5.2)
[2016-07-29 14:20] LABS: CARBON DIOXIDE 34 mmol/L (22-30); GFR AFRICAN-AMERICAN > 60
[2016-07-29 14:21] LABS: BLOOD UREA NITROGEN 29 mg/dL (9-20); CALCIUM 8.5 mg/dl (8.6-10.4); GLUCOSE,RANDOM 215 mg/dL (75-110)
--- NOTE | 2016-07-29 16:57 | RAD ---
HISTORY: constipation COMPARISON: No prior. FINDINGS: BOWEL: Right colon stool retention. No obstruction. No free air. BONES: Osteoarthrosis OTHER FINDINGS: None. IMPRESSION: Right colon stool retention. No obstruction or free air
[2016-07-29] MEDS ORDERED: Potassium Chloride 20 mEq ER Tab PO ONE (17:30)
[2016-07-29] MEDS: Sodium Chloride 0.9% 1,000 ML IV SCH (17:58)
[2016-07-30] MEDS: Albuterol-Ipratrop 3 mg / 0.5 (3 ml) UD INH SCH ×4 (01:29→20:01)
[2016-07-30] MEDS: Sodium Chloride 0.9% 1,000 ML IV SCH ×4 (03:30→23:45)
[2016-07-30] MEDS: oxyCODONE 5 mg Immediate Release Tab PO PRN (06:55)
[2016-07-30 08:23] LABS: BASO % 0.1 % (0.0-2.0); EOS % 0.1 % (0.0-4.0); HEMATOCRIT 39.1 % (35.0-51.0); LYMPH # 2.2 K/uL (1.0-4.3); LYMPH % 16.7 % (20.0-40.0); MEAN CELL VOLUME 88.3 fL (80.0-94.0); MEAN CORPUSCULAR HGB CONC 32.8 g/dL (33.0-37.0); MEAN PLATELET VOLUME 8.4 fL (7.2-11.7); MONO # 1.2 K/uL (0.0-0.8); MONO % 8.9 % (0.0-10.0); RED CELL DISTRIBUTION WIDTH 13.7 % (11.5-14.5); WHITE BLOOD COUNT 13.1 K/uL (4.8-10.8)
[2016-07-30 09:02] LABS: CHLORIDE 88 mmol/L (98-107); SODIUM 129 mmol/L (132-148)
[2016-07-30 09:03] LABS: POTASSIUM 3.6 mmol/L (3.6-5.2)
[2016-07-30 09:05] LABS: ALB/GLOB RATIO 1.2 (1.0-2.1); ALKALINE PHOSPHATASE 50 U/L (38-126); ALT/SGPT 49 U/L (21-72); AST/SGOT 21 U/L (17-59); BILIRUBIN,TOTAL 0.6 mg/dL (0.2-1.3); BLOOD UREA NITROGEN 22 mg/dL (9-20); CARBON DIOXIDE 34 mmol/L (22-30); GFR AFRICAN-AMERICAN > 60; GLUCOSE,RANDOM 106 mg/dL (75-110); PHOSPHOROUS 1.9 mg/dL (2.5-4.5)
[2016-07-30 09:06] LABS: CALCIUM 7.6 mg/dl (8.6-10.4); MAGNESIUM 1.7 mg/dL (1.6-2.3)
[2016-07-30] MEDS: Potassium Chloride 20 mEq ER Tab PO SCH (09:36)
[2016-07-30] MEDS: Pantoprazole 40 mg EC Tab PO SCH (09:36)
--- NOTE | 2016-07-30 13:38 | CP.PCM.DIS ---
Provider - Provider Date of Admission: 07/15/16 10:34 Attending physician: Sonia Levine [facility] Hospital Course - Lab Results Lab Results: Most Recent Lab Values WBC 13.1 K/uL (4.8-10.8) H 07/30/16 08:06 RBC 4.43 Mil/uL (4.40-5.90) 07/30/16 08:06 Hgb 12.8 g/dL (12.0-18.0) 07/30/16 08:06 Hct 39.1 % (35.0-51.0) 07/30/16 08:06 MCV 88.3 fL (80.0-94.0) 07/30/16 08:06 MCH 29.0 pg (27.0-31.0) 07/30/16 08:06 MCHC 32.8 g/dL (33.0-37.0) L 07/30/16 08:06 RDW 13.7 % (11.5-14.5) 07/30/16 08:06 Plt Count 178 K/uL (130-400) 07/30/16 08:06 MPV 8.4 fL (7.2-11.7) 07/30/16 08:06 Neut % (Auto) 74.2 % (50.0-75.0) 07/30/16 08:06 Lymph % (Auto) 16.7 % (20.0-40.0) L 07/30/16 08:06 [place] % (Auto) 8.9 % (0.0-10.0) 07/30/16 08:06 Eos % (Auto) 0.1 % (0.0-4.0) 07/30/16 08:06 Baso % (Auto) 0.1 % (0.0-2.0) 07/30/16 08:06 Neut # 9.7 K/uL (1.8-7.0) H 07/30/16 08:06 Lymph # 2.2 K/uL (1.0-4.3) 07/30/16 08:06 [place] # 1.2 K/uL (0.0-0.8) H 07/30/16 08:06 Eos # 0.0 K/uL (0.0-0.7) 07/30/16 08:06 Baso # 0.0 K/uL (0.0-0.2) 07/30/16 08:06 Neutrophils % (Manual) 81 % (50-75) H 07/27/16 08:17 Band Neutrophils % 1 % (0-2) 07/26/16 07:11 Lymphocytes % (Manual) 11 % (20-40) L 07/27/16 08:17 Monocytes % (Manual) 8 % (0-10) 07/27/16 08:17 Toxic Granulation Present 07/26/16 07:11 Platelet Estimate Normal (NORMAL) 07/27/16 08:17 Large Platelets Present 07/26/16 07:11 Giant Platelets Present 07/26/16 07:11 RBC Morphology Normal 07/25/16 08:15 Polychromasia Slight 07/27/16 08:17 Hypochromasia (manual) Slight 07/27/16 08:17 Poikilocytosis (manual Slight 07/27/16 08:17 Anisocytosis (manual) Slight 07/27/16 08:17 Ovalocytes Slight 07/27/16 08:17 Ananth Cells Slight 07/27/16 08:17 ESR 50 mm/hr (0-15) H 07/17/16 06:08 PT 14.4 SECONDS (9.7-12.2) H 07/20/16 13:38 INR 1.3 07/20/16 13:38 APTT 30 SECONDS (21-34) 07/16/16 06:18 Puncture Site Lr 07/19/16 07:47 pCO2 38 mm/Hg (35-45) 07/19/16 07:47 pO2 85 mm/Hg (80-100) 07/19/16 07:47 HCO3 27.9 mmol/L (21-28) 07/19/16 07:47 ABG pH 7.47 (7.35-7.45) H 07/19/16 07:47 ABG Total CO2 28.9 mmol/L (22-28) H 07/19/16 07:47 ABG O2 Saturation 98.7 % (95-98) H 07/19/16 07:47 ABG Base Excess 3.9 mmol/L (-2.0-3.0) H 07/19/16 07:47 ABG Hemoglobin 12.1 g/dL (11.7-17.4) 07/19/16 07:47 ABG Carboxyhemoglobin 2.0 % (0.5-1.5) H 07/19/16 07:47 POC ABG HHb (Measured) 1.3 % (0.0-5.0) 07/19/16 07:47 ABG Methemoglobin 1.6 % (0.0-3.0) 07/19/16 07:47 [place]win Test Po 07/19/16 07:47 A-a O2 Difference 17.0 mm/Hg 07/19/16 07:47 Respiratory Index 0.2 07/19/16 07:47 Hgb O2 Saturation 95.1 % (95.0-98.0) 07/19/16 07:47 FiO2 21.0 % 07/19/16 07:47 Sodium 129 mmol/L (132-148) L 07/30/16 08:06 Potassium 3.6 mmol/L (3.6-5.2) 07/30/16 08:06 Chloride 88 mmol/L (98-107) L 07/30/16 08:06 Carbon Dioxide 34 mmol/L (22-30) H 07/30/16 08:06 Anion Gap 11 (10-20) 07/30/16 08:06 BUN 22 mg/dL (9-20) H 07/30/16 08:06 Creatinine 0.7 MG/DL (0.8-1.5) L 07/30/16 08:06 Est GFR ( Amer) > 60 07/30/16 08:06 Est GFR (Non-Af Amer) > 60 07/30/16 08:06 POC Glucose (mg/dL) 199 mg/dL (65-110) H 07/20/16 11:39 Random Glucose 106 mg/dL (75-110) 07/30/16 08:06 Hemoglobin A1c 6.1 % (4.2-6.5) 07/15/16 13:18 Calcium 7.6 mg/dl (8.6-10.4) L 07/30/16 08:06 Phosphorus 1.9 mg/dL (2.5-4.5) L 07/30/16 08:06 Magnesium 1.7 mg/dL (1.6-2.3) 07/30/16 08:06 Total Bilirubin 0.6 mg/dL (0.2-1.3) 07/30/16 08:06 AST 21 U/L (17-59) 07/30/16 08:06 ALT 49 U/L (21-72) 07/30/16 08:06 Alkaline Phosphatase 50 U/L (38-126) 07/30/16 08:06 Total Creatine Kinase 157 U/L (55-170) 07/15/16 13:18 CK-MB (Mass) 2.37 ng/mL (0.0-3.38) 07/15/16 13:18 Troponin I < 0.0120 ng/mL (0.00-0.120) 07/15/16 03:03 Troponin I, Quant < 0.0120 ng/mL (0.00-0.120) 07/15/16 13:18 C-React Prot High Sens 10.33 mg/L (1.00-3.00) H 07/17/16 06:08 Total Protein 5.0 g/dL (6.3-8.3) L 07/30/16 08:06 Albumin 2.8 g/dL (3.5-5.0) L 07/30/16 08:06 Globulin 2.2 gm/dL (2.2-3.9) 07/30/16 08:06 Albumin/Globulin Ratio 1.2 (1.0-2.1) 07/30/16 08:06 Triglycerides 84 mg/dL (0-149) 07/15/16 13:18 Cholesterol 150 mg/dL (0-199) 07/15/16 13:18 LDL Cholesterol Direct 86 mg/dL (0-129) 07/15/16 13:18 HDL Cholesterol 39 mg/dL (30-70) 07/15/16 13:18 Vitamin B12 726 pg/mL (239-931) 07/15/16 13:18 25-OH Vitamin D Total 21.7 NG/ML (30.0-100.0) L 07/15/16 19:41 Folate 14.0 ng/mL 07/15/16 13:18 Thyroxine (T4) 9.33 ug/dL (5.5-11.0) 07/15/16 13:18 Total T3 1.26 nmol/L (1.49-2.60) L 07/16/16 14:11 TSH 3rd Generation 0.60 mIU/L (0.46-4.68) 07/15/16 13:18 Urine Color Guillermina (YELLOW) 07/15/16 02:31 Urine Clarity Clear (Clear) 07/15/16 02:31 Urine pH 5.0 (5.0-8.0) 07/15/16 02:31 Ur Specific [place] 1.029 (1.003-1.030) 07/15/16 02:31 Urine Protein Negative mg/dL (NEGATIVE) 07/15/16 02:31 Urine Glucose (UA) Normal mg/dL (Normal) 07/15/16 02:31 Urine Ketones 2+ mg/dL (NEGATIVE) H 07/15/16 02:31 Urine Blood Negative (NEGATIVE) 07/15/16 02:31 Urine Nitrate Negative (NEGATIVE) 07/15/16 02:31 Urine Bilirubin Negative (NEGATIVE) 07/15/16 02:31 Urine Urobilinogen 4.0 mg/dL (0.2-1.0) 07/15/16 02:31 Ur Leukocyte Esterase Neg Jorge/uL (Negative) 07/15/16 02:31 Urine WBC (Auto) 2 /hpf (0-5) 07/15/16 02:31 Urine Opiates Screen Negative (NEGATIVE) 07/15/16 02:31 Urine Methadone Screen Negative (NEGATIVE) 07/15/16 02:31 Ur Barbiturates Screen Negative (NEGATIVE) 07/15/16 02:31 Ur Phencyclidine Scrn Negative (NEGATIVE) 07/15/16 02:31 Ur Amphetamines Screen Negative (NEGATIVE) 07/15/16 02:31 U Benzodiazepines Scrn Negative (NEGATIVE) 07/15/16 02:31 U Oth Cocaine Metabols Negative (NEGATIVE) 07/15/16 02:31 U Cannabinoids Screen Negative (NEGATIVE) 07/15/16 02:31 Alcohol, Quantitative < 10 mg/dl (0-10) 07/14/16 21:51 Rheum Arthritis Panel Negative (NEGATIVE) 07/15/16 19:37 DAWN 6 Profile Positive (NEGATIVE) H 07/15/16 19:37 DAWN Titer 1:40 H 07/15/16 19:37 DAWN Pattern Speckled H 07/15/16 19:37 RPR Nonreactive (NONREACTIVE) 07/15/16 19:37 Lyme IgG 18 kDa Band Nonreactive 07/15/16 19:37 Lyme IgG 23 kDa Band Nonreactive 07/15/16 19:37 Lyme IgG 28 kDa Band Nonreactive 07/15/16 19:37 Lyme IgG 30 kDa Band Nonreactive 07/15/16 19:37 Lyme IgG 39 kDa Band Nonreactive 07/15/16 19:37 Lyme IgG 41 kDa Band Nonreactive 07/15/16 19:37 Lyme IgG 45 kDa Band Nonreactive 07/15/16 19:37 Lyme IgG 58 kDa Band Reactive H 07/15/16 19:37 Lyme IgG 66 kDa Band Nonreactive 07/15/16 19:37 Lyme IgG 93 kDa Band Nonreactive 07/15/16 19:37 Lyme IgG W Blot Interp Negative (Negative) 07/15/16 19:37 Lyme IgM 23 kDa Band Nonreactive 07/15/16 19:37 Lyme IgM 39 kDa Band Nonreactive 07/15/16 19:37 Lyme IgM 41 kDa Band Nonreactive 07/15/16 19:37 Lyme IgM W Blot Interp Negative (Negative) 07/15/16 19:37 HIV 1&2 Ag/Ab, 4th Gen Nonreactive (Nonreactive) 07/15/16 19:37 HIV 1&2 Antibody Screen Negative (NEGATIVE) 07/18/16 21:09 Discharge Exam - Head Exam Head Exam: ATRAUMATIC, NORMOCEPHALIC Discharge Plan - Discharge Medications Prescriptions: amLODIPine [Norvasc] 10 mg PO DAILY #30 tab Aspirin [Ecotrin] 81 mg PO DAILY #30 Cyclobenzaprine [Flexeril] 10 mg PO TID PRN #30 tab PRN Reason: Muscle Spasm Gabapentin [Neurontin] 400 mg PO TID #90 cap hydroCHLOROthiazide [Hydrodiuril] 25 mg PO DAILY #30 tab Pantoprazole [Protonix EC Tab] 40 mg PO DAILY #30 ect predniSONE [predniSONE Tab] 10 mg PO DAILY #7 tab predniSONE [predniSONE Tab] 10 mg PO BID #14 tab predniSONE [predniSONE Tab] 20 mg PO DAILY #7 tab predniSONE [predniSONE Tab] 20 mg PO BID #4 tab predniSONE [predniSONE Tab] 5 mg PO DAILY #7 tab - Follow Up Plan Condition: FAIR Disposition: HOME/ ROUTINE Instructions: Weakness (ED) Additional Instructions: Thank you for letting us take care of you today. You were treated for weakness. The emergency medical care you received today was directed at your acute symptoms. If you were prescribed any medication, please fill it and take as directed. It may take several days for your symptoms to resolve. Return to the Emergency Department if your symptoms worsen, do not improve, or if you have any other problems. Please contact your doctor or call one of the physicians/clinics you have been referred to that are listed on the Patient Visit Information form that is included in your discharge packet. Bring any paperwork you were given at discharge with you along with any medications you are taking to your follow up visit. Our treatment cannot replace ongoing medical care by a primary care provider (PCP) outside of the emergency department. Thank you for allowing the [facility] team to be part of your care today. Follow up with your doctor or our clinic in 2-3 days for re-evaluation. Referrals: [facility] [Outside] [facility] at [facility] [Outside]
[2016-07-31] MEDS: Sodium Chloride 0.9% 1,000 ML IV SCH ×2 (01:28→21:45)
[2016-07-31] MEDS: Albuterol-Ipratrop 3 mg / 0.5 (3 ml) UD INH SCH ×3 (01:30→19:26)
[2016-07-31] MEDS: Potassium Chloride 20 mEq ER Tab PO SCH (10:34)
[2016-07-31] MEDS: Pantoprazole 40 mg EC Tab PO SCH (10:35)
--- NOTE | 2016-07-31 13:03 | CP.PCM.PN ---
<Ben Benz - Last Filed: 07/31/16 12:38> Subjective - Date & Time of Evaluation Date of Evaluation: 07/30/16 Time of Evaluation: 07:30 - Subjective Subjective: Dr. Benz PGY 1 Hospitalist Note Patient seen and evaluated at bedside. He reported a large bowel movement this morning while trying to pass urine. He states his abdominal pain was alleviated by the bowel movement. He also reports improved movement in his hands and legs. He says he is ready to go to a rehab facility and try to gain back some function. He denies any nausea, vomiting, chest pain, SOB, dysuria, or palpitations. He has no other complaints today. Objective - Vital Signs/Intake and Output Vital Signs (last 24 hours): Temp Pulse Resp BP Pulse Ox 98.0 F 76 20 145/84 93 L 07/31/16 08:26 07/31/16 08:26 07/31/16 08:26 07/31/16 08:26 07/31/16 08:26 Intake and Output: 07/31/16 07/31/16 06:59 18:59 Intake Total 2240 Output Total 550 Balance 1690 - Medications Medications: Current Medications Acetaminophen (Tylenol 325mg Tab) 650 mg PO Q6 PRN PRN Reason: Headache Last Admin: 07/30/16 09:36 Dose: 650 mg Albuterol/Ipratropium (Duoneb 3 Mg/0.5 Mg (3 Ml) Ud) 3 ml INH RQ6 [facility] Last Admin: 07/31/16 08:45 Dose: 3 ml Amlodipine Besylate (Norvasc) 10 mg PO DAILY [facility] Last Admin: 07/31/16 10:35 Dose: 10 mg Aspirin (Ecotrin) 81 mg PO DAILY [facility] Last Admin: 07/31/16 10:34 Dose: 81 mg Cyclobenzaprine HCl (Flexeril) 10 mg PO TID [facility] Last Admin: 07/31/16 10:34 Dose: 10 mg Docusate Sodium (Colace) 100 mg PO TID [facility] Last Admin: 07/31/16 10:34 Dose: 100 mg Gabapentin (Neurontin) 400 mg PO TID [facility] Last Admin: 07/31/16 10:34 Dose: 400 mg Heparin Sodium (Porcine) (Heparin) 5,000 units SC Q8 [facility] Last Admin: 07/31/16 05:47 Dose: 5,000 units Sodium Chloride (Sodium Chloride 0.9%) 1,000 mls @ 100 mls/hr IV .Q10H [facility] Last Admin: 07/31/16 01:28 Dose: 100 mls/hr Ondansetron HCl (Zofran Inj) 4 mg IVP Q6 PRN PRN Reason: Nausea/Vomiting Oxycodone HCl (Oxycodone Immediate Release Tab) 5 mg PO Q4H PRN PRN Reason: Pain, moderate (4-7) Last Admin: 07/30/16 06:55 Dose: 5 mg Pantoprazole Sodium (Protonix Ec Tab) 40 mg PO DAILY [facility] Last Admin: 07/31/16 10:35 Dose: 40 mg Potassium Chloride (K-Dur 20 Meq Er Tab) 40 meq PO DAILY [facility] Last Admin: 07/31/16 10:34 Dose: 40 meq Prednisone (Prednisone Tab) 20 mg PO BID [facility] Stop: 08/01/16 18:01 Last Admin: 07/31/16 10:35 Dose: 20 mg Prednisone (Prednisone Tab) 10 mg PO BID [facility] Stop: 08/07/16 18:01 Prednisone (Prednisone Tab) 20 mg PO DAILY [facility] Stop: 08/13/16 10:01 Prednisone (Prednisone Tab) 10 mg PO DAILY [facility] Stop: 08/19/16 10:01 Prednisone (Prednisone Tab) 5 mg PO DAILY [facility] Stop: 08/25/16 10:01 Rosuvastatin Calcium (Crestor) 5 mg PO HS [facility] Last Admin: 07/22/16 22:08 Dose: 5 mg - Labs Labs: 07/30/16 08:06 07/30/16 08:06 PT 14.4 SECONDS (9.7-12.2) H 07/20/16 13:38 INR 1.3 07/20/16 13:38 APTT 30 SECONDS (21-34) 07/16/16 06:18 - Constitutional Appears: Non-toxic, No Acute Distress - Head Exam Head Exam: ATRAUMATIC, NORMOCEPHALIC - Eye Exam Eye Exam: EOMI, Normal appearance, PERRL Pupil Exam: NORMAL ACCOMODATION, PERRL - ENT Exam ENT Exam: Mucous Membranes Moist. absent: Normal Oropharynx (poor dention) - Neck Exam Neck Exam: absent: Normal Inspection (healing suture site), Tenderness - Respiratory Exam Respiratory Exam: Clear to Ausculation Bilateral, NORMAL BREATHING PATTERN. absent: Rales, Rhonchi, Wheezes - Cardiovascular Exam Cardiovascular Exam: REGULAR RHYTHM, +S1, +S2. absent: Gallop, Rubs, Murmur - GI/Abdominal Exam GI & Abdominal Exam: Soft, Normal Bowel Sounds. absent: Guarding, Tenderness - Extremities Exam Extremities Exam: absent: Normal Inspection (hands contracted but able to extend fingers more today) - Back Exam Back Exam: NORMAL INSPECTION. absent: rash noted, tenderness - Neurological Exam Neurological Exam: Alert, Awake, CN II-XII Intact, Oriented x3 - Psychiatric Exam Psychiatric exam: Normal Affect, Normal Mood - Skin Skin Exam: Dry, Intact, Normal Color, Warm Assessment and Plan - Assessment and Plan (Free Text) Plan: Generalized Upper and Lower extremity weakness Cervical Cord Compression * Neurology consult, Dr. Miranda, help appreciated * Neurosurgery (Dr. Ruiz)-->help appreciated * CT head (07/15/16): focal encephalomalacia and/or atrophy seen with b/l anterior temporal lobes Correlation with MRI may be helpful if clinically indicated. Chronic microvascular ischemic changes. Small hypodensity in the left basal ganglia which may represent a small lacunar infarct versus prominent perivascular space (see full report). * Brain MRI (07/15): no acute intracranial abnormality, mild chronic microangiopathic changes, and mild age related global, middle cranial fossa arachnoid cyst versus cystic encephalomalacia, no evidence of mass effect or vasogenic edema * Ordered for Lumbar and cervical spine xrays * CXR: Mild venous congestion. Patchy increased markings at the left lung base (see full report) * Cervical xray (07/15/16): radiolucency at the dense base a remote fracture versus developmental variant; consider CT cervical spine; no subluxation, cervical spondylosis under disc disease most notable C5-C6 * Lumbar xray (07/15/16): lumbar spondylosis and facet arthrosis, developmental variants. * Completed MRI cervical/thoracic and lumbar; awaiting official report of lumbar today * Cervical MRI (07/17/16): severe narrowing of the spinal canal at C4-C5 associated with cord compression and hyperintense T2 signal of the cord at this levl; multilevel moderate to large disc herniation osteophyte complex w posterior ligament hypertropgy which resulting multilevel moderate spinal and neural foraminal narrowing * Thoracic MRI (07/17/16): moderate degenerative disc changes. Multilevel small disc bulging with mild spinal stenosis. no evidence of cord compression * Lumbar MRI (07/17/16): moderate to mildly severe degenerative disc changes at lower lumbar spine more prominent at L4-L5. small to moderate size disc herniation at L4-L5 and L5-S1 associated with posterio ligament and facet joint hypertrophy, which resulting in mild spinal and moderate bilateral neural formating narrowing. heterogeneous bone marrow signal seen at the lower lumbar spine and in the pelvic bones without evidence of discrete mass lesion or cortical destruction * HIV: negative RF: negative, DAWN: positive, 1:40, speckled, RPR: nonreactive, Lyme titers:negative ESR: elevated, Vitamin D: low, Vitamin B12, CPK: 157, UDS: negative, blood alcohol: negative * Patient underwent anterior cervical discteomy C4-C5, cervical fusion C4-C5 per operative note on 07/21/16. No complication noted. Minimal blood loss on . Per neurosurgery, patient stable for transfer for rehab. * Gabapentin 400mg PO tid * Flexeril 10mg PO tid * Taper: Prednisone 20mg PO bid X 5 days, Prednisone 10mg PO bid for 5 days, Prednisone 20mg PO daily for 5 days, Prednisone 10mg PO daily for 5 days HTN * HCTZ 25 mg po daily * Norvasc 10 mg PO daily * monitor vital signs Electrolyte imbalance * monitor and replete if necessary * sodium 129 and Cl 88 today Impaired glucose tolerance * [id number]: 6.1 * will need repeat in one year * will need counselling regarding diet and exercise to prevent overt diabetes * Note: patient is on steroid taper Constipation * Improved today * Previously on miralax * Ordered for Milk of Magnesia * given Mag citrate * OMT performed to alleviate constipation * Monitor for adequate bowel movement Prophylactic Measures * Protonix 40 mg PO daily * Aspirin 81mg PO daily * Restart heparin 5000 units subq 8hours for DVT ppx * SCDs while in bed * PT/OT eval--->LEELEE pending placement/transportation Disposition * Patient is awaiting transportation and acute rehab bed * Neurosurgery has indicate appropriate for transfer to rehab in prior progress note * Patient is medically stable for discharge * monitor for bowel movement Assessment and Plan discussed with attending physician. <Sonia Levine V - Last Filed: 08/10/16 14:03> Objective - Vital Signs/Intake and Output Vital Signs (last 24 hours): Temp Pulse Resp BP Pulse Ox 98 F 81 20 112/68 97 08/06/16 07:58 08/06/16 07:58 08/06/16 07:58 08/06/16 07:58 08/06/16 07:58 - Labs Labs: 08/05/16 07:17 08/05/16 07:17 PT 14.4 SECONDS (9.7-12.2) H 07/20/16 13:38 INR 1.3 07/20/16 13:38 APTT 30 SECONDS (21-34) 07/16/16 06:18 Attending/Attestation - Attestation I have personally seen and examined this patient.: Yes I have fully participated in the care of the patient.: Yes I have reviewed all pertinent clinical information, including history, physical exam and plan: Yes Notes (Text): This is late computer entry for 07/30/16. Patient seen, examined and case discussed with day-time resident. Patient seen at bedside. Patient had bowel movement. Patient is currently being taper from Decadron to Prednisone. Taper built into [employer]. Per neurosurgery (07/22 note), ok from their prespective for transfer to rehab. Electrolytes repleted Follow-up with case management regarding discharge planning. Discharge order placed because unable to leave given logistics per discussion with case management. Assessment/Plan 1. Generalized Upper and Lower extremity weakness Cervical Cord Compression * Neurology consult, Dr. Miranda, help appreciated * Neurosurgery (Dr. Ruiz)-->help appreciated * CT head (07/15/16): focal encephalomalacia and/or atrophy seen with b/l anterior temporal lobes Correlation with MRI may be helpful if clinically indicated. Chronic microvascular ischemic changes. Small hypodensity in the left basal ganglia which may represent a small lacunar infarct versus prominent perivascular space (see full report). * Brain MRI (07/15): no acute intracranial abnormality, mild chronic microangiopathic changes, and mild age related global, middle cranial fossa arachnoid cyst versus cystic encephalomalacia, no evidence of mass effect or vasogenic edema * Ordered for Lumbar and cervical spine xrays * CXR: Mild venous congestion. Patchy increased markings at the left lung base (see full report) * Cervical xray (07/15/16): radiolucency at the dense base a remote fracture versus developmental variant; consider CT cervical spine; no subluxation, cervical spondylosis under disc disease most notable C5-C6 * Lumbar xray (07/15/16): lumbar spondylosis and facet arthrosis, developmental variants. * Completed MRI cervical/thoracic and lumbar; awaiting official report of lumbar today * Cervical MRI (07/17/16): severe narrowing of the spinal canal at C4-C5 associated with cord compression and hyperintense T2 signal of the cord at this levl; multilevel moderate to large disc herniation osteophyte complex w posterior ligament hypertropgy which resulting multilevel moderate spinal and neural foraminal narrowing * Thoracic MRI (07/17/16): moderate degenerative disc changes. Multilevel small disc bulging with mild spinal stenosis. no evidence of cord compression * Lumbar MRI (07/17/16): moderate to mildly severe degenerative disc changes at lower lumbar spine more prominent at L4-L5. small to moderate size disc herniation at L4-L5 and L5-S1 associated with posterio ligament and facet joint hypertrophy, which resulting in mild spinal and moderate bilateral neural formating narrowing. heterogeneous bone marrow signal seen at the lower lumbar spine and in the pelvic bones without evidence of discrete mass lesion or cortical destruction * HIV: negative RF: negative, DAWN: positive, 1:40, speckled, RPR: nonreactive, Lyme titers:negative ESR: elevated, Vitamin D: low, Vitamin B12, CPK: 157, UDS: negative, blood alcohol: negative * Decadron 10mg IV Q 8hour (active since 07/17/16) * Patient underwent anterior cervical discteomy C4-C5, cervical fusion C4-C5 per operative note on 07/21/16. No complication noted. Minimal blood loss on . Per neurosurgery, patient stable for transfer for rehab. * Gabapentin 400mg PO tid * Flexeril 10mg PO tid * Taper: Prednisone 20mg PO bid X 5 days, Prednisone 10mg PO bid for 5 days, Prednisone 20mg PO daily for 5 days, Prednisone 10mg PO daily for 5 days 2. HTN * HCTZ 25 mg po daily * Norvasc 10 mg PO daily * monitor vital signs 3. Electrolyte imbalance * monitor and replete if necessary 4. Impaired glucose tolerance * [id number]: 6.1 * will need repeat in one year * will need counselling regarding diet and exercise to prevent overt diabetes * Note: patient is on steroid taper 5. Constipation * Patient has had bowel movement 6. Prophylactic Measures * Protonix 40 mg PO daily * Aspirin 81mg PO daily * Restart heparin 5000 units subq 8hours for DVT ppx * SCDs while in bed * PT/OT eval--->LEELEE pending placement/transportation 7. Disposition * Patient is awaiting transportation and acute rehab bed * Neurosurgery has indicate appropriate for transfer to rehab in prior progress note * Patient is medically stable for discharge
--- NOTE | 2016-07-31 13:06 | CP.PCM.PN ---
Subjective - Date & Time of Evaluation Date of Evaluation: 07/31/16 Time of Evaluation: 12:59 - Subjective Subjective: Mr. Kraus was seen and examined today at bedside. He continued to complain of generalized weakness, but it is worse on the left arm and leg and the right side. He did not have significant pain. There were no acute events overnight. Objective - Vital Signs/Intake and Output Vital Signs (last 24 hours): Temp Pulse Resp BP Pulse Ox 98.0 F 76 20 145/84 93 L 07/31/16 08:26 07/31/16 08:26 07/31/16 08:26 07/31/16 08:26 07/31/16 08:26 Intake and Output: 07/31/16 07/31/16 06:59 18:59 Intake Total 2240 Output Total 550 Balance 1690 - Medications Medications: Current Medications Acetaminophen (Tylenol 325mg Tab) 650 mg PO Q6 PRN PRN Reason: Headache Last Admin: 07/30/16 09:36 Dose: 650 mg Albuterol/Ipratropium (Duoneb 3 Mg/0.5 Mg (3 Ml) Ud) 3 ml INH RQ6 [facility] Last Admin: 07/31/16 08:45 Dose: 3 ml Amlodipine Besylate (Norvasc) 10 mg PO DAILY [facility] Last Admin: 07/31/16 10:35 Dose: 10 mg Aspirin (Ecotrin) 81 mg PO DAILY [facility] Last Admin: 07/31/16 10:34 Dose: 81 mg Cyclobenzaprine HCl (Flexeril) 10 mg PO TID [facility] Last Admin: 07/31/16 10:34 Dose: 10 mg Docusate Sodium (Colace) 100 mg PO TID [facility] Last Admin: 07/31/16 10:34 Dose: 100 mg Gabapentin (Neurontin) 400 mg PO TID [facility] Last Admin: 07/31/16 10:34 Dose: 400 mg Heparin Sodium (Porcine) (Heparin) 5,000 units SC Q8 [facility] Last Admin: 07/31/16 05:47 Dose: 5,000 units Sodium Chloride (Sodium Chloride 0.9%) 1,000 mls @ 100 mls/hr IV .Q10H [facility] Last Admin: 07/31/16 01:28 Dose: 100 mls/hr Ondansetron HCl (Zofran Inj) 4 mg IVP Q6 PRN PRN Reason: Nausea/Vomiting Oxycodone HCl (Oxycodone Immediate Release Tab) 5 mg PO Q4H PRN PRN Reason: Pain, moderate (4-7) Last Admin: 07/30/16 06:55 Dose: 5 mg Pantoprazole Sodium (Protonix Ec Tab) 40 mg PO DAILY [facility] Last Admin: 07/31/16 10:35 Dose: 40 mg Potassium Chloride (K-Dur 20 Meq Er Tab) 40 meq PO DAILY [facility] Last Admin: 07/31/16 10:34 Dose: 40 meq Prednisone (Prednisone Tab) 20 mg PO BID [facility] Stop: 08/01/16 18:01 Last Admin: 07/31/16 10:35 Dose: 20 mg Prednisone (Prednisone Tab) 10 mg PO BID [facility] Stop: 08/07/16 18:01 Prednisone (Prednisone Tab) 20 mg PO DAILY [facility] Stop: 08/13/16 10:01 Prednisone (Prednisone Tab) 10 mg PO DAILY [facility] Stop: 08/19/16 10:01 Prednisone (Prednisone Tab) 5 mg PO DAILY [facility] Stop: 08/25/16 10:01 Rosuvastatin Calcium (Crestor) 5 mg PO [facility] Last Admin: 07/22/16 22:08 Dose: 5 mg - Labs Labs: 07/30/16 08:06 07/30/16 08:06 PT 14.4 SECONDS (9.7-12.2) H 07/20/16 13:38 INR 1.3 07/20/16 13:38 APTT 30 SECONDS (21-34) 07/16/16 06:18 - Constitutional Appears: Well - Head Exam Head Exam: ATRAUMATIC, NORMAL INSPECTION, NORMOCEPHALIC - Eye Exam Eye Exam: EOMI, Normal appearance, PERRL - ENT Exam ENT Exam: Mucous Membranes Moist, Normal Exam - Respiratory Exam Respiratory Exam: Clear to Ausculation Bilateral, NORMAL BREATHING PATTERN - GI/Abdominal Exam GI & Abdominal Exam: Soft, Normal Bowel Sounds. absent: Tenderness - Rectal Exam Rectal Exam: Deferred - Neurological Exam Neurological Exam: Abnormal Gait, Awake, CN II-XII Intact, Motor Sensory Deficit , Oriented x3 Neuro motor strength exam: Left Upper Extremity: 3 (hand customer account specialist is 2/5), Right Upper Extremity: 4 (hand customer account specialist is 3/5), Left Lower Extremity: 3, Right Lower Extremity: 4 - Psychiatric Exam Psychiatric exam: Depressed, Normal Affect - Skin Skin Exam: Dry, Intact, Normal Color, Warm Assessment and Plan (1) Cervical spinal cord compression Assessment & Plan: S/P surgical decompression. Currently stable. Has some spasticity of cord origin. Will switch to baclofen 5 mg PO Q8 hours and stop flexeril. Continue current dose of gabapentin. Continue PT/OT. Status: Acute
[2016-07-31] MEDS: Baclofen 5 mg Tab PO SCH (15:22)
--- NOTE | 2016-07-31 17:59 | CP.PCM.PN ---
<Ben Benz - Last Filed: 07/31/16 17:57> Subjective - Date & Time of Evaluation Date of Evaluation: 07/31/16 Time of Evaluation: 07:30 - Subjective Subjective: Dr. Benz PGY 1 Hospitalist Note Patient seen and evaluated at bedside. 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 He states he is feeling more rested. He notes he still has numbness and weakness in his hands but is getting more movement back. He denies any nausea, vomiting, chest pain, SOB, dysuria, or palpitations. He has no other complaints today. He is pending discharge to rehab. Per nursing, no acute events over night. Objective - Vital Signs/Intake and Output Vital Signs (last 24 hours): Temp Pulse Resp BP Pulse Ox 98.4 F 91 H 20 141/78 96 07/31/16 16:00 07/31/16 16:00 07/31/16 16:00 07/31/16 16:00 07/31/16 16:00 Intake and Output: 07/31/16 07/31/16 06:59 18:59 Intake Total 2240 780 Output Total 550 580 Balance 1690 200 - Medications Medications: Current Medications Acetaminophen (Tylenol 325mg Tab) 650 mg PO Q6 PRN PRN Reason: Headache Last Admin: 07/30/16 09:36 Dose: 650 mg Albuterol/Ipratropium (Duoneb 3 Mg/0.5 Mg (3 Ml) Ud) 3 ml INH RQ6 [facility] Last Admin: 07/31/16 08:45 Dose: 3 ml Amlodipine Besylate (Norvasc) 10 mg PO DAILY [facility] Last Admin: 07/31/16 10:35 Dose: 10 mg Aspirin (Ecotrin) 81 mg PO DAILY [facility] Last Admin: 07/31/16 10:34 Dose: 81 mg Baclofen (Lioresal) 5 mg PO DAILY [facility] Last Admin: 07/31/16 15:22 Dose: 5 mg Docusate Sodium (Colace) 100 mg PO TID [facility] Last Admin: 07/31/16 17:30 Dose: 100 mg Gabapentin (Neurontin) 400 mg PO TID [facility] Last Admin: 07/31/16 17:30 Dose: 400 mg Heparin Sodium (Porcine) (Heparin) 5,000 units SC Q8 [facility] Last Admin: 07/31/16 14:12 Dose: 5,000 units Sodium Chloride (Sodium Chloride 0.9%) 1,000 mls @ 100 mls/hr IV .Q10H [facility] Last Admin: 07/31/16 01:28 Dose: 100 mls/hr Ondansetron HCl (Zofran Inj) 4 mg IVP Q6 PRN PRN Reason: Nausea/Vomiting Oxycodone HCl (Oxycodone Immediate Release Tab) 5 mg PO Q4H PRN PRN Reason: Pain, moderate (4-7) Last Admin: 07/30/16 06:55 Dose: 5 mg Pantoprazole Sodium (Protonix Ec Tab) 40 mg PO DAILY [facility] Last Admin: 07/31/16 10:35 Dose: 40 mg Potassium Chloride (K-Dur 20 Meq Er Tab) 40 meq PO DAILY [facility] Last Admin: 07/31/16 10:34 Dose: 40 meq Prednisone (Prednisone Tab) 20 mg PO BID [facility] Stop: 08/01/16 18:01 Last Admin: 07/31/16 17:30 Dose: 20 mg Prednisone (Prednisone Tab) 10 mg PO BID [facility] Stop: 08/07/16 18:01 Prednisone (Prednisone Tab) 20 mg PO DAILY [facility] Stop: 08/13/16 10:01 Prednisone (Prednisone Tab) 10 mg PO DAILY [facility] Stop: 08/19/16 10:01 Prednisone (Prednisone Tab) 5 mg PO DAILY [facility] Stop: 08/25/16 10:01 Rosuvastatin Calcium (Crestor) 5 mg PO HS [facility] Last Admin: 07/22/16 22:08 Dose: 5 mg - Labs Labs: 07/30/16 08:06 07/30/16 08:06 PT 14.4 SECONDS (9.7-12.2) H 07/20/16 13:38 INR 1.3 07/20/16 13:38 APTT 30 SECONDS (21-34) 07/16/16 06:18 - Constitutional Appears: Non-toxic, No Acute Distress - Head Exam Head Exam: ATRAUMATIC, NORMOCEPHALIC - Eye Exam Eye Exam: EOMI, Normal appearance, PERRL Pupil Exam: NORMAL ACCOMODATION, PERRL - ENT Exam ENT Exam: Mucous Membranes Moist. absent: Normal Oropharynx (poor dentition) - Neck Exam Neck Exam: absent: Normal Inspection (healing sutre from surgery), Tenderness - Respiratory Exam Respiratory Exam: Clear to Ausculation Bilateral, NORMAL BREATHING PATTERN. absent: Rales, Rhonchi, Wheezes - Cardiovascular Exam Cardiovascular Exam: REGULAR RHYTHM, +S1, +S2. absent: Gallop, Rubs, Murmur - GI/Abdominal Exam GI & Abdominal Exam: Soft, Normal Bowel Sounds. absent: Tenderness - Extremities Exam Extremities Exam: Normal Capillary Refill. absent: Normal Inspection (hands contracted but able to extend fingers more today), Pedal Edema, Tenderness - Back Exam Back Exam: NORMAL INSPECTION. absent: rash noted, tenderness - Neurological Exam Neurological Exam: Alert, Awake, CN II-XII Intact, Oriented x3 Neuro motor strength exam: Left Upper Extremity: 3, Right Upper Extremity: 3, Left Lower Extremity: 3, Right Lower Extremity: 3 - Psychiatric Exam Psychiatric exam: Normal Affect, Normal Mood - Skin Skin Exam: Dry, Intact, Normal Color, Warm Assessment and Plan - Assessment and Plan (Free Text) Plan: Generalized Upper and Lower extremity weakness Cervical Cord Compression * Neurology consult, Dr. Miranda, help appreciated * Neurosurgery (Dr. Ruiz)-->help appreciated * CT head (07/15/16): focal encephalomalacia and/or atrophy seen with b/l anterior temporal lobes Correlation with MRI may be helpful if clinically indicated. Chronic microvascular ischemic changes. Small hypodensity in the left basal ganglia which may represent a small lacunar infarct versus prominent perivascular space (see full report). * Brain MRI (07/15): no acute intracranial abnormality, mild chronic microangiopathic changes, and mild age related global, middle cranial fossa arachnoid cyst versus cystic encephalomalacia, no evidence of mass effect or vasogenic edema * Ordered for Lumbar and cervical spine xrays * CXR: Mild venous congestion. Patchy increased markings at the left lung base (see full report) * Cervical xray (07/15/16): radiolucency at the dense base a remote fracture versus developmental variant; consider CT cervical spine; no subluxation, cervical spondylosis under disc disease most notable C5-C6 * Lumbar xray (07/15/16): lumbar spondylosis and facet arthrosis, developmental variants. * Completed MRI cervical/thoracic and lumbar; awaiting official report of lumbar today * Cervical MRI (07/17/16): severe narrowing of the spinal canal at C4-C5 associated with cord compression and hyperintense T2 signal of the cord at this levl; multilevel moderate to large disc herniation osteophyte complex w posterior ligament hypertropgy which resulting multilevel moderate spinal and neural foraminal narrowing * Thoracic MRI (07/17/16): moderate degenerative disc changes. Multilevel small disc bulging with mild spinal stenosis. no evidence of cord compression * Lumbar MRI (07/17/16): moderate to mildly severe degenerative disc changes at lower lumbar spine more prominent at L4-L5. small to moderate size disc herniation at L4-L5 and L5-S1 associated with posterio ligament and facet joint hypertrophy, which resulting in mild spinal and moderate bilateral neural formating narrowing. heterogeneous bone marrow signal seen at the lower lumbar spine and in the pelvic bones without evidence of discrete mass lesion or cortical destruction * HIV: negative RF: negative, DAWN: positive, 1:40, speckled, RPR: nonreactive, Lyme titers:negative ESR: elevated, Vitamin D: low, Vitamin B12, CPK: 157, UDS: negative, blood alcohol: negative * Patient underwent anterior cervical discteomy C4-C5, cervical fusion C4-C5 per operative note on 07/21/16. No complication noted. Minimal blood loss on . Per neurosurgery, patient stable for transfer for rehab. * Gabapentin 400mg PO tid * Flexeril 10mg PO tid * Taper: Prednisone 20mg PO bid X 5 days, Prednisone 10mg PO bid for 5 days, Prednisone 20mg PO daily for 5 days, Prednisone 10mg PO daily for 5 days HTN * HCTZ 25 mg po daily * Norvasc 10 mg PO daily * monitor vital signs Electrolyte imbalance * monitor and replete if necessary * sodium 129 and Cl 88 today Impaired glucose tolerance * [id number]: 6.1 * will need repeat in one year * will need counselling regarding diet and exercise to prevent overt diabetes * Note: patient is on steroid taper Constipation * Resolved * Previously on miralax * Milk of Magnesia * given Mag citrate x1 * OMT performed to alleviate constipation * continue to monitor for adequate bowel movements Prophylactic Measures * Protonix 40 mg PO daily * Aspirin 81mg PO daily * Restart heparin 5000 units subq 8hours for DVT ppx * SCDs while in bed * PT/OT eval--->[facility] pending placement/transportation Disposition * Patient is awaiting transportation and acute rehab bed * Neurosurgery has indicate appropriate for transfer to rehab in prior progress note * Patient is medically stable for discharge * monitor for bowel movement Assessment and Plan discussed with attending physician. <Sonia Levine V - Last Filed: 08/10/16 14:05> Objective - Vital Signs/Intake and Output Vital Signs (last 24 hours): Temp Pulse Resp BP Pulse Ox 98 F 81 20 112/68 97 08/06/16 07:58 08/06/16 07:58 08/06/16 07:58 08/06/16 07:58 08/06/16 07:58 - Labs Labs: 08/05/16 07:17 08/05/16 07:17 PT 14.4 SECONDS (9.7-12.2) H 07/20/16 13:38 INR 1.3 07/20/16 13:38 APTT 30 SECONDS (21-34) 07/16/16 06:18 Attending/Attestation - Attestation I have personally seen and examined this patient.: Yes I have fully participated in the care of the patient.: Yes I have reviewed all pertinent clinical information, including history, physical exam and plan: Yes Notes (Text): This is a late computer entry for 07/31/16. Patient seen, examined, and case discussed with day-time resident. Patient is awaiting rehab placement. Follow-up with case management regarding discharge planning. Assessment/Plan 1. Generalized Upper and Lower extremity weakness Cervical Cord Compression * Neurology consult, Dr. Miranda, help appreciated * Neurosurgery (Dr. Ruiz)-->help appreciated * CT head (07/15/16): focal encephalomalacia and/or atrophy seen with b/l anterior temporal lobes Correlation with MRI may be helpful if clinically indicated. Chronic microvascular ischemic changes. Small hypodensity in the left basal ganglia which may represent a small lacunar infarct versus prominent perivascular space (see full report). * Brain MRI (07/15): no acute intracranial abnormality, mild chronic microangiopathic changes, and mild age related global, middle cranial fossa arachnoid cyst versus cystic encephalomalacia, no evidence of mass effect or vasogenic edema * Ordered for Lumbar and cervical spine xrays * CXR: Mild venous congestion. Patchy increased markings at the left lung base (see full report) * Cervical xray (07/15/16): radiolucency at the dense base a remote fracture versus developmental variant; consider CT cervical spine; no subluxation, cervical spondylosis under disc disease most notable C5-C6 * Lumbar xray (07/15/16): lumbar spondylosis and facet arthrosis, developmental variants. * Completed MRI cervical/thoracic and lumbar; awaiting official report of lumbar today * Cervical MRI (07/17/16): severe narrowing of the spinal canal at C4-C5 associated with cord compression and hyperintense T2 signal of the cord at this levl; multilevel moderate to large disc herniation osteophyte complex w posterior ligament hypertropgy which resulting multilevel moderate spinal and neural foraminal narrowing * Thoracic MRI (07/17/16): moderate degenerative disc changes. Multilevel small disc bulging with mild spinal stenosis. no evidence of cord compression * Lumbar MRI (07/17/16): moderate to mildly severe degenerative disc changes at lower lumbar spine more prominent at L4-L5. small to moderate size disc herniation at L4-L5 and L5-S1 associated with posterio ligament and facet joint hypertrophy, which resulting in mild spinal and moderate bilateral neural formating narrowing. heterogeneous bone marrow signal seen at the lower lumbar spine and in the pelvic bones without evidence of discrete mass lesion or cortical destruction * HIV: negative RF: negative, DAWN: positive, 1:40, speckled, RPR: nonreactive, Lyme titers:negative ESR: elevated, Vitamin D: low, Vitamin B12, CPK: 157, UDS: negative, blood alcohol: negative * Decadron 10mg IV Q 8hour (active since 07/17/16) * Patient underwent anterior cervical discteomy C4-C5, cervical fusion C4-C5 per operative note on 07/21/16. No complication noted. Minimal blood loss on . Per neurosurgery, patient stable for transfer for rehab. * Gabapentin 400mg PO tid * Flexeril 10mg PO tid * Taper: Prednisone 20mg PO bid X 5 days, Prednisone 10mg PO bid for 5 days, Prednisone 20mg PO daily for 5 days, Prednisone 10mg PO daily for 5 days 2. HTN * HCTZ 25 mg po daily * Norvasc 10 mg PO daily * monitor vital signs 3. Electrolyte imbalance * monitor and replete if necessary 4. Impaired glucose tolerance * [id number]: 6.1 * will need repeat in one year * will need counselling regarding diet and exercise to prevent overt diabetes * Note: patient is on steroid taper 5. Constipation * Resolved * Monitor for adequate bowel movement 6. Prophylactic Measures * Protonix 40 mg PO daily * Aspirin 81mg PO daily * Restart heparin 5000 units subq 8hours for DVT ppx * SCDs while in bed * PT/OT eval--->[facility] pending placement/transportation 7. Disposition * Patient is awaiting transportation and acute rehab bed * Neurosurgery has indicate appropriate for transfer to rehab in prior progress note * Patient is medically stable for discharge * monitor for bowel movement
[2016-08-01] MEDS: Albuterol-Ipratrop 3 mg / 0.5 (3 ml) UD INH SCH ×4 (01:57→19:39)
[2016-08-01 07:27] LABS: HEMATOCRIT 37.8 % (35.0-51.0); MEAN CORPUSCULAR HEMOGLOBIN 30.5 pg (27.0-31.0); MEAN CORPUSCULAR HGB CONC 33.9 g/dL (33.0-37.0); MEAN PLATELET VOLUME 8.5 fL (7.2-11.7); RED CELL DISTRIBUTION WIDTH 13.8 % (11.5-14.5); WHITE BLOOD COUNT 14.1 K/uL (4.8-10.8)
[2016-08-01 07:57] LABS: CHLORIDE 96 mmol/L (98-107); POTASSIUM 4.3 mmol/L (3.6-5.2); SODIUM 132 mmol/L (132-148)
[2016-08-01 07:59] LABS: GFR AFRICAN-AMERICAN > 60
[2016-08-01 08:00] LABS: BLOOD UREA NITROGEN 20 mg/dL (9-20); CALCIUM 8.2 mg/dl (8.6-10.4); CARBON DIOXIDE 30 mmol/L (22-30); GLUCOSE,RANDOM 154 mg/dL (75-110)
[2016-08-01] MEDS: Pantoprazole 40 mg EC Tab PO SCH (09:39)
[2016-08-01] MEDS: Potassium Chloride 20 mEq ER Tab PO SCH ×2 (09:41→11:45)
[2016-08-01] MEDS: Sodium Chloride 0.9% 1,000 ML IV SCH (09:44)
[2016-08-01] MEDS: Baclofen 5 mg Tab PO SCH (10:25)
--- NOTE | 2016-08-01 14:01 | CP.PCM.PN ---
<Ben Benz - Last Filed: 08/01/16 13:55> Subjective - Date & Time of Evaluation Date of Evaluation: 08/01/16 Time of Evaluation: 07:00 - Subjective Subjective: Dr. Benz PGY 1 Hospitalist Note Patient seen and evaluated at bedside. He was eating breakfast with help of aid. He endorsed no complaints. He says he feels the numbness improving and is trying to use his hands more. He denies any headache, vision changes, chest pain , SOB, nausea, vomiting, or diarrhea. He is no longer complaining of constipation. Objective - Vital Signs/Intake and Output Vital Signs (last 24 hours): Temp Pulse Resp BP Pulse Ox 97.9 F 78 20 148/81 97 08/01/16 08:24 08/01/16 08:24 08/01/16 08:24 08/01/16 08:24 08/01/16 08:24 Intake and Output: 08/01/16 08/01/16 06:59 18:59 Intake Total 1200 Balance 1200 - Medications Medications: Current Medications Acetaminophen (Tylenol 325mg Tab) 650 mg PO Q6 PRN PRN Reason: Headache Last Admin: 07/30/16 09:36 Dose: 650 mg Albuterol/Ipratropium (Duoneb 3 Mg/0.5 Mg (3 Ml) Ud) 3 ml INH RQ6 [facility] Last Admin: 08/01/16 07:41 Dose: 3 ml Amlodipine Besylate (Norvasc) 10 mg PO DAILY [facility] Last Admin: 08/01/16 09:39 Dose: 10 mg Aspirin (Ecotrin) 81 mg PO DAILY [facility] Last Admin: 08/01/16 09:42 Dose: 81 mg Baclofen (Lioresal) 5 mg PO DAILY [facility] Last Admin: 08/01/16 10:25 Dose: 5 mg Docusate Sodium (Colace) 100 mg PO TID [facility] Last Admin: 08/01/16 09:39 Dose: 100 mg Gabapentin (Neurontin) 400 mg PO TID [facility] Last Admin: 08/01/16 09:42 Dose: 400 mg Heparin Sodium (Porcine) (Heparin) 5,000 units SC Q8 [facility] Last Admin: 08/01/16 05:58 Dose: 5,000 units Ondansetron HCl (Zofran Inj) 4 mg IVP Q6 PRN PRN Reason: Nausea/Vomiting Oxycodone HCl (Oxycodone Immediate Release Tab) 5 mg PO Q4H PRN PRN Reason: Pain, moderate (4-7) Last Admin: 07/30/16 06:55 Dose: 5 mg Pantoprazole Sodium (Protonix Ec Tab) 40 mg PO DAILY [facility] Last Admin: 08/01/16 09:39 Dose: 40 mg Prednisone (Prednisone Tab) 20 mg PO BID [facility] Stop: 08/01/16 18:01 Last Admin: 08/01/16 10:25 Dose: 20 mg Prednisone (Prednisone Tab) 10 mg PO BID [facility] Stop: 08/07/16 18:01 Prednisone (Prednisone Tab) 20 mg PO DAILY [facility] Stop: 08/13/16 10:01 Prednisone (Prednisone Tab) 10 mg PO DAILY [facility] Stop: 08/19/16 10:01 Prednisone (Prednisone Tab) 5 mg PO DAILY [facility] Stop: 08/25/16 10:01 Rosuvastatin Calcium (Crestor) 5 mg PO HS [facility] Last Admin: 07/22/16 22:08 Dose: 5 mg - Labs Labs: 08/01/16 07:07 08/01/16 07:07 PT 14.4 SECONDS (9.7-12.2) H 07/20/16 13:38 INR 1.3 07/20/16 13:38 APTT 30 SECONDS (21-34) 07/16/16 06:18 - Constitutional Appears: Non-toxic, No Acute Distress - Head Exam Head Exam: ATRAUMATIC, NORMOCEPHALIC - Eye Exam Eye Exam: EOMI, Normal appearance, PERRL Pupil Exam: NORMAL ACCOMODATION, PERRL - ENT Exam ENT Exam: Mucous Membranes Moist. absent: Normal Oropharynx (poor dentition) - Neck Exam Neck Exam: absent: Normal Inspection (surgical site healing well), Tenderness - Respiratory Exam Respiratory Exam: Clear to Ausculation Bilateral, NORMAL BREATHING PATTERN. absent: Rales, Rhonchi, Wheezes - Cardiovascular Exam Cardiovascular Exam: REGULAR RHYTHM, +S1, +S2. absent: Gallop, Rubs, Murmur - GI/Abdominal Exam GI & Abdominal Exam: Soft, Normal Bowel Sounds. absent: Distended, Guarding, Tenderness - Extremities Exam Extremities Exam: absent: Normal Inspection (weakness bilateral hands improving , able to move legs more), Pedal Edema, Tenderness - Back Exam Back Exam: NORMAL INSPECTION. absent: rash noted, tenderness - Neurological Exam Neurological Exam: Alert, Awake, CN II-XII Intact, Oriented x3 - Psychiatric Exam Psychiatric exam: Normal Affect, Normal Mood - Skin Skin Exam: Dry, Intact, Normal Color, Warm Assessment and Plan - Assessment and Plan (Free Text) Plan: Generalized Upper and Lower extremity weakness Cervical Cord Compression * Neurology consult, Dr. Miranda, help appreciated * Neurosurgery (Dr. Ruiz)-->help appreciated * CT head (07/15/16): focal encephalomalacia and/or atrophy seen with b/l anterior temporal lobes Correlation with MRI may be helpful if clinically indicated. Chronic microvascular ischemic changes. Small hypodensity in the left basal ganglia which may represent a small lacunar infarct versus prominent perivascular space (see full report). * Brain MRI (07/15): no acute intracranial abnormality, mild chronic microangiopathic changes, and mild age related global, middle cranial fossa arachnoid cyst versus cystic encephalomalacia, no evidence of mass effect or vasogenic edema * Ordered for Lumbar and cervical spine xrays * CXR: Mild venous congestion. Patchy increased markings at the left lung base (see full report) * Cervical xray (07/15/16): radiolucency at the dense base a remote fracture versus developmental variant; consider CT cervical spine; no subluxation, cervical spondylosis under disc disease most notable C5-C6 * Lumbar xray (07/15/16): lumbar spondylosis and facet arthrosis, developmental variants. * Completed MRI cervical/thoracic and lumbar; awaiting official report of lumbar today * Cervical MRI (07/17/16): severe narrowing of the spinal canal at C4-C5 associated with cord compression and hyperintense T2 signal of the cord at this levl; multilevel moderate to large disc herniation osteophyte complex w posterior ligament hypertropgy which resulting multilevel moderate spinal and neural foraminal narrowing * Thoracic MRI (07/17/16): moderate degenerative disc changes. Multilevel small disc bulging with mild spinal stenosis. no evidence of cord compression * Lumbar MRI (07/17/16): moderate to mildly severe degenerative disc changes at lower lumbar spine more prominent at L4-L5. small to moderate size disc herniation at L4-L5 and L5-S1 associated with posterio ligament and facet joint hypertrophy, which resulting in mild spinal and moderate bilateral neural formating narrowing. heterogeneous bone marrow signal seen at the lower lumbar spine and in the pelvic bones without evidence of discrete mass lesion or cortical destruction * HIV: negative RF: negative, DAWN: positive, 1:40, speckled, RPR: nonreactive, Lyme titers:negative ESR: elevated, Vitamin D: low, Vitamin B12, CPK: 157, UDS: negative, blood alcohol: negative * Patient underwent anterior cervical discteomy C4-C5, cervical fusion C4-C5 per operative note on 07/21/16. No complication noted. Minimal blood loss on . Per neurosurgery, patient stable for transfer for rehab. * Gabapentin 400mg PO tid * Flexeril 10mg PO tid * Taper: Prednisone 10mg PO bid for 5 days, Prednisone 20mg PO daily for 5 days , Prednisone 10mg PO daily for 5 days HTN * HCTZ 25 mg po daily * Norvasc 10 mg PO daily * monitor vital signs Electrolyte imbalance * monitor and replete if necessary * sodium 132 and Cl 96 today Impaired glucose tolerance * [id number]: 6.1 * will need repeat in one year * will need counselling regarding diet and exercise to prevent overt diabetes * Note: patient is on steroid taper Constipation * Resolved * Previously on miralax * Milk of Magnesia * given Mag citrate x1 * OMT performed to alleviate constipation * continue to monitor for adequate bowel movements Prophylactic Measures * Protonix 40 mg PO daily * Aspirin 81mg PO daily * Restart heparin 5000 units subq 8hours for DVT ppx * SCDs while in bed * PT/OT eval--->[facility] pending placement/transportation Disposition * Patient is awaiting transportation and acute rehab bed * Neurosurgery has indicate appropriate for transfer to rehab in prior progress note * Patient is medically stable for discharge * monitor for bowel movement Assessment and Plan discussed with attending physician. <Sonia Levine V - Last Filed: 08/02/16 14:57> Objective - Vital Signs/Intake and Output Vital Signs (last 24 hours): Temp Pulse Resp BP Pulse Ox 98.2 F 99 H 20 141/75 96 08/02/16 08:00 08/02/16 08:00 08/02/16 08:00 08/02/16 08:00 08/02/16 08:00 Intake and Output: 08/02/16 08/02/16 06:59 18:59 Intake Total 240 500 Balance 240 500 - Medications Medications: Current Medications Acetaminophen (Tylenol 325mg Tab) 650 mg PO Q6 PRN PRN Reason: Headache Last Admin: 07/30/16 09:36 Dose: 650 mg Albuterol/Ipratropium (Duoneb 3 Mg/0.5 Mg (3 Ml) Ud) 3 ml INH RQ6 [facility] Last Admin: 08/02/16 13:57 Dose: 3 ml Amlodipine Besylate (Norvasc) 10 mg PO DAILY [facility] Last Admin: 08/02/16 10:17 Dose: 10 mg Aspirin (Ecotrin) 81 mg PO DAILY [facility] Last Admin: 08/02/16 10:12 Dose: 81 mg Baclofen (Lioresal) 5 mg PO DAILY [facility] Last Admin: 08/02/16 10:57 Dose: 5 mg Docusate Sodium (Colace) 100 mg PO TID [facility] Last Admin: 08/02/16 14:39 Dose: 100 mg Gabapentin (Neurontin) 400 mg PO TID [facility] Last Admin: 08/02/16 14:39 Dose: 400 mg Heparin Sodium (Porcine) (Heparin) 5,000 units SC Q8 [facility] Last Admin: 08/02/16 14:39 Dose: 5,000 units Ondansetron HCl (Zofran Inj) 4 mg IVP Q6 PRN PRN Reason: Nausea/Vomiting Oxycodone HCl (Oxycodone Immediate Release Tab) 5 mg PO Q4H PRN PRN Reason: Pain, moderate (4-7) Last Admin: 07/30/16 06:55 Dose: 5 mg Pantoprazole Sodium (Protonix Ec Tab) 40 mg PO DAILY [facility] Last Admin: 08/02/16 10:17 Dose: 40 mg Prednisone (Prednisone Tab) 10 mg PO BID [facility] Stop: 08/07/16 18:01 Prednisone (Prednisone Tab) 20 mg PO DAILY [facility] Stop: 08/13/16 10:01 Prednisone (Prednisone Tab) 10 mg PO DAILY [facility] Stop: 08/19/16 10:01 Prednisone (Prednisone Tab) 5 mg PO DAILY [facility] Stop: 08/25/16 10:01 Rosuvastatin Calcium (Crestor) 5 mg PO HS [facility] Last Admin: 08/01/16 21:08 Dose: 5 mg Simethicone (Mylicon Liq) 40 mg PO QID [facility] - Labs Labs: 08/02/16 08:56 08/02/16 08:56 PT 14.4 SECONDS (9.7-12.2) H 07/20/16 13:38 INR 1.3 07/20/16 13:38 APTT 30 SECONDS (21-34) 07/16/16 06:18 Attending/Attestation - Attestation I have personally seen and examined this patient.: Yes I have fully participated in the care of the patient.: Yes I have reviewed all pertinent clinical information, including history, physical exam and plan: Yes Notes (Text): This is a late computer entry for 08/01/16. Patient seen, examined, and case discussed with day-time resident. Patient denies acute complaints. Patient is medically stable for discharge. Follow-up with case management and social work regarding discharge planning. Spoken and discussed who are aware. Patient is currently on Prednisone taper. Generalized Upper and Lower extremity weakness Cervical Cord Compression * Neurology consult, Dr. Miranda, help appreciated * Neurosurgery (Dr. Ruiz)-->help appreciated * CT head (07/15/16): focal encephalomalacia and/or atrophy seen with b/l anterior temporal lobes Correlation with MRI may be helpful if clinically indicated. Chronic microvascular ischemic changes. Small hypodensity in the left basal ganglia which may represent a small lacunar infarct versus prominent perivascular space (see full report). * Brain MRI (07/15): no acute intracranial abnormality, mild chronic microangiopathic changes, and mild age related global, middle cranial fossa arachnoid cyst versus cystic encephalomalacia, no evidence of mass effect or vasogenic edema * Ordered for Lumbar and cervical spine xrays * CXR: Mild venous congestion. Patchy increased markings at the left lung base (see full report) * Cervical xray (07/15/16): radiolucency at the dense base a remote fracture versus developmental variant; consider CT cervical spine; no subluxation, cervical spondylosis under disc disease most notable C5-C6 * Lumbar xray (07/15/16): lumbar spondylosis and facet arthrosis, developmental variants. * Completed MRI cervical/thoracic and lumbar; awaiting official report of lumbar today * Cervical MRI (07/17/16): severe narrowing of the spinal canal at C4-C5 associated with cord compression and hyperintense T2 signal of the cord at this levl; multilevel moderate to large disc herniation osteophyte complex w posterior ligament hypertropgy which resulting multilevel moderate spinal and neural foraminal narrowing * Thoracic MRI (07/17/16): moderate degenerative disc changes. Multilevel small disc bulging with mild spinal stenosis. no evidence of cord compression * Lumbar MRI (07/17/16): moderate to mildly severe degenerative disc changes at lower lumbar spine more prominent at L4-L5. small to moderate size disc herniation at L4-L5 and L5-S1 associated with posterio ligament and facet joint hypertrophy, which resulting in mild spinal and moderate bilateral neural formating narrowing. heterogeneous bone marrow signal seen at the lower lumbar spine and in the pelvic bones without evidence of discrete mass lesion or cortical destruction * HIV: negative RF: negative, DAWN: positive, 1:40, speckled, RPR: nonreactive, Lyme titers:negative ESR: elevated, Vitamin D: low, Vitamin B12, CPK: 157, UDS: negative, blood alcohol: negative * Patient underwent anterior cervical discteomy C4-C5, cervical fusion C4-C5 per operative note on 07/21/16. No complication noted. Minimal blood loss on . Per neurosurgery, patient stable for transfer for rehab. * Gabapentin 400mg PO tid * Flexeril 10mg PO tid * Taper: Prednisone 20mg PO bid X1 day, Prednisone 10mg PO bid for 5 days, Prednisone 20mg PO daily for 5 days, Prednisone 10mg PO daily for 5 days HTN * HCTZ 25 mg po daily * Norvasc 10 mg PO daily * monitor vital signs Electrolyte imbalance * monitor and replete if necessary Impaired glucose tolerance * [id number]: 6.1 * will need repeat in one year * will need counselling regarding diet and exercise to prevent overt diabetes * Note: patient is on steroid taper Constipation * Resolved * continue to monitor for adequate bowel movements Prophylactic Measures * Protonix 40 mg PO daily * Aspirin 81mg PO daily * Restart heparin 5000 units subq 8hours for DVT ppx * SCDs while in bed * PT/OT eval--->[facility] pending placement/transportation Disposition * Patient is awaiting transportation and acute rehab bed * Neurosurgery has indicate appropriate for transfer to rehab in prior progress note * Patient is medically stable for discharge
[2016-08-02] MEDS: Albuterol-Ipratrop 3 mg / 0.5 (3 ml) UD INH SCH ×4 (02:02→19:33)
--- NOTE | 2016-08-02 03:39 | CP.PCM.PN ---
<Irena Faith - Last Filed: 08/02/16 03:32> Subjective - Date & Time of Evaluation Date of Evaluation: 08/02/16 Time of Evaluation: 03:32 - Subjective Subjective: PGY1 Medicine note for Dr. Levine Patient seen and examined lying in bed comfortably watching tv. Patient denied any headache, dizziness, chest pain, SOB, abdominal pain, nausea, vomiting, diarrhea/constipation. Objective - Vital Signs/Intake and Output Vital Signs (last 24 hours): Temp Pulse Resp BP Pulse Ox 97.6 F 85 20 145/78 96 08/01/16 23:16 08/01/16 23:16 08/01/16 23:16 08/01/16 23:16 08/01/16 23:16 Intake and Output: 08/01/16 08/02/16 18:59 06:59 Intake Total 800 Output Total 500 Balance 300 - Medications Medications: Current Medications Acetaminophen (Tylenol 325mg Tab) 650 mg PO Q6 PRN PRN Reason: Headache Last Admin: 07/30/16 09:36 Dose: 650 mg Albuterol/Ipratropium (Duoneb 3 Mg/0.5 Mg (3 Ml) Ud) 3 ml INH RQ6 [facility] Last Admin: 08/02/16 02:02 Dose: Not Given Amlodipine Besylate (Norvasc) 10 mg PO DAILY [facility] Last Admin: 08/01/16 09:39 Dose: 10 mg Aspirin (Ecotrin) 81 mg PO DAILY [facility] Last Admin: 08/01/16 09:42 Dose: 81 mg Baclofen (Lioresal) 5 mg PO DAILY [facility] Last Admin: 08/01/16 10:25 Dose: 5 mg Docusate Sodium (Colace) 100 mg PO TID [facility] Last Admin: 08/01/16 17:15 Dose: 100 mg Gabapentin (Neurontin) 400 mg PO TID [facility] Last Admin: 08/01/16 17:15 Dose: 400 mg Heparin Sodium (Porcine) (Heparin) 5,000 units SC Q8 [facility] Last Admin: 08/01/16 21:08 Dose: 5,000 units Ondansetron HCl (Zofran Inj) 4 mg IVP Q6 PRN PRN Reason: Nausea/Vomiting Oxycodone HCl (Oxycodone Immediate Release Tab) 5 mg PO Q4H PRN PRN Reason: Pain, moderate (4-7) Last Admin: 07/30/16 06:55 Dose: 5 mg Pantoprazole Sodium (Protonix Ec Tab) 40 mg PO DAILY [facility] Last Admin: 08/01/16 09:39 Dose: 40 mg Prednisone (Prednisone Tab) 10 mg PO BID [facility] Stop: 08/07/16 18:01 Prednisone (Prednisone Tab) 20 mg PO DAILY [facility] Stop: 08/13/16 10:01 Prednisone (Prednisone Tab) 10 mg PO DAILY [facility] Stop: 08/19/16 10:01 Prednisone (Prednisone Tab) 5 mg PO DAILY [facility] Stop: 08/25/16 10:01 Rosuvastatin Calcium (Crestor) 5 mg PO HS [facility] Last Admin: 08/01/16 21:08 Dose: 5 mg - Labs Labs: 08/01/16 07:07 08/01/16 07:07 PT 14.4 SECONDS (9.7-12.2) H 07/20/16 13:38 INR 1.3 07/20/16 13:38 APTT 30 SECONDS (21-34) 07/16/16 06:18 - Constitutional Appears: Non-toxic, No Acute Distress - Head Exam Head Exam: NORMAL INSPECTION - Eye Exam Eye Exam: Normal appearance - Neck Exam Additional comments: surgical site healing - Respiratory Exam Respiratory Exam: Clear to Ausculation Bilateral, NORMAL BREATHING PATTERN. absent: Rales, Rhonchi, Wheezes - Cardiovascular Exam Cardiovascular Exam: REGULAR RHYTHM, RRR, +S1, +S2 - GI/Abdominal Exam GI & Abdominal Exam: Soft, Normal Bowel Sounds. absent: Tenderness - Neurological Exam Neurological Exam: Alert, Awake, Oriented x3 - Psychiatric Exam Psychiatric exam: Normal Affect, Normal Mood - Skin Skin Exam: Dry, Intact, Normal Color, Warm Assessment and Plan - Assessment and Plan (Free Text) Plan: Generalized Upper and Lower extremity weakness Cervical Cord Compression * Neurology consult, Dr. Miranda, help appreciated * Neurosurgery (Dr. Ruiz)-->help appreciated * CT head (07/15/16): focal encephalomalacia and/or atrophy seen with b/l anterior temporal lobes Correlation with MRI may be helpful if clinically indicated. Chronic microvascular ischemic changes. Small hypodensity in the left basal ganglia which may represent a small lacunar infarct versus prominent perivascular space (see full report). * Brain MRI (07/15): no acute intracranial abnormality, mild chronic microangiopathic changes, and mild age related global, middle cranial fossa arachnoid cyst versus cystic encephalomalacia, no evidence of mass effect or vasogenic edema * Ordered for Lumbar and cervical spine xrays * CXR: Mild venous congestion. Patchy increased markings at the left lung base (see full report) * Cervical xray (07/15/16): radiolucency at the dense base a remote fracture versus developmental variant; consider CT cervical spine; no subluxation, cervical spondylosis under disc disease most notable C5-C6 * Lumbar xray (07/15/16): lumbar spondylosis and facet arthrosis, developmental variants. * Completed MRI cervical/thoracic and lumbar; awaiting official report of lumbar today * Cervical MRI (07/17/16): severe narrowing of the spinal canal at C4-C5 associated with cord compression and hyperintense T2 signal of the cord at this levl; multilevel moderate to large disc herniation osteophyte complex w posterior ligament hypertropgy which resulting multilevel moderate spinal and neural foraminal narrowing * Thoracic MRI (07/17/16): moderate degenerative disc changes. Multilevel small disc bulging with mild spinal stenosis. no evidence of cord compression * Lumbar MRI (07/17/16): moderate to mildly severe degenerative disc changes at lower lumbar spine more prominent at L4-L5. small to moderate size disc herniation at L4-L5 and L5-S1 associated with posterio ligament and facet joint hypertrophy, which resulting in mild spinal and moderate bilateral neural formating narrowing. heterogeneous bone marrow signal seen at the lower lumbar spine and in the pelvic bones without evidence of discrete mass lesion or cortical destruction * HIV: negative RF: negative, DAWN: positive, 1:40, speckled, RPR: nonreactive, Lyme titers:negative ESR: elevated, Vitamin D: low, Vitamin B12, CPK: 157, UDS: negative, blood alcohol: negative * Patient underwent anterior cervical discteomy C4-C5, cervical fusion C4-C5 per operative note on 07/21/16. No complication noted. Minimal blood loss on . Per neurosurgery, patient stable for transfer for rehab. * Gabapentin 400mg PO tid * Flexeril 10mg PO tid * Taper: Prednisone 10mg PO bid for 5 days, Prednisone 20mg PO daily for 5 days , Prednisone 10mg PO daily for 5 days HTN * HCTZ 25 mg po daily * Norvasc 10 mg PO daily * monitor vital signs Electrolyte imbalance * monitor and replete if necessary * sodium 132 and Cl 96 today Impaired glucose tolerance * [id number]: 6.1 * will need repeat in one year * will need counselling regarding diet and exercise to prevent overt diabetes * Note: patient is on steroid taper Constipation * Resolved * Previously on miralax * Milk of Magnesia * given Mag citrate x1 * OMT performed to alleviate constipation * continue to monitor for adequate bowel movements Prophylactic Measures * Protonix 40 mg PO daily * Aspirin 81mg PO daily * Restart heparin 5000 units subq 8hours for DVT ppx * SCDs while in bed * PT/OT eval--->[facility] pending placement/transportation Disposition * Patient is awaiting transportation and acute rehab bed * Neurosurgery has indicate appropriate for transfer to rehab in prior progress note * Patient is medically stable for discharge * monitor for bowel movement <Sonia Levine V - Last Filed: 08/02/16 14:52> Objective - Vital Signs/Intake and Output Vital Signs (last 24 hours): Temp Pulse Resp BP Pulse Ox 98.2 F 99 H 20 141/75 96 08/02/16 08:00 08/02/16 08:00 08/02/16 08:00 08/02/16 08:00 08/02/16 08:00 Intake and Output: 08/02/16 08/02/16 06:59 18:59 Intake Total 240 500 Balance 240 500 - Medications Medications: Current Medications Acetaminophen (Tylenol 325mg Tab) 650 mg PO Q6 PRN PRN Reason: Headache Last Admin: 07/30/16 09:36 Dose: 650 mg Albuterol/Ipratropium (Duoneb 3 Mg/0.5 Mg (3 Ml) Ud) 3 ml INH RQ6 [facility] Last Admin: 08/02/16 13:57 Dose: 3 ml Amlodipine Besylate (Norvasc) 10 mg PO DAILY [facility] Last Admin: 08/02/16 10:17 Dose: 10 mg Aspirin (Ecotrin) 81 mg PO DAILY [facility] Last Admin: 08/02/16 10:12 Dose: 81 mg Baclofen (Lioresal) 5 mg PO DAILY [facility] Last Admin: 08/02/16 10:57 Dose: 5 mg Docusate Sodium (Colace) 100 mg PO TID [facility] Last Admin: 08/02/16 14:39 Dose: 100 mg Gabapentin (Neurontin) 400 mg PO TID [facility] Last Admin: 08/02/16 14:39 Dose: 400 mg Heparin Sodium (Porcine) (Heparin) 5,000 units SC Q8 [facility] Last Admin: 08/02/16 14:39 Dose: 5,000 units Ondansetron HCl (Zofran Inj) 4 mg IVP Q6 PRN PRN Reason: Nausea/Vomiting Oxycodone HCl (Oxycodone Immediate Release Tab) 5 mg PO Q4H PRN PRN Reason: Pain, moderate (4-7) Last Admin: 07/30/16 06:55 Dose: 5 mg Pantoprazole Sodium (Protonix Ec Tab) 40 mg PO DAILY [facility] Last Admin: 08/02/16 10:17 Dose: 40 mg Prednisone (Prednisone Tab) 10 mg PO BID [facility] Stop: 08/07/16 18:01 Prednisone (Prednisone Tab) 20 mg PO DAILY [facility] Stop: 08/13/16 10:01 Prednisone (Prednisone Tab) 10 mg PO DAILY [facility] Stop: 08/19/16 10:01 Prednisone (Prednisone Tab) 5 mg PO DAILY [facility] Stop: 08/25/16 10:01 Rosuvastatin Calcium (Crestor) 5 mg PO HS [facility] Last Admin: 08/01/16 21:08 Dose: 5 mg - Labs Labs: 08/02/16 08:56 08/02/16 08:56 PT 14.4 SECONDS (9.7-12.2) H 07/20/16 13:38 INR 1.3 07/20/16 13:38 APTT 30 SECONDS (21-34) 07/16/16 06:18 Attending/Attestation - Attestation I have personally seen and examined this patient.: Yes I have fully participated in the care of the patient.: Yes I have reviewed all pertinent clinical information, including history, physical exam and plan: Yes Notes (Text): Patient seen, examined, and case discussed with day-time resident. Patient denies acute complaints. Patient is awaiting placement to rehab. Discussed with case management, the issue arises with insurance, at least 5 more referrals went out yesterday per social work, and continues to be an ongoing endeavor. Patient is currently on a Prednisone taper. Disposition: Medically stable for discharge, awaiting rehab placement Generalized Upper and Lower extremity weakness Cervical Cord Compression * Neurology consult, Dr. Miranda, help appreciated * Neurosurgery (Dr. Ruiz)-->help appreciated * CT head (07/15/16): focal encephalomalacia and/or atrophy seen with b/l anterior temporal lobes Correlation with MRI may be helpful if clinically indicated. Chronic microvascular ischemic changes. Small hypodensity in the left basal ganglia which may represent a small lacunar infarct versus prominent perivascular space (see full report). * Brain MRI (07/15): no acute intracranial abnormality, mild chronic microangiopathic changes, and mild age related global, middle cranial fossa arachnoid cyst versus cystic encephalomalacia, no evidence of mass effect or vasogenic edema * Ordered for Lumbar and cervical spine xrays * CXR: Mild venous congestion. Patchy increased markings at the left lung base (see full report) * Cervical xray (07/15/16): radiolucency at the dense base a remote fracture versus developmental variant; consider CT cervical spine; no subluxation, cervical spondylosis under disc disease most notable C5-C6 * Lumbar xray (07/15/16): lumbar spondylosis and facet arthrosis, developmental variants. * Completed MRI cervical/thoracic and lumbar; awaiting official report of lumbar today * Cervical MRI (07/17/16): severe narrowing of the spinal canal at C4-C5 associated with cord compression and hyperintense T2 signal of the cord at this levl; multilevel moderate to large disc herniation osteophyte complex w posterior ligament hypertropgy which resulting multilevel moderate spinal and neural foraminal narrowing * Thoracic MRI (07/17/16): moderate degenerative disc changes. Multilevel small disc bulging with mild spinal stenosis. no evidence of cord compression * Lumbar MRI (07/17/16): moderate to mildly severe degenerative disc changes at lower lumbar spine more prominent at L4-L5. small to moderate size disc herniation at L4-L5 and L5-S1 associated with posterio ligament and facet joint hypertrophy, which resulting in mild spinal and moderate bilateral neural formating narrowing. heterogeneous bone marrow signal seen at the lower lumbar spine and in the pelvic bones without evidence of discrete mass lesion or cortical destruction * HIV: negative RF: negative, DAWN: positive, 1:40, speckled, RPR: nonreactive, Lyme titers:negative ESR: elevated, Vitamin D: low, Vitamin B12, CPK: 157, UDS: negative, blood alcohol: negative * Patient underwent anterior cervical discteomy C4-C5, cervical fusion C4-C5 per operative note on 07/21/16. No complication noted. Minimal blood loss on . Per neurosurgery, patient stable for transfer for rehab. * Gabapentin 400mg PO tid * Flexeril 10mg PO tid * Taper: Prednisone 10mg PO bid for 5 days, Prednisone 20mg PO daily for 5 days , Prednisone 10mg PO daily for 5 days HTN * HCTZ 25 mg po daily * Norvasc 10 mg PO daily * monitor vital signs Electrolyte imbalance * monitor and replete if necessary * sodium 132 and Cl 96 today Impaired glucose tolerance * [id number]: 6.1 * will need repeat in one year * will need counselling regarding diet and exercise to prevent overt diabetes * Note: patient is on steroid taper Constipation * Resolved * Previously on miralax * Milk of Magnesia * given Mag citrate x1 * OMT performed to alleviate constipation * continue to monitor for adequate bowel movements Prophylactic Measures * Protonix 40 mg PO daily * Aspirin 81mg PO daily * Restart heparin 5000 units subq 8hours for DVT ppx * SCDs while in bed * PT/OT eval--->[facility] pending placement/transportation Disposition * Patient is awaiting rehab placement; ongoing issue involving logistics discussed with case management * Neurosurgery has indicate appropriate for transfer to rehab in prior progress note * Patient is medically stable for discharge * monitor for bowel movement
[2016-08-02 09:02] LABS: BASO % 0.2 % (0.0-2.0); EOS % 0.2 % (0.0-4.0); HEMATOCRIT 38.4 % (35.0-51.0); LYMPH % 7.9 % (20.0-40.0); MEAN CELL VOLUME 89.8 fL (80.0-94.0); MEAN CORPUSCULAR HEMOGLOBIN 29.3 pg (27.0-31.0); MEAN CORPUSCULAR HGB CONC 32.7 g/dL (33.0-37.0); MEAN PLATELET VOLUME 8.2 fL (7.2-11.7); MONO # 0.8 K/uL (0.0-0.8); MONO % 6.7 % (0.0-10.0); PLATELET COUNT 155 K/uL (130-400); RED CELL DISTRIBUTION WIDTH 14.1 % (11.5-14.5); WHITE BLOOD COUNT 12.1 K/uL (4.8-10.8)
[2016-08-02 09:22] LABS: CHLORIDE 93 mmol/L (98-107); POTASSIUM 4.2 mmol/L (3.6-5.2); SODIUM 132 mmol/L (132-148)
[2016-08-02 09:24] LABS: GFR AFRICAN-AMERICAN > 60
[2016-08-02 09:25] LABS: BLOOD UREA NITROGEN 22 mg/dL (9-20); CALCIUM 8.5 mg/dl (8.6-10.4); CARBON DIOXIDE 30 mmol/L (22-30); GLUCOSE,RANDOM 246 mg/dL (75-110)
[2016-08-02] MEDS: Pantoprazole 40 mg EC Tab PO SCH (10:17)
[2016-08-02] MEDS: Baclofen 5 mg Tab PO SCH (10:57)
[2016-08-02 11:57] LABS: LARGE PLATELETS PRESENT; NEUTROPHIL 89 % (50-75); TOTAL CELLS COUNTED 100
[2016-08-02 11:58] LABS: GIANT PLATELETS PRESENT
[2016-08-02] MEDS: Simethicone 40 mg/0.6 ml Liquid (30 ml) PO SCH ×2 (18:00→21:52)
[2016-08-03] MEDS: Albuterol-Ipratrop 3 mg / 0.5 (3 ml) UD INH SCH ×4 (02:32→19:49)
[2016-08-03 09:34] LABS: BASO % 0.2 % (0.0-2.0); EOS % 0.4 % (0.0-4.0); HEMATOCRIT 38.8 % (35.0-51.0); LYMPH # 1.4 K/uL (1.0-4.3); LYMPH % 13.7 % (20.0-40.0); MEAN CELL VOLUME 90.5 fL (80.0-94.0); MEAN CORPUSCULAR HEMOGLOBIN 29.3 pg (27.0-31.0); MEAN CORPUSCULAR HGB CONC 32.3 g/dL (33.0-37.0); MEAN PLATELET VOLUME 8.4 fL (7.2-11.7); MONO # 0.9 K/uL (0.0-0.8); WHITE BLOOD COUNT 9.9 K/uL (4.8-10.8)
[2016-08-03 09:46] LABS: CHLORIDE 93 mmol/L (98-107)
[2016-08-03 09:47] LABS: POTASSIUM 3.8 mmol/L (3.6-5.2); SODIUM 133 mmol/L (132-148)
[2016-08-03 09:49] LABS: ALB/GLOB RATIO 1.1 (1.0-2.1); BILIRUBIN,TOTAL 0.6 mg/dL (0.2-1.3); CARBON DIOXIDE 33 mmol/L (22-30); GFR AFRICAN-AMERICAN > 60; TOTAL PROTEIN 5.6 g/dL (6.3-8.3)
[2016-08-03 09:50] LABS: ALKALINE PHOSPHATASE 51 U/L (38-126); ALT/SGPT 35 U/L (21-72); AST/SGOT 20 U/L (17-59); BLOOD UREA NITROGEN 22 mg/dL (9-20); CALCIUM 8.5 mg/dl (8.6-10.4); GLUCOSE,RANDOM 145 mg/dL (75-110); PHOSPHOROUS 3.6 mg/dL (2.5-4.5)
[2016-08-03 09:51] LABS: MAGNESIUM 1.4 mg/dL (1.6-2.3)
[2016-08-03] MEDS: Pantoprazole 40 mg EC Tab PO SCH (09:58)
[2016-08-03] MEDS: Baclofen 5 mg Tab PO SCH (09:58)
[2016-08-03] MEDS ORDERED: Magnesium Hydroxide Susp 30 ml UD PO ONE (10:34)
[2016-08-03] MEDS: Simethicone 40 mg/0.6 ml Liquid (30 ml) PO SCH ×5 (10:39→21:50)
[2016-08-03] MEDS: Magnesium Sulfate 1 gm in D5W 1 GM/100 ML BAG IVPB SCH ×2 (10:46→11:26)
--- NOTE | 2016-08-03 15:15 | CP.PCM.PN ---
<Donaldo Bee - Last Filed: 08/03/16 15:16> Subjective - Date & Time of Evaluation Date of Evaluation: 08/03/16 Time of Evaluation: 15:15 - Subjective Subjective: Med progress note. Attending: Dr. Levine. Pt seen and examined at bedside. No acute distress. Discharge pending, there have been issues with insurance. 1 dose of milk of magnesia given. Pt complaining of numbness in arms, otherwise no other complaints. Objective - Vital Signs/Intake and Output Vital Signs (last 24 hours): Temp Pulse Resp BP Pulse Ox 98.5 F 90 21 135/83 97 08/03/16 08:00 08/03/16 08:00 08/03/16 08:00 08/03/16 08:00 08/03/16 08:00 Intake and Output: 08/03/16 08/03/16 06:59 18:59 Intake Total 480 650 Balance 480 650 - Medications Medications: Current Medications Acetaminophen (Tylenol 325mg Tab) 650 mg PO Q6 PRN PRN Reason: Headache Last Admin: 07/30/16 09:36 Dose: 650 mg Albuterol/Ipratropium (Duoneb 3 Mg/0.5 Mg (3 Ml) Ud) 3 ml INH RQ6 [facility] Last Admin: 08/03/16 13:48 Dose: 3 ml Amlodipine Besylate (Norvasc) 10 mg PO DAILY [facility] Last Admin: 08/03/16 09:58 Dose: 10 mg Aspirin (Ecotrin) 81 mg PO DAILY [facility] Last Admin: 08/03/16 09:58 Dose: 81 mg Baclofen (Lioresal) 5 mg PO DAILY [facility] Last Admin: 08/03/16 09:58 Dose: 5 mg Docusate Sodium (Colace) 100 mg PO TID [facility] Last Admin: 08/03/16 13:52 Dose: Not Given Gabapentin (Neurontin) 400 mg PO TID [facility] Last Admin: 08/03/16 13:55 Dose: 400 mg Heparin Sodium (Porcine) (Heparin) 5,000 units SC Q8 [facility] Last Admin: 08/03/16 13:52 Dose: 5,000 units Ondansetron HCl (Zofran Inj) 4 mg IVP Q6 PRN PRN Reason: Nausea/Vomiting Oxycodone HCl (Oxycodone Immediate Release Tab) 5 mg PO Q4H PRN PRN Reason: Pain, moderate (4-7) Last Admin: 07/30/16 06:55 Dose: 5 mg Pantoprazole Sodium (Protonix Ec Tab) 40 mg PO DAILY [facility] Last Admin: 08/03/16 09:58 Dose: 40 mg Prednisone (Prednisone Tab) 10 mg PO BID [facility] Stop: 08/07/16 18:01 Last Admin: 08/03/16 09:59 Dose: 10 mg Prednisone (Prednisone Tab) 20 mg PO DAILY [facility] Stop: 08/13/16 10:01 Prednisone (Prednisone Tab) 10 mg PO DAILY [facility] Stop: 08/19/16 10:01 Prednisone (Prednisone Tab) 5 mg PO DAILY [facility] Stop: 08/25/16 10:01 Rosuvastatin Calcium (Crestor) 5 mg PO HS [facility] Last Admin: 08/02/16 21:51 Dose: 5 mg Simethicone (Mylicon Liq) 40 mg PO QID [facility] Last Admin: 08/03/16 13:55 Dose: 40 mg - Labs Labs: 08/03/16 09:21 08/03/16 09:21 PT 14.4 SECONDS (9.7-12.2) H 07/20/16 13:38 INR 1.3 07/20/16 13:38 APTT 30 SECONDS (21-34) 07/16/16 06:18 - Constitutional Appears: Non-toxic, No Acute Distress - Head Exam Head Exam: ATRAUMATIC, NORMAL INSPECTION, NORMOCEPHALIC - Eye Exam Eye Exam: EOMI - ENT Exam ENT Exam: Mucous Membranes Moist - Neck Exam Neck Exam: Full ROM, Normal Inspection - Respiratory Exam Respiratory Exam: NORMAL BREATHING PATTERN. absent: Respiratory Distress - Cardiovascular Exam Cardiovascular Exam: REGULAR RHYTHM, +S1, +S2 - GI/Abdominal Exam GI & Abdominal Exam: Soft, Normal Bowel Sounds. absent: Tenderness - Extremities Exam Extremities Exam: Full ROM, Normal Inspection - Neurological Exam Neurological Exam: Alert, Awake, Oriented x3 - Psychiatric Exam Psychiatric exam: Normal Affect, Normal Mood - Skin Skin Exam: Dry, Intact, Normal Color, Warm Assessment and Plan - Assessment and Plan (Free Text) Assessment: This is a 55 yo male presenting with Generalized Upper and Lower extremity weakness Cervical Cord Compression * Neurology consult, Dr. Miranda, help appreciated * Neurosurgery (Dr. Ruiz)-->help appreciated * CT head (07/15/16): focal encephalomalacia and/or atrophy seen with b/l anterior temporal lobes Correlation with MRI may be helpful if clinically indicated. Chronic microvascular ischemic changes. Small hypodensity in the left basal ganglia which may represent a small lacunar infarct versus prominent perivascular space (see full report). * Brain MRI (07/15): no acute intracranial abnormality, mild chronic microangiopathic changes, and mild age related global, middle cranial fossa arachnoid cyst versus cystic encephalomalacia, no evidence of mass effect or vasogenic edema * Ordered for Lumbar and cervical spine xrays * CXR: Mild venous congestion. Patchy increased markings at the left lung base (see full report) * Cervical xray (07/15/16): radiolucency at the dense base a remote fracture versus developmental variant; consider CT cervical spine; no subluxation, cervical spondylosis under disc disease most notable C5-C6 * Lumbar xray (07/15/16): lumbar spondylosis and facet arthrosis, developmental variants. * Completed MRI cervical/thoracic and lumbar; awaiting official report of lumbar today * Cervical MRI (07/17/16): severe narrowing of the spinal canal at C4-C5 associated with cord compression and hyperintense T2 signal of the cord at this levl; multilevel moderate to large disc herniation osteophyte complex w posterior ligament hypertropgy which resulting multilevel moderate spinal and neural foraminal narrowing * Thoracic MRI (07/17/16): moderate degenerative disc changes. Multilevel small disc bulging with mild spinal stenosis. no evidence of cord compression * Lumbar MRI (07/17/16): moderate to mildly severe degenerative disc changes at lower lumbar spine more prominent at L4-L5. small to moderate size disc herniation at L4-L5 and L5-S1 associated with posterio ligament and facet joint hypertrophy, which resulting in mild spinal and moderate bilateral neural formating narrowing. heterogeneous bone marrow signal seen at the lower lumbar spine and in the pelvic bones without evidence of discrete mass lesion or cortical destruction * HIV: negative RF: negative, DAWN: positive, 1:40, speckled, RPR: nonreactive, Lyme titers:negative ESR: elevated, Vitamin D: low, Vitamin B12, CPK: 157, UDS: negative, blood alcohol: negative * Patient underwent anterior cervical discteomy C4-C5, cervical fusion C4-C5 per operative note on 07/21/16. No complication noted. Minimal blood loss on . Per neurosurgery, patient stable for transfer for rehab. * Gabapentin 400mg PO tid * baclofen 5 daily * Taper: Prednisone 10mg PO bid for 5 days, Prednisone 20mg PO daily for 5 days , Prednisone 10mg PO daily for 5 days HTN * Norvasc 10 mg PO daily * monitor vital signs Electrolyte imbalance * monitor and replete if necessary Impaired glucose tolerance * [id number]: 6.1 * will need repeat in one year * will need counselling regarding diet and exercise to prevent overt diabetes * Note: patient is on steroid taper Constipation * Resolved * Previously on miralax * Milk of Magnesia * given Mag citrate x1 * OMT performed to alleviate constipation * continue to monitor for adequate bowel movements Prophylactic Measures * Protonix 40 mg PO daily * Aspirin 81mg PO daily * Restart heparin 5000 units subq 8hours for DVT ppx * SCDs while in bed * PT/OT eval--->[facility] pending placement/transportation Disposition * Patient is awaiting transportation and acute rehab bed * Neurosurgery has indicated pt is * appropriate for transfer to rehab in prior progress note * Patient is medically stable for discharge * monitor for bowel movement * discussed with Dr. Levine <Sonia Levine V - Last Filed: 08/03/16 22:13> Objective - Vital Signs/Intake and Output Vital Signs (last 24 hours): Temp Pulse Resp BP Pulse Ox 98.4 F 82 20 135/75 96 08/03/16 16:00 08/03/16 16:00 08/03/16 16:00 08/03/16 16:00 08/03/16 16:00 Intake and Output: 08/03/16 08/04/16 18:59 06:59 Intake Total 650 350 Output Total 100 Balance 650 250 - Medications Medications: Current Medications Acetaminophen (Tylenol 325mg Tab) 650 mg PO Q6 PRN PRN Reason: Headache Last Admin: 07/30/16 09:36 Dose: 650 mg Albuterol/Ipratropium (Duoneb 3 Mg/0.5 Mg (3 Ml) Ud) 3 ml INH RQ6 [facility] Last Admin: 08/03/16 19:49 Dose: Not Given Amlodipine Besylate (Norvasc) 10 mg PO DAILY [facility] Last Admin: 08/03/16 09:58 Dose: 10 mg Aspirin (Ecotrin) 81 mg PO DAILY [facility] Last Admin: 08/03/16 09:58 Dose: 81 mg Baclofen (Lioresal) 5 mg PO DAILY [facility] Last Admin: 08/03/16 09:58 Dose: 5 mg Docusate Sodium (Colace) 100 mg PO TID [facility] Last Admin: 08/03/16 17:37 Dose: Not Given Gabapentin (Neurontin) 400 mg PO TID [facility] Last Admin: 08/03/16 17:36 Dose: 400 mg Heparin Sodium (Porcine) (Heparin) 5,000 units SC Q8 [facility] Ondansetron HCl (Zofran Inj) 4 mg IVP Q6 PRN PRN Reason: Nausea/Vomiting Oxycodone HCl (Oxycodone Immediate Release Tab) 5 mg PO Q4H PRN PRN Reason: Pain, moderate (4-7) Last Admin: 08/03/16 18:03 Dose: 5 mg Pantoprazole Sodium (Protonix Ec Tab) 40 mg PO DAILY [facility] Last Admin: 08/03/16 09:58 Dose: 40 mg Prednisone (Prednisone Tab) 10 mg PO BID [facility] Stop: 08/07/16 18:01 Last Admin: 08/03/16 17:37 Dose: 10 mg Prednisone (Prednisone Tab) 20 mg PO DAILY [facility] Stop: 08/13/16 10:01 Prednisone (Prednisone Tab) 10 mg PO DAILY [facility] Stop: 08/19/16 10:01 Prednisone (Prednisone Tab) 5 mg PO DAILY [facility] Stop: 08/25/16 10:01 Rosuvastatin Calcium (Crestor) 5 mg PO HS [facility] Last Admin: 08/02/16 21:51 Dose: 5 mg Simethicone (Mylicon Liq) 40 mg PO QID [facility] Last Admin: 08/03/16 21:50 Dose: Not Given - Labs Labs: 08/03/16 09:21 08/03/16 09:21 PT 14.4 SECONDS (9.7-12.2) H 07/20/16 13:38 INR 1.3 07/20/16 13:38 APTT 30 SECONDS (21-34) 07/16/16 06:18 Attending/Attestation - Attestation I have personally seen and examined this patient.: Yes I have fully participated in the care of the patient.: Yes I have reviewed all pertinent clinical information, including history, physical exam and plan: Yes Notes (Text): Patient seen, examined, and case discussed with day-time resident. Patient denies acute complaints. Patient is awaiting placement to rehab. Discussed with case management, the issue arises with insurance, at least 5 more referrals went out two days ago per social work, and continues to be an ongoing endeavor. Patient is currently on a Prednisone taper. Disposition: Medically stable for discharge, awaiting rehab placement Generalized Upper and Lower extremity weakness Cervical Cord Compression * Neurology consult, Dr. Miranda, help appreciated * Neurosurgery (Dr. Ruiz)-->help appreciated * CT head (07/15/16): focal encephalomalacia and/or atrophy seen with b/l anterior temporal lobes Correlation with MRI may be helpful if clinically indicated. Chronic microvascular ischemic changes. Small hypodensity in the left basal ganglia which may represent a small lacunar infarct versus prominent perivascular space (see full report). * Brain MRI (07/15): no acute intracranial abnormality, mild chronic microangiopathic changes, and mild age related global, middle cranial fossa arachnoid cyst versus cystic encephalomalacia, no evidence of mass effect or vasogenic edema * Ordered for Lumbar and cervical spine xrays * CXR: Mild venous congestion. Patchy increased markings at the left lung base (see full report) * Cervical xray (07/15/16): radiolucency at the dense base a remote fracture versus developmental variant; consider CT cervical spine; no subluxation, cervical spondylosis under disc disease most notable C5-C6 * Lumbar xray (07/15/16): lumbar spondylosis and facet arthrosis, developmental variants. * Completed MRI cervical/thoracic and lumbar; awaiting official report of lumbar today * Cervical MRI (07/17/16): severe narrowing of the spinal canal at C4-C5 associated with cord compression and hyperintense T2 signal of the cord at this levl; multilevel moderate to large disc herniation osteophyte complex w posterior ligament hypertropgy which resulting multilevel moderate spinal and neural foraminal narrowing * Thoracic MRI (07/17/16): moderate degenerative disc changes. Multilevel small disc bulging with mild spinal stenosis. no evidence of cord compression * Lumbar MRI (07/17/16): moderate to mildly severe degenerative disc changes at lower lumbar spine more prominent at L4-L5. small to moderate size disc herniation at L4-L5 and L5-S1 associated with posterio ligament and facet joint hypertrophy, which resulting in mild spinal and moderate bilateral neural formating narrowing. heterogeneous bone marrow signal seen at the lower lumbar spine and in the pelvic bones without evidence of discrete mass lesion or cortical destruction * HIV: negative RF: negative, DAWN: positive, 1:40, speckled, RPR: nonreactive, Lyme titers:negative ESR: elevated, Vitamin D: low, Vitamin B12, CPK: 157, UDS: negative, blood alcohol: negative * Patient underwent anterior cervical discteomy C4-C5, cervical fusion C4-C5 per operative note on 07/21/16. No complication noted. Minimal blood loss on . Per neurosurgery, patient stable for transfer for rehab. * Gabapentin 400mg PO tid * Flexeril 10mg PO tid * Taper: Prednisone 10mg PO bid for 5 days, Prednisone 20mg PO daily for 5 days , Prednisone 10mg PO daily for 5 days HTN * HCTZ 25 mg po daily * Norvasc 10 mg PO daily * monitor vital signs Electrolyte imbalance * monitor and replete if necessary Impaired glucose tolerance * [id number]: 6.1 * will need repeat in one year * will need counselling regarding diet and exercise to prevent overt diabetes * Note: patient is on steroid taper Constipation * Resolved * Previously on miralax * Milk of Magnesia * given Mag citrate x1 * OMT performed to alleviate constipation * continue to monitor for adequate bowel movements Prophylactic Measures * Protonix 40 mg PO daily * Aspirin 81mg PO daily * Restart heparin 5000 units subq 8hours for DVT ppx * SCDs while in bed * PT/OT eval--->[facility] pending placement/transportation Disposition * Patient is awaiting rehab placement; ongoing issue involving logistics discussed with case management * Neurosurgery has indicate appropriate for transfer to rehab in prior progress note * Patient is medically stable for discharge
[2016-08-03 17:37] VITALS: RESP 20
[2016-08-03] MEDS: oxyCODONE 5 mg Immediate Release Tab PO PRN (18:03)
[2016-08-04] MEDS: Albuterol-Ipratrop 3 mg / 0.5 (3 ml) UD INH SCH ×4 (02:04→20:16)
[2016-08-04 08:38] LABS: BASO # 0.1 K/uL (0.0-0.2); BASO % 0.5 % (0.0-2.0); EOS # 0.1 K/uL (0.0-0.7); EOS % 0.5 % (0.0-4.0); HEMATOCRIT 40.2 % (35.0-51.0); LYMPH # 1.2 K/uL (1.0-4.3); LYMPH % 11.5 % (20.0-40.0); MEAN CELL VOLUME 89.1 fL (80.0-94.0); MEAN CORPUSCULAR HEMOGLOBIN 29.5 pg (27.0-31.0); MEAN CORPUSCULAR HGB CONC 33.1 g/dL (33.0-37.0); MEAN PLATELET VOLUME 8.6 fL (7.2-11.7); MONO # 0.9 K/uL (0.0-0.8); MONO % 8.8 % (0.0-10.0); RED CELL DISTRIBUTION WIDTH 14.4 % (11.5-14.5); WHITE BLOOD COUNT 10.1 K/uL (4.8-10.8)
[2016-08-04 08:51] LABS: CHLORIDE 91 mmol/L (98-107)
[2016-08-04 08:52] LABS: POTASSIUM 4.1 mmol/L (3.6-5.2); SODIUM 133 mmol/L (132-148)
[2016-08-04 08:54] LABS: ALB/GLOB RATIO 1.1 (1.0-2.1); ALKALINE PHOSPHATASE 60 U/L (38-126); AST/SGOT 20 U/L (17-59); BILIRUBIN,TOTAL 0.6 mg/dL (0.2-1.3); CARBON DIOXIDE 34 mmol/L (22-30); GFR AFRICAN-AMERICAN > 60; TOTAL PROTEIN 6.2 g/dL (6.3-8.3)
[2016-08-04 08:55] LABS: ALT/SGPT 38 U/L (21-72); BLOOD UREA NITROGEN 20 mg/dL (9-20); CALCIUM 8.8 mg/dl (8.6-10.4); GLUCOSE,RANDOM 114 mg/dL (75-110)
[2016-08-04] MEDS: Pantoprazole 40 mg EC Tab PO SCH (09:32)
[2016-08-04] MEDS: Simethicone 40 mg/0.6 ml Liquid (30 ml) PO SCH ×4 (09:32→21:28)
[2016-08-04] MEDS: Baclofen 5 mg Tab PO SCH (09:43)
--- NOTE | 2016-08-04 15:12 | CP.PCM.PN ---
<Ben Benz - Last Filed: 08/04/16 15:09> Subjective - Date & Time of Evaluation Date of Evaluation: 08/04/16 Time of Evaluation: 07:00 - Subjective Subjective: Dr. Benz PGY 1 Hospitalist Note Patient seen and evaluated at bedside. 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 He reports his hands still feel numb and weak but is getting exercise with PT. He denies any nausea, vomiting, chest pain, SOB, fever , or chills. Per nursing, no adverse events over night. He is pending discharge to [facility]. Objective - Vital Signs/Intake and Output Vital Signs (last 24 hours): Temp Pulse Resp BP Pulse Ox 98.1 F 85 20 140/79 97 08/04/16 07:36 08/04/16 07:36 08/04/16 07:36 08/04/16 07:36 08/04/16 07:36 Intake and Output: 08/04/16 08/04/16 06:59 18:59 Intake Total 710 550 Output Total 100 Balance 610 550 - Medications Medications: Current Medications Acetaminophen (Tylenol 325mg Tab) 650 mg PO Q6 PRN PRN Reason: Headache Last Admin: 07/30/16 09:36 Dose: 650 mg Albuterol/Ipratropium (Duoneb 3 Mg/0.5 Mg (3 Ml) Ud) 3 ml INH RQ6 [facility] Last Admin: 08/04/16 14:05 Dose: 3 ml Amlodipine Besylate (Norvasc) 10 mg PO DAILY [facility] Last Admin: 08/04/16 09:32 Dose: 10 mg Aspirin (Ecotrin) 81 mg PO DAILY [facility] Last Admin: 08/04/16 09:32 Dose: 81 mg Baclofen (Lioresal) 5 mg PO DAILY [facility] Last Admin: 08/04/16 09:43 Dose: 5 mg Docusate Sodium (Colace) 100 mg PO TID [facility] Last Admin: 08/04/16 13:37 Dose: Not Given Gabapentin (Neurontin) 400 mg PO TID [facility] Last Admin: 08/04/16 13:36 Dose: 400 mg Heparin Sodium (Porcine) (Heparin) 5,000 units SC Q8 [facility] Last Admin: 08/04/16 13:36 Dose: 5,000 units Ondansetron HCl (Zofran Inj) 4 mg IVP Q6 PRN PRN Reason: Nausea/Vomiting Oxycodone HCl (Oxycodone Immediate Release Tab) 5 mg PO Q4H PRN PRN Reason: Pain, moderate (4-7) Last Admin: 08/03/16 18:03 Dose: 5 mg Pantoprazole Sodium (Protonix Ec Tab) 40 mg PO DAILY [facility] Last Admin: 08/04/16 09:32 Dose: 40 mg Prednisone (Prednisone Tab) 10 mg PO BID [facility] Stop: 08/07/16 18:01 Last Admin: 08/04/16 09:32 Dose: 10 mg Prednisone (Prednisone Tab) 20 mg PO DAILY [facility] Stop: 08/13/16 10:01 Prednisone (Prednisone Tab) 10 mg PO DAILY [facility] Stop: 08/19/16 10:01 Prednisone (Prednisone Tab) 5 mg PO DAILY [facility] Stop: 08/25/16 10:01 Rosuvastatin Calcium (Crestor) 5 mg PO HS [facility] Last Admin: 08/03/16 22:15 Dose: Not Given Simethicone (Mylicon Liq) 40 mg PO QID [facility] Last Admin: 08/04/16 13:37 Dose: Not Given - Labs Labs: 08/04/16 08:22 08/04/16 08:22 PT 14.4 SECONDS (9.7-12.2) H 07/20/16 13:38 INR 1.3 07/20/16 13:38 APTT 30 SECONDS (21-34) 07/16/16 06:18 - Constitutional Appears: Non-toxic, No Acute Distress - Head Exam Head Exam: ATRAUMATIC, NORMOCEPHALIC - Eye Exam Eye Exam: EOMI, Normal appearance Pupil Exam: NORMAL ACCOMODATION, PERRL - ENT Exam ENT Exam: Mucous Membranes Moist, Normal Exam - Neck Exam Neck Exam: absent: Normal Inspection (healing surgical scar) - Respiratory Exam Respiratory Exam: Clear to Ausculation Bilateral, NORMAL BREATHING PATTERN. absent: Rales, Rhonchi, Wheezes - Cardiovascular Exam Cardiovascular Exam: REGULAR RHYTHM, +S1, +S2. absent: Gallop, Rubs, Murmur - GI/Abdominal Exam GI & Abdominal Exam: Soft, Normal Bowel Sounds. absent: Tenderness - Extremities Exam Extremities Exam: Normal Capillary Refill. absent: Full ROM, Normal Inspection (fingers mildy contracted, weak high school vice principal bilaterally), Pedal Edema, Tenderness - Back Exam Back Exam: NORMAL INSPECTION. absent: rash noted, tenderness - Neurological Exam Neurological Exam: Alert, Awake, CN II-XII Intact, Oriented x3 - Psychiatric Exam Psychiatric exam: Normal Affect, Normal Mood - Skin Skin Exam: Dry, Intact, Normal Color, Warm Assessment and Plan - Assessment and Plan (Free Text) Plan: Generalized Upper and Lower extremity weakness Cervical Cord Compression * Neurology consult, Dr. Miranda, help appreciated * Neurosurgery (Dr. Ruiz)-->help appreciated * CT head (07/15/16): focal encephalomalacia and/or atrophy seen with b/l anterior temporal lobes Correlation with MRI may be helpful if clinically indicated. Chronic microvascular ischemic changes. Small hypodensity in the left basal ganglia which may represent a small lacunar infarct versus prominent perivascular space (see full report). * Brain MRI (07/15): no acute intracranial abnormality, mild chronic microangiopathic changes, and mild age related global, middle cranial fossa arachnoid cyst versus cystic encephalomalacia, no evidence of mass effect or vasogenic edema * Ordered for Lumbar and cervical spine xrays * CXR: Mild venous congestion. Patchy increased markings at the left lung base (see full report) * Cervical xray (07/15/16): radiolucency at the dense base a remote fracture versus developmental variant; consider CT cervical spine; no subluxation, cervical spondylosis under disc disease most notable C5-C6 * Lumbar xray (07/15/16): lumbar spondylosis and facet arthrosis, developmental variants. * Completed MRI cervical/thoracic and lumbar; awaiting official report of lumbar today * Cervical MRI (07/17/16): severe narrowing of the spinal canal at C4-C5 associated with cord compression and hyperintense T2 signal of the cord at this levl; multilevel moderate to large disc herniation osteophyte complex w posterior ligament hypertropgy which resulting multilevel moderate spinal and neural foraminal narrowing * Thoracic MRI (07/17/16): moderate degenerative disc changes. Multilevel small disc bulging with mild spinal stenosis. no evidence of cord compression * Lumbar MRI (07/17/16): moderate to mildly severe degenerative disc changes at lower lumbar spine more prominent at L4-L5. small to moderate size disc herniation at L4-L5 and L5-S1 associated with posterio ligament and facet joint hypertrophy, which resulting in mild spinal and moderate bilateral neural formating narrowing. heterogeneous bone marrow signal seen at the lower lumbar spine and in the pelvic bones without evidence of discrete mass lesion or cortical destruction * HIV: negative RF: negative, DAWN: positive, 1:40, speckled, RPR: nonreactive, Lyme titers:negative ESR: elevated, Vitamin D: low, Vitamin B12, CPK: 157, UDS: negative, blood alcohol: negative * Patient underwent anterior cervical discteomy C4-C5, cervical fusion C4-C5 per operative note on 07/21/16. No complication noted. Minimal blood loss on . Per neurosurgery, patient stable for transfer for rehab. * Gabapentin 400mg PO tid * Flexeril 10mg PO tid * Taper: Prednisone 10mg PO bid for 5 days, Prednisone 20mg PO daily for 5 days , Prednisone 10mg PO daily for 5 days HTN * HCTZ 25 mg po daily * Norvasc 10 mg PO daily * monitor vital signs Electrolyte imbalance * monitor and replete if necessary Impaired glucose tolerance * [id number]: 6.1 * will need repeat in one year * will need counselling regarding diet and exercise to prevent overt diabetes * Note: patient is on steroid taper Constipation * Resolved * Previously on miralax * Milk of Magnesia * given Mag citrate x1 * OMT performed to alleviate constipation * continue to monitor for adequate bowel movements Prophylactic Measures * Protonix 40 mg PO daily * Aspirin 81mg PO daily * Restart heparin 5000 units subq 8hours for DVT ppx * SCDs while in bed * PT/OT eval--->LEELEE pending placement/transportation Disposition * Patient is awaiting rehab placement; ongoing issue involving logistics discussed with case management * Neurosurgery has indicate appropriate for transfer to rehab in prior progress note * Patient is medically stable for discharge Assessment and plan discussed with attending physician. <Prosper Del Cid - Last Filed: 08/04/16 17:24> Objective - Vital Signs/Intake and Output Vital Signs (last 24 hours): Temp Pulse Resp BP Pulse Ox 98.2 F 92 H 20 141/74 96 08/04/16 16:57 08/04/16 16:57 08/04/16 16:57 08/04/16 16:57 08/04/16 16:57 Intake and Output: 08/04/16 08/04/16 06:59 18:59 Intake Total 710 550 Output Total 100 Balance 610 550 - Medications Medications: Current Medications Acetaminophen (Tylenol 325mg Tab) 650 mg PO Q6 PRN PRN Reason: Headache Last Admin: 07/30/16 09:36 Dose: 650 mg Albuterol/Ipratropium (Duoneb 3 Mg/0.5 Mg (3 Ml) Ud) 3 ml INH RQ6 [facility] Last Admin: 08/04/16 14:05 Dose: 3 ml Amlodipine Besylate (Norvasc) 10 mg PO DAILY [facility] Last Admin: 08/04/16 09:32 Dose: 10 mg Aspirin (Ecotrin) 81 mg PO DAILY [facility] Last Admin: 08/04/16 09:32 Dose: 81 mg Baclofen (Lioresal) 5 mg PO DAILY [facility] Last Admin: 08/04/16 09:43 Dose: 5 mg Docusate Sodium (Colace) 100 mg PO TID [facility] Last Admin: 08/04/16 13:37 Dose: Not Given Gabapentin (Neurontin) 400 mg PO TID [facility] Last Admin: 08/04/16 13:36 Dose: 400 mg Heparin Sodium (Porcine) (Heparin) 5,000 units SC Q8 [facility] Last Admin: 08/04/16 13:36 Dose: 5,000 units Ondansetron HCl (Zofran Inj) 4 mg IVP Q6 PRN PRN Reason: Nausea/Vomiting Oxycodone HCl (Oxycodone Immediate Release Tab) 5 mg PO Q4H PRN PRN Reason: Pain, moderate (4-7) Last Admin: 08/03/16 18:03 Dose: 5 mg Pantoprazole Sodium (Protonix Ec Tab) 40 mg PO DAILY [facility] Last Admin: 08/04/16 09:32 Dose: 40 mg Prednisone (Prednisone Tab) 10 mg PO BID [facility] Stop: 08/07/16 18:01 Last Admin: 08/04/16 09:32 Dose: 10 mg Prednisone (Prednisone Tab) 20 mg PO DAILY [facility] Stop: 08/13/16 10:01 Prednisone (Prednisone Tab) 10 mg PO DAILY [facility] Stop: 08/19/16 10:01 Prednisone (Prednisone Tab) 5 mg PO DAILY [facility] Stop: 08/25/16 10:01 Rosuvastatin Calcium (Crestor) 5 mg PO HS [facility] Last Admin: 08/03/16 22:15 Dose: Not Given Simethicone (Mylicon Liq) 40 mg PO QID [facility] Last Admin: 08/04/16 13:37 Dose: Not Given - Labs Labs: 08/04/16 08:22 08/04/16 08:22 PT 14.4 SECONDS (9.7-12.2) H 07/20/16 13:38 INR 1.3 07/20/16 13:38 APTT 30 SECONDS (21-34) 07/16/16 06:18 Attending/Attestation - Attestation I have personally seen and examined this patient.: Yes I have fully participated in the care of the patient.: Yes I have reviewed all pertinent clinical information, including history, physical exam and plan: Yes Notes (Text): 08/04/16 17:18 Medical Attending: Patient was seen and examined by me. Agree with the above note by the resident. The patient still has weakness in the lower extremities, however he explains to me that since the last time he does not have the pain or spacicity like he did from before. I watched him work with PT/OT and he will need a lot of rehab, he is definitely weak. Currently pending rehab placement On a tapering prednisone course now.
[2016-08-05] MEDS: Albuterol-Ipratrop 3 mg / 0.5 (3 ml) UD INH SCH ×4 (02:30→19:06)
[2016-08-05] MEDS: oxyCODONE 5 mg Immediate Release Tab PO PRN (06:35)
[2016-08-05 07:49] LABS: BASO % 0.4 % (0.0-2.0); EOS # 0.1 K/uL (0.0-0.7); LYMPH # 1.3 K/uL (1.0-4.3); LYMPH % 14.4 % (20.0-40.0); RED CELL DISTRIBUTION WIDTH 14.4 % (11.5-14.5)
[2016-08-05 08:01] LABS: EOS % 0.9 % (0.0-4.0); HEMATOCRIT 40.8 % (35.0-51.0); MEAN CELL VOLUME 89.4 fL (80.0-94.0); MEAN CORPUSCULAR HEMOGLOBIN 29.9 pg (27.0-31.0); MEAN CORPUSCULAR HGB CONC 33.4 g/dL (33.0-37.0); MEAN PLATELET VOLUME 8.7 fL (7.2-11.7); MONO # 0.8 K/uL (0.0-0.8); MONO % 8.6 % (0.0-10.0); NRBC % 0.1 % (0.0-2.0); WHITE BLOOD COUNT 9.1 K/uL (4.8-10.8)
[2016-08-05 08:04] LABS: CHLORIDE 93 mmol/L (98-107)
[2016-08-05 08:05] LABS: POTASSIUM 4.1 mmol/L (3.6-5.2); SODIUM 133 mmol/L (132-148)
[2016-08-05 08:07] LABS: GFR AFRICAN-AMERICAN > 60
[2016-08-05 08:08] LABS: BLOOD UREA NITROGEN 20 mg/dL (9-20); CALCIUM 8.8 mg/dl (8.6-10.4); CARBON DIOXIDE 34 mmol/L (22-30); GLUCOSE,RANDOM 119 mg/dL (75-110)
[2016-08-05] MEDS: Pantoprazole 40 mg EC Tab PO SCH (11:08)
[2016-08-05] MEDS: Simethicone 40 mg/0.6 ml Liquid (30 ml) PO SCH ×3 (11:09→18:32)
[2016-08-05] MEDS: Baclofen 5 mg Tab PO SCH (11:12)
--- NOTE | 2016-08-05 18:56 | CP.PCM.PN ---
<Ben Benz - Last Filed: 08/05/16 18:53> Subjective - Date & Time of Evaluation Date of Evaluation: 08/05/16 Time of Evaluation: 07:15 - Subjective Subjective: Hospitalist Note- Dr. Del Cid's service. Patient seen and evaluated at bedside. He reports no complaints. He denies any chest pain, SOB, fever, chills, nausea or vomiting. He says he will continue to work with PT and do exercises in the bed to get stronger. No adverse events over night per nursing. Objective - Vital Signs/Intake and Output Vital Signs (last 24 hours): Temp Pulse Resp BP Pulse Ox 98.4 F 95 H 20 137/86 95 08/05/16 17:00 08/05/16 17:00 08/05/16 17:00 08/05/16 17:00 08/05/16 17:00 Intake and Output: 08/05/16 08/05/16 06:59 18:59 Intake Total 200 400 Balance 200 400 - Medications Medications: Current Medications Acetaminophen (Tylenol 325mg Tab) 650 mg PO Q6 PRN PRN Reason: Headache Last Admin: 07/30/16 09:36 Dose: 650 mg Albuterol/Ipratropium (Duoneb 3 Mg/0.5 Mg (3 Ml) Ud) 3 ml INH RQ6 [facility] Last Admin: 08/05/16 13:52 Dose: 3 ml Amlodipine Besylate (Norvasc) 10 mg PO DAILY [facility] Last Admin: 08/05/16 11:08 Dose: 10 mg Aspirin (Ecotrin) 81 mg PO DAILY [facility] Last Admin: 08/05/16 11:08 Dose: 81 mg Baclofen (Lioresal) 5 mg PO DAILY [facility] Last Admin: 08/05/16 11:12 Dose: 5 mg Docusate Sodium (Colace) 100 mg PO TID [facility] Last Admin: 08/05/16 18:35 Dose: 100 mg Gabapentin (Neurontin) 400 mg PO TID [facility] Last Admin: 08/05/16 18:35 Dose: 400 mg Heparin Sodium (Porcine) (Heparin) 5,000 units SC Q8 [facility] Last Admin: 08/05/16 14:54 Dose: 5,000 units Ondansetron HCl (Zofran Inj) 4 mg IVP Q6 PRN PRN Reason: Nausea/Vomiting Oxycodone HCl (Oxycodone Immediate Release Tab) 5 mg PO Q4H PRN PRN Reason: Pain, moderate (4-7) Last Admin: 08/05/16 06:35 Dose: 5 mg Pantoprazole Sodium (Protonix Ec Tab) 40 mg PO DAILY [facility] Last Admin: 08/05/16 11:08 Dose: 40 mg Prednisone (Prednisone Tab) 10 mg PO BID [facility] Stop: 08/07/16 18:01 Last Admin: 08/05/16 18:34 Dose: 10 mg Prednisone (Prednisone Tab) 20 mg PO DAILY [facility] Stop: 08/13/16 10:01 Prednisone (Prednisone Tab) 10 mg PO DAILY [facility] Stop: 08/19/16 10:01 Prednisone (Prednisone Tab) 5 mg PO DAILY [facility] Stop: 08/25/16 10:01 Rosuvastatin Calcium (Crestor) 5 mg PO [facility] Last Admin: 08/04/16 21:27 Dose: 5 mg Simethicone (Mylicon Chew Tab) 80 mg PO [facility] - Labs Labs: 08/05/16 07:17 08/05/16 07:17 PT 14.4 SECONDS (9.7-12.2) H 07/20/16 13:38 INR 1.3 07/20/16 13:38 APTT 30 SECONDS (21-34) 07/16/16 06:18 - Constitutional Appears: Non-toxic, No Acute Distress - Head Exam Head Exam: ATRAUMATIC, NORMOCEPHALIC - Eye Exam Eye Exam: EOMI, Normal appearance, PERRL Pupil Exam: NORMAL ACCOMODATION, PERRL - ENT Exam ENT Exam: Mucous Membranes Moist. absent: Normal Oropharynx (poor dentition) - Neck Exam Neck Exam: absent: Normal Inspection (healing scar) - Respiratory Exam Respiratory Exam: Clear to Ausculation Bilateral, NORMAL BREATHING PATTERN. absent: Rales, Rhonchi, Wheezes - Cardiovascular Exam Cardiovascular Exam: REGULAR RHYTHM, +S1, +S2. absent: Gallop, Rubs, Murmur - GI/Abdominal Exam GI & Abdominal Exam: Soft, Normal Bowel Sounds. absent: Distended, Guarding, Tenderness - Extremities Exam Extremities Exam: Normal Capillary Refill. absent: Normal Inspection ( bilateral hand contraction, hand and LE weakness), Pedal Edema, Tenderness - Back Exam Back Exam: NORMAL INSPECTION. absent: rash noted, tenderness - Neurological Exam Neurological Exam: Alert, Awake, CN II-XII Intact, Oriented x3 Neuro motor strength exam: Left Upper Extremity: 3, Right Upper Extremity: 3, Left Lower Extremity: 3, Right Lower Extremity: 3 - Psychiatric Exam Psychiatric exam: Normal Affect, Normal Mood - Skin Skin Exam: Dry, Intact, Normal Color, Warm Assessment and Plan - Assessment and Plan (Free Text) Plan: Generalized Upper and Lower extremity weakness Cervical Cord Compression * Neurology consult, Dr. Miranda, help appreciated * Neurosurgery (Dr. Ruiz)-->help appreciated * CT head (07/15/16): focal encephalomalacia and/or atrophy seen with b/l anterior temporal lobes Correlation with MRI may be helpful if clinically indicated. Chronic microvascular ischemic changes. Small hypodensity in the left basal ganglia which may represent a small lacunar infarct versus prominent perivascular space (see full report). * Brain MRI (07/15): no acute intracranial abnormality, mild chronic microangiopathic changes, and mild age related global, middle cranial fossa arachnoid cyst versus cystic encephalomalacia, no evidence of mass effect or vasogenic edema * Ordered for Lumbar and cervical spine xrays * CXR: Mild venous congestion. Patchy increased markings at the left lung base (see full report) * Cervical xray (07/15/16): radiolucency at the dense base a remote fracture versus developmental variant; consider CT cervical spine; no subluxation, cervical spondylosis under disc disease most notable C5-C6 * Lumbar xray (07/15/16): lumbar spondylosis and facet arthrosis, developmental variants. * Completed MRI cervical/thoracic and lumbar; awaiting official report of lumbar today * Cervical MRI (07/17/16): severe narrowing of the spinal canal at C4-C5 associated with cord compression and hyperintense T2 signal of the cord at this levl; multilevel moderate to large disc herniation osteophyte complex w posterior ligament hypertropgy which resulting multilevel moderate spinal and neural foraminal narrowing * Thoracic MRI (07/17/16): moderate degenerative disc changes. Multilevel small disc bulging with mild spinal stenosis. no evidence of cord compression * Lumbar MRI (07/17/16): moderate to mildly severe degenerative disc changes at lower lumbar spine more prominent at L4-L5. small to moderate size disc herniation at L4-L5 and L5-S1 associated with posterio ligament and facet joint hypertrophy, which resulting in mild spinal and moderate bilateral neural formating narrowing. heterogeneous bone marrow signal seen at the lower lumbar spine and in the pelvic bones without evidence of discrete mass lesion or cortical destruction * HIV: negative RF: negative, DAWN: positive, 1:40, speckled, RPR: nonreactive, Lyme titers:negative ESR: elevated, Vitamin D: low, Vitamin B12, CPK: 157, UDS: negative, blood alcohol: negative * Patient underwent anterior cervical discteomy C4-C5, cervical fusion C4-C5 per operative note on 07/21/16. No complication noted. Minimal blood loss on . Per neurosurgery, patient stable for transfer for rehab. * Gabapentin 400mg PO tid * Flexeril 10mg PO tid * Taper: Prednisone 10mg PO bid for 5 days, Prednisone 20mg PO daily for 5 days , Prednisone 10mg PO daily for 5 days HTN * HCTZ 25 mg po daily * Norvasc 10 mg PO daily * monitor vital signs Electrolyte imbalance * monitor and replete if necessary Impaired glucose tolerance * [id number]: 6.1 * will need repeat in one year * will need counselling regarding diet and exercise to prevent overt diabetes * Note: patient is on steroid taper Constipation * Resolved * Previously on miralax * Milk of Magnesia * given Mag citrate x1 * OMT performed to alleviate constipation * continue to monitor for adequate bowel movements Prophylactic Measures * Protonix 40 mg PO daily * Aspirin 81mg PO daily * Restart heparin 5000 units subq 8hours for DVT ppx * SCDs while in bed * PT/OT eval--->LEELEE pending placement/transportation Disposition * Patient is awaiting rehab placement; ongoing issue involving logistics discussed with case management * Neurosurgery has indicate appropriate for transfer to rehab in prior progress note * Patient is medically stable for discharge Assessment and plan discussed with attending physician. <Prosper Del Cid - Last Filed: 08/06/16 07:16> Objective - Vital Signs/Intake and Output Vital Signs (last 24 hours): Temp Pulse Resp BP Pulse Ox 97.6 F 81 20 126/76 96 08/05/16 23:52 08/05/16 23:52 08/05/16 23:52 08/05/16 23:52 08/05/16 23:52 Intake and Output: 08/06/16 08/06/16 06:59 18:59 Intake Total 400 Balance 400 - Medications Medications: Current Medications Acetaminophen (Tylenol 325mg Tab) 650 mg PO Q6 PRN PRN Reason: Headache Last Admin: 07/30/16 09:36 Dose: 650 mg Amlodipine Besylate (Norvasc) 10 mg PO DAILY [facility] Last Admin: 08/05/16 11:08 Dose: 10 mg Aspirin (Ecotrin) 81 mg PO DAILY [facility] Last Admin: 08/05/16 11:08 Dose: 81 mg Baclofen (Lioresal) 5 mg PO DAILY [facility] Last Admin: 08/05/16 11:12 Dose: 5 mg Docusate Sodium (Colace) 100 mg PO TID [facility] Last Admin: 08/05/16 18:35 Dose: 100 mg Gabapentin (Neurontin) 400 mg PO TID [facility] Last Admin: 08/05/16 18:35 Dose: 400 mg Heparin Sodium (Porcine) (Heparin) 5,000 units SC Q8 [facility] Last Admin: 08/06/16 06:29 Dose: 5,000 units Ondansetron HCl (Zofran Inj) 4 mg IVP Q6 PRN PRN Reason: Nausea/Vomiting Oxycodone HCl (Oxycodone Immediate Release Tab) 5 mg PO Q4H PRN PRN Reason: Pain, moderate (4-7) Last Admin: 08/05/16 06:35 Dose: 5 mg Pantoprazole Sodium (Protonix Ec Tab) 40 mg PO DAILY [facility] Last Admin: 08/05/16 11:08 Dose: 40 mg Prednisone (Prednisone Tab) 10 mg PO BID [facility] Stop: 08/07/16 18:01 Last Admin: 08/05/16 18:34 Dose: 10 mg Prednisone (Prednisone Tab) 20 mg PO DAILY [facility] Stop: 08/13/16 10:01 Prednisone (Prednisone Tab) 10 mg PO DAILY [facility] Stop: 08/19/16 10:01 Prednisone (Prednisone Tab) 5 mg PO DAILY [facility] Stop: 08/25/16 10:01 Rosuvastatin Calcium (Crestor) 5 mg PO [facility] Last Admin: 08/05/16 21:27 Dose: 5 mg Simethicone (Mylicon Chew Tab) 80 mg PO [facility] Last Admin: 08/05/16 21:28 Dose: Not Given - Labs Labs: 08/05/16 07:17 08/05/16 07:17 PT 14.4 SECONDS (9.7-12.2) H 07/20/16 13:38 INR 1.3 07/20/16 13:38 APTT 30 SECONDS (21-34) 07/16/16 06:18 Attending/Attestation - Attestation I have personally seen and examined this patient.: Yes I have fully participated in the care of the patient.: Yes I have reviewed all pertinent clinical information, including history, physical exam and plan: Yes Notes (Text): Medical Attending: Patient was seen and examined by me. Agree with the above note by the resident. Patient was still having weakness as before of the lower extremities. The movements are slow and he has weakness with grasping my hand as well as moving and bending his knees and moving his toes. He is still pending rehab placement at this time. thank you Prosper Del Cid
[2016-08-05] MEDS: Simethicone 80 mg Chewtab PO SCH (21:28)
[2016-08-05 23:54] VITALS: PULSE 81
[2016-08-06 07:59] VITALS: BP 112/68; TEMP 98; O2SAT 97
[2016-08-06] MEDS: Pantoprazole 40 mg EC Tab PO SCH (10:43)
[2016-08-06] MEDS: Simethicone 80 mg Chewtab PO SCH ×3 (10:43→13:14)
[2016-08-06] MEDS: Baclofen 5 mg Tab PO SCH (10:44)
--- NOTE | 2016-08-06 11:26 | CP.PCM.DIS ---
<Ben Benz - Last Filed: 08/06/16 16:36> Provider - Provider Date of Admission: 07/15/16 10:34 Attending physician: Sonia Levine DO Consults: Dr. John Chamorro Time Spent in preparation of Discharge (in minutes): 45 Hospital Course - Lab Results Lab Results: Most Recent Lab Values WBC 9.1 K/uL (4.8-10.8) 08/05/16 07:17 RBC 4.56 Mil/uL (4.40-5.90) 08/05/16 07:17 Hgb 13.6 g/dL (12.0-18.0) 08/05/16 07:17 Hct 40.8 % (35.0-51.0) 08/05/16 07:17 MCV 89.4 fL (80.0-94.0) 08/05/16 07:17 MCH 29.9 pg (27.0-31.0) 08/05/16 07:17 MCHC 33.4 g/dL (33.0-37.0) 08/05/16 07:17 RDW 14.4 % (11.5-14.5) 08/05/16 07:17 Plt Count 127 K/uL (130-400) L 08/05/16 07:17 MPV 8.7 fL (7.2-11.7) 08/05/16 07:17 Neut % (Auto) 75.7 % (50.0-75.0) H 08/05/16 07:17 Lymph % (Auto) 14.4 % (20.0-40.0) L 08/05/16 07:17 [place] % (Auto) 8.6 % (0.0-10.0) 08/05/16 07:17 Eos % (Auto) 0.9 % (0.0-4.0) 08/05/16 07:17 Baso % (Auto) 0.4 % (0.0-2.0) 08/05/16 07:17 Neut # 6.9 K/uL (1.8-7.0) 08/05/16 07:17 Lymph # 1.3 K/uL (1.0-4.3) 08/05/16 07:17 [place] # 0.8 K/uL (0.0-0.8) 08/05/16 07:17 Eos # 0.1 K/uL (0.0-0.7) 08/05/16 07:17 Baso # 0.0 K/uL (0.0-0.2) 08/05/16 07:17 Neutrophils % (Manual) 89 % (50-75) H 08/02/16 08:56 Band Neutrophils % 1 % (0-2) 08/02/16 08:56 Lymphocytes % (Manual) 6 % (20-40) L 08/02/16 08:56 Monocytes % (Manual) 4 % (0-10) 08/02/16 08:56 Differential Comment 08/05/16 07:17 Toxic Granulation Present 07/26/16 07:11 Platelet Estimate Normal (NORMAL) 08/02/16 08:56 Large Platelets Present 08/02/16 08:56 Giant Platelets Present 08/02/16 08:56 RBC Morphology Normal 07/25/16 08:15 Polychromasia Slight 08/02/16 08:56 Hypochromasia (manual) Slight 08/02/16 08:56 Poikilocytosis (manual Slight 08/02/16 08:56 Anisocytosis (manual) Slight 08/02/16 08:56 Ovalocytes Slight 08/02/16 08:56 Ananth Cells Slight 07/27/16 08:17 Schistocytes Slight 08/02/16 08:56 ESR 50 mm/hr (0-15) H 07/17/16 06:08 PT 14.4 SECONDS (9.7-12.2) H 07/20/16 13:38 INR 1.3 07/20/16 13:38 APTT 30 SECONDS (21-34) 07/16/16 06:18 Puncture Site Lr 07/19/16 07:47 pCO2 38 mm/Hg (35-45) 07/19/16 07:47 pO2 85 mm/Hg (80-100) 07/19/16 07:47 HCO3 27.9 mmol/L (21-28) 07/19/16 07:47 ABG pH 7.47 (7.35-7.45) H 07/19/16 07:47 ABG Total CO2 28.9 mmol/L (22-28) H 07/19/16 07:47 ABG O2 Saturation 98.7 % (95-98) H 07/19/16 07:47 ABG Base Excess 3.9 mmol/L (-2.0-3.0) H 07/19/16 07:47 ABG Hemoglobin 12.1 g/dL (11.7-17.4) 07/19/16 07:47 ABG Carboxyhemoglobin 2.0 % (0.5-1.5) H 07/19/16 07:47 POC ABG HHb (Measured) 1.3 % (0.0-5.0) 07/19/16 07:47 ABG Methemoglobin 1.6 % (0.0-3.0) 07/19/16 07:47 Irwin Test Po 07/19/16 07:47 A-a O2 Difference 17.0 mm/Hg 07/19/16 07:47 Respiratory Index 0.2 07/19/16 07:47 Hgb O2 Saturation 95.1 % (95.0-98.0) 07/19/16 07:47 FiO2 21.0 % 07/19/16 07:47 Sodium 133 mmol/L (132-148) 08/05/16 07:17 Potassium 4.1 mmol/L (3.6-5.2) 08/05/16 07:17 Chloride 93 mmol/L (98-107) L 08/05/16 07:17 Carbon Dioxide 34 mmol/L (22-30) H 08/05/16 07:17 Anion Gap 10 (10-20) 08/05/16 07:17 BUN 20 mg/dL (9-20) 08/05/16 07:17 Creatinine 0.7 MG/DL (0.8-1.5) L 08/05/16 07:17 Est GFR ( Amer) > 60 08/05/16 07:17 Est GFR (Non-Af Amer) > 60 08/05/16 07:17 POC Glucose (mg/dL) 199 mg/dL (65-110) H 07/20/16 11:39 Random Glucose 119 mg/dL (75-110) H 08/05/16 07:17 Hemoglobin A1c 6.1 % (4.2-6.5) 07/15/16 13:18 Calcium 8.8 mg/dl (8.6-10.4) 08/05/16 07:17 Phosphorus 3.6 mg/dL (2.5-4.5) 08/03/16 09:21 Magnesium 1.4 mg/dL (1.6-2.3) L 08/03/16 09:21 Total Bilirubin 0.6 mg/dL (0.2-1.3) 08/04/16 08:22 AST 20 U/L (17-59) 08/04/16 08:22 ALT 38 U/L (21-72) 08/04/16 08:22 Alkaline Phosphatase 60 U/L (38-126) 08/04/16 08:22 Total Creatine Kinase 157 U/L (55-170) 07/15/16 13:18 CK-MB (Mass) 2.37 ng/mL (0.0-3.38) 07/15/16 13:18 Troponin I < 0.0120 ng/mL (0.00-0.120) 07/15/16 03:03 Troponin I, Quant < 0.0120 ng/mL (0.00-0.120) 07/15/16 13:18 C-React Prot High Sens 10.33 mg/L (1.00-3.00) H 07/17/16 06:08 Total Protein 6.2 g/dL (6.3-8.3) L 08/04/16 08:22 Albumin 3.3 g/dL (3.5-5.0) L 08/04/16 08:22 Globulin 2.9 gm/dL (2.2-3.9) 08/04/16 08:22 Albumin/Globulin Ratio 1.1 (1.0-2.1) 08/04/16 08:22 Triglycerides 84 mg/dL (0-149) 07/15/16 13:18 Cholesterol 150 mg/dL (0-199) 07/15/16 13:18 LDL Cholesterol Direct 86 mg/dL (0-129) 07/15/16 13:18 HDL Cholesterol 39 mg/dL (30-70) 07/15/16 13:18 Vitamin B12 726 pg/mL (239-931) 07/15/16 13:18 25-OH Vitamin D Total 21.7 NG/ML (30.0-100.0) L 07/15/16 19:41 Folate 14.0 ng/mL 07/15/16 13:18 Thyroxine (T4) 9.33 ug/dL (5.5-11.0) 07/15/16 13:18 Total T3 1.26 nmol/L (1.49-2.60) L 07/16/16 14:11 TSH 3rd Generation 0.60 mIU/L (0.46-4.68) 07/15/16 13:18 Urine Color [place] (YELLOW) 07/15/16 02:31 Urine Clarity Clear (Clear) 07/15/16 02:31 Urine pH 5.0 (5.0-8.0) 07/15/16 02:31 Ur Specific [place] 1.029 (1.003-1.030) 07/15/16 02:31 Urine Protein Negative mg/dL (NEGATIVE) 07/15/16 02:31 Urine Glucose (UA) Normal mg/dL (Normal) 07/15/16 02:31 Urine Ketones 2+ mg/dL (NEGATIVE) H 07/15/16 02:31 Urine Blood Negative (NEGATIVE) 07/15/16 02:31 Urine Nitrate Negative (NEGATIVE) 07/15/16 02:31 Urine Bilirubin Negative (NEGATIVE) 07/15/16 02:31 Urine Urobilinogen 4.0 mg/dL (0.2-1.0) 07/15/16 02:31 Ur Leukocyte Esterase Neg Jorge/uL (Negative) 07/15/16 02:31 Urine WBC (Auto) 2 /hpf (0-5) 07/15/16 02:31 Urine Opiates Screen Negative (NEGATIVE) 07/15/16 02:31 Urine Methadone Screen Negative (NEGATIVE) 07/15/16 02:31 Ur Barbiturates Screen Negative (NEGATIVE) 07/15/16 02:31 Ur Phencyclidine Scrn Negative (NEGATIVE) 07/15/16 02:31 Ur Amphetamines Screen Negative (NEGATIVE) 07/15/16 02:31 U Benzodiazepines Scrn Negative (NEGATIVE) 07/15/16 02:31 U Oth Cocaine Metabols Negative (NEGATIVE) 07/15/16 02:31 U Cannabinoids Screen Negative (NEGATIVE) 07/15/16 02:31 Alcohol, Quantitative < 10 mg/dl (0-10) 07/14/16 21:51 Rheum Arthritis Panel Negative (NEGATIVE) 07/15/16 19:37 DAWN 6 Profile Positive (NEGATIVE) H 07/15/16 19:37 DAWN Titer 1:40 H 07/15/16 19:37 DAWN Pattern Speckled H 07/15/16 19:37 RPR Nonreactive (NONREACTIVE) 07/15/16 19:37 Lyme IgG 18 kDa Band Nonreactive 07/15/16 19:37 Lyme IgG 23 kDa Band Nonreactive 07/15/16 19:37 Lyme IgG 28 kDa Band Nonreactive 07/15/16 19:37 Lyme IgG 30 kDa Band Nonreactive 07/15/16 19:37 Lyme IgG 39 kDa Band Nonreactive 07/15/16 19:37 Lyme IgG 41 kDa Band Nonreactive 07/15/16 19:37 Lyme IgG 45 kDa Band Nonreactive 07/15/16 19:37 Lyme IgG 58 kDa Band Reactive H 07/15/16 19:37 Lyme IgG 66 kDa Band Nonreactive 07/15/16 19:37 Lyme IgG 93 kDa Band Nonreactive 07/15/16 19:37 Lyme IgG W Blot Interp Negative (Negative) 07/15/16 19:37 Lyme IgM 23 kDa Band Nonreactive 07/15/16 19:37 Lyme IgM 39 kDa Band Nonreactive 07/15/16 19:37 Lyme IgM 41 kDa Band Nonreactive 07/15/16 19:37 Lyme IgM W Blot Interp Negative (Negative) 07/15/16 19:37 HIV 1&2 Ag/Ab, 4th Gen Nonreactive (Nonreactive) 07/15/16 19:37 HIV 1&2 Antibody Screen Negative (NEGATIVE) 07/18/16 21:09 - Hospital Course Hospital Course: CC: "Weakness in legs and numbness of my entire body" 55M with PMH of HTN and prior ETOH abuse who presents to the ED for complaint of weakness in his legs and diffuse numbness. He reports that he first experienced a tingling in his chest about a month ago that gradually spread throughout his entire body and progressed to numbness. He describes it as "feeling off" and notes that at first it would come and go, but it progressed to being persistent. About the same time he noticed his legs were growing weak and he had more difficulty walking around. He cannot name any inciting factors, any relieving factors or any exacerbating factors. He had never experienced these symptoms before one month ago. Patient is currently denying any pain. Nothing he notices, alleviates or exacerbates any of his symptoms. Admits weakness, numbness, shortness of breath, urinary urgency. Denies urinary or bowel incontinence, fever, chills, headache, vision changes, hearing changes, recent illness, nausea, vomiting, diarrhea, and edema. Hospital Course: Patient is a 55 y/o M who presented with weakness in his legs and diffuse numbness. A CT Head showed: focal encephalomalacia and/or atrophy seen with b/l anterior temporal lobes , chronic microvascular ischemic changes, small hypodensity in the left basal ganglia which may represent a small lacunar infarct versus prominent perivascular space. A MRI of the brain showed: no acute intracranial abnormality, mild chronic microangiopathic changes, and mild age related global, middle cranial fossa arachnoid cyst versus cystic encephalomalacia, no evidence of mass effect or vasogenic edema. A chest x-ray showed Mild venous congestion. Patchy increased markings at the left lung base . Cervical x-ray showed radiolucency at the dense base a remote fracture versus developmental variant; consider CT cervical spine; no subluxation, cervical spondylosis under disc disease most notable C5-C6. A Lumbar xray showed lumbar spondylosis and facet arthrosis, developmental variants. Cervical MRI performed showed severe narrowing of the spinal canal at C4-C5 associated with cord compression and hyperintense T2 signal of the cord at this levl; multilevel moderate to large disc herniation osteophyte complex w posterior ligament hypertropgy which resulting multilevel moderate spinal and neural foraminal narrowing. Thoracic MRI showed moderate degenerative disc changes. Multilevel small disc bulging with mild spinal stenosis. no evidence of cord compression. A Lumbar MRI showed moderate to mildly severe degenerative disc changes at lower lumbar spine more prominent at L4-L5. small to moderate size disc herniation at L4-L5 and L5-S1 associated with posterio ligament and facet joint hypertrophy, which resulting in mild spinal and moderate bilateral neural formating narrowing. heterogeneous bone marrow signal seen at the lower lumbar spine and in the pelvic bones without evidence of discrete mass lesion or cortical destruction. His HIV, RF, DAWN, RPR, and [place] titers were negative. Neurology and neurosurgery were consulted. It was determined he would need anterior cervical discectomy and fusion of C4-C5. Cardiology and pulmonology were consulted for clearance for surgery. He was determined medically stable for surgery. Nerufosurgery performed an anterior cervical discteomy and fusion of C4-C5.He tolerated the procedure well however still had residual weakness down lower and upper extremities. He was started on a prednisone taper, gabapentin, and flexeril. It was determined he would need physical therapy. He was determined medically stable for discharge to rehab facility. He was asked to resume the course of medications you were taking here at [facility] make sure to participate with physical therapy at rehab facility; when discharged from rehab, please follow up with the [facility]); you will also need to follow up with your neurosurgeon after discharge from rehab; and if your condition worsens or new symptoms arise, please return to the emergency room. He verbalized understanding and was discharged to [facility] with prescriptions. This is a brief summary of the patient's stay at this facility. For more detail , see patient's full chart. - Date & Time of H&P Date of H&P: 07/15/16 Time of H&P: 10:48 Discharge Exam - Head Exam Head Exam: ATRAUMATIC, NORMOCEPHALIC - Eye Exam Eye Exam: EOMI, Normal appearance, PERRL Pupil Exam: NORMAL ACCOMODATION, PERRL - ENT Exam ENT Exam: Mucous Membranes Moist, Normal Oropharynx - Neck Exam Neck exam: Normal Inspection Additional comments: healing surgical site - Respiratory Exam Respiratory Exam: NORMAL BREATHING PATTERN. absent: Rales, Rhonchi, Wheezes - Cardiovascular Exam Cardiovascular Exam: REGULAR RHYTHM, +S1, +S2. absent: Gallop, Rubs, Systolic Murmur - GI/Abdominal Exam GI & Abdominal Exam: Normal Bowel Sounds, Soft. absent: Tenderness - Extremities Exam Extremities exam: normal capillary refill, pedal pulses present Additional comments: hands have moderate contraction and weakness. bilateral lower ext weakness - Back Exam Back exam: NORMAL INSPECTION. absent: rash noted, tenderness - Neurological Exam Neurological exam: Alert, CN II-XII Intact, Oriented x3 Additional comments: decreased sensation bilateral lower extremities and hands. lower and upper extremity weakness. - Psychiatric Exam Psychiatric exam: Depressed - Skin Skin Exam: Dry, Intact, Normal Color, Warm Discharge Plan - Discharge Medications Prescriptions: amLODIPine [Norvasc] 10 mg PO DAILY #30 tab Aspirin [Ecotrin] 81 mg PO DAILY #30 Cyclobenzaprine [Flexeril] 10 mg PO TID PRN #30 tab PRN Reason: Muscle Spasm Gabapentin [Neurontin] 400 mg PO TID #90 cap hydroCHLOROthiazide [Hydrodiuril] 25 mg PO DAILY #30 tab Pantoprazole [Protonix EC Tab] 40 mg PO DAILY #30 ect predniSONE [predniSONE Tab] 10 mg PO DAILY #7 tab predniSONE [predniSONE Tab] 10 mg PO BID #2 tab predniSONE [predniSONE Tab] 20 mg PO DAILY #7 tab predniSONE [predniSONE Tab] 5 mg PO DAILY #7 tab - Follow Up Plan Condition: FAIR Disposition: REHAB FACILITY/REHAB UNIT Instructions: Hydrochlorothiazide (By mouth), Prednisone (By mouth), Cyclobenzaprine (By mouth), Aspirin (By mouth), Gabapentin (By mouth), Amlodipine (By mouth), Pantoprazole (By mouth), How to Stop Smoking (DC), Cervical Fracture (DC), Weakness (ED), Hypertension (DC), Hypertension (GEN) Additional Instructions: You are medically stable for discharge to rehabilitation facility. Please resume the course of medications you were taking here at [facility] Make sure to participate with physical therapy at rehab facility. When discharged from rehab, please follow up with the [facility] at [facility] You will also need to follow up with your neurosurgeon after discharge from rehab. If your condition worsens or new symptoms arise, please return to the emergency room. Referrals: [facility] [Outside] [facility] [Outside] <Prosper Del Cid - Last Filed: 08/09/16 08:00> Provider - Provider Date of Admission: 07/15/16 10:34 Attending physician: Prosper Del Cid, [facility] Course - Lab Results Lab Results: Most Recent Lab Values WBC 9.1 K/uL (4.8-10.8) 08/05/16 07:17 RBC 4.56 Mil/uL (4.40-5.90) 08/05/16 07:17 Hgb 13.6 g/dL (12.0-18.0) 08/05/16 07:17 Hct 40.8 % (35.0-51.0) 08/05/16 07:17 MCV 89.4 fL (80.0-94.0) 08/05/16 07:17 MCH 29.9 pg (27.0-31.0) 08/05/16 07:17 MCHC 33.4 g/dL (33.0-37.0) 08/05/16 07:17 RDW 14.4 % (11.5-14.5) 08/05/16 07:17 Plt Count 127 K/uL (130-400) L 08/05/16 07:17 MPV 8.7 fL (7.2-11.7) 08/05/16 07:17 Neut % (Auto) 75.7 % (50.0-75.0) H 08/05/16 07:17 Lymph % (Auto) 14.4 % (20.0-40.0) L 08/05/16 07:17 [place] % (Auto) 8.6 % (0.0-10.0) 08/05/16 07:17 Eos % (Auto) 0.9 % (0.0-4.0) 08/05/16 07:17 Baso % (Auto) 0.4 % (0.0-2.0) 08/05/16 07:17 Neut # 6.9 K/uL (1.8-7.0) 08/05/16 07:17 Lymph # 1.3 K/uL (1.0-4.3) 08/05/16 07:17 [place] # 0.8 K/uL (0.0-0.8) 08/05/16 07:17 Eos # 0.1 K/uL (0.0-0.7) 08/05/16 07:17 Baso # 0.0 K/uL (0.0-0.2) 08/05/16 07:17 Neutrophils % (Manual) 89 % (50-75) H 08/02/16 08:56 Band Neutrophils % 1 % (0-2) 08/02/16 08:56 Lymphocytes % (Manual) 6 % (20-40) L 08/02/16 08:56 Monocytes % (Manual) 4 % (0-10) 08/02/16 08:56 Differential Comment 08/05/16 07:17 Toxic Granulation Present 07/26/16 07:11 Platelet Estimate Normal (NORMAL) 08/02/16 08:56 Large Platelets Present 08/02/16 08:56 Giant Platelets Present 08/02/16 08:56 RBC Morphology Normal 07/25/16 08:15 Polychromasia Slight 08/02/16 08:56 Hypochromasia (manual) Slight 08/02/16 08:56 Poikilocytosis (manual Slight 08/02/16 08:56 Anisocytosis (manual) Slight 08/02/16 08:56 Ovalocytes Slight 08/02/16 08:56 Ananth Cells Slight 07/27/16 08:17 Schistocytes Slight 08/02/16 08:56 ESR 50 mm/hr (0-15) H 07/17/16 06:08 PT 14.4 SECONDS (9.7-12.2) H 07/20/16 13:38 INR 1.3 07/20/16 13:38 APTT 30 SECONDS (21-34) 07/16/16 06:18 Puncture Site Lr 07/19/16 07:47 pCO2 38 mm/Hg (35-45) 07/19/16 07:47 pO2 85 mm/Hg (80-100) 07/19/16 07:47 HCO3 27.9 mmol/L (21-28) 07/19/16 07:47 ABG pH 7.47 (7.35-7.45) H 07/19/16 07:47 ABG Total CO2 28.9 mmol/L (22-28) H 07/19/16 07:47 ABG O2 Saturation 98.7 % (95-98) H 07/19/16 07:47 ABG Base Excess 3.9 mmol/L (-2.0-3.0) H 07/19/16 07:47 ABG Hemoglobin 12.1 g/dL (11.7-17.4) 07/19/16 07:47 ABG Carboxyhemoglobin 2.0 % (0.5-1.5) H 07/19/16 07:47 POC ABG HHb (Measured) 1.3 % (0.0-5.0) 07/19/16 07:47 ABG Methemoglobin 1.6 % (0.0-3.0) 07/19/16 07:47 Irwin Test Po 07/19/16 07:47 A-a O2 Difference 17.0 mm/Hg 07/19/16 07:47 Respiratory Index 0.2 07/19/16 07:47 Hgb O2 Saturation 95.1 % (95.0-98.0) 07/19/16 07:47 FiO2 21.0 % 07/19/16 07:47 Sodium 133 mmol/L (132-148) 08/05/16 07:17 Potassium 4.1 mmol/L (3.6-5.2) 08/05/16 07:17 Chloride 93 mmol/L (98-107) L 08/05/16 07:17 Carbon Dioxide 34 mmol/L (22-30) H 08/05/16 07:17 Anion Gap 10 (10-20) 08/05/16 07:17 BUN 20 mg/dL (9-20) 08/05/16 07:17 Creatinine 0.7 MG/DL (0.8-1.5) L 08/05/16 07:17 Est GFR ( Amer) > 60 08/05/16 07:17 Est GFR (Non-Af Amer) > 60 08/05/16 07:17 POC Glucose (mg/dL) 199 mg/dL (65-110) H 07/20/16 11:39 Random Glucose 119 mg/dL (75-110) H 08/05/16 07:17 Hemoglobin A1c 6.1 % (4.2-6.5) 07/15/16 13:18 Calcium 8.8 mg/dl (8.6-10.4) 08/05/16 07:17 Phosphorus 3.6 mg/dL (2.5-4.5) 08/03/16 09:21 Magnesium 1.4 mg/dL (1.6-2.3) L 08/03/16 09:21 Total Bilirubin 0.6 mg/dL (0.2-1.3) 08/04/16 08:22 AST 20 U/L (17-59) 08/04/16 08:22 ALT 38 U/L (21-72) 08/04/16 08:22 Alkaline Phosphatase 60 U/L (38-126) 08/04/16 08:22 Total Creatine Kinase 157 U/L (55-170) 07/15/16 13:18 CK-MB (Mass) 2.37 ng/mL (0.0-3.38) 07/15/16 13:18 Troponin I < 0.0120 ng/mL (0.00-0.120) 07/15/16 03:03 Troponin I, Quant < 0.0120 ng/mL (0.00-0.120) 07/15/16 13:18 C-React Prot High Sens 10.33 mg/L (1.00-3.00) H 07/17/16 06:08 Total Protein 6.2 g/dL (6.3-8.3) L 08/04/16 08:22 Albumin 3.3 g/dL (3.5-5.0) L 08/04/16 08:22 Globulin 2.9 gm/dL (2.2-3.9) 08/04/16 08:22 Albumin/Globulin Ratio 1.1 (1.0-2.1) 08/04/16 08:22 Triglycerides 84 mg/dL (0-149) 07/15/16 13:18 Cholesterol 150 mg/dL (0-199) 07/15/16 13:18 LDL Cholesterol Direct 86 mg/dL (0-129) 07/15/16 13:18 HDL Cholesterol 39 mg/dL (30-70) 07/15/16 13:18 Vitamin B12 726 pg/mL (239-931) 07/15/16 13:18 25-OH Vitamin D Total 21.7 NG/ML (30.0-100.0) L 07/15/16 19:41 Folate 14.0 ng/mL 07/15/16 13:18 Thyroxine (T4) 9.33 ug/dL (5.5-11.0) 07/15/16 13:18 Total T3 1.26 nmol/L (1.49-2.60) L 07/16/16 14:11 TSH 3rd Generation 0.60 mIU/L (0.46-4.68) 07/15/16 13:18 Urine Color Guillerm[place] (YELLOW) 07/15/16 02:31 Urine Clarity Clear (Clear) 07/15/16 02:31 Urine pH 5.0 (5.0-8.0) 07/15/16 02:31 Ur Specific [place] 1.029 (1.003-1.030) 07/15/16 02:31 Urine Protein Negative mg/dL (NEGATIVE) 07/15/16 02:31 Urine Glucose (UA) Normal mg/dL (Normal) 07/15/16 02:31 Urine Ketones 2+ mg/dL (NEGATIVE) H 07/15/16 02:31 Urine Blood Negative (NEGATIVE) 07/15/16 02:31 Urine Nitrate Negative (NEGATIVE) 07/15/16 02:31 Urine Bilirubin Negative (NEGATIVE) 07/15/16 02:31 Urine Urobilinogen 4.0 mg/dL (0.2-1.0) 07/15/16 02:31 Ur Leukocyte Esterase Neg Jorge/uL (Negative) 07/15/16 02:31 Urine WBC (Auto) 2 /hpf (0-5) 07/15/16 02:31 Urine Opiates Screen Negative (NEGATIVE) 07/15/16 02:31 Urine Methadone Screen Negative (NEGATIVE) 07/15/16 02:31 Ur Barbiturates Screen Negative (NEGATIVE) 07/15/16 02:31 Ur Phencyclidine Scrn Negative (NEGATIVE) 07/15/16 02:31 Ur Amphetamines Screen Negative (NEGATIVE) 07/15/16 02:31 U Benzodiazepines Scrn Negative (NEGATIVE) 07/15/16 02:31 U Oth Cocaine Metabols Negative (NEGATIVE) 07/15/16 02:31 U Cannabinoids Screen Negative (NEGATIVE) 07/15/16 02:31 Alcohol, Quantitative < 10 mg/dl (0-10) 07/14/16 21:51 Rheum Arthritis Panel Negative (NEGATIVE) 07/15/16 19:37 DAWN 6 Profile Positive (NEGATIVE) H 07/15/16 19:37 DAWN Titer 1:40 H 07/15/16 19:37 DAWN Pattern Speckled H 07/15/16 19:37 RPR Nonreactive (NONREACTIVE) 07/15/16 19:37 Lyme IgG 18 kDa Band Nonreactive 07/15/16 19:37 Lyme IgG 23 kDa Band Nonreactive 07/15/16 19:37 Lyme IgG 28 kDa Band Nonreactive 07/15/16 19:37 Lyme IgG 30 kDa Band Nonreactive 07/15/16 19:37 Lyme IgG 39 kDa Band Nonreactive 07/15/16 19:37 Lyme IgG 41 kDa Band Nonreactive 07/15/16 19:37 Lyme IgG 45 kDa Band Nonreactive 07/15/16 19:37 Lyme IgG 58 kDa Band Reactive H 07/15/16 19:37 Lyme IgG 66 kDa Band Nonreactive 07/15/16 19:37 Lyme IgG 93 kDa Band Nonreactive 07/15/16 19:37 Lyme IgG W Blot Interp Negative (Negative) 07/15/16 19:37 Lyme IgM 23 kDa Band Nonreactive 07/15/16 19:37 Lyme IgM 39 kDa Band Nonreactive 07/15/16 19:37 Lyme IgM 41 kDa Band Nonreactive 07/15/16 19:37 Lyme IgM W Blot Interp Negative (Negative) 07/15/16 19:37 HIV 1&2 Ag/Ab, 4th Gen Nonreactive (Nonreactive) 07/15/16 19:37 HIV 1&2 Antibody Screen Negative (NEGATIVE) 07/18/16 21:09 Attending/Attestation - Attestation I have personally seen and examined this patient.: Yes I have fully participated in the care of the patient.: Yes I have reviewed all pertinent clinical information, including history, physical exam and plan: Yes Notes (Text): 08/09/16 07:56 Medical attending: Patient was seen and examined by me, agrees the above note by medical care evaluation specialist. The patient was actually discharged several days ago. The being forwarded to me now. Regardless the patient's given need extensive rehabilitation. As documented above the resident note patient had a large cervical neck surgery by neurosurgery. He was on a prolonged course of Decadron and later over to oral prednisone. He is able to feed himself and he's been observed eating well. However he reports that he still has a lot of weakness in the lower extremities particularly on the left side. He has difficulty with plantar and dorsiflexion of both feet however it is more pronounced the left side. He is able to raise his right leg, but this is very difficult with the left leg. He has week for muscle strength as well he is able to grasp my hand however it it is weak on exam. And he's given need a lot of rehabilitation. Regardless I wish in the very best this rehabilitation process. Thank you very much, Prosper Del Cid
== END 2016-08-06 18:35 | DRG 864 ==
LOC: C.ER 19:36 → C.9E 07-15 09:15 → OBSVTOIN 07-15 10:34 → C.3T 07-15 10:40 → C.9E 07-15 11:12 → C.6T 07-15 12:34 → C.3T 07-24 13:49
PROVIDERS: ADMIT Hospitalist; ATTEND Hospitalist
PROC: 0RG10A0 Fusion of Cervical Vertebral Joint with Interbody Fusion Device, Anterior Approach, Anterior Column, Open Approach (ICD-10-PCS; principal; 2016-07-21 11:40)
PROC: 07DS3ZZ Extraction of Vertebral Bone Marrow, Percutaneous Approach (ICD-10-PCS; 2016-07-21 11:40)
DX: M50.021 Cervical disc disorder at C4-C5 level with myelopathy (principal); E87.2 Acidosis; E87.8 Other disorders of electrolyte and fluid balance, not elsewhere classified; G93.89 Other specified disorders of brain; I10 Essential (primary) hypertension; M62.50 Muscle wasting and atrophy, not elsewhere classified, unspecified site; R53.1 Weakness; R20.8 Other disturbances of skin sensation; Z72.0 Tobacco use; F10.20 Alcohol dependence, uncomplicated; Y90.0 Blood alcohol level of less than 20 mg/100 ml; R73.02 Impaired glucose tolerance (oral); G62.9 Polyneuropathy, unspecified; M51.36 Other intervertebral disc degeneration, lumbar region